=== PATIENT | male | born 1940 | race Caucasian/White ===

== ENCOUNTER → 2018-07-31 | Outpatient (CLI) | payer MEDICARE ==
[2018-07-31 15:15] LABS: INR 0.9 (<1.2); Prothrombin Time 10.2 sec (9.0-12.0)
== END | disposition home or self-care (01) ==
LOC: LABPAT 14:29
PROVIDERS: ATTEND Orthopaedic Surgery
DX: Z01.812 Encounter for preprocedural laboratory examination (principal); M16.12 Unilateral primary osteoarthritis, left hip; Z79.01 Long term (current) use of anticoagulants
CPT/HCPCS: 36415; 85610; 87070

== ENCOUNTER 2018-08-07 11:08 | Inpatient (IN) | payer MEDICARE ==
[2018-07-30 16:14] VITALS: BMI 25.8
--- NOTE | 2018-08-06 09:34 | HP ---
HISTORY AND PHYSICAL CHIEF COMPLAINT: Left hip pain. HISTORY OF PRESENT ILLNESS: The patient is a 78-year-old retired gentleman who presents with progressive left hip pain, worsening over the past couple years. He notes groin and thigh pain, worse with weightbearing activities. He notes this severely limits him. He has been limping. He has been taking anti-inflammatories with only partial temporary relief. PAST MEDICAL HISTORY: Significant for arthritis, heart disease, hypercholesterolemia, and hypertension. PAST SURGICAL HISTORY: Significant for cardiac catheterization. CURRENT MEDICATIONS: 1. Amlodipine. 2. Aspirin. 3. Atorvastatin. 4. Meloxicam. 5. Metoprolol. 6. Omeprazole. He has allergies to NAPROSYN. FAMILY HISTORY: Significant for diabetes, heart disease and cancer along with stroke. SOCIAL HISTORY: Significant for previous tobacco use and social alcohol use. REVIEW OF SYSTEMS: A 16-point review of systems otherwise reviewed and is noncontributory. PHYSICAL EXAMINATION: On examination, the patient is approximately 5 foot 8, 175 pounds of mesomorphic habitus. HEENT exam is nonfocal. Neck is supple. Passive motion left hip, flexion 85 degrees, external rotation with the hip flexed 55 degrees, internal rotation is 0 degrees with pain. Clinically, he has got 1 cm shortening left lower extremity compared to the right. His distal neurovascular appears intact otherwise in the left lower extremity. AP and lateral views of the left hip obtained in the office show severe osteoarthrosis with [id number] changes. IMPRESSION: 1. Left hip severe osteoarthrosis. 2. History of coronary artery disease, status post stenting. RECOMMENDATIONS: I talked to the patient and his at length regarding his condition and treatment options. At this point, he remains quite symptomatic despite conservative measures. After thorough discussion, he opts to proceed with surgery. We will plan to proceed with left total hip arthroplasty utilizing a direct anterior approach. We will likely institute DVT prophylaxis postoperatively. Patient underwent preoperative cardiac evaluation by Dr. Danielle Smyth. MMNEERUL / CARMENN: [id number] /
[~2018-08-07 11:08] MED LIST: ACETAMINOPHEN TAB 500 MG TAB PO ONE; DEXAMETHASONE SOD PHOSPHATE 10 MG/ML 1 ML VIAL IV ONE; HYDROmorphone 0.5 MG/0.5 ML SYRINGE IVP PRN; MELOXICAM 7.5 MG TAB PO ONE; MIDAZOLAM (PF) 2 MG/2 ML VIAL IV PRN; ONDANSETRON 4 MG/2 ML VIAL IVP ONE; TRANEXAMIC ACID 1,000 MG in SODIUM CHLORIDE 0.9% 100 ML IVPB ONE; ceFAZolin IN SWFI 2 GM/20 ML SYRINGE IVP ONE
[2018-08-07] MEDS: LACTATED RINGERS 1,000 ML IV SCH (11:59)
[2018-08-07] MEDS ORDERED: LIDOCAINE 1% 20 ML VIAL (10MG/ML) FOR IV START INTRADERMA ONE (12:00)
[2018-08-07] MEDS ORDERED: PROPOFOL 10 MG/ML 20 ML VIAL IV ONE (13:28)
[2018-08-07] MEDS ORDERED: SODIUM CHLORIDE 0.9% 100 ML BAG ONE (13:28)
[2018-08-07] MEDS ORDERED: fentaNYL (PF) 50 MCG/ML 2 ML AMP ONE (13:28)
[2018-08-07] MEDS ORDERED: TRANEXAMIC ACID 1,000 MG/10 ML VIAL ONE (13:28)
[2018-08-07] MEDS ORDERED: HEPARIN SODIUM,PORCINE 10,000 UNIT/ML 1 ML VIAL ONE (13:28)
[2018-08-07] MEDS ORDERED: SODIUM CHLORIDE 0.9% IRRIG 1,000 ML BTL IRRIGATION ONE (13:28)
[2018-08-07] MEDS ORDERED: MIDAZOLAM 2 MG/2 ML VIAL ONE (13:28)
[2018-08-07] MEDS ORDERED: LACTATED RINGERS 1,000 ML IV ONE ×2 (14:23→16:39)
[2018-08-07] MEDS ORDERED: HYDROcodone/APAP 5-325MG 1 EACH TAB PO PRN (15:59)
[2018-08-07] MEDS ORDERED: ACETAMINOPHEN TAB 325 MG TAB PO PRN (15:59)
[2018-08-07] MEDS ORDERED: ONDANSETRON 4 MG/2 ML VIAL IVP PRN (15:59)
[2018-08-07] MEDS ORDERED: HYDROcodone/APAP 7.5-325MG 1 EACH TAB PO PRN (15:59)
[2018-08-07] MEDS ORDERED: HYDROmorphone 0.5 MG/0.5 ML SYRINGE IVP PRN ×2 (15:59)
[2018-08-07] MEDS ORDERED: NALOXONE 0.4 MG/ML 1 ML VIAL IV PRN (15:59)
[2018-08-07] MEDS ORDERED: MAGNESIUM HYDROXIDE 2,400 MG/10 ML CUP PO PRN (15:59)
--- NOTE | 2018-08-07 16:17 | XR ---
Limited left hip HISTORY: Anterior hip replacement 4 intraoperative C-arm images document the procedure.
--- NOTE | 2018-08-07 16:17 | FL ---
Fluoroscopy HISTORY: Anterior hip replacement 56 seconds fluoroscopy time supplied to the referring clinician. 4 intraoperative C-arm images docum ent the procedure. See dictated report from orthopedic surgery.
--- NOTE | 2018-08-07 16:24 | P.OP ---
Date of Procedure: 08/07/18 Preoperative Diagnosis: Left hip severe osteoarthrosis Postoperative Diagnosis: Same Procedure(s) Performed: Left total hip arthroplastyanterior approach Implants: Depuy Corail size 12 standard press-fit collared femoral stem, 36 mm +1 cobalt chrome femoral head, 54 mm Tarzana acetabular shell with neutral polyethylene liner. Anesthesia: spinal Surgeon: Wayne Peguero Consumer Analyst #1: Teddy Penn Estimated Blood Loss (ml): 250 Pathology: other (Femoral head) Condition: stable Disposition: PACU Indications for Procedure: The patient is a 78-year-old male who presents with progressive left hip pain secondary to osteoarthrosis despite conservative measures. A discussion of the risks and benefits of operative intervention versus continued conservative measures was made with patient. He opted proceed with surgery. Operative risks to include infection, neurovascular injury, development of blood clots, possible fracture, possible leg length discrepancy, possible instability, and possible need for subsequent procedures was discussed. Informed consent was obtained. Operative Findings: As below Description of Procedure: The patient was brought to the operating room, and after induction of spinal anesthesia was placed supine on the Maria Elena table. Positioning was checked with fluoroscopy. The left hip was then prepped and draped in a normal fashion. A 12 cm incision was then made starting 2 fingerbreadths distal and 3 finger breaths posterior to the ASIS in line with the proximal femur. The skin was incised sharply. Subcutaneous tissues were divided sharply. Electrocautery was used for hemostasis. The fascia was split in line with skin incision. The interval between the sartorius and tensor fascia libra was then bluntly developed. The posterior fascia was opened with electrocautery. The lateral circumflex vessels were identified and cauterized prior to sectioning. A retractor was placed along the superior femoral neck as well as the anterior acetabular rim. A wide capsulotomy was performed. The neck cut was then made at a 45 angle to the shaft approximately 1 1/2 cm above the level of the lesser trochanter. The head was extracted. Attention was then paid towards preparing the acetabular. Anterior and posterior retractors were placed. The remaining capsular labral tissue sharply debrided clearly defining the acetabular margins. I began reaming with a 47 mm reamer taking care to initially medialize then reaming at 45 of abduction and 20 of anteversion. Sequential reaming is performed up to 53 mm. A trial for mm acetabular shell was inserted in the same orientation and was fully seated. There was good rim fit and stability. Positioning was checked with fluoroscopy. The final a 4 mm acetabular shell was inserted again at 45 of abduction and 20 of anteversion. This was fully seated. There was good rim fit and stability. I did place a 6.5 mm x 25 mm cancellus screw with good purchase. Again fluoroscopy was used to check the adequacy of placement. A neutral polyethylene liner was gently impacted. Care was taken to avoid any soft tissue interposition. Pulsatile lavage was utilized. Attention was then paid towards preparing the proximal femur. The saddle region was cleared of soft tissue. A canal finder was used to find the femoral canal. Sequential broaching was performed up to size 12 taking care to lateralize proximally. A calcar mill was used to fashion the medial calcar. There was good rotational stability. A standard neck along with a 36 mm +1 femoral head was placed. The hip was gently reduced. Fluoroscopy was used to check the adequacy of positioning along with leg lengths. I felt both were good. The hip was gently dislocated. The trial components were removed. The final size 12 collared standard press-fit femoral stem was inserted parallel to the posterior cortex. This was fully seated and there was good rotational stability. A 36 mm 1 cobalt chrome femoral head was placed. This was gently impacted. The hip was then gently reduced. Final fluoroscopic view showed adequate placement implant along with islam of leg length. Stability was checked with 80 of external rotation and 60 of extension of the left hip. The wound was irrigated with sterile lavage. The fascia was closed with running 0 Vicryl suture. There was minimal drainage therefore a deep drain was not placed. The second dose of IV TXA was given. The subcutaneous tissues were reapproximated interrupted 2-0 Vicryl sutures. The skin was reapproximated with 3-0 subcuticular strata fix suture. Skin tape and adhesive was applied. A sterile dressing was applied. The patient was then awoken from sedation and transferred to recovery room in good condition. Blood loss was estimated at 250 mL. No complications were incurred. Sponge and needle counts were correct at the end of the case. Dao AG assisted during the major components is case to include exposure, bone resection, implantation, and closure.
--- NOTE | 2018-08-07 16:46 | XR ---
Left hip single view. History postop. Comparison none. FINDINGS: There is a left hip prosthesis. Components appear in anatomic position. IMPRESSION: Left hip prosthesis. No complicating process seen.
[2018-08-07] MEDS: traMADol 50 MG TAB PO SCH ×2 (17:26→20:45)
[2018-08-07] MEDS: ceFAZolin IN SWFI 2 GM/20 ML SYRINGE IVP SCH ×2 (17:38→23:43)
[2018-08-07] MEDS: FAMOTIDINE 20 MG TAB PO SCH (20:45)
[2018-08-07] MEDS: METOPROLOL TARTRATE 25 MG TAB PO SCH (20:46)
[2018-08-07] MEDS ORDERED: ATORVASTATIN 40 MG TAB PO SCH (21:00)
[2018-08-07] MEDS ORDERED: SENNOSIDES-DOCUSATE SODIUM 1 EACH TAB PO SCH (21:00)
[2018-08-08] MEDS: LACTATED RINGERS 1,000 ML IV SCH (05:29)
[2018-08-08 08:05] VITALS: BP 127/75; PULSE 74; RESP 16; TEMP 98.9
[2018-08-08 08:59] LABS: Basophils % (A) 0 %; Eosinophils # (A) 0.1 k/uL (0-0.7); Eosinophils % (A) 1 %; HCT 31.5 % (39.0-53.0); HGB 10.3 gm/dL (13.0-17.5); Lymphocytes # (A) 1.4 k/uL (1.0-4.8); Lymphocytes % (A) 19 %; MCH 30.5 pg (25.0-35.0); MCHC 32.8 g/dL (31.0-37.0); MCV 93.2 fL (80.0-100.0); Mean Platelet Volume 8.2; Monocytes # (A) 0.7 k/uL (0-1.0); Monocytes % (A) 9 %; Neutrophils # (A) 5.3 k/uL (1.3-7.7); Neutrophils % (A) 70 %; Platelet Count 199 k/uL (150-450); RBC 3.38 m/uL (4.30-5.90); RDW 13.7 % (11.5-15.5); WBC 7.6 k/uL (3.8-10.6)
[2018-08-08] MEDS ORDERED: RIVAROXABAN 10 MG TAB PO SCH (09:00)
[2018-08-08] MEDS: METOPROLOL TARTRATE 25 MG TAB PO SCH (09:46)
[2018-08-08] MEDS: traMADol 50 MG TAB PO SCH ×2 (09:46→14:00)
[2018-08-08] MEDS: FAMOTIDINE 20 MG TAB PO SCH (09:46)
--- NOTE | 2018-08-08 12:17 | P.PN ---
Subjective Progress Note Date: 08/08/18 Principal diagnosis: Status post direct anterior left total hip arthroplasty Patient evaluated at bedside, he is resting comfortably. Patient has worked with physical therapy. His pain is well-controlled. Denies any chest pain or shortness of breath. Objective - Vital Signs Vital signs: Vital Signs Temp 98.9 F 08/08/18 07:38 Pulse 74 08/08/18 07:38 Resp 16 08/08/18 07:38 BP 127/75 08/08/18 07:38 Pulse Ox 92 L 08/08/18 07:38 Intake & Output 08/07/18 08/08/18 08/08/18 18:59 06:59 18:59 Intake Total 1800 420 Output Total 250 600 Balance 1550 -180 Intake: IV 1800 Intake, IV Titration 420 Amount Lactated Ringers 1,000 ml 420 @ 40 mls/hr IV .Q24H [facility] Rx#:[id number] Output: Urine 600 Estimated Blood Loss 250 Other: Voiding Method Toilet Toilet # Voids 1 - Exam Left lower extremity: Incision is clean, dry, and intact. The exofin fusion tape is in good condition. There is minimal soft tissue swelling and ecchymosis surrounding the medial and lateral aspects of the incision. Calf is soft, no tenderness with palpation. Plantar flexion, dorsiflexion, EHL, FHL are intact. Sensory exam to light touch throughout the extremity is intact, dorsal pedis pulses 2+. - Labs CBC & Chem 7: 08/08/18 08:22 Labs: Abnormal Lab Results - Last 24 Hours (Table) 08/08/18 Range/Units 08:22 RBC 3.38 L (4.30-5.90) m/uL Hgb 10.3 L (13.0-17.5) gm/dL Hct 31.5 L (39.0-53.0) % Assessment and Plan Plan: Assessment: Postop day 1 status post direct anterior left total hip arthroplasty Plan: Pain control, we'll discharge home on oral medication GI and DVT prophylaxis, plan for discharge on Eliquis 2.5mg bid Wound care instructions discussed Medical recommendations Therapy and nursing after discharge at home Plan for discharge to home today Time with Patient: Less than 30
--- NOTE | 2018-08-08 12:20 | P.DS ---
Providers Date of admission: 08/07/18 11:08 Expected date of discharge: 08/08/18 Attending physician: Wayne Peguero Primary care physician: Burak Raman MD Hospital Course: Date of admission: 08/07/2018 Date of discharge: 08/08/2018 Admission diagnosis: Status post direct anterior left total hip arthroplasty Discharge diagnosis: Same Attending physician: Dr. Peguero Surgical procedures: Direct anterior left total hip arthroplasty Brief history: Patient is a 78-year-old male with a history of progressive primary left hip osteoarthritis. At this point patient has failed conservative treatment measures and has opted to proceed with a elective direct anterior left total hip arthroplasty. Hospital course: Details of patient's surgery can be found in operative report. Patient tolerated the procedure well and was subsequently transported to orthopedic floor. Patient's orthopeidc and medical care was provided daily. Patient had daily laboratory tests performed for evaluation of overall blood counts. Patient had daily physical therapy to include strengthening range of motion as well as education with walker ambulation. Patient was treated with Xarelto for their postoperative DVT prophylaxis during their inpatient stay. Patient was noted to have a relatively uneventful postoperative course. Patient reported satisfactory pain control with oral pain medications by postoperative day 0. Patient showed satisfactory progress with physical therapy. Patient moved steadily through the program and had no difficulty meeting the goals by postoperative day 1. Given patient's otherwise satisfactory course and having met physical therapy goals, plan is to discharge patient home on postoperative day 1. Discharge condition/disposition: Patient will be discharged home in stable condition. Discharge medications: Instructions are given on resumption of patient's normal daily medications per primary care recommendation, in addition patient will be prescribed tramadol 50 mg, Colace 100 mg, Eliquis 2.5mg. Discharge instructions: 1. Wound care and infection precautions, keep incision dry and covered while showering, no lotions, creams, moisturizers. No soaking, tubs, pools, hottubs. Do not scrub over the incision. 2. Weight-bear as tolerated with walker / cane until follow-up. 3. Ice and elevate when necessary. Do not exceed 20 minutes per hour with ice pack. 4. Utilize compression sleeve until seen at first follow up appointment. 5. Visiting nursing care. 6. Home physical therapy. 7. Pain meds and anticoagulants per prescription. 8. Pain medication has potential to cause constipation. Increase oral fluid and fiber intake. Contact primary care provider if you have not had a bowel movement within 48 hours after discharge 9. No anti-inflammatory medication until discussed at first post operative visit, this including Motrin, Aleve, Mobic, Diclofenac. 10. Follow up in office at 2 weeks postop with Dao Penn PA-C 11. Follow up with your primary care doctor 7-10 days after discharge. 12. Contact [facility] with any questions, . Procedures: Direct anterior left total hip arthroplasty Patient Condition at Discharge: Good Plan - Discharge Summary Discharge Rx Participant: Yes New Discharge Prescriptions: New Apixaban [Eliquis] 2.5 mg PO BID #60 tab Docusate [Colace] 100 mg PO DAILY #30 capsule traMADol HCl [Ultram] 50 mg PO Q6H PRN #28 tab PRN Reason: Pain No Action Multivitamin [Men's Multi-Vitamin] 1 tab PO DAILY Aspirin 81 mg PO DAILY Metoprolol Tartrate [Lopressor] 25 mg PO BID #60 tab Ranitidine HCl [Zantac] 150 mg PO BID Fexofenadine HCl [Brittany Allergy] 180 mg PO DAILY Atorvastatin [Lipitor] 40 mg PO HS amLODIPine BESYLATE [Norvasc] 2.5 mg PO HS Meloxicam [Mobic] 15 mg PO DAILY Muse-3 Fatty Acids/Fish Oil [Fish Oil 1,000 mg Softgel] 1 cap PO DAILY Acetaminophen [Tylenol Extra Strength] 1,000 mg PO TID PRN PRN Reason: Pain Discharge Medication List Aspirin 81 mg PO DAILY 05/12/15 [History] Multivitamin [Men's Multi-Vitamin] 1 tab PO DAILY 05/12/15 [History] Metoprolol Tartrate [Lopressor] 25 mg PO BID #60 tab 05/13/15 [Rx] Acetaminophen [Tylenol Extra Strength] 1,000 mg PO TID PRN 07/30/18 [History] Atorvastatin [Lipitor] 40 mg PO HS 07/30/18 [History] Fexofenadine HCl [Brittany Allergy] 180 mg PO DAILY 07/30/18 [History] Meloxicam [Mobic] 15 mg PO DAILY 07/30/18 [History] Muse-3 Fatty Acids/Fish Oil [Fish Oil 1,000 mg Softgel] 1 cap PO DAILY [History] Ranitidine HCl [Zantac] 150 mg PO BID 07/30/18 [History] amLODIPine BESYLATE [Norvasc] 2.5 mg PO HS 07/30/18 [History] Apixaban [Eliquis] 2.5 mg PO BID #60 tab 08/08/18 [Rx] Docusate [Colace] 100 mg PO DAILY #30 capsule 08/08/18 [Rx] traMADol HCl [Ultram] 50 mg PO Q6H PRN #28 tab 08/08/18 [Rx] Follow up [facility]ointment(s[facility] - Teddy Penn PAC [PHYSICIAN RESERVATION SALES AGENT] - 2 Weeks Activity/Diet/Wound Care/Special Instructions: Orthopedic Discharge Instructions: 1. Wound care and infection precautions, keep incision dry and covered while showering, no lotions, creams, moisturizers. No soaking, pools, hot tubs. Do not scrub over incision. 2. Weight-bear as tolerated with walker / cane until follow-up. 3. Ice and elevate when necessary. Do not exceed 20 minutes per hour with ice pack. 4. Utilize compression sleeve until seen at first follow up appointment. 5. Pain meds and anticoagulants per prescription. 6. Pain medication has potential to cause constipation. Increase oral fluid and fiber intake. Contact primary care provider if you have not had a bowel movement within 48 hours after discharge. 7. No anti-inflammatory medication until discussed at first post operative visit, this including Motrin, Aleve, Mobic, Diclofenac. 8. Follow up in office at 2 weeks postop with Dao Penn PA-C 9. Follow up with your primary care doctor 7-10 days after discharge. 10. Contact [facility] with any questions, . Discharge Disposition: HOME WITH HOME HEALTH SERVICES
--- NOTE | 2018-08-08 15:27 | P.CONS ---
History of Present Illness - Reason for Consult Recommendations regarding antihypertensive medications - History of Present Illness 78-year-old pleasant gentleman was admitted for the left total hip arthroplasty and the pros patient did pass Denied any fever chills nausea vomiting abdominal pain. Patient is on very low-dose of amlodipine patient was not given this medication today in spite of which his blood pressure remains stable. Because of which I asked him to hold this medication check his visit pressure twice a day and take it to PCP who can make dictation regarding whether he needs this medication. Educated the patient regarding appropriate way of checking blood pressure. Patient pain is well controlled at this timeor symptoms of infection at this time. Review of Systems REVIEW OF SYSTEMS: CONSTITUTIONAL: No fever, no malaise, no fatigue. HEENT: No recent visual problems or hearing problems. Denied any sore throat. CARDIOVASCULAR: No chest pain, orthopnea, PND, no palpitations, no syncope. PULMONARY: No shortness of breath, no cough, no hemoptysis. GASTROINTESTINAL: No diarrhea, no nausea, no vomiting, no abdominal pain. NEUROLOGICAL: No headaches, no weakness, no numbness. HEMATOLOGICAL: Denies any bleeding or petechiae. GENITOURINARY: Denies any burning micturition, frequency, or urgency. MUSCULOSKELETAL/RHEUMATOLOGICAL: Denies any joint pain, swelling, or any muscle pain. ENDOCRINE: Denies any polyuria or polydipsia. The rest of the 14-point review of systems is negative. Past Medical History Past Medical History: Cancer, GERD/Reflux, Hyperlipidemia, Hypertension, Osteoarthritis (OA), Pneumonia, Sleep Apnea/CPAP/BIPAP Additional Past Medical History / Comment(s): ALLERGIC RHINITIS, SCIATICA, SHINGLES 2004(BACK OF HEAD), BASAL CELL SKIN CANCER, VERTIGO EPISODE X1., USES C -PAP MACHINE. History of Any Multi-Drug Resistant Organisms: None Reported Past Surgical History: Heart Catheterization With Stent Additional Past Surgical History / Comment(s): 05-12-15 HEART CATH WITH STENT TO LAD , BRENDA CATARACTS., SKIN CANCER REMOVAL. Past Anesthesia/Blood Transfusion Reactions: No Reported Reaction Date of Last Stent Placement:: 05/12/2015 Past Psychological History: No Psychological Hx Reported Smoking Status: Former smoker Past Alcohol Use History: Occasional Additional Past Alcohol Use History / Comment(s): QUIT SMOKING OVER 45 YEARS AGO , SMOKED FOR 8 YEARS -1 PACK WOULD LAST 1 WEEK. Past Drug Use History: None Reported - Past Family History Brother(s) Family Medical History: Cancer, Diabetes Mellitus, Myocardial Infarction ([place]), Renal Disease Additional Family Medical History / Comment(s): LEUKEMIA, PROSTATE CANCER, DIALYSIS Sister(s) Family Medical History: Cancer Additional Family Medical History / Comment(s): LEUKEMIA Mother Family Medical History: Congestive Heart Failure (CHF), Myocardial Infarction ( [place]) Additional Family Medical History / Comment(s): AT AGE 92 OF CHF Father Family Medical History: CVA/TIA Additional Family Medical History / Comment(s): FROM COMPLICATIONS FROM A STROKE AT AGE 58 Medications and Allergies Home Medications Medication Instructions Recorded Confirmed Type Aspirin 81 mg PO DAILY 05/12/15 08/07/18 History Multivitamin [Men's Multi-Vitamin] 1 tab PO DAILY 05/12/15 08/07/18 History Metoprolol Tartrate [Lopressor] 25 mg PO BID #60 tab 05/13/15 08/07/18 Rx Acetaminophen [Tylenol Extra 1,000 mg PO TID PRN 07/30/18 08/07/18 History Strength] Atorvastatin [Lipitor] 40 mg PO HS 07/30/18 08/07/18 History Fexofenadine HCl [Brittany Allergy] 180 mg PO DAILY 07/30/18 08/07/18 History Meloxicam [Mobic] 15 mg PO DAILY 07/30/18 08/07/18 History [place]-3 Fatty Acids/Fish Oil [Fish 1 cap PO DAILY 07/30/18 08/07/18 History Oil 1,000 mg Softgel] Ranitidine HCl [Zantac] 150 mg PO BID 07/30/18 08/07/18 History amLODIPine BESYLATE [Norvasc] 2.5 mg PO HS 07/30/18 08/07/18 History Apixaban [Eliquis] 2.5 mg PO BID #60 tab 08/08/18 Rx Docusate [Colace] 100 mg PO DAILY #30 capsule 08/08/18 Rx traMADol HCl [Ultram] 50 mg PO Q6H PRN #28 tab 08/08/18 Rx Allergies Allergy/AdvReac Type Severity Reaction Status Date / Time naproxen [From Naprosyn] Allergy Rash/Hives Verified 08/07/18 17:18 Physical Exam Vitals: Vital Signs Temp Pulse Pulse Resp BP Pulse Ox 08/08/18 07:38 98.9 F 74 16 127/75 92 L 08/08/18 00:00 98.1 F 68 18 108/53 95 08/07/18 19:00 62 96/62 08/07/18 18:45 66 101/63 08/07/18 18:30 70 105/69 08/07/18 18:15 66 117/72 08/07/18 18:00 65 109/68 08/07/18 17:45 65 108/66 08/07/18 17:30 65 99/70 08/07/18 17:15 64 155/90 08/07/18 16:57 98.4 F 64 15 168/86 93 L 08/07/18 16:45 61 16 155/82 95 08/07/18 16:30 56 L 14 154/77 94 L 08/07/18 16:17 98.6 F 59 L 12 141/74 94 L Intake and Output 08/08/18 08/08/18 08/08/18 06:59 14:59 22:59 Intake Total 280 Balance 280 Intake: Intake, IV Titration 280 Amount Lactated Ringers 1,000 ml 280 @ 40 mls/hr IV .Q24H [facility] Rx#:[id number] Other: Voiding Method Toilet # Voids 1 PHYSICAL EXAMINATION: GENERAL: The patient is alert and oriented x3, not in any acute distress. Well developed, well nourished. HEENT: Pupils are round and equally reacting to light. EOMI. No scleral icterus. No conjunctival pallor. Normocephalic, atraumatic. No pharyngeal erythema. No thyromegaly. CARDIOVASCULAR: S1 and S2 present. No murmurs, rubs, or gallops. PULMONARY: Chest is clear to auscultation, no wheezing or crackles. ABDOMEN: Soft, nontender, nondistended, normoactive bowel sounds. No palpable organomegaly. MUSCULOSKELETAL: Deferred to orthopedic surgery EXTREMITIES: No cyanosis, clubbing, or pedal edema. NEUROLOGICAL: Gross neurological examination did not reveal any focal deficits. SKIN: No rashes. Results CBC & Chem 7: 08/08/18 08:22 Labs: Abnormal Lab Results - Last 24 Hours (Table) 08/08/18 Range/Units 08:22 RBC 3.38 L (4.30-5.90) m/uL Hgb 10.3 L (13.0-17.5) gm/dL Hct 31.5 L (39.0-53.0) % Assessment and Plan Plan: -Left hip arthroplasty postoperative day one, patient is clinically doing well pain management due to prophylaxis as per primary service patient appears to be on Eliquis for her DVT prophylaxis. Patient is medically stable to be discharged. -Hypertension: Management as mentioned in the interval history discharge medication reconciliation was reviewed and corrected as needed. -Hyperlipidemia -Gastroesophageal reflux disease -Sleep apnea uses CPAP machine at home.
== END 2018-08-08 14:57 | disposition home health service (06) | DRG 470 ==
LOC: 2ORMAIN 11:08 → 4SSUR 16:15
PROVIDERS: ADMIT Orthopaedic Surgery; ATTEND Orthopaedic Surgery
PROC: 0SRB02A Replacement of Left Hip Joint with Metal on Polyethylene Synthetic Substitute, Uncemented, Open Approach (ICD-10-PCS; principal; 2018-08-07 13:10)
DX: M16.12 Unilateral primary osteoarthritis, left hip (principal); I34.0 Nonrheumatic mitral (valve) insufficiency; E78.00 Pure hypercholesterolemia, unspecified; I10 Essential (primary) hypertension; E78.5 Hyperlipidemia, unspecified; G47.33 Obstructive sleep apnea (adult) (pediatric); K21.9 Gastro-esophageal reflux disease without esophagitis; I25.10 Atherosclerotic heart disease of native coronary artery without angina pectoris; J30.9 Allergic rhinitis, unspecified; M54.30 Sciatica, unspecified side; Z79.82 Long term (current) use of aspirin; Z79.1 Long term (current) use of non-steroidal anti-inflammatories (NSAID); Z79.899 Other long term (current) drug therapy; Z99.89 Dependence on other enabling machines and devices; Z95.5 Presence of coronary angioplasty implant and graft; Z85.828 Personal history of other malignant neoplasm of skin; Z87.891 Personal history of nicotine dependence; Z86.19 Personal history of other infectious and parasitic diseases; Z98.42 Cataract extraction status, left eye; Z98.41 Cataract extraction status, right eye; Z87.01 Personal history of pneumonia (recurrent); Z88.8 Allergy status to other drugs, medicaments and biological substances; Z83.3 Family history of diabetes mellitus; Z82.49 Family history of ischemic heart disease and other diseases of the circulatory system; Z82.3 Family history of stroke; Z80.42 Family history of malignant neoplasm of prostate; Z80.6 Family history of leukemia; Z84.1 Family history of disorders of kidney and ureter
CPT/HCPCS: 73501; 85025; 86850; 86891; 86900; 86901

== ENCOUNTER → 2019-11-21 | Outpatient (CLI) | payer MEDICARE ==
--- NOTE | 2019-11-21 18:41 | CONS ---
CONSULTATION DATE OF SERVICE: 11/21/2019 This patient is a 79-year-old gentleman who has been evaluated in [facility] Center for obstructive sleep apnea-hypopnea syndrome. HISTORY OF PRESENT ILLNESS/SLEEP-WAKE EVALUATION: Patient has had obstructive sleep apnea-hypopnea syndrome since about 2007. He has been using the same CPAP equipment since that time. He is using CPAP equipment every night for the whole night and, according to the patient's , he sleeps well with the machine, does not snore, wakes up once with nocturia. His usual sleep schedule is from 10:30 p.m. to 6 or 7 a.m. No history of hypnagogic hallucinations, sleep paralysis or cataplexy. [place] Sleepiness Scale is 10, which is borderline. PAST MEDICAL HISTORY: Positive for hypertension, hyperlipidemia, arthritis, acid reflux. PAST SURGICAL HISTORY: Hip replacement in July of 2018. SOCIAL HISTORY: Quit smoking about 50 years ago. Alcohol consumption occasional. FAMILY HISTORY: Heart problems, stroke, diabetes. REVIEW OF SYSTEMS: Very rare snoring; otherwise negative. PHYSICAL EXAMINATION: GENERAL: A pleasant gentleman without distress. VITAL SIGNS: BP 178/75, HR 54, RR 16, height 5 feet 7-1/2 inches, weight 189, body mass index 29.1, temperature 98.0, oxygen saturation at room air 96%. HEENT: PERRLA, EOMI. Evaluation of oropharynx showed tongue protrudes midline. Low position of soft palate. NECK: Supple. No JVD. Thyroid is not palpable. LUNGS: Clear to percussion and to auscultation. Good air exchange. No wheezing or rhonchi. HEART: S1, S2 regular. No murmurs, gallops or rubs. ABDOMEN: Soft and nontender. Bowel sounds are present. No organomegaly. EXTREMITIES: No clubbing or cyanosis. VIDEO PRODUCTION ASSISTANT: Awake, alert, and oriented X3. Cranial nerves 2 to 7 intact. There is no fasciculation or atrophy. noted. No focal deficits observed. IMPRESSION: 1. Obstructive sleep apnea-hypopnea syndrome since 2007. The patient continues to use CPAP equipment every night for the whole night. I checked his CPAP unit. Usage is 29/30 nights for more than 7 hours. Pressure is 12 cm of water. 2. Mildly overweight. Body mass index 29.1. 3. Hypertension. 4. Hyperlipidemia. 5. History of arthritis. 6. Acid reflux. 7. Status post hip replacement. PLAN: 1. Prescription to replace CPAP unit. The patient will get a new machine. 2. The patient will continue to use CPAP equipment every night for the whole night. 3. Watching weight. 4. Sleep hygiene with regular time in bed for at least 7-1/2 to 8 hours. 5. Follow-up visit after 30 days of using the new machine to check apnea-hypopnea index and compliance. Thank you very much for allowing me to participate in the management of your patient. Sincerely, Marquis Ruth MD, PhD, FAASM Diplomat of [employer] [employer] [employer] Manager Of [facility] [place] MMODL / IJN: [id number] /
== END | disposition home or self-care (01) ==
LOC: SLEEP 15:09
PROVIDERS: ATTEND Internal Medicine
DX: G47.33 Obstructive sleep apnea (adult) (pediatric) (principal); E66.3 Overweight; Z68.29 Body mass index [BMI] 29.0-29.9, adult; I10 Essential (primary) hypertension; E78.5 Hyperlipidemia, unspecified; K21.9 Gastro-esophageal reflux disease without esophagitis; Z87.39 Personal history of other diseases of the musculoskeletal system and connective tissue; Z96.649 Presence of unspecified artificial hip joint; Z99.89 Dependence on other enabling machines and devices; Z87.891 Personal history of nicotine dependence
CPT/HCPCS: 99211

== ENCOUNTER → 2020-05-15 | Outpatient (CLI) | payer OTHER ==
--- NOTE | 2020-05-17 22:29 | CT ---
EXAMINATION TYPE: CT CervThorLumbar spine wo con DATE OF EXAM: 05/15/2020 COMPARISON: 05/04/2020 thoracic spine x-ray HISTORY: Mid back pain with history of cancer CT DLP: 978.6 mGycm Automated exposure control for dose reduction was used. FINDINGS: There is straightening of the cervical spine in sagittal plane. Some kyphosis centered at the C5-6 le lee ann may be present. There is a severe compression deformity of T7. There is some straightening to the lower thoracic spin e at the thoracolumbar junction and There is a grade 1 spondylolisthesis of L4 anterior to L5. Schmorl's node is present at L1. Cervical spine: Facet hypertrophy and uncovertebral joint hypertrophy at C3-4 level has mild foramina l narrowing. Moderate to severe left foraminal narrowing is present C4-5 due to uncovertebral joint h ypertrophy and some facet hypertrophy. Thoracic spine: There is a lytic lesion within the T7 vertebral body. A burst fracture is present. Posterior wall dis placement is present. On soft tissue windows no definite AP spinal canal stenosis is present. Sagitta l plane however does suggest proximal 0.3 cm mid posterior wall displacement. Some anterior wall disp lacement is also noted. Lumbar spine: Broad-based disc bulging is noted at L2-L3 with mild anterior thecal sac flattening, moderate at L3-4 along with facet hypertrophy and ligamentum flavum laxity contributing to some spinal canal stenosis at the L3-4 level. Broad-based disc bulge is present L4-5 with a minimal grade 1 spondylolisthesis. Disc uncovering is present. Facet hypertrophy and ligamentum flavum laxity is present causing severe foraminal stenosis. IMPRESSION: SUSPICIOUS LYTIC LESION WITHIN THE BURST FRACTURE AT THE T7 LEVEL. THERE IS APPROXIMATELY 0.3 CM POST ERIOR WALL DISPLACEMENT WITHOUT STENOSIS. 2. DEGENERATIVE DISC CHANGES C5-6 AND C6-7. 3. SEVERE SPINAL CANAL STENOSIS DUE TO DISC BULGING, DISC UNCOVERING FROM A GRADE 1 SPONDYLOLISTHESIS OF L4-5 WELL FACET HYPERTROPHY AND LIGAMENTUM FLAVUM LAXITY. 4 MILDER SPINAL CANAL STENOSIS MA Y BE PRESENT AT L3-4 DUE TO FACET HYPERTROPHY AND LIGAMENTUM FLAVUM LAXITY AND DISC BULGING. 5. SEVERE FORAMINAL STENOSIS WITHIN THE UPPER CERVICAL SPINE DUE TO FACET HYPERTROPHY AND UNCOVERTEBR AL JOINT HYPERTROPHY APPEARS GREATEST AT C4-C5
== END | disposition home or self-care (01) ==
LOC: RADCTMAIN 10:47
PROVIDERS: ATTEND Orthopaedic Surgery
DX: M48.02 Spinal stenosis, cervical region (principal); M47.812 Spondylosis without myelopathy or radiculopathy, cervical region; M48.061 Spinal stenosis, lumbar region without neurogenic claudication; M51.26 Other intervertebral disc displacement, lumbar region; M43.16 Spondylolisthesis, lumbar region; M47.816 Spondylosis without myelopathy or radiculopathy, lumbar region; Z88.6 Allergy status to analgesic agent
CPT/HCPCS: 72125; 72128; 72131

== ENCOUNTER → 2020-05-22 | Outpatient (CLI) | payer OTHER ==
--- NOTE | 2020-05-22 13:22 | US ---
EXAMINATION TYPE: US venous doppler duplex LE BI DATE OF EXAM: 05/22/2020 1:09 PM COMPARISON: NONE CLINICAL HISTORY: M79.662 pain in limb, M79.661 pain in limb. SIDE PERFORMED: Bilateral TECHNIQUE: The lower extremity deep venous system is examined utilizing real time linear array sonog leonora with graded compression, doppler sonography and color-flow sonography. VESSELS IMAGED: Common Femoral Vein Deep Femoral Vein Greater Saphenous Vein * Femoral Vein Popliteal Vein Small Saphenous Vein * Proximal Calf Veins (* superficial vessels) Right Leg: Negative for DVT Left Leg: Negative for DVT Preliminary results phoned to Dana at Dr. Bush's office. IMPRESSION: 1. Bilateral lower extremity ultrasound negative for deep venous thrombosis.
== END | disposition home or self-care (01) ==
LOC: RADUSWWP 12:42
PROVIDERS: ATTEND Internal Medicine Hematology & Oncology
DX: M79.662 Pain in left lower leg (principal); M79.661 Pain in right lower leg
CPT/HCPCS: 93970

== ENCOUNTER → 2020-05-27 | Outpatient (CLI) | payer OTHER ==
--- NOTE | 2020-05-27 13:55 | MR ---
EXAMINATION TYPE: MR cieraine/krystina wo/w con DATE OF EXAM: 05/27/2020 11:20 AM COMPARISON: NONE HISTORY: Cervicalgia, low back pain CONTRAST: The patient was injected with 7.5 mL intravenous Gadavist gadolinium contrast. Multiplanar MultiSpin echo imaging of the cervical spine was performed. C2-C3: No evidence for degenerative disc disease. No disc bulge/herniation or protrusion. No Canal stenosis. Foramina are patent bilaterally. C3-C4: There is moderate decreased signal ossified compatible degenerative disc disease. Posterior di sc bulging with effacement of the ventral thecal sac and borderline to mild central stenosis noted. L eft greater than right foraminal encroachment identified. C4-C5: Moderate disc desiccation with mild posterior disc bulge. Mild effacement of the ventral theca l sac without evidence for herniation protrusion or central stenosis. Left greater than right foramin al encroachment. C5-C6: Severe disc desiccation with grade 1 anterolisthesis of C5 on C6 of 3 mm. This appears chronic in nature and is related to degenerative change of the cervical apophyseal joints. Mild bilateral fo raminal encroachment. Distortion of the thecal sac without evidence for central stenosis or herniatio n. C6-C7:Moderate disc desiccation with mild posterior disc bulge. Mild effacement of the ventral thecal sac without evidence for herniation protrusion or central stenosis. Left greater than right foramina l encroachment. C7-T1: No evidence for degenerative disc disease. No disc bulge/herniation or protrusion. No Canal stenosis. Foramina are patent bilaterally. No cervical spine fracture. There is normal alignment. Cervical spinal cord is of normal signal. C raniovertebral junction relationships are within normal limits. No pathologic enhancement. IMPRESSION: 1. Multilevel degenerative disc disease as discussed. 2. Borderline to mild central stenosis at C3-4. 3. Grade 1 anterolisthesis of C5 on C6. EXAMINATION TYPE: MR duane/krystina wo/w con DATE OF EXAM: 05/27/2020 11:20 AM COMPARISON: NONE HISTORY: Cervicalgia, low back pain CONTRAST: The patient was injected with 7.5 mL intravenous Gadavist gadolinium contrast. Multiplanar, MultiSpin echo imaging of the lumbar spine was performed. L1-L2: There is mild decreased signal ossified compatible degenerative disc disease. Mild posterior d isc bulge noted. No evidence for disc herniation or protrusion. No evidence for central stenosis . Fo ramina are patent bilaterally. L2-L3: There is mild decreased signal ossified compatible degenerative disc disease. Mild posterior d isc bulge noted. No evidence for disc herniation or protrusion. No evidence for central stenosis . Fo ramina are patent bilaterally. L3-L4: There is mild decreased signal ossified compatible degenerative disc disease. Mild posterior d isc bulge noted. No evidence for disc herniation or protrusion. No evidence for central stenosis . Fo ramina are patent bilaterally. L4-L5: There is grade 1 anterolisthesis of L4 and L5 measuring approximately 5.3 mm. Posterior disc b ulge noted with effacement of the ventral thecal sac. Severe central stenosis identified. Bilateral f oraminal encroachment. No evidence for spondylolysis. L5-S1: Normal disc appearance without desiccation. No herniation, protrusion or disc bulging. No ca nal stenosis is present. Foramina are patent bilaterally. Lumbar segments are intact. No paraspinal masses are identified. Conus medullaris has a normal appe arance. IMPRESSION: 1. Multilevel degenerative disc disease. 2. Severe central stenosis at L4-5 as noted above.
== END | disposition home or self-care (01) ==
LOC: RADMRIMAIN 08:49
PROVIDERS: ATTEND Orthopaedic Surgery
DX: M48.02 Spinal stenosis, cervical region (principal); M48.061 Spinal stenosis, lumbar region without neurogenic claudication; M50.30 Other cervical disc degeneration, unspecified cervical region; M51.36 Other intervertebral disc degeneration, lumbar region; M43.12 Spondylolisthesis, cervical region
CPT/HCPCS: 72156; 72158; A9585

== ENCOUNTER → 2020-05-28 | Outpatient (CLI) | payer OTHER ==
--- NOTE | 2020-05-29 03:04 | MR ---
EXAMINATION TYPE: MR thoracic spine wo/w con DATE OF EXAM: 05/28/2020 COMPARISON: CT scan 05/15/2020 HISTORY: Rib pain x 6 months CONTRAST: Standard multiplanar, multisequence MRI departmental protocol utilizing 7.5 mL intravenous Gadavist g adolinium contrast. Thoracic vertebra have fairly normal alignment. There is 50% compression deformity of T7 vertebral bravo dy with decreased signal T1 images. There is mild enhancement of the compressed vertebral body extend ing into the pedicles bilaterally. There is posterior fragment extension into the spinal canal with s light narrowing of the spinal canal. There is no evidence of cord edema. There is degenerative disc space narrowing at C5-6 and C6-7 with spurring of the endplates. There is slight cervical kyphotic deformity at C5-6. Cervical spinal cord shows no edema. There is a mild rela tive spinal stenosis at C3-4 that measures 6.5 mm. IMPRESSION: Pathologic compression fracture of T7 vertebral body with enhancement pattern extending into the pedi cles. This is consistent with metastatic disease. Spondylotic changes in the cervical spine as above. Compression fracture not significantly different than recent CT scan of 05/15/2020.
== END | disposition home or self-care (01) ==
LOC: RADMRIMAIN 13:37
PROVIDERS: ATTEND Orthopaedic Surgery
DX: M48.54XA Collapsed vertebra, not elsewhere classified, thoracic region, initial encounter for fracture (principal)
CPT/HCPCS: 72157; A9585

== ENCOUNTER → 2020-09-08 | Outpatient (CLI) | payer OTHER | LOC: CPPFTMAIN 11:45 | PROVIDERS: ATTEND Internal Medicine Hematology & Oncology | DX: Z01.818 Encounter for other preprocedural examination (principal) | CPT/HCPCS: 94060; 94726; 94729 ==

== ENCOUNTER → 2021-02-10 | Outpatient (CLI) | payer OTHER ==
--- NOTE | 2021-02-11 09:44 | SFUN ---
SLEEP CENTER FOLLOW UP NOTE DATE OF SERVICE: 02/10/2021 80-year-old gentleman has been followed in Sleep Center for treatment of obstructive sleep apnea-hypopnea syndrome. Last time I saw patient in November of last year. The patient continues to use his CPAP equipment, but the machine is very old and it is difficult to start the machine. [place] Sleepiness Scale today is 5. I tried to check CPAP unit, but I was not able to start it. CURRENT MEDICATIONS: Fexofenadine 180 mg once a day, atorvastatin 40 mg once a day, famotidine 20 mg twice a day, gabapentin 300 mg 3 or 4 times a day, metoprolol 25 mg twice a day, mometasone 50 mcg 2 sprays twice a day, montelukast once a day, Revlimid 10 mg once a day, 800 mg twice a day, multivitamins, vitamin D supplements. PHYSICAL EXAMINATION: GENERAL: Patient in no distress. BP 148/83, HR 71, RR 15, height 5 feet 7 inches, weight 160.8, body mass index 25.0, temperature 97.3, oxygen saturation at room air 98%. Oropharynx low position of soft palate. NECK: Supple, no JVD. Thyroid is not palpable. LUNGS: Clear to percussion and to auscultation. Good air exchange. No wheezing or rhonchi. HEART: S1, S2 regular. No murmurs, gallops, or rubs. ABDOMEN: Soft and nontender. Bowel sounds are present. No organomegaly appreciated. EXTREMITIES: No clubbing or cyanosis. YOUTH COORDINATOR: Awake, alert, and oriented X3. Cranial nerves 2 to 7 intact. There is no fasciculation or atrophy. noted. No focal deficits observed. IMPRESSION: 1. Obstructive sleep apnea-hypopnea syndrome since 2007. The patient continues to use CPAP equipment every night, but his machine is very old and not always working. 2. History of multiple myeloma. 3. Hypertension. 4. Hyperlipidemia. 5. History of arthritis. 6. Acid reflux. 7. Status post left hip replacement. PLAN: 1. Prescription to replace CPAP unit to automatic unit. I put the pressure 5-15 cm of water with all necessary CPAP supplies including heated tube and nasal mask. 2. Patient should use equipment every night for the whole night. 3. I will see patient for follow-up visit in the 30-90 days after he will get new machine to evaluate clinical response on treatment, compliance with treatment and make any necessary adjustments related to mask fitting pressure and humidification. Thank you very much for allowing me to participate in management of your patient. Sincerely, Marquis Ruth MD, PhD, FAASM Diplomat of [place] [employer] Sleep Medicine Board of [place] [employer] Product Marketing Analyst of [facility] [place] MMODL / CARMENN: [id number] /
== END | disposition home or self-care (01) ==
LOC: SLEEP 13:49
PROVIDERS: ATTEND Internal Medicine
DX: G47.33 Obstructive sleep apnea (adult) (pediatric) (principal); I10 Essential (primary) hypertension; E78.5 Hyperlipidemia, unspecified; M19.90 Unspecified osteoarthritis, unspecified site; K21.9 Gastro-esophageal reflux disease without esophagitis; Z85.79 Personal history of other malignant neoplasms of lymphoid, hematopoietic and related tissues; Z96.642 Presence of left artificial hip joint

== ENCOUNTER 2021-09-08 09:37 | Day surgery (SDC) | payer MEDICARE, OTHER ==
[~2021-09-08 09:37] MED LIST changes: -ACETAMINOPHEN TAB 500 MG TAB PO ONE; +ALPRAZolam 0.25 MG TAB PO PRN; +ALPRAZolam 0.5 MG TAB PO PRN; +ASPIRIN 325 MG TAB PO STA; -DEXAMETHASONE SOD PHOSPHATE 10 MG/ML 1 ML VIAL IV ONE; +HEPARIN SODIUM,PORCINE 10,000 UNIT in SODIUM CHLORIDE 0.9% 1,000 ML IRRIGATION PRN; +HEPARIN SODIUM,PORCINE 2,500 UNIT in SODIUM CHLORIDE 0.9% 250 ML IRRIGATION PRN; -HYDROmorphone 0.5 MG/0.5 ML SYRINGE IVP PRN; -MELOXICAM 7.5 MG TAB PO ONE; -MIDAZOLAM (PF) 2 MG/2 ML VIAL IV PRN; +NITROGLYCERIN SL TABS 0.4 MG TAB SUBLINGUAL PRN; -ONDANSETRON 4 MG/2 ML VIAL IVP ONE; -TRANEXAMIC ACID 1,000 MG in SODIUM CHLORIDE 0.9% 100 ML IVPB ONE; -ceFAZolin IN SWFI 2 GM/20 ML SYRINGE IVP ONE
[2021-09-08] MEDS: SODIUM CHLORIDE 0.9% 1,000 ML in EMPTY BAG 1 BAG IV SCH ×2 (10:13→21:05)
[2021-09-08] MEDS ORDERED: LIDOCAINE 1% INJ 10MG/ML (20 ML MDV) ONE (11:41)
[2021-09-08] MEDS ORDERED: VERAPAMIL 2.5 MG/ML 2 ML AMP ONE (11:42)
[2021-09-08] MEDS ORDERED: HEPARIN SODIUM 1,000 UN/ML (10ML VL) ONE (11:58)
[2021-09-08] MEDS: MIDAZOLAM 2 MG/2 ML VIAL IV ONE ×2 (12:07→12:14)
[2021-09-08] MEDS ORDERED: LIDOCAINE 1% INJ 10MG/ML (20 ML MDV) SQ ONE ×2 (12:08→12:09)
[2021-09-08] MEDS: VERAPAMIL SYRINGE (5 MG/10 ML) INTRAARTER ONE ×2 (12:10→13:42)
[2021-09-08] MEDS: HEPARIN SODIUM 1,000 UN/ML (10ML VL) IV ONE ×4 (12:14→13:46)
[2021-09-08] MEDS ORDERED: IOPAMIDOL-370 100ML BTL INJ ONE ×3 (12:54→13:44)
[2021-09-08] MEDS ORDERED: NITROGLYCERIN 1000MCG/10ML SYRINGE INTRACORON ONE (13:38)
[2021-09-08] MEDS ORDERED: TICAGRELOR 90 MG TAB ONE (13:45)
[2021-09-08] MEDS ORDERED: TICAGRELOR 90 MG TAB PO ONE (13:46)
[2021-09-08] MEDS ORDERED: ACETAMINOPHEN TAB 500 MG TAB PO PRN (13:50)
[2021-09-08] MEDS ORDERED: ZOLPIDEM 5 MG TAB PO PRN (13:53)
[2021-09-08] MEDS ORDERED: RX INFO: IV CONTRAST WAS GIVEN 1 EACH MISC MISCELLANE PRN (13:53)
[2021-09-08] MEDS ORDERED: ATROPINE SULFATE 0.1 MG/ML 10ML SYRINGE IV PRN (13:53)
[2021-09-08] MEDS ORDERED: MAG HYDROX/AL HYDROX/SIMETH 30 ML CUP PO PRN (13:53)
[2021-09-08] MEDS ORDERED: FLUTICASONE 50MCG/SPRAY NASAL 16GM EA NOSTRIL PRN (14:55)
--- NOTE | 2021-09-08 19:38 | CC ---
CARDIAC CATHETERIZATION REPORT CARDIAC CATHETERIZATION AND PERCUTANEOUS TRANSLUMINAL CORONARY ANGIOPLASTY REPORT: DATE OF SERVICE: 09/08/2021. PROCEDURES: 1. Left heart catheterization and coronary angiography. 2. Percutaneous transluminal coronary angioplasty and stenting with orbital atherectomy of proximal/ostial LAD and mid LAD. PERFORMED BY: Dr. Danielle Smyth. Moderate conscious sedation time was 99 minutes. CLINICAL INFORMATION: Mr. Huseyin Mullins is an 81-year-old gentleman with a history of hypertension, hyperlipidemia and CAD who underwent stenting of mid LAD performed by Dr. Sheila Smyth during May 2015. Because of symptoms of increasing shortness of breath I saw the patient and performed a stress test. He had transient ischemic dilatation and also an inferolateral reversible defect. He was therefore advised cardiac catheterization after due discussion regarding risks, benefits and options. PROCEDURE NOTE: Under local anesthesia and strict aseptic precautions, a 6-[place] introducer was placed in the right radial artery. I used a JL3.5 and JR4 catheters and performed coronary angiography and used the same right Fernando catheter to check LV pressures, but did not perform an LV-gram. I noted that he had an ostial LAD lesion, heavily calcified, and proceeded to perform intervention in the same setting. LAD in the mid portion that were stented was patent, but beyond the stented segment there was an area of about 60% narrowing noted as well. The circumflex was nondominant, moderately calcified, disease- free. RCA was heavily calcified, especially in the proximal/ostial region, but no significant disease; a dominant vessel. He was advised intervention that was performed in the same setting of proximal LAD along with orbital atherectomy. CARDIAC CATHETERIZATION FINDINGS: The left ventricular end-diastolic pressure was 8 mmHg without any gradient across the aortic valve. CORONARY ANGIOGRAPHY FINDINGS: LEFT MAIN CORONARY ARTERY: Short patent vessel, less than 10% narrowing; bifurcates into LAD and circumflex. LEFT ANTERIOR DESCENDING CORONARY ARTERY: Good-caliber vessel, has a 99% ostial lesion, probably a chronic [employer]EL[employer] that fills antegradely and slowly fills the entire LAD and its diagonal branch. Mid LAD has a 60% narrowing. Previously stented segment appears to be patent. Distal LAD has minor irregularities, gives off several septal branches. LEFT POSTERIOR CIRCUMFLEX CORONARY ARTERY: This is a nondominant vessel, moderately calcified, gives off two obtuse marginal branches; actually one obtuse marginal that divides into two and an AV groove branch. No significant disease. RIGHT CORONARY ARTERY: Dominant vessel, moderately calcified, mild 30% narrowing in the proximal portion. Distally it bifurcates into PDA and PLV. No significant disease. FINAL IMPRESSION: This patient has normal filling pressures. No gradient. A right-dominant system with calcified RCA and circumflex without significant disease. Ostial LAD has a probably chronic total occlusion with heavy calcification, but the rest of LAD seems to fill well. Mid LAD has 60%. RECOMMENDATIONS: I recommended PCI of LAD along with orbital atherectomy and performed this in the same setting. PCI PROCEDURE DETAILS: I used an XB LAD 3.5 guide catheter to cannulate the left coronary artery. Using a 45- degree Super Cross and a Whisper J wire, I crossed the total occlusion in the ostial LAD and advanced it all the way into the distal aspect. Using the same Super Cross catheter, I exchanged this wire to a nitinol orbital atherectomy wire. I then performed orbital atherectomy with about 5 passes. Three passes were at slow speed and two passes with a high-speed, and this improved the compliance of the lesion quite a bit. I then performed PTCA with a noncompliant balloon of 3.0 caliber 15 mm length in the proximal LAD with improvement in angiographic appearance and flow. I tried to advance the same balloon distally, but I could not. There was an angulation right after the previous stent. Using the same balloon, I dilated within the previous stent as well. I then tried to advance a 3.5 caliber stent into the mid LAD, but had considerable difficulty. I was doing all this intervention with a nitinol wire, and then I decided to use a run-through wire as a second wire. Then over the run-through wire I advanced a 3.5 caliber NC Trek balloon and dilated the mid LAD just after the previously placed stent. There was significant improvement in angiographic appearance. I then deployed a 4.0 caliber 15 mm long Xience stent at the ostium of the LAD and another 3.5 caliber 15 mm long stent in the mid LAD beyond the previous stent, and also the old stent was dilated with the same 3.5 balloon. Excellent angiographic result without complication was achieved. Patient's ACT was about 278. He received intravenous heparin and also received 180 mg of Brilinta. The sheath was taken out and TR band used to secure hemostasis and saturation in the fingers of the right hand was 95%. Excellent angiographic result was achieved. Details were discussed with the patient's and daughter. I expect that he will be discharged tomorrow if he remains stable. Excellent angiographic result without complication was achieved. EDDIE / BAYRON: [id number] /
[2021-09-08] MEDS ORDERED: LOSARTAN 50 MG TAB PO SCH (20:00)
[2021-09-08] MEDS ORDERED: ATORVASTATIN 80 MG TAB PO SCH (21:00)
[2021-09-08] MEDS ORDERED: GABAPENTIN 300 MG CAP PO SCH (21:00)
[2021-09-08] MEDS: ACYCLOVIR 800 MG TAB PO SCH (21:04)
[2021-09-08] MEDS: METOPROLOL TARTRATE 25 MG TAB PO SCH (21:04)
[2021-09-08] MEDS: TICAGRELOR 90 MG TAB PO SCH (21:04)
[2021-09-09 04:48] VITALS: TEMP 98
[2021-09-09] MEDS ORDERED: PANTOPRAZOLE 40 MG TABLET PO SCH (07:30)
[2021-09-09] MEDS ORDERED: LENALIDOMIDE 10 MG PO SCH (09:00)
[2021-09-09] MEDS ORDERED: CHOLECALCIFEROL 125 MCG (5000 IU) TABLET PO SCH (09:00)
[2021-09-09] MEDS ORDERED: MONTELUKAST 10 MG TAB PO SCH (09:00)
[2021-09-09] MEDS ORDERED: DOCUSATE 100 MG CAP PO SCH (09:00)
[2021-09-09] MEDS ORDERED: CALCIUM CARB-VIT D 500 MG-5 MCG TAB PO SCH (09:00)
[2021-09-09] MEDS ORDERED: LORATADINE 10 MG TAB PO SCH (09:00)
[2021-09-09] MEDS ORDERED: MULTIVITAMINS, THERA 1 EACH TAB PO SCH (09:00)
[2021-09-09] MEDS ORDERED: ASPIRIN 81 MG PO SCH (09:00)
[2021-09-09 09:12] LABS: Basophils % (A) 1 %; Eosinophils # (A) 0.2 k/uL (0-0.7); Eosinophils % (A) 6 %; HCT 40.1 % (39.0-53.0); HGB 13.3 gm/dL (13.0-17.5); Lymphocytes # (A) 0.9 k/uL (1.0-4.8); Lymphocytes % (A) 25 %; MCH 34.2 pg (25.0-35.0); MCHC 33.1 g/dL (31.0-37.0); MCV 103.2 fL (80.0-100.0); Macrocytosis Moderate; Mean Platelet Volume 8.8; Monocytes # (A) 0.2 k/uL (0-1.0); Monocytes % (A) 7 %; Neutrophils # (A) 2.1 k/uL (1.3-7.7); Neutrophils % (A) 59 %; Platelet Count 136 k/uL (150-450); RBC 3.88 m/uL (4.30-5.90); RDW 15.8 % (11.5-15.5); WBC 3.6 k/uL (3.8-10.6)
[2021-09-09] MEDS: TICAGRELOR 90 MG TAB PO SCH (09:13)
[2021-09-09] MEDS: ACYCLOVIR 800 MG TAB PO SCH (09:14)
[2021-09-09] MEDS: METOPROLOL TARTRATE 25 MG TAB PO SCH (09:14)
[2021-09-09 09:16] LABS: Calcium 8.5 mg/dL (8.4-10.2); Potassium 3.6 mmol/L (3.5-5.1)
[2021-09-09 09:40] VITALS: BP 125/65; PULSE 77; RESP 18
--- NOTE | 2021-09-09 10:19 | DS ---
DISCHARGE SUMMARY DATE OF ADMISSION: 09/08/2021 DATE OF DISCHARGE: 09/09/2021 DIAGNOSIS: 1. Unstable angina. 2. Hypertension. 3. Hyperlipidemia. PROCEDURES PERFORMED: 1. Cardiac catheterization. 2. PTCA and stenting with orbital atherectomy of ostial/proximal LAD of a heavily calcified lesion and mid LAD. This gentleman was brought in for elective cardiac cath because of an abnormal stress test. Cardiac cath revealed significant stenosis, probably chronic total occlusion of ostial LAD. No significant disease in other vessels, but heavy calcification. I perform orbital atherectomy and stenting of ostial LAD with excellent result. Post- procedure course was uneventful. This morning he is asymptomatic, resting comfortably. Vital signs are stable. Right radial site is clean and dry with a good pulse. His labs are pending. EKG is unremarkable. Physical exam revealed no JVD or carotid bruit. S1 and S2 were heard normally. There was no significant murmur. Lungs revealed bilateral decent air entry. Abdomen was soft, nontender. Lower extremities revealed normal pulses. No edema. Central nervous system was normal. IMPRESSION: 1. Status post percutaneous transluminal coronary angioplasty and stenting of a complex calcified ostial LAD lesion with good result. 2. Hypertension. 3. Hyperlipidemia. 4. Past history of tobacco abuse. RECOMMENDATIONS: Patient will be discharged today after labs are checked. Discharge instructions regarding activity, diet and medications were given and prescriptions for losartan 25 mg daily, Brilinta 90 mg b.i.d., aspirin 81 mg daily and sublingual nitroglycerin were provided. He will increase atorvastatin from 40 to 80 mg daily. I will see him in the office in the next 7 to 10 days. MMODL / IJN: [id number] /
[2021-09-09 10:35] VITALS: BMI 26.4
== END 2021-09-09 11:21 | disposition home health service (06) ==
LOC: CATHCVL 09:37 → 3SCARD 13:44 → CATHCVL 09-09 11:21
PROVIDERS: ATTEND Internal Medicine Interventional Cardiology
DX: I25.110 Atherosclerotic heart disease of native coronary artery with unstable angina pectoris (principal); I10 Essential (primary) hypertension; E78.5 Hyperlipidemia, unspecified; E78.00 Pure hypercholesterolemia, unspecified; Z20.822 Contact with and (suspected) exposure to COVID-19; Z87.891 Personal history of nicotine dependence; Z95.5 Presence of coronary angioplasty implant and graft; Z94.84 Stem cells transplant status; Z85.79 Personal history of other malignant neoplasms of lymphoid, hematopoietic and related tissues; Z79.899 Other long term (current) drug therapy; Z79.82 Long term (current) use of aspirin; Z88.8 Allergy status to other drugs, medicaments and biological substances
CPT/HCPCS: 93458; 80048; 85025; 87635; C9602; C1769 ×3; C1894; C1887 ×2; C1725 ×2; C1724; C1874 ×2; J2250; J2001; J1644; Q9967

== ENCOUNTER 2022-02-09 23:28 | Inpatient (IN) | payer MEDICARE, OTHER ==
--- NOTE | 2022-02-09 23:51 | ED ---
Recheck HPI - General Chief Complaint: Shortness of Breath Stated Complaint: SAHARA Time Seen by Provider: 02/09/22 23:49 Source: patient, RN notes reviewed, old records reviewed Mode of arrival: EMS Limitations: no limitations - History of Present Illness Initial Comments: This is an 81-year-old male DEL with new diagnosis of likely lung cancer, dizziness ataxia history of high blood pressure high cholesterol patient has no current symptoms no current complaints is accepted as a transfer from [facility] for evaluation by oncology MD Complaint: other (New diagnosis of lung cancer) -: unknown (Patient was transfer from [facility] today) Returns Today for: other (Oncology consult) Symptoms Since Prior Visit: no new symptoms Context: planned re-check Associated Symptoms: none Treatments Prior to Arrival: other (0) - Related Data Home Medications Medication Instructions Recorded Confirmed Aspirin 81 mg PO DAILY 05/12/15 09/08/21 Multivitamin [Men's Multi-Vitamin] 1 tab PO DAILY 05/12/15 09/08/21 Fexofenadine HCl [Brittany Allergy] 180 mg PO DAILY 07/30/18 09/08/21 Acyclovir [Zovirax] 800 mg PO BID 09/03/21 09/08/21 Calcium Carbonate/Vitamin D3 1 each PO DAILY 09/03/21 09/08/21 [Calcium 600 mg-D3 10 Mcg (400 Iu)] Cholecalciferol (Vitamin D3) 125 mcg PO DAILY 09/03/21 09/08/21 [Vitamin D3 (125 MCG = 5,000 IU)] Gabapentin [Neurontin] 600 mg PO HS 09/03/21 09/08/21 Lenalidomide [Revlimid] 10 mg PO DAILY 09/03/21 09/08/21 Mometasone Furoate [Nasonex 50 MCG] 1 spray NASAL DIRECTED PRN 09/03/21 09/08/21 Montelukast [Singulair] 10 mg PO DAILY 09/03/21 09/08/21 Omeprazole [PriLOSEC] 20 mg PO AC-BRKFST 09/03/21 09/08/21 Previous Rx's Medication Instructions Recorded Metoprolol Tartrate [Lopressor] 25 mg PO BID #60 tab 05/13/15 Docusate [Colace] 100 mg PO DAILY #30 capsule 08/08/18 Atorvastatin [Lipitor] 80 mg PO HS #0 09/09/21 Losartan [Cozaar] 25 mg PO Q24H #90 tab 09/09/21 Nitroglycerin Sl Tabs [Nitrostat] 0.4 mg SUBLINGUAL Q5M PRN #25 tab 09/09/21 Ticagrelor [Brilinta] 90 mg PO BID #180 tab 09/09/21 Allergies Allergy/AdvReac Type Severity Reaction Status Date / Time naproxen [From Naprosyn] Allergy Rash/Hives Verified 09/08/21 09:51 Review of Systems ROS Statement: Those systems with pertinent positive or pertinent negative responses have been documented in the HPI. ROS Other: All systems not noted in ROS Statement are negative. Past Medical History Past Medical History: Coronary Artery Disease (CAD), Cancer, GERD/Reflux, Hearing Disorder / Deafness, Hyperlipidemia, Hypertension, Osteoarthritis (OA), Pneumonia, Sleep Apnea/CPAP/BIPAP Additional Past Medical History / Comment(s): Allergies. Hearing aids. Shingles 2004. Basal cell skin cancer. 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 Vertigo X1, Uses C-PAP. Chest pressure, shortness of breath, abn stress test. History of Any Multi-Drug Resistant Organisms: None Reported Past Surgical History: Heart Catheterization With Stent, Joint Replacement, Orthopedic Surgery Additional Past Surgical History / Comment(s): 2014 HEART CATH WITH STENT TO LAD , BRENDA CATARACTS. CTR bilat, Rt CTR repeated. Total Lt hip 2018. SKIN CANCER REMOVAL. Stem cell transplant 10/2020. Past Anesthesia/Blood Transfusion Reactions: No Reported Reaction Date of Last Stent Placement:: 05/12/2015 Past Psychological History: No Psychological Hx Reported Smoking Status: Former smoker Past Alcohol Use History: Occasional Past Drug Use History: None Reported - Past Family History Brother(s) Family Medical History: Cancer, Diabetes Mellitus, Myocardial Infarction ([place]), Renal Disease Additional Family Medical History / Comment(s): LEUKEMIA, PROSTATE CANCER, DIALYSIS Sister(s) Family Medical History: Cancer Additional Family Medical History / Comment(s): LEUKEMIA Mother Family Medical History: Congestive Heart Failure (CHF), Myocardial Infarction ([place]) Additional Family Medical History / Comment(s): AT AGE 92 OF CHF Father Family Medical History: CVA/TIA Additional Family Medical History / Comment(s): FROM COMPLICATIONS FROM A STROKE AT AGE 58 General Exam Limitations: no limitations General appearance: alert, in no apparent distress Head exam: Present: atraumatic, normocephalic, normal inspection Eye exam: Present: normal appearance, PERRL, EOMI. Absent: scleral icterus, conjunctival injection, periorbital swelling ENT exam: Present: normal exam, mucous membranes moist Neck exam: Present: normal inspection. Absent: tenderness, meningismus, lymph adenopathy Respiratory exam: Present: normal lung sounds bilaterally. Absent: respiratory distress, wheezes, rales, rhonchi, stridor Cardiovascular Exam: Present: regular rate, normal rhythm, normal heart sounds. Absent: systolic murmur, diastolic murmur, rubs, gallop, clicks GI/Abdominal exam: Present: soft, normal bowel sounds. Absent: distended, tenderness, guarding, rebound, rigid Extremities exam: Present: normal inspection, full ROM, normal capillary refill. Absent: tenderness, pedal edema, joint swelling, calf tenderness Back exam: Present: normal inspection Neurological exam: Present: alert, oriented X3, CN II-XII intact Psychiatric exam: Present: normal affect, normal mood Skin exam: Present: warm, dry, intact, normal color. Absent: rash Course Vital Signs 02/09/22 23:37 Temperature 98.7 F Pulse Rate 70 Respiratory 16 Rate Blood Pressure 122/73 O2 Sat by Pulse 95 Oximetry - Reevaluation(s) Reevaluation #1: 02/10/22 00:29 Medical record is reviewed Reevaluation #2: 02/10/22 00:30 Patient's transfer paperwork is also been reviewed - Consultations Consultation #1: [facility] who agree to admit this patient Medical Decision Making - Medical Decision Making 81-year-old male who is accepted as a transfer patient patient is accepted as transfer for evaluation of new onset lung, cancer with dizziness lightheadedness weakness and multiple other complaints. Patient will be admitted for oncology evaluation Disposition Clinical Impression: Lung cancer, Dizziness, Ataxia, Weakness Disposition: ADMITTED IP TO THIS HOSP Condition: Fair Is patient prescribed a controlled substance at d/c from ED?: No Referrals: [facility] [Primary Care Provider] - 1-2 days Time of Disposition: 00:30
[2022-02-10] MEDS ORDERED: MORPHINE SULFATE 4 MG/ML SYRINGE IV PRN (00:26)
[2022-02-10] MEDS ORDERED: NALOXONE 0.4 MG/ML 1 ML VIAL IV PRN (00:26)
[2022-02-10] MEDS ORDERED: ONDANSETRON 4 MG/2 ML VIAL IVP PRN (00:26)
[2022-02-10] MEDS: SODIUM CHLORIDE 0.9% 1,000 ML IV SCH ×3 (01:12→21:49)
--- NOTE | 2022-02-10 03:59 | P.HPIM ---
History of Present Illness H&P Date: 02/10/22 The patient is an 81-year-old male with a PMH of multiple myeloma, coronary artery disease, hypertension, hyperlipidemia who had presented to [facility] on 02/09 with complaints of dizziness, fall, and shortness of breath. The patient reports that 3 days ago, he was petting his dog and as he stood up, he became lightheaded and fell backwards, hitting his upper back. He denied head trauma or loss of consciousness. Patient reports that since that episode, he has been experiencing persistent upper back pain as well as lightheadedness. Patient also reports that over the past several weeks, he has been experiencing mild shortness of breath. Denied experiencing chest di scomfort. Patient also reports a cough productive of varying colors of sputum over the past several weeks. Does report an unknown amount of weight loss over the past several months due to decreased appetite. Patient underwent an extensive evaluation in the emergency room at [facility] which was all reviewed. The patient was noted to be febrile and tachypneic with a CT chest angiogram showing no evidence of pulmonary was on although a masslike consolidation in the medial aspect of the right upper lobe extending to the pulmonary hilum suspicious for tumor with a wedge-shaped consolidation of the left lower lobe likely secondary to bronchopneumonia. There was also a few enlarged mediastinal and bronchial lymph nodes noted. CT head and cervical spine revealed no acute abnormalities. Laboratory evaluation revealed a WBC count of 5.8, hemoglobin 13.1, with BMP remarkable for creatinine 1.55, sodium 132, potassium 3.2, CO2 20, lactic acid 1.5, and COVID-19 negative. EKG revealed sinus rhythm at 99 bpm with LVH. Review of systems: Pertinent positives and negatives as discussed in HPI, a complete review of systems was performed and all other systems are negative. Physical examination: General: non toxic, no distress, appears at stated age, normal weight Derm: no unusual rashes/lesions, warm Head: atraumatic, normocephalic, symmetric Eyes: EOMI, no lid lag, anicteric sclera, pupils equal round reactive to light ENT: Nose and ears atraumatic Neck: No cervical lymphadenopathy, trachea midline, supple Mouth: no lip lesion, mucus membranes moist Cardiovascular: S1S2 reg, no murmur, positive dorsalis pedis pulse bilateral, no edema Lungs: CTA bilateral, no rhonchi, no rales, no accessory muscle use Abdominal: soft, nontender to palpation, no guarding Ext: muscle strength 5 out of 5 in all 4 extremities grossly, no gross muscle atrophy, no contractures, Neuro: CN II-XI grossly intact, no gross focal neuro deficits Psych: Alert, oriented, appropriate affect Assessment/plan Community acquired pneumonia -Continue with ceftriaxone and azithromycin -IV fluids Right-sided lung mass suspicious for malignancy -Oncology consulted for guidance regarding biopsy Kidney injury, acute versus chronic -IV fluids -Monitor for now Hypokalemia -Replace and monitor Chronic conditions: Multiple myeloma, CAD, hypertension, hyperlipidemia -Continue with home meds DVT prophylaxis -Heparin subq The patient is admitted with an anticipated greater than 2 midnight stay for evaluation of CAP CODE STATUS: Full Code Discussed with: Patient Anticipated discharge date: 2-[address]: Home Past Medical History Past Medical History: Coronary Artery Disease (CAD), Cancer, GERD/Reflux, Hearing Disorder / Deafness, Hyperlipidemia, Hypertension, Osteoarthritis (OA), Pneumonia, Sleep Apnea/CPAP/BIPAP Additional Past Medical History / Comment(s): Allergies. Hearing aids. Shingles 2004. Basal cell skin cancer. 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 Vertigo X1, Uses C-PAP. Chest pressure, shortness of breath, abn stress test. History of Any Multi-Drug Resistant Organisms: None Reported Past Surgical History: Heart Catheterization With Stent, Joint Replacement, Orthopedic Surgery Additional Past Surgical History / Comment(s): 2014 HEART CATH WITH STENT TO LAD , BRENDA CATARACTS. CTR bilat, Rt CTR repeated. Total Lt hip 2018. SKIN CANCER REMOVAL. Stem cell transplant 10/2020. Past Anesthesia/Blood Transfusion Reactions: No Reported Reaction Date of Last Stent Placement:: 05/12/2015 Past Psychological History: No Psychological Hx Reported Smoking Status: Former smoker Past Alcohol Use History: Occasional Additional Past Alcohol Use History / Comment(s): QUIT SMOKING OVER 47 YEARS AGO, SMOKED FOR 8 YEARS -1 PACK WOULD LAST 1 WEEK. Past Drug Use History: None Reported - Past Family History Brother(s) Family Medical History: Cancer, Diabetes Mellitus, Myocardial Infarction ([place]), Renal Disease Additional Family Medical History / Comment(s): LEUKEMIA, PROSTATE CANCER, DIALYSIS Sister(s) Family Medical History: Cancer Additional Family Medical History / Comment(s): LEUKEMIA Mother Family Medical History: Congestive Heart Failure (CHF), Myocardial Infarction ([place]) Additional Family Medical History / Comment(s): AT AGE 92 OF CHF Father Family Medical History: CVA/TIA Additional Family Medical History / Comment(s): FROM COMPLICATIONS FROM A STROKE AT AGE 58 Medications and Allergies Home Medications Medication Instructions Recorded Confirmed Type Aspirin 81 mg PO DAILY 05/12/15 09/08/21 History Multivitamin [Men's Multi-Vitamin] 1 tab PO DAILY 05/12/15 09/08/21 History Metoprolol Tartrate [Lopressor] 25 mg PO BID #60 tab 05/13/15 09/08/21 Rx Fexofenadine HCl [Brittany Allergy] 180 mg PO DAILY 07/30/18 09/08/21 History Docusate [Colace] 100 mg PO DAILY #30 capsule 08/08/18 09/08/21 Rx Acyclovir [Zovirax] 800 mg PO BID 09/03/21 09/08/21 History Calcium Carbonate/Vitamin D3 1 each PO DAILY 09/03/21 09/08/21 History [Calcium 600 mg-D3 10 Mcg (400 Iu)] Cholecalciferol (Vitamin D3) 125 mcg PO DAILY 09/03/21 09/08/21 History [Vitamin D3 (125 MCG = 5,000 IU)] Gabapentin [Neurontin] 600 mg PO HS 09/03/21 09/08/21 History Lenalidomide [Revlimid] 10 mg PO DAILY 09/03/21 09/08/21 History Mometasone Furoate [Nasonex 50 MCG] 1 spray NASAL DIRECTED PRN 09/03/21 09/08/21 History Montelukast [Singulair] 10 mg PO DAILY 09/03/21 09/08/21 History Omeprazole [PriLOSEC] 20 mg PO AC-BRKFST 09/03/21 09/08/21 History Atorvastatin [Lipitor] 80 mg PO HS #0 09/09/21 09/08/21 Rx Losartan [Cozaar] 25 mg PO Q24H #90 tab 09/09/21 Rx Nitroglycerin Sl Tabs [Nitrostat] 0.4 mg SUBLINGUAL Q5M PRN #25 tab 09/09/21 Rx Ticagrelor [Brilinta] 90 mg PO BID #180 tab 09/09/21 Rx Allergies Allergy/AdvReac Type Severity Reaction Status Date / Time naproxen [From Naprosyn] Allergy Rash/Hives Verified 09/08/21 09:51 Physical Exam Vitals: Vital Signs Temp Pulse Pulse Resp BP BP Pulse Ox 02/10/22 02:47 98 18 02/10/22 02:08 98.4 F 98 18 136/75 94 L 02/10/22 01:12 98.7 F 16 131/71 93 L 02/09/22 23:37 98.7 F 70 16 122/73 95 Intake and Output 02/09/22 02/09/22 02/10/22 14:59 22:59 06:59 Other: Weight 76.204 kg Thrombosis Risk Factor Assmnt - Choose All That Apply Any of the Below Risk Factors Present?: Yes Each Factor Represents 1 point: Obesity (BMI >25) Other Risk Factors: Yes Each Risk Factor Represents 3 Points: Age 75 years or older Thrombosis Risk Factor Assessment Total Risk Factor Score: 4 Thrombosis Risk Factor Assessment Level: Moderate Risk
[2022-02-10] MEDS: HEPARIN SODIUM,PORCINE/PF 5,000 UNIT/0.5 ML SYRINGE SQ SCH ×3 (08:25→23:50)
[2022-02-10] MEDS: PANTOPRAZOLE 40 MG/10 ML VIAL IV SCH (08:26)
[2022-02-10] MEDS: AZITHROMYCIN 500 MG TAB PO SCH (08:26)
--- NOTE | 2022-02-10 09:05 | P.CONS ---
History of Present Illness - Reason for Consult Consult date: 02/10/22 Lung capacity, history of multiple myeloma - History of Present Illness The patient is an 81-year-old white male well known to myself. The patient was initially seen for a diagnosis of multiple myeloma, treated with successful combination induction regimen, followed by autologous stem cell transplant. Patient is currently on maintenance treatment with Revlimid daily, without evidence of relapse. The patient states that he was in his usual state of health until about 3-4 days ago. At that time while standing up after bending down. It is now, he experienced lightheadedness, fell and hit his head and upper back. He reported ongoing upper back and neck pain, as well as intermittent nausea. In addition he reported increasing shortness of breath progressively causing him to come to the ER at [facility]. He had a CT angiogram that showed consolidation in the right upper lobe with underlying mass not excluded as well as another consolidation in the left lower lobe. There was also concern for some enlarged mediastinal and hilar nodes. The patient was noted to be febrile, with increased respiratory rate. He was then transferred here for ongoing care. to my questioning, the patient denied any shortness of breath until about a few days ago. The H&P however notes that he has been having some shortness of breath ongoing for several weeks prior. When seen in the office 2 months ago he had denied any shortness of breath, fever or any other systemic symptoms. The patient is a nonsmoker. He denied any significant cough to me but H&P has noted some intermittent cough with sputum of different colors. Review of Systems Constitutional: Reports chronic pain, Reports fever, Reports weakness, Reports weight loss Eyes: denies blurred vision, denies pain Ears: bilateral: decreased hearing Ears, nose, mouth and throat: Denies headache, Denies sore throat Cardiovascular: Reports shortness of breath Respiratory: Reports cough with sputum, Reports dyspnea Gastrointestinal: Denies abdominal pain, Denies diarrhea, Denies nausea, Denies vomiting Genitourinary: Reports as per HPI Musculoskeletal: Reports as per HPI, Reports neck pain Integumentary: Denies pruritus, Denies rash Neurological: Denies numbness, Denies weakness Psychiatric: Denies anxiety, Denies depression Endocrine: Reports weight change, Denies fatigue Hematologic/Lymphatic: Reports as per HPI Past Medical History Past Medical History: Coronary Artery Disease (CAD), Cancer, GERD/Reflux, Hearing Disorder / Deafness, Hyperlipidemia, Hypertension, Osteoarthritis (OA), Pneumonia, Sleep Apnea/CPAP/BIPAP Additional Past Medical History / Comment(s): Allergies. Hearing aids. Shingles 2004. Basal cell skin cancer. 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 Vertigo X1, Uses C-PAP. Chest pressure, shortness of breath, abn stress test. History of Any Multi-Drug Resistant Organisms: None Reported Past Surgical History: Heart Catheterization With Stent, Joint Replacement, Orthopedic Surgery Additional Past Surgical History / Comment(s): 2014 HEART CATH WITH STENT TO LAD , BRENDA CATARACTS. CTR bilat, Rt CTR repeated. Total Lt hip 2018. SKIN CANCER REMOVAL. Stem cell transplant 10/2020. Past Anesthesia/Blood Transfusion Reactions: No Reported Reaction Date of Last Stent Placement:: 05/12/2015 Past Psychological History: No Psychological Hx Reported Smoking Status: Former smoker Past Alcohol Use History: Occasional Additional Past Alcohol Use History / Comment(s): QUIT SMOKING OVER 47 YEARS AGO, SMOKED FOR 8 YEARS -1 PACK WOULD LAST 1 WEEK. Past Drug Use History: None Reported - Past Family History Brother(s) Family Medical History: Cancer, Diabetes Mellitus, Myocardial Infarction ([place]), Renal Disease Additional Family Medical History / Comment(s): LEUKEMIA, PROSTATE CANCER, DIALYSIS Sister(s) Family Medical History: Cancer Additional Family Medical History / Comment(s): LEUKEMIA Mother Family Medical History: Congestive Heart Failure (CHF), Myocardial Infarction ([place]) Additional Family Medical History / Comment(s): AT AGE 92 OF CHF Father Family Medical History: CVA/TIA Additional Family Medical History / Comment(s): FROM COMPLICATIONS FROM A STROKE AT AGE 58 Medications and Allergies Home Medications Medication Instructions Recorded Confirmed Type Aspirin 81 mg PO DAILY 05/12/15 09/08/21 History Multivitamin [Men's Multi-Vitamin] 1 tab PO DAILY 05/12/15 09/08/21 History Metoprolol Tartrate [Lopressor] 25 mg PO BID #60 tab 05/13/15 09/08/21 Rx Fexofenadine HCl [Brittany Allergy] 180 mg PO DAILY 07/30/18 09/08/21 History Docusate [Colace] 100 mg PO DAILY #30 capsule 08/08/18 09/08/21 Rx Acyclovir [Zovirax] 800 mg PO BID 09/03/21 09/08/21 History Calcium Carbonate/Vitamin D3 1 each PO DAILY 09/03/21 09/08/21 History [Calcium 600 mg-D3 10 Mcg (400 Iu)] Cholecalciferol (Vitamin D3) 125 mcg PO DAILY 09/03/21 09/08/21 History [Vitamin D3 (125 MCG = 5,000 IU)] Gabapentin [Neurontin] 600 mg PO HS 09/03/21 09/08/21 History Lenalidomide [Revlimid] 10 mg PO DAILY 09/03/21 09/08/21 History Mometasone Furoate [Nasonex 50 MCG] 1 spray NASAL DIRECTED PRN 09/03/21 09/08/21 History Montelukast [Singulair] 10 mg PO DAILY 09/03/21 09/08/21 History Omeprazole [PriLOSEC] 20 mg PO AC-BRKFST 09/03/21 09/08/21 History Atorvastatin [Lipitor] 80 mg PO HS #0 09/09/21 09/08/21 Rx Losartan [Cozaar] 25 mg PO Q24H #90 tab 09/09/21 Rx Nitroglycerin Sl Tabs [Nitrostat] 0.4 mg SUBLINGUAL Q5M PRN #25 tab 09/09/21 Rx Ticagrelor [Brilinta] 90 mg PO BID #180 tab 09/09/21 Rx Allergies Allergy/AdvReac Type Severity Reaction Status Date / Time naproxen [From Naprosyn] Allergy Rash/Hives Verified 09/08/21 09:51 Physical Exam Vitals: Vital Signs Temp Pulse Pulse Resp BP BP Pulse Ox 02/10/22 05:22 98.5 F 104 H 20 148/79 94 L 02/10/22 02:47 98 18 02/10/22 02:08 98.4 F 98 18 136/75 94 L 02/10/22 01:12 98.7 F 16 131/71 93 L 02/09/22 23:37 98.7 F 70 16 122/73 95 Intake and Output 02/09/22 02/10/22 02/10/22 22:59 06:59 14:59 Other: # Voids 2 Weight 76.204 kg On oxygen, appears slightly short of breath even at rest - EENT Eyes: EOMI, PERRLA ENT: hearing grossly normal, normal oropharynx - Neck Neck: no lymphadenopathy Thyroid: bilateral: normal size - Respiratory Respiratory: right: diminished - Cardiovascular Rhythm: regular Heart sounds: normal: S1, S2 - Gastrointestinal General gastrointestinal: normal bowel sounds, soft - Integumentary Integumentary: normal - Neurologic Neurologic: CNII-XII intact Results CT scan - chest: report reviewed Assessment and Plan (1) Pneumonia Narrative/Plan: The patient's CT angiogram showed dense consolidation in the right upper lobe as well as some smaller consolidation in the left lower lobe. Underlying mass was not excluded. The patient's severe symptoms appear to be a fairly acute and recent onset. He recently notes some shortness of breath and weight loss even prior to the acute presentation. However he denied the same to me. - It was discussed with the patient that he most likely does have a pneumonia. Underlying mass causing obstructive pneumonia, versus pneumonia alone are both in the differential. - Continue treatment for pneumonia - Consult pulmonary medicine to evaluate patient specifically regarding need for bronchoscopy for further evaluation. Current Visit: Yes Status: Acute Code(s): J18.9 - PNEUMONIA, UNSPECIFIED ORGANISM SNOMED Code(s): 872335446 (2) Myeloma Narrative/Plan: In remission, currently on maintenance Revlimid. Hold Revlimid while inpatient because of pneumonia. Monitor counts Current Visit: Yes Status: Acute Code(s): C90.00 - MULTIPLE MYELOMA NOT HAVING ACHIEVED REMISSION SNOMED Code(s): 877570929
[2022-02-10 09:21] LABS: HCT 37.5 % (39.0-53.0); HGB 12.2 gm/dL (13.0-17.5); Hypochromasia Slight; MCH 32.4 pg (25.0-35.0); MCHC 32.4 g/dL (31.0-37.0); Macrocytosis Slight; Mean Platelet Volume 8.7; Platelet Count 140 k/uL (150-450); RBC 3.75 m/uL (4.30-5.90); RDW 15.8 % (11.5-15.5); WBC 2.3 k/uL (3.8-10.6)
[2022-02-10 09:29] LABS: INR 1.1 (<1.2); Prothrombin Time 11.8 sec (9.0-12.0)
[2022-02-10 09:32] LABS: African American GFR (CKD) 49 (>60 ml/min/1.73 sqM); Anion Gap 13 mmol/L; Blood Urea Nitrogen 16 mg/dL (9-20); Calcium 8.3 mg/dL (8.4-10.2); Carbon Dioxide 19 mmol/L (22-30); Chloride 106 mmol/L (98-107); Glucose 161 mg/dL (74-99); Magnesium 1.5 mg/dL (1.6-2.3); Non-African American GFR(CKD) 42 (>60 ml/min/1.73 sqM); Potassium 4.1 mmol/L (3.5-5.1); Sodium 138 mmol/L (137-145)
[2022-02-10] MEDS: METOPROLOL TARTRATE 25 MG TAB PO SCH ×2 (11:03→21:15)
[2022-02-10] MEDS: MAGNESIUM SULFATE-D5W PMX 1 GM in DEXTROSE/WATER 1 100ML.BAG IVPB SCH ×4 (11:03→16:10)
--- NOTE | 2022-02-10 12:10 | P.CNPUL ---
History of Present Illness Consult date: 02/10/22 Requesting physician: Willy Bush Reason for consult: dyspnea, abnormal CXR/CT Chief complaint: Denies weakness, shortness of breath History of present illness: This is a very pleasant 81-year-old male patient who has a history of coronary artery disease with previous stent placement to the LAD, former smoker, hearing disorder, hyperlipidemia, hypertension, osteoarthritis, obstructive sleep apnea utilizing CPAP. 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 He is maintained on Revlimid without evidence of relapse. He also Dr. Bush on a regular basis. He had presented to [facility] emergency room after sustaining a fall secondary to experiencing lightheadedness when standing up after bending down radiate had ongoing issues with shortness of breath and presented here for the same. Computed tomography scan revealed consolidation in the right upper lobe with an underlying mass not excluded as well as another consolidation of left lower lobe. There is also some concern regarding enlarged mediastinal and hilar lymph nodes. The patient was noted to be febrile. He was transferred here for further care. DT scan of the brain at her did not reveal any acute intracranial process. He is seen here today in consultation on the regular medical floor the patient is hard of hearing and somewhat of a poor historian. His is present and provides most of the information today. He is maintaining O2 saturations in the 90s on 2 L/m per nasal cannula. He's afebrile. Hemodynamically stable. He does have a loose nonproductive cough. No hemoptysis. White count 2.3. Hemoglobin 12.2. Platelet count 140,000. Sodium 138. Potassium 4.1. Bicarb 19. BUN 16. Creatinine 1.53. Magnesium 1.5. Currently being replaced. He's been initiated on ceftriaxone and azithromycin. Heparin for DVT prophylaxis. Normal saline at 75 ML's per hour. Review of Systems REVIEW OF SYSTEMS: CONSTITUTIONAL: Generalized weakness. Denies any recent significant weight loss or weight gain. EYES: Denies change in vision. EARS, NOSE, MOUTH, THROAT: Denies headaches, denies sore throat. CARDIOVASCULAR: Denies chest pain, palpitations or syncopal episodes. RESPIRATORY: Positive for shortness of breath, cough, congestion no hemoptysis. GASTROINTESTINAL: Denies change in appetite, denies abdominal pain GENITOURINARY: Denies hematuria, denies infections. MUSKULOSKELETAL: Denies pain, denies swelling. INTEGUMENTARY: Denies rash, denies eczema. NEUROLOGICAL: Denies recent memory loss, no recent seizure activity. PSYCHIATRIC: Denies anxiety, denies depression. HEMATOLOGIC/LYMPHATIC: Denies anemia, denies enlarged lymph nodes. Past Medical History Past Medical History: Coronary Artery Disease (CAD), Cancer, GERD/Reflux, Hearing Disorder / Deafness, Hyperlipidemia, Hypertension, Osteoarthritis (OA), Pneumonia, Sleep Apnea/CPAP/BIPAP Additional Past Medical History / Comment(s): Allergies. Hearing aids. Shingles 2004. Basal cell skin cancer. 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 Vertigo X1, Uses C-PAP. Chest pressure, shortness of breath, abn stress test. History of Any Multi-Drug Resistant Organisms: None Reported Past Surgical History: Heart Catheterization With Stent, Joint Replacement, Orthopedic Surgery Additional Past Surgical History / Comment(s): 2014 HEART CATH WITH STENT TO LAD , BRENDA CATARACTS. CTR bilat, Rt CTR repeated. Total Lt hip 2018. SKIN CANCER REMOVAL. Stem cell transplant 10/2020. Past Anesthesia/Blood Transfusion Reactions: No Reported Reaction Date of Last Stent Placement:: 05/12/2015 Past Psychological History: No Psychological Hx Reported Smoking Status: Former smoker Past Alcohol Use History: Occasional Additional Past Alcohol Use History / Comment(s): QUIT SMOKING OVER 47 YEARS AGO, SMOKED FOR 8 YEARS -1 PACK WOULD LAST 1 WEEK. Past Drug Use History: None Reported - Past Family History Brother(s) Family Medical History: Cancer, Diabetes Mellitus, Myocardial Infarction (NE), Renal Disease Additional Family Medical History / Comment(s): LEUKEMIA, PROSTATE CANCER, DIALYSIS Sister(s) Family Medical History: Cancer Additional Family Medical History / Comment(s): LEUKEMIA Mother Family Medical History: Congestive Heart Failure (CHF), Myocardial Infarction (NE) Additional Family Medical History / Comment(s): AT AGE 92 OF CHF Father Family Medical History: CVA/TIA Additional Family Medical History / Comment(s): FROM COMPLICATIONS FROM A STROKE AT AGE 58 Medications and Allergies Home Medications Medication Instructions Recorded Confirmed Type Aspirin 81 mg PO DAILY 05/12/15 02/10/22 History Multivitamin [Men's Multi-Vitamin] 1 tab PO DAILY 05/12/15 02/10/22 History Metoprolol Tartrate [Lopressor] 25 mg PO BID #60 tab 05/13/15 02/10/22 Rx Acyclovir [Zovirax] 800 mg PO BID 09/03/21 02/10/22 History Gabapentin [Neurontin] 600 mg PO HS 09/03/21 02/10/22 History Lenalidomide [Revlimid] 10 mg PO DAILY 09/03/21 02/10/22 History Montelukast [Singulair] 10 mg PO DAILY 09/03/21 02/10/22 History Omeprazole [PriLOSEC] 20 mg PO AC-BRKFST 09/03/21 02/10/22 History Atorvastatin [Lipitor] 80 mg PO HS #0 09/09/21 02/10/22 Rx Nitroglycerin Sl Tabs [Nitrostat] 0.4 mg SUBLINGUAL Q5M PRN #25 tab 09/09/21 02/10/22 Rx Ticagrelor [Brilinta] 90 mg PO BID #180 tab 09/09/21 02/10/22 Rx Famotidine [Pepcid] 20 mg PO BID 02/10/22 02/10/22 History Gabapentin 300 mg PO DAILY@1200 02/10/22 02/10/22 History Losartan [Cozaar] 25 mg PO DAILY 02/10/22 02/10/22 History Allergies Allergy/AdvReac Type Severity Reaction Status Date / Time naproxen [From Naprosyn] AdvReac swollen Verified 02/10/22 11:16 joints Physical Exam Vitals: Vital Signs Temp Pulse Pulse Resp BP BP Pulse Ox 02/10/22 05:22 98.5 F 104 H 20 148/79 94 L 02/10/22 02:47 98 18 02/10/22 02:08 98.4 F 98 18 136/75 94 L 02/10/22 01:12 98.7 F 16 131/71 93 L 02/09/22 23:37 98.7 F 70 16 122/73 95 Intake and Output 02/09/22 02/10/22 02/10/22 22:59 06:59 14:59 Other: Voiding Method Bedside Commode # Voids 2 Weight 76.204 kg GENERAL EXAM: Alert, pleasant 81-year-old gentleman, hard of hearing, on 2 L nasal cannula, comfortable in no apparent distress. HEAD: Normocephalic. EYES: Normal reaction of pupils, equal size. NOSE: Clear with pink turbinates. THROAT: No erythema or exudates. NECK: No masses, no JVD. CHEST: No chest wall deformity. LUNGS: Equal air entry with crackles in left lung base. Scattered rhonchi. CVS: S1 and S2 normal with no audible murmur, regular rhythm. ABDOMEN: No hepatosplenomegaly, normal bowel sounds, no guarding or rigidity. SPINE: No scoliosis or deformity SKIN: No rashes CENTRAL NERVOUS SYSTEM: No focal deficits, tone is normal in all 4 extremities. EXTREMITIES: There is no peripheral edema. No clubbing, no cyanosis. Peripheral pulses are intact. Results - Laboratory Findings CBC and BMP: 02/10/22 09:04 02/10/22 09:04 PT/INR, D-dimer PT 11.8 sec (9.0-12.0) 02/10/22 09:04 INR 1.1 (<1.2) 02/10/22 09:04 Abnormal lab findings: Abnormal Labs 02/10/22 02/10/22 09:04 09:04 WBC 2.3 L RBC 3.75 L Hgb 12.2 L Hct 37.5 L RDW 15.8 H Plt Count 140 L Carbon Dioxide 19 L Creatinine 1.53 H Glucose 161 H Calcium 8.3 L Magnesium 1.5 L - Diagnostic Findings CT scan - chest: image reviewed (Reviewed computed tomography scan from [facility]) Assessment and Plan Assessment: Generalized weakness and recent fall possibly secondary to pneumonia Acute hypoxic respiratory failure secondary to suspected underlying pneumonia of the left lower lobe including a mass of the right upper lobe Febrile illness secondary to above History of multiple myeloma, diagnosed in 2019, currently on Revlimid. Status post stem cell transplant at [facility] in October 2020 Possible opportunistic infection/lymphoma secondary to above Former remote smoker Coronary disease with previous stent placement to the LAD Hypertension Hyperlipidemia Obstructive sleep apnea, utilizing CPAP Hearing disorder Plan: The patient was seen and evaluated CAT scan of the chest and brain were reviewed from [facility] There is a right upper lobe mass/consolidation as well as a left lower lobe consolidation May require bronchoscopy with biopsies, to be discussed with oncology Continue antibiotics for now We will continue to follow and make further recommendations to send his clinical status I have personally seen and examined the patient, performed the documentation and the assessment and plan as written. Number of minutes spent on the visit: 20. I have personally seen and examined the patient and reviewed the documentation. I performed a joint evaluation with the nurse practitioner in this evaluation was done more than 30 minutes. I fully agree with the documentation above and the plan of care. I reviewed the CAT scan of the chest that was done at [facility]. The left lower lobe opacities most likely pneumonia. however, there is a right upper lobe opacity which is more dense than suspicious for a mass. Recommend continuing the antibiotic treatment for now. We'll discuss the possibility of biopsy either in our facility ordered, cancer Center as the depression diagnosis could be multiple in this patient was supposed transplantation for multiple myeloma. 4 chest infection need to be considered. Malignancies of the lungs need to be considered. Recurrent hematologic malignancy involving the lung also need to be considered.
[2022-02-10] MEDS: TICAGRELOR 90 MG TAB PO SCH ×2 (13:21→21:15)
--- NOTE | 2022-02-10 14:00 | P.PN ---
Subjective Progress Note Date: 02/10/22 The patient is an 81-year-old male with multiple myeloma, coronary artery disease, hypertension, and hyperlipidemia who initially presented to [facility] on 02/09 with complaints of dizziness, fall, and shortness of breath. He underwent an extensive evaluation in the emergency room at [facility]. He was noted to be febrile and tachypneic with a CT chest angiogram showing no evidence of pulmonary was on although a masslike consolidation in the medial aspect of the right upper lobe extending to the pulmonary hilum suspicious for tumor with a wedge-shaped consolidation of the left lower lobe likely secondary to bronchopneumonia. There was also a few enlarged mediastinal and bronchial lymph nodes noted. CT head and cervical spine revealed no acute abnormalities. Laboratory evaluation revealed a WBC count of 5.8, hemoglobin 13.1, with BMP remarkable for creatinine 1.55, sodium 132, potassium 3.2, CO2 20, lactic acid 1.5, and COVID-19 negative. EKG revealed sinus rhythm at 99 bpm with LVH. He was stated on IV fluids, rocephin and zithromax. Oncology was consulted and recommended pulmonary evaluation for need for bronchoscopy. Patient seen and examined at bedside. He complains of dizziness every time he stands or moves. He is most worried about that and it is why he sought care. He is having some pain in his ribs after his fall and cough. General: nontoxic, no distress, appears at stated age Derm: warm, dry Head: atraumatic, normocephalic, symmetric Eyes: EOMI, no lid lag, anicteric sclera Mouth: no lip lesion, mucus membranes moist Cardiovascular: S1S2 reg, no murmur, positive posterior tibial pulse bilateral, Lungs: Decreased bs bilateral, no rhonchi, no rales , no accessory muscle use Abdominal: soft, nontender to palpation, no guarding, no appreciable organomegaly Ext: no gross muscle atrophy, no edema, no contractures Neuro: CN II-XI grossly intact, no focal neuro deficits Psych: Alert, oriented, appropriate affect Assessment/plan: Community acquired pneumonia Right-sided lung mass suspicious for malignancy Acute hypoxic respiratory failure - [place] and zithromax D # 2 - consult pulmonary - IV fluids - oncology recs: treat PNA, consult pulm regarding possible biopsy - await pulm recs Dizziness - check Tele - check orthostatic vitals - echo Kidney injury, acute versus chronic - IV fluids - avoid nephrotoxic agents - follow Cr - hold cozaar Hypokalemia - Replaced - await recheck Multiple myeloma - oncology recs appreciated - hold revlimid. - hx of stem cell transplant Chronic: CAD, hypertension, hyperlipidemia -Continue with home meds DVT prophylaxis: heparin Discussed with: Patient Anticipated discharge date: 2-[address]: Home Objective - Vital Signs Vital signs: Vital Signs Temp 98.5 F 02/10/22 05:22 Pulse 104 H 02/10/22 05:22 Resp 20 02/10/22 05:22 BP 148/79 02/10/22 05:22 Pulse Ox 94 L 02/10/22 05:22 FiO2 Intake & Output 02/09/22 02/10/22 02/10/22 18:59 06:59 18:59 Weight 76.204 kg Other: # Voids 2 - Labs CBC & Chem 7: 02/10/22 09:04 02/10/22 09:04 Labs: Abnormal Lab Results - Last 24 Hours (Table) 02/10/22 02/10/22 Range/Units 09:04 09:04 WBC 2.3 L (3.8-10.6) k/uL RBC 3.75 L (4.30-5.90) m/uL Hgb 12.2 L (13.0-17.5) gm/dL Hct 37.5 L (39.0-53.0) % RDW 15.8 H (11.5-15.5) % Plt Count 140 L (150-450) k/uL Carbon Dioxide 19 L (22-30) mmol/L Creatinine 1.53 H (0.66-1.25) mg/dL Glucose 161 H (74-99) mg/dL Calcium 8.3 L (8.4-10.2) mg/dL Magnesium 1.5 L (1.6-2.3) mg/dL
[2022-02-10] MEDS: ACETAMINOPHEN TAB 325 MG TAB PO PRN ×2 (14:23→18:58)
[2022-02-10 16:19] LABS: Immunoglobulin M 27.6 mg/dL (40.0-280.0)
[2022-02-10] MEDS: ACYCLOVIR 800 MG TAB PO SCH (21:15)
[2022-02-10] MEDS: GABAPENTIN 300 MG CAP PO SCH (21:15)
[2022-02-10] MEDS: ATORVASTATIN 80 MG TAB PO SCH (21:15)
[2022-02-10] MEDS: FAMOTIDINE 20 MG TAB PO SCH (21:15)
[2022-02-11] MEDS: SODIUM CHLORIDE 0.9% 1,000 ML IV SCH ×2 (04:53→17:35)
--- NOTE | 2022-02-11 07:23 | CA ---
Transthoracic Echo Report Name: Huseyin Mullins Age: 81 Gender: M : 1940 Exam Date: 02/10/2022 14:26 Exam Location: [facility] Ht (in): 68 Wt (lb): 168 Ordering Physician: Marina Smiht DO Attending/Referring Phys: [employer] Alina Bahena RDCS Procedure CPT: Indications: presyncope Cardiac Hx: Technical Quality: Good Contrast 1: Total Dose (mL): Contrast 2: Total Dose (mL): MEASUREMENTS (Male / Female) Normal Values 2D ECHO LV Diastolic Diameter PLAX 2.5 cm 4.2 - 5.9 / 3.9 - 5.3 cm LV Systolic Diameter PLAX 1.3 cm IVS Diastolic Thickness 1.3 cm 0.6 - 1.0 / 0.6 - 0.9 cm LVPW Diastolic Thickness 1.0 cm 0.6 - 1.0 / 0.6 - 0.9 cm LV Relative Wall Thickness 0.9 RV Internal Dim ED PLAX 4.3 cm LVOT Diameter 1.4 cm LA Volume 77.9 cm??? 18 - 58 / 22 - 52 cm??? M-MODE Aortic Root Diameter MM 3.2 cm LA Systolic Diameter MM 3.6 cm LA Ao Ratio MM 1.1 MV E Point Septal Separation 2.5 cm AV Cusp Separation MM 0.9 cm DOPPLER AV Peak Velocity 188.8 cm/s AV Peak Gradient 14.3 mmHg AV Mean Velocity 152.8 cm/s AV Mean Gradient 10.3 mmHg AV Velocity Time Integral 31.0 cm LVOT Peak Velocity 108.9 cm/s LVOT Peak Gradient 4.7 mmHg AV Area Cont Eq pk 0.9 cm??? MV Peak Velocity 183.1 cm/s MV Peak Gradient 13.4 mmHg MV Mean Velocity 102.5 cm/s MV Mean Gradient 5.4 mmHg MV Velocity Time Integral 58.7 cm MV Area PHT 2.6 cm??? Mitral E Point Velocity 143.4 cm/s Mitral A Point Velocity 154.1 cm/s Mitral E to A Ratio 0.9 MV Deceleration Time 249.3 ms MV E' Velocity 7.5 cm/s Mitral E to MV E' Ratio 19.1 TR Peak Velocity 151.7 cm/s TR Peak Gradient 9.2 mmHg Right Ventricular Systolic Press 14.2 mmHg FINDINGS Left Ventricle Mildly increased septal wall thickness. Left ventricular ejection fraction is estimated at 55-60 %. Left ventricular cavity size normal. Grade 2 diastolic dysfunction. Right Ventricle Mild right ventricular dilatation. Right ventricular systolic pressure within normal limits. Right Atrium Normal right atrial size. Left Atrium Moderately increased left atrial volume. Mildly increased left atrial area. Mitral Valve Severe mitral annular calcification. Mild mitral stenosis. Peak gradient is 13 mmHg, and mean is 5 mmHg with a MVA of 2.2cm2. Mild mitral regurgitation. Aortic Valve No aortic regurgitation. Mild aortic stenosis with a peak gradient of 14 mmHg and a mean gradient of 10 mmHg. Diffuse thickening of the aortic valve cusps with reduced excursion. Tricuspid Valve Structurally normal tricuspid valve. Mild tricuspid regurgitation. Pulmonic Valve Pulmonic valve not well visualized. Pericardium No pericardial effusion. Aorta Normal size aortic root and proximal ascending aorta. CONCLUSIONS Left ventricular EF 55-60% Mildly dilated right ventricle Moderately dilated left atrium Mild aortic stenosis with a mean gradient of 10 mmHg Mild tricuspid regurgitation RVSP 14 Previewed by: Dr. Lucian Forbes DO (Electronically Signed) Final Date: 11 February 2022 07:23
[2022-02-11] MEDS ORDERED: NON FORMULARY DRUG (Omeprazole 20 MG Capsule.Dr) PO SCH (07:30)
[2022-02-11] MEDS: HEPARIN SODIUM,PORCINE/PF 5,000 UNIT/0.5 ML SYRINGE SQ SCH ×2 (08:17→17:35)
[2022-02-11] MEDS: ASPIRIN 81 MG PO SCH (08:17)
[2022-02-11] MEDS: AZITHROMYCIN 500 MG TAB PO SCH (08:17)
[2022-02-11] MEDS: PANTOPRAZOLE 40 MG/10 ML VIAL IV SCH (08:17)
[2022-02-11] MEDS: METOPROLOL TARTRATE 25 MG TAB PO SCH ×2 (08:18→21:37)
[2022-02-11] MEDS: MONTELUKAST 10 MG TAB PO SCH (08:18)
[2022-02-11] MEDS: FAMOTIDINE 20 MG TAB PO SCH (08:18)
[2022-02-11] MEDS: ACYCLOVIR 800 MG TAB PO SCH ×2 (08:18→21:37)
[2022-02-11] MEDS: TICAGRELOR 90 MG TAB PO SCH ×2 (08:18→21:37)
--- NOTE | 2022-02-11 09:37 | XR ---
EXAMINATION TYPE: XR chest 2V DATE OF EXAM: 02/11/2022 COMPARISON: NONE TECHNIQUE: PA and lateral views submitted. HISTORY: Cough FINDINGS: Large right upper lobe area of consolidation suspicious for mass. Pneumonia not excluded. There is al so left lower lobe infiltrate and reduced inspiration. Heart size is normal. No overt failure. No siz able pleural effusion or pneumothorax. Degenerative changes of the spine. Suspect at least one severe compression fracture midthoracic spine IMPRESSION: 1. Large area of mass or pneumonia right upper lobe. 2. Left perihilar and left lower lobe infiltrate. 3. Age indeterminate severe compression fracture midthoracic spine. Cannot exclude destructive proces s.
[2022-02-11] MEDS: GABAPENTIN 300 MG CAP PO SCH ×2 (11:14→21:37)
[2022-02-11 11:31] LABS: African American GFR (CKD) 46.5 (60.0-200.0); Albumin 3.1 g/dL (3.8-4.9); Albumin/Globulin Ratio 1.15 (1.60-3.17); Anion Gap 13.2 mmol/L (10.00-18.00); BUN/Creat Ratio 12.13 Ratio (12.00-20.00); Blood Urea Nitrogen 19.4 mg/dL (9.0-27.0); Calcium 8.1 mg/dL (8.7-10.3); Carbon Dioxide 19.8 mmol/L (20.0-27.5); Globulin 2.7 g/dL (1.6-3.3); Magnesium 2.3 mg/dL (1.5-2.4); Non-African American GFR(CKD) 40.1 (60.0-200.0); Phosphorus 2.7 mg/dL (2.4-5.1); Potassium 3.9 mmol/L (3.5-5.5); Total Bilirubin 0.7 mg/dL (0.30-1.20); Total Protein 5.8 g/dL (6.2-8.2)
[2022-02-11] MEDS ORDERED: SODIUM CHLORIDE 0.9% 1,000 ML IV ONE (12:03)
--- NOTE | 2022-02-11 12:36 | P.CNNES ---
History of Present Illness Consult date: 02/11/22 Requesting physician: Marina Smith Reason for Consult: dizziness, cardiac rule out History of Present Illness: This is an 81-year-old gentleman with history of multiple myeloma s/p stem cell transplant 1 year ago, hypertension, hyperlipidemia, hard of hearing and has hearing aid who initially presented to outside facility on 02/09 with a complaint of dizziness shortness of breath and a fall and was transferred for escalation of care. Neurology is consulted for dizziness. Patient is accompanied by his . It seems the patient He had a CT of the chest angio at outside hospital which is reported as masslike consultation in the medial aspect of the right upper lobe extending to the pulmonary hilum suspicious for tumor with a wedge shaped consolidation of the left lower lobe likely secondary due to bronchopneumonia. There is also few enlargement mediastinal on bronchial lymph node the noted. He needed oncology evaluation. It seems the patient has been having dizziness for a couple months and feels whenever he stand up and moves his head up. Denies ringing of the ears, ringing of the ears, focal weakness, dysphagia, difficulty getting his words out. Denies any fevers or head trauma prior to this. Regarding the fall it was due to him being dizzy. He was evaluated by his PCP as outpatient and has appointment coming up with [facility] and if not improvement will end up seeing an ENT. Some of the workup during this hospital visit consisted of: Initial white blood cells 2.3. Hemoglobin is 12.2, platelet is 140,000. Creatinine is 1.5 3 repeat is 1.6. Calcium is 8.3 repeat is 8.1, magnesium is 1. 5 repeat is 2.3. AST of 80 and that ALT of 44. Review of Systems Review of system: The 12 point system was reviewed and apparent positive and negative per HPI. Past Medical History Past Medical History: Coronary Artery Disease (CAD), Cancer, GERD/Reflux, Hearing Disorder / Deafness, Hyperlipidemia, Hypertension, Osteoarthritis (OA), Pneumonia, Sleep Apnea/CPAP/BIPAP Additional Past Medical History / Comment(s): Allergies. Hearing aids. Shingles 2004. Basal cell skin cancer. 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 Vertigo X1, Uses C-PAP. Chest pressure, shortness of breath, abn stress test. History of Any Multi-Drug Resistant Organisms: None Reported Past Surgical History: Heart Catheterization With Stent, Joint Replacement, Orthopedic Surgery Additional Past Surgical History / Comment(s): 2014 HEART CATH WITH STENT TO LAD , BRENDA CATARACTS. CTR bilat, Rt CTR repeated. Total Lt hip 2018. SKIN CANCER REMOVAL. Stem cell transplant 10/2020. Past Anesthesia/Blood Transfusion Reactions: No Reported Reaction Date of Last Stent Placement:: 05/12/2015 Past Psychological History: No Psychological Hx Reported Smoking Status: Former smoker Past Alcohol Use History: Occasional Additional Past Alcohol Use History / Comment(s): QUIT SMOKING OVER 47 YEARS AGO, SMOKED FOR 8 YEARS -1 PACK WOULD LAST 1 WEEK. Past Drug Use History: None Reported - Past Family History Brother(s) Family Medical History: Cancer, Diabetes Mellitus, Myocardial Infarction ([place]), Renal Disease Additional Family Medical History / Comment(s): LEUKEMIA, PROSTATE CANCER, DIALYSIS Sister(s) Family Medical History: Cancer Additional Family Medical History / Comment(s): LEUKEMIA Mother Family Medical History: Congestive Heart Failure (CHF), Myocardial Infarction ([place]) Additional Family Medical History / Comment(s): AT AGE 92 OF CHF Father Family Medical History: CVA/TIA Additional Family Medical History / Comment(s): FROM COMPLICATIONS FROM A STROKE AT AGE 58 Medications and Allergies Home Medications Medication Instructions Recorded Confirmed Type Aspirin 81 mg PO DAILY 05/12/15 02/10/22 History Multivitamin [Men's Multi-Vitamin] 1 tab PO DAILY 05/12/15 02/10/22 History Metoprolol Tartrate [Lopressor] 25 mg PO BID #60 tab 05/13/15 02/10/22 Rx Acyclovir [Zovirax] 800 mg PO BID 09/03/21 02/10/22 History Gabapentin [Neurontin] 600 mg PO HS 09/03/21 02/10/22 History Lenalidomide [Revlimid] 10 mg PO DAILY 09/03/21 02/10/22 History Montelukast [Singulair] 10 mg PO DAILY 09/03/21 02/10/22 History Omeprazole [PriLOSEC] 20 mg PO AC-BRKFST 09/03/21 02/10/22 History Atorvastatin [Lipitor] 80 mg PO HS #0 09/09/21 02/10/22 Rx Nitroglycerin Sl Tabs [Nitrostat] 0.4 mg SUBLINGUAL Q5M PRN #25 tab 09/09/21 02/10/22 Rx Ticagrelor [Brilinta] 90 mg PO BID #180 tab 09/09/21 02/10/22 Rx Famotidine [Pepcid] 20 mg PO BID 02/10/22 02/10/22 History Gabapentin 300 mg PO DAILY@1200 02/10/22 02/10/22 History Losartan [Cozaar] 25 mg PO DAILY 02/10/22 02/10/22 History Allergies Allergy/AdvReac Type Severity Reaction Status Date / Time naproxen [From Naprosyn] AdvReac swollen Verified 02/10/22 11:16 joints Physical Examination - Vital Signs Vital Signs: Vital Signs Temp Pulse Resp BP BP BP BP 02/11/22 11:20 98.2 F 84 18 109/66 107/53 106/67 02/11/22 11:07 98.2 F 82 16 106/67 02/11/22 04:30 99.7 F H 84 17 107/64 02/11/22 00:00 98.9 F 02/10/22 19:44 101.1 F H 89 20 100/69 02/10/22 19:30 20 02/10/22 18:52 92 138/54 02/10/22 18:50 87 128/69 02/10/22 18:47 84 114/74 02/10/22 18:41 98.6 F 02/10/22 15:34 98.2 F 02/10/22 15:07 102.2 F H 02/10/22 14:20 99.0 F 02/10/22 11:40 100.8 F H 68 18 129/69 Pulse Ox 02/11/22 11:20 86 L 02/11/22 11:07 91 L 02/11/22 04:30 92 L 02/11/22 00:00 02/10/22 19:44 92 L 02/10/22 19:30 02/10/22 18:52 02/10/22 18:50 02/10/22 18:47 02/10/22 18:41 02/10/22 15:34 02/10/22 15:07 02/10/22 14:20 02/10/22 11:40 91 L Intake and Output 02/10/22 02/11/22 02/11/22 22:59 06:59 14:59 Intake Total 400 1140 Output Total 200 Balance 200 1140 Intake: Intake, IV Titration 400 900 Amount Magnesium Sulfate-D5w Pmx 400 1 gm In Dextrose/Water 1 100ml.bag @ 100 mls/hr IVPB Q1H [facility] Rx#: [id number] Sodium Chloride 0.9% 1, 900 000 ml @ 130 mls/hr IV . Q7H42M [facility] Rx#:[id number] Oral 240 Output: Urine 200 Other: Voiding Method Bedside Commode Bedside Commode Urinal # Voids 1 GENERAL: The patient is lying in bed and is not in acute distress. CHEST: The heart rate is regular rate rhythm. No murmurs to auscultation. LUNG: Clear to auscultation bilaterally no wheezing noted throughout. Not labored breathing. ABDOMEN/GI: Bowel sounds present in all 4 quadrants. No tenderness to palpation throughout. NEUROLOGICAL: Higher mental function: The patient is awake, alert, oriented to self, place and time. Patient is following commands. No aphasia and no neglect. Cranial nerves: The pupils are round, equal and reactive to light and accommodation. Visual jara are full to confrontation throughout. Extraocular movement is intact no nystagmus is noted. Facial sensation is normal to touch throughout. The facial strength is normal throughout. Hearing is severely decreased bilaterally to hand rub (has hearing aids). Tongue is midline and moved [id number] without any difficulty. No dysarthria is noted. Shoulder shrug is normal bilaterally. Motor: Gait: Is walking with a walker and slow walking but not swaying towards one side or other. He denies any dizziness with ambulation. The strength is 5 over 5 throughout. Normal tone and bulk. Cerebellum: Normal finger to nose bilaterally. Sensation: Sensation is normal to touch throughout. Reflexes (right/left): 1+ throughout. Plantars are downgoing bilaterally. Results - Laboratory Findings CBC and BMP: 02/11/22 06:55 02/11/22 06:55 Abnormal Lab Findings: Abnormal Labs 02/10/22 02/10/22 02/10/22 09:04 09:04 09:04 WBC 2.3 L RBC 3.75 L Hgb 12.2 L Hct 37.5 L RDW 15.8 H Plt Count 140 L Carbon Dioxide 19 L Creatinine 1.53 H Glucose 161 H Calcium 8.3 L Magnesium 1.5 L IgM 27.6 L Assessment and Plan Assessment: Acute to subacute Vertigo (for past couple months). Unsure cause. Seems more positional. Rule out central (brain mets) especially with right sided lung mass suspicious for malignancy Right sided lung mass suspicious for malignancy Community acquired pneumonia Kidney insufficiency Multiple myeloma s/p stem cell transplant 1 year ago History of coronary artery disease History of hypertension History of hyperlipidemia Plan: I ordered MRI of the brain with and without to rule out central causes of dizziness (such as brain mets or even stroke). I consulted PT and OT Ordered orthostatic vitals. Q4 hour neuro checks. Oncology team is on board Pulmonary team is on board We'll defer the rest of the medical management to primary team The plan is discussed with the patient, his (who is at bedside) and primary team. Thank you for the consultation. Cirilo Henderson M.D. Neuro-Hospitalist Time with Patient: Greater than 30
--- NOTE | 2022-02-11 13:00 | P.PN ---
Subjective Progress Note Date: 02/11/22 This is a very pleasant 81-year-old male patient who has a history of coronary artery disease with previous stent placement to the LAD, former smoker, hearing disorder, hyperlipidemia, hypertension, osteoarthritis, obstructive sleep apnea utilizing CPAP. 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 He is maintained on Revlimid without evidence of relapse. He also Dr. Bush on a regular basis. He had presented to [facility] emergency room after sustaining a fall secondary to experiencing lightheadedness when standing up after bending down radiate had ongoing issues with shortness of breath and presented here for the same. Computed tomography scan revealed consolidation in the right upper lobe with an underlying mass not excluded as well as another consolidation of left lower lobe. There is also some concern regarding enlarged mediastinal and hilar lymph nodes. The patient was noted to be febrile. He was transferred here for further care. DT scan of the brain at her did not reveal any acute intracranial process. He is seen here today in consultation on the regular medical floor the patient is hard of hearing and somewhat of a poor historian. His is present and provides most of the information today. He is maintaining O2 saturations in the 90s on 2 L/m per nasal cannula. He's afebrile. Hemodynamically stable. He does have a loose nonproductive cough. No hemoptysis. White count 2.3. Hemoglobin 12.2. Platelet count 140,000. Sodium 138. Potassium 4.1. Bicarb 19. BUN 16. Creatinine 1.53. Magnesium 1.5. Currently being replaced. He's been initiated on ceftriaxone and azithromycin. Heparin for DVT prophylaxis. Normal saline at 75 ML's per hour. 02/11/2022, the patient is still having episodes of fever. Feels more energetic and active on today's evaluation is able to set up on a chair. He remains in a, his Rocephin and Zithromax. Hemodynamically stable. The labs from today shows a BUN of 19 with a creatinine of 1.6. Sodium levels at 137. The patient has a total IgG level of 1017. The serum bicarbonate of 19.8. Sodium levels of 137. LFTs are within normal limits. The sputum sample is still pending for now. The patient remains on oxygen at 2 L per minute nasal cannula with a pulse ox 93%. Objective - Vital Signs Vital signs: Vital Signs Temp 98.2 F 02/11/22 12:48 Pulse 93 02/11/22 12:48 Resp 18 02/11/22 12:48 BP 107/53 02/11/22 12:48 Pulse Ox 93 L 02/11/22 12:48 FiO2 Intake & Output 02/10/22 02/11/22 02/11/22 18:59 06:59 18:59 Intake Total 400 1140 Output Total 200 Balance 200 1140 Intake: Intake, IV Titration 400 900 Amount Magnesium Sulfate-D5w Pmx 400 1 gm In Dextrose/Water 1 100ml.bag @ 100 mls/hr IVPB Q1H [facility] Rx#: [id number] Sodium Chloride 0.9% 1, 900 000 ml @ 130 mls/hr IV . Q7H42M [facility] Rx#:[id number] Oral 240 Output: Urine 200 Other: Voiding Method Bedside Commode Bedside Commode Bedside Commode Urinal # Voids 1 - Exam GENERAL EXAM: Alert, pleasant 81-year-old gentleman, hard of hearing, on 2 L nasal cannula, comfortable in no apparent distress. HEAD: Normocephalic. EYES: Normal reaction of pupils, equal size. NOSE: Clear with pink turbinates. THROAT: No erythema or exudates. NECK: No masses, no JVD. CHEST: No chest wall deformity. LUNGS: Equal air entry with crackles in left lung base. Scattered rhonchi. CVS: S1 and S2 normal with no audible murmur, regular rhythm. ABDOMEN: No hepatosplenomegaly, normal bowel sounds, no guarding or rigidity. SPINE: No scoliosis or deformity SKIN: No rashes CENTRAL NERVOUS SYSTEM: No focal deficits, tone is normal in all 4 extremities. EXTREMITIES: There is no peripheral edema. No clubbing, no cyanosis. Peripheral pulses are intact. - Labs CBC & Chem 7: 02/10/22 09:04 02/11/22 06:55 Labs: Abnormal Lab Results - Last 24 Hours (Table) 02/10/22 02/11/22 Range/Units 09:04 06:55 Carbon Dioxide 19.8 L (20.0-27.5) mmol/L Creatinine 1.6 H (0.6-1.5) mg/dL Est GFR (CKD-EPI)AfAm 46.5 L (60.0-200.0) Est GFR (CKD-EPI)NonAf 40.1 L (60.0-200.0) Glucose 133 H (70-110) mg/dL Calcium 8.1 L (8.7-10.3) mg/dL AST 80 H (14-35) U/L Total Protein 5.8 L (6.2-8.2) g/dL Albumin 3.1 L (3.8-4.9) g/dL Albumin/Globulin Ratio 1.15 L (1.60-3.17) g/dL IgM 27.6 L (40.0-280.0) mg/dL Microbiology - Last 24 Hours (Table) 02/10/22 18:19 Sputum Culture - Preliminary Sputum Assessment and Plan Assessment: Generalized weakness and recent fall possibly secondary to pneumonia Acute hypoxic respiratory failure secondary to suspected underlying pneumonia of the left lower lobe including a mass of the right upper lobe, currently on 2 L oxygen nasal cannula Febrile illness secondary to above History of multiple myeloma, diagnosed in 2018, currently on Revlimid. Status post stem cell transplant at [facility] in October 2020 Possible opportunistic infection/lymphoma secondary to above Former remote smoker Coronary disease with previous stent placement to the LAD Hypertension Hyperlipidemia Obstructive sleep apnea, utilizing CPAP Hearing disorder Plan: There is an obvious concern for an atypical or opportunistic infection versus pulmonary malignancies The patient will be checked for Legionella urine antigen We'll check blood for fungal antibodies including Aspergillus and histoplasma We'll check urine cryptococcus antigen We'll check CMV in the blood, viral load. His CMV status is not known to us. Continue same antibiotic coverage Bronchoscopy no improvement obviously will need a bronchial lavage and biopsies. We'll discuss the case with oncology. We'll discuss the possibility of transferring this patient to [facility] as a differential diagnosis quite wide this patient special with his underlying transplant. He should be considered for opportunistic lung infection s. Malignancies of the lungs need to be considered. Recurrent hematologic malignancy involving the lung also need to be considered.
--- NOTE | 2022-02-11 13:17 | P.PN ---
Subjective Progress Note Date: 02/11/22 (delayed charting seen at 0915) The patient is an 81-year-old male with multiple myeloma, coronary artery disease, hypertension, and hyperlipidemia who initially presented to [facility] on 02/09 with complaints of dizziness, fall, and shortness of breath. He underwent an extensive evaluation in the emergency room at [facility]. He was noted to be febrile and tachypneic with a CT chest angiogram showing no evidence of pulmonary was on although a masslike consolidation in the medial aspect of the right upper lobe extending to the pulmonary hilum suspicious for tumor with a wedge-shaped consolidation of the left lower lobe likely secondary to bronchopneumonia. There was also a few enlarged mediastinal and bronchial lymph nodes noted. CT head and cervical spine revealed no acute abnormalities. Laboratory evaluation revealed a WBC count of 5.8, hemoglobin 13.1, with BMP remarkable for creatinine 1.55, sodium 132, potassium 3.2, CO2 20, lactic acid 1.5, and COVID-19 negative. EKG revealed sinus rhythm at 99 bpm with LVH. He was stated on IV fluids, rocephin and zithromax. Oncology was consulted and recommended pulmonary evaluation for need for bronchoscopy. Patient seen and examined at bedside. He complains of dizziness every time he stands or moves. He is most worried about that and it is why he sought care. He is having some pain in his ribs after his fall and cough. - present at bedside all questions answered. General: nontoxic, no distress, appears at stated age Derm: warm, dry Head: atraumatic, normocephalic, symmetric Eyes: EOMI, no lid lag, anicteric sclera Mouth: no lip lesion, mucus membranes moist Cardiovascular: S1S2 reg, no murmur, positive posterior tibial pulse bilateral, Lungs: Ronchi right Right side, no accessory muscle use Abdominal: soft, nontender to palpation, no guarding, no appreciable organomegaly Ext: no gross muscle atrophy, no edema, no contractures Neuro: CN II-XI grossly intact, no focal neuro deficits Psych: Alert, oriented, appropriate affect Assessment/plan: Community acquired pneumonia Right-sided lung mass suspicious for malignancy Acute hypoxic respiratory failure - Rocpehin and zithromax D # 3 - D/W Pulm start evlau for fungal and legionell, +/- bronch for sputum sample, no biopsy at this time - IV fluids - oncology recs: treat PNA - await CBC - resume Acyclovir Dizziness - Tele unremarkable - D/W neuro- orthostatic vitals mildly positive, continue with IVF and recheck, will proceed with MRI Brain given pts immunocompromised status - echo with preserved EF, Grade II diastolic dysfunction, no significnat valvular disease Kidney injury, acute versus chronic - IV fluids - avoid nephrotoxic agents - follow Cr - hold cozaar Hypokalemia, resolved Multiple myeloma - oncology recs appreciated - hold revlimid. - hx of stem cell transplant Chronic: CAD, hypertension, hyperlipidemia -Continue with home meds DVT prophylaxis: heparin Discussed with: Patient Anticipated discharge date: 2-[address]: Home Active Medications Generic Name Dose Route Start Last Admin Trade Name Freq PRN Reason Stop Dose Admin Acetaminophen 650 mg 02/10/22 13:44 02/10/22 18:58 Acetaminophen Tab 325 Mg Tab PO 650 mg Q6HR PRN Administration Fever and/ or Pain Acyclovir 800 mg 02/10/22 21:00 02/11/22 08:18 Acyclovir 800 Mg Tab PO 800 mg BID [facility] Administration Protocol Aspirin 81 mg 02/11/22 09:00 02/11/22 08:17 Aspirin 81 Mg PO 81 mg DAILY [facility] Administration Atorvastatin Calcium 80 mg 02/10/22 21:00 02/10/22 21:15 Atorvastatin 80 Mg Tab PO 80 mg HS [facility] Administration Azithromycin 500 mg 02/10/22 09:00 02/11/22 08:17 Azithromycin 500 Mg Tab PO 02/12/22 09:01 500 mg DAILY [facility] Administration Protocol Famotidine 20 mg 02/10/22 21:00 02/11/22 08:18 Famotidine 20 Mg Tab PO 20 mg BID [facility] Administration Gabapentin 300 mg 02/11/22 12:00 02/11/22 11:14 Gabapentin 300 Mg Cap PO 300 mg DAILY@1200 [facility] Administration Gabapentin 600 mg 02/10/22 21:00 02/10/22 21:15 Gabapentin 300 Mg Cap PO 600 mg HS [facility] Administration Heparin Sodium (Porcine) 5,000 unit 02/10/22 08:00 02/11/22 08:17 Heparin Sodium,Porcine/Pf 5,000 Unit/0.5 Ml Syringe SQ 5,000 unit Q8HR [facility] Administration Sodium Chloride 1,000 mls @ 130 mls/hr 02/10/22 00:30 02/11/22 04:53 Saline 0.9% IV 130 mls/hr .Q7H42M [facility] Administration Ceftriaxone Sodium 1 gm/ 50 mls @ 100 mls/hr 02/10/22 09:00 02/11/22 08:18 Sodium Chloride IVPB 100 mls/hr Q24HR [facility] Administration Protocol Metoprolol Tartrate 25 mg 02/10/22 11:00 02/11/22 08:18 Metoprolol Tartrate 25 Mg Tab PO 25 mg BID [facility] Administration Montelukast Sodium 10 mg 02/11/22 09:00 02/11/22 08:18 Montelukast 10 Mg Tab PO 10 mg DAILY [facility] Administration Morphine Sulfate 4 mg 02/10/22 00:26 Morphine Sulfate 4 Mg/Ml Syringe IV Q4HR PRN Severe Pain (Scale 7 to 10) Naloxone HCl 0.2 mg 02/10/22 00:26 Naloxone 0.4 Mg/Ml 1 Ml Vial IV Q2M PRN Opioid Reversal Ondansetron HCl 4 mg 02/10/22 00:26 Ondansetron 4 Mg/2 Ml Vial IVP Q8HR PRN Nausea And Vomiting Pantoprazole Sodium 40 mg 02/10/22 09:00 02/11/22 08:17 Pantoprazole 40 Mg/10 Ml Vial IV 40 mg DAILY [facility] Administration Ticagrelor 90 mg 02/10/22 11:00 02/11/22 08:18 Ticagrelor 90 Mg Tab PO 90 mg BID [facility] Administration Objective - Vital Signs Vital signs: Vital Signs Temp 98.2 F 02/11/22 12:48 Pulse 93 02/11/22 12:48 Resp 18 02/11/22 12:48 BP 107/53 02/11/22 12:48 Pulse Ox 93 L 02/11/22 12:48 FiO2 Intake & Output 02/10/22 02/11/22 02/11/22 18:59 06:59 18:59 Intake Total 400 1140 Output Total 200 Balance 200 1140 Intake: Intake, IV Titration 400 900 Amount Magnesium Sulfate-D5w Pmx 400 1 gm In Dextrose/Water 1 100ml.bag @ 100 mls/hr IVPB Q1H [facility] Rx#: [id number] Sodium Chloride 0.9% 1, 900 000 ml @ 130 mls/hr IV . Q7H42M [facility] Rx#:[id number] Oral 240 Output: Urine 200 Other: Voiding Method Bedside Commode Bedside Commode Bedside Commode Urinal # Voids 1 - Labs CBC & Chem 7: 02/10/22 09:04 02/11/22 06:55 Labs: Abnormal Lab Results - Last 24 Hours (Table) 02/10/22 02/11/22 Range/Units 09:04 06:55 Carbon Dioxide 19.8 L (20.0-27.5) mmol/L Creatinine 1.6 H (0.6-1.5) mg/dL Est GFR (CKD-EPI)AfAm 46.5 L (60.0-200.0) Est GFR (CKD-EPI)NonAf 40.1 L (60.0-200.0) Glucose 133 H (70-110) mg/dL Calcium 8.1 L (8.7-10.3) mg/dL AST 80 H (14-35) U/L Total Protein 5.8 L (6.2-8.2) g/dL Albumin 3.1 L (3.8-4.9) g/dL Albumin/Globulin Ratio 1.15 L (1.60-3.17) g/dL IgM 27.6 L (40.0-280.0) mg/dL Microbiology - Last 24 Hours (Table) 02/10/22 18:19 Sputum Culture - Preliminary Sputum
[2022-02-11 13:58] LABS: Basophils # (M) 0.08 X 10*3/uL (0.00-0.10); Eosinophils # (M) 0 X 10*3/uL (0.04-0.35); HCT 34.3 % (39.6-50.0); Lymphocytes # (M) 0.93 X 10*3/uL (0.90-5.00); MCH 30.7 pg (27.0-32.0); MCHC 32.1 g/dL (32.0-37.0); MCV 95.8 fL (80.0-97.0); Mean Platelet Volume 11.9 fL (9.5-12.2); Monocytes # (M) 0.24 X 10*3/uL (0.20-1.00); NRBC Per 100 WBC 0 /100 WBCS (0.0-0.0); Neutrophils % (M) 69 %; Platelet Count 149 X 10*3/uL (140-440); RBC 3.58 X 10*6/uL (4.40-5.60); RDW 16.8 % (11.5-14.5); WBC 4.06 X 10*3/uL (4.50-10.00)
[2022-02-11] MEDS: ACETAMINOPHEN TAB 325 MG TAB PO PRN (17:34)
[2022-02-11] MEDS ORDERED: IPRATROPIUM-ALBUTEROL 3 ML NEB INHALATION PRN (17:34)
--- NOTE | 2022-02-11 19:53 | P.PN ---
Subjective Progress Note Date: 02/11/22 Principal diagnosis: Acute on Chronic Respiratory Failure complicated with malignancy Review of Pulmonary notes plan for bronchial lavage and biopsies. Agree and await improvement Objective - Vital Signs Vital signs: Vital Signs Temp 98.2 F 02/11/22 12:48 Pulse 93 02/11/22 12:48 Resp 18 02/11/22 12:48 BP 107/53 02/11/22 12:48 Pulse Ox 93 L 02/11/22 12:48 FiO2 Intake & Output 02/10/22 02/11/22 02/11/22 18:59 06:59 18:59 Intake Total 400 1140 Output Total 200 Balance 200 1140 Intake: Intake, IV Titration 400 900 Amount Magnesium Sulfate-D5w Pmx 400 1 gm In Dextrose/Water 1 100ml.bag @ 100 mls/hr IVPB Q1H [facility] Rx#: [id number] Sodium Chloride 0.9% 1, 900 000 ml @ 130 mls/hr IV . [id number] [facility] Rx#:[id number] Oral 240 Output: Urine 200 Other: Voiding Method Bedside Commode Bedside Commode Bedside Commode Urinal # Voids 1 - Exam On oxygen, appears slightly short of breath even at rest - EENT Eyes: EOMI, PERRLA ENT: hearing grossly normal, normal oropharynx - Neck Neck: no lymphadenopathy Thyroid: bilateral: normal size - Respiratory Respiratory: right: diminished - Cardiovascular Rhythm: regular Heart sounds: normal: S1, S2 - Gastrointestinal General gastrointestinal: normal bowel sounds, soft - Integumentary Integumentary: normal - Neurologic - Labs CBC & Chem 7: 02/11/22 06:55 02/11/22 06:55 Labs: Abnormal Lab Results - Last 24 Hours (Table) 02/10/22 02/11/22 Range/Units 09:04 06:55 Carbon Dioxide 19.8 L (20.0-27.5) mmol/L Creatinine 1.6 H (0.6-1.5) mg/dL Est GFR (CKD-EPI)AfAm 46.5 L (60.0-200.0) Est GFR (CKD-EPI)NonAf 40.1 L (60.0-200.0) Glucose 133 H (70-110) mg/dL Calcium 8.1 L (8.7-10.3) mg/dL AST 80 H (14-35) U/L Total Protein 5.8 L (6.2-8.2) g/dL Albumin 3.1 L (3.8-4.9) g/dL Albumin/Globulin Ratio 1.15 L (1.60-3.17) g/dL IgM 27.6 L (40.0-280.0) mg/dL Microbiology - Last 24 Hours (Table) 02/10/22 18:19 Sputum Culture - Preliminary Sputum Assessment and Plan Plan: esults CT scan - chest: report reviewed Assessment and Plan (1) Pneumonia Narrative/Plan: The patient's CT angiogram showed dense consolidation in the right upper lobe as well as some smaller consolidation in the left lower lobe. Underlying mass was not excluded. The patient's severe symptoms appear to be a fairly acute and recent onset. He recently notes some shortness of breath and weight loss even prior to the acute presentation. However he denied the same to me. - It was discussed with the patient that he most likely does have a pneumonia. Underlying mass causing obstructive pneumonia, versus pneumonia alone are both in the differential. - Continue treatment for pneumonia per pulm - Defer Bronchoscopy to Pulmonary medicine Current Visit: Yes Status: Acute Code(s): J18.9 - PNEUMONIA, UNSPECIFIED ORGANISM SNOMED Code(s): 839586766 (2) Myeloma Narrative/Plan: In remission, currently on maintenance Revlimid. Hold Revlimid while inpatient because of pneumonia. Monitor counts Current Visit: Yes Status: Acute Code(s): C90.00 - MULTIPLE MYELOMA NOT HAVING ACHIEVED REMISSION SNOMED Code(s): 042352889 Dr. Katz: I have completed the full history and phyaical and developed the above impression and plan, agree with dictation, dictated as a scribe
[2022-02-11] MEDS: IPRATROPIUM-ALBUTEROL 3 ML NEB INHALATION SCH (20:35)
[2022-02-11] MEDS: ATORVASTATIN 80 MG TAB PO SCH (21:37)
[2022-02-12] MEDS: HEPARIN SODIUM,PORCINE/PF 5,000 UNIT/0.5 ML SYRINGE SQ SCH ×2 (00:01→07:59)
[2022-02-12] MEDS: SODIUM CHLORIDE 0.9% 1,000 ML IV SCH ×3 (01:58→16:41)
[2022-02-12] MEDS: ACETAMINOPHEN TAB 325 MG TAB PO PRN ×3 (05:03→15:46)
[2022-02-12 06:12] LABS: Glucose,Whole Blood 119 mg/dL (70-110)
--- NOTE | 2022-02-12 07:23 | XR ---
EXAMINATION TYPE: XR chest 1V portable DATE OF EXAM: 02/12/2022 7:15 AM COMPARISON: Chest radiographs from 02/11/2022 TECHNIQUE: XR chest 1V portable Frontal view of the chest. CLINICAL INDICATION:Male, 81 years old with history of pneumonia; FINDINGS: Lungs/Pleura: No pneumothorax. Small left pleural effusion. Redemonstration of large right upper lobe area of consolidation. Increased left perihilar/basilar consolidation. Pulmonary vascularity: Unremarkable. Heart/mediastinum: Cardiomediastinal silhouette is unremarkable. Atherosclerotic calcifications are seen in the aorta. Musculoskeletal: No acute osseous pathology. IMPRESSION: 1. Similar large area of consolidation within the right upper lobe which may represent a mass or pne umonia. Consider further evaluation with CT. 2. Increased left perihilar/basilar consolidation concerning for pneumonia and/or atelectasis.
[2022-02-12] MEDS: IPRATROPIUM-ALBUTEROL 3 ML NEB INHALATION SCH ×4 (07:48→19:52)
[2022-02-12 07:54] LABS: HCT 35.4 % (39.0-53.0); HGB 10.9 gm/dL (13.0-17.5); Hypochromasia Slight; MCH 30.5 pg (25.0-35.0); MCHC 30.9 g/dL (31.0-37.0); MCV 98.9 fL (80.0-100.0); Macrocytosis Slight; Mean Platelet Volume 8.8; Platelet Count 129 k/uL (150-450); RBC 3.58 m/uL (4.30-5.90); RDW 15.8 % (11.5-15.5); WBC 3.3 k/uL (3.8-10.6)
[2022-02-12] MEDS: ACYCLOVIR 800 MG TAB PO SCH ×2 (07:55→20:00)
[2022-02-12] MEDS: MONTELUKAST 10 MG TAB PO SCH (07:56)
[2022-02-12] MEDS: FAMOTIDINE 20 MG TAB PO SCH (07:56)
[2022-02-12] MEDS: METOPROLOL TARTRATE 25 MG TAB PO SCH ×2 (07:56→19:59)
[2022-02-12] MEDS: AZITHROMYCIN 500 MG TAB PO SCH (07:56)
[2022-02-12] MEDS: PANTOPRAZOLE 40 MG/10 ML VIAL IV SCH (07:56)
[2022-02-12] MEDS: ASPIRIN 81 MG PO SCH (08:04)
[2022-02-12] MEDS: TICAGRELOR 90 MG TAB PO SCH ×2 (08:04→20:00)
[2022-02-12] MEDS ORDERED: ALBUTEROL NEBULIZED 2.5 MG/3 ML INHALATION PRN (08:05)
[2022-02-12 08:51] LABS: African American GFR (CKD) 53 (>60 ml/min/1.73 sqM); Anion Gap 11 mmol/L; Blood Urea Nitrogen 20 mg/dL (9-20); Calcium 7.8 mg/dL (8.4-10.2); Carbon Dioxide 21 mmol/L (22-30); Chloride 108 mmol/L (98-107); Glucose 131 mg/dL (74-99); Non-African American GFR(CKD) 46 (>60 ml/min/1.73 sqM); Potassium 3.2 mmol/L (3.5-5.1); Sodium 140 mmol/L (137-145)
[2022-02-12] MEDS: guaiFENesin 600 MG TABLET.ER PO SCH ×2 (09:02→20:00)
[2022-02-12] MEDS ORDERED: POTASSIUM CHLORIDE ER 20 MEQ TAB.ER PO STA (11:18)
--- NOTE | 2022-02-12 11:32 | P.PN ---
Subjective Progress Note Date: 02/12/22 The patient is seen at bedside and feels he is doing better. Denies any further dizziness. Objective - Vital Signs Vital signs: Vital Signs Temp 99.8 F H 02/12/22 05:00 Pulse 76 02/12/22 11:19 Resp 30 H 02/12/22 07:48 BP 113/68 02/12/22 07:48 Pulse Ox 93 L 02/12/22 07:48 FiO2 32 02/11/22 20:35 Intake & Output 02/11/22 02/12/22 02/12/22 18:59 06:59 18:59 Output Total 400 Balance -400 Output: Urine 400 Other: Voiding Method Bedside Commode Bedside Commode Urinal Urinal Urinal # Voids 3 3 # Bowel Movements 1 - Exam GENERAL: The patient is sitting in a recliner chair and is not in acute distress. NEUROLOGICAL: Higher mental function: The patient is awake, alert, oriented to self, place and time. Patient is following commands. No aphasia and no neglect. Cranial nerves: The pupils are round, equal and reactive to light and accommodation. Visual jara are full to confrontation throughout. Extraocular movement is intact no nystagmus is noted. Facial sensation is normal to touch throughout. The facial strength is normal throughout. Hearing is severely decreased bilaterally to hand rub (has hearing aids). Tongue is midline and moved [id number] without any difficulty. No dysarthria is noted. Shoulder shrug is normal bilaterally. Motor: Gait is deferred The strength is 5 over 5 throughout. Normal tone and bulk. Cerebellum: Normal finger to nose bilaterally. Sensation: Sensation is normal to touch throughout. Reflexes (right/left): 1+ throughout. Plantars are downgoing bilaterally. - Labs CBC & Chem 7: 02/12/22 07:16 02/12/22 07:16 Labs: Abnormal Lab Results - Last 24 Hours (Table) 02/11/22 02/11/22 02/11/22 Range/Units 06:55 06:55 10:22 WBC 4.06 L (4.50-10.00) X 10*3/uL RBC 3.58 L (4.40-5.60) X 10*6/uL Hgb 11.0 L (13.0-17.0) g/dL Hct 34.3 L (39.6-50.0) % MCHC (31.0-37.0) g/dL RDW 16.8 H (11.5-14.5) % Plt Count (150-450) k/uL Plt Count Comment DECREASED A Eosinophils # (Manual) 0 L (0.04-0.35) X 10*3/uL Potassium (3.5-5.1) mmol/L Chloride (98-107) mmol/L Carbon Dioxide 19.8 L (20.0-27.5) mmol/L Creatinine 1.6 H (0.6-1.5) mg/dL Est GFR (CKD-EPI)AfAm 46.5 L (60.0-200.0) Est GFR (CKD-EPI)NonAf 40.1 L (60.0-200.0) Glucose 133 H (70-110) mg/dL POC Glucose (mg/dL) (70-110) mg/dL Calcium 8.1 L (8.7-10.3) mg/dL AST 80 H (14-35) U/L Total Protein 5.8 L (6.2-8.2) g/dL Albumin 3.1 L (3.8-4.9) g/dL Albumin/Globulin Ratio 1.15 L (1.60-3.17) g/dL Procalcitonin 3.01 H (0.02-0.09) ng/mL 02/12/22 02/12/22 02/12/22 Range/Units 06:11 07:16 07:16 WBC 3.3 L (4.50-10.00) X 10*3/uL RBC 3.58 L (4.40-5.60) X 10*6/uL Hgb 10.9 L (13.0-17.0) g/dL Hct 35.4 L (39.6-50.0) % MCHC 30.9 L (31.0-37.0) g/dL RDW 15.8 H (11.5-14.5) % Plt Count 129 L (150-450) k/uL Plt Count Comment Eosinophils # (Manual) (0.04-0.35) X 10*3/uL Potassium 3.2 L (3.5-5.1) mmol/L Chloride 108 H (98-107) mmol/L Carbon Dioxide 21 L (20.0-27.5) mmol/L Creatinine 1.43 H (0.6-1.5) mg/dL Est GFR (CKD-EPI)AfAm (60.0-200.0) Est GFR (CKD-EPI)NonAf (60.0-200.0) Glucose 131 H (70-110) mg/dL POC Glucose (mg/dL) 119 H (70-110) mg/dL Calcium 7.8 L (8.7-10.3) mg/dL AST (14-35) U/L Total Protein (6.2-8.2) g/dL Albumin (3.8-4.9) g/dL Albumin/Globulin Ratio (1.60-3.17) g/dL Procalcitonin (0.02-0.09) ng/mL Microbiology - Last 24 Hours (Table) 02/10/22 16:37 Blood Culture - Preliminary Blood No Growth after 24 hours Assessment and Plan Assessment: Acute to subacute Vertigo (for past couple months). Seems more positional. Rule out central (brain mets) especially with right sided lung mass suspicious for malignancy---patient feels dizziness is improving Right sided lung mass suspicious for malignancy Community acquired pneumonia Kidney insufficiency Multiple myeloma s/p stem cell transplant 1 year ago History of coronary artery disease History of hypertension History of hyperlipidemia Plan: I ordered MRI of the brain with and without to rule out central causes of dizzin ess (such as brain mets or even stroke). If MRI Brain is negative for stroke or mass and patient continues to have dizziness, then recommend evaluation by ENT as outpatient and consideration of following-up with ENT. PT and OT are consulted. Q4 hour neuro checks. Oncology team is on board Pulmonary team is on board We'll defer the rest of the medical management to primary team The plan is discussed with the patient and primary team. Cirilo Henderson M.D. Neuro-Hospitalist Time with Patient: Less than 30
[2022-02-12] MEDS: GABAPENTIN 300 MG CAP PO SCH (11:57)
--- NOTE | 2022-02-12 13:46 | P.PN ---
Subjective Progress Note Date: 02/12/22 (delayed charting seen at 0755) The patient is an 81-year-old male with multiple myeloma, coronary artery disease, hypertension, and hyperlipidemia who initially presented to [facility] on 02/09 with complaints of dizziness, fall, and shortness of breath. He underwent an extensive evaluation in the emergency room at [facility]. He was noted to be febrile and tachypneic with a CT chest angiogram showing no evidence of pulmonary was on although a masslike consolidation in the medial aspect of the right upper lobe extending to the pulmonary hilum suspicious for tumor with a wedge-shaped consolidation of the left lower lobe likely secondary to bronchopneumonia. There was also a few enlarged mediastinal and bronchial lymph nodes noted. CT head and cervical spine revealed no acute abnormalities. Laboratory evaluation revealed a WBC count of 5.8, hemoglobin 13.1, with BMP remarkable for creatinine 1.55, sodium 132, potassium 3.2, CO2 20, lactic acid 1.5, and COVID-19 negative. EKG revealed sinus rhythm at 99 bpm with LVH. He was stated on IV fluids, rocephin and zithromax. Oncology was consulted and recommended pulmonary evaluation for need for bronchoscopy. He was seen by pulmonology who felt there is no urgent indication for biopsy. They are considering possible bronchoscopy for sputum sample. On the morning of 02/12 patient developed worsening shortness of breath. He was given a DuoNeb and had some improvement. Chest x-ray on 02/12 demonstrates continued right upper lobe and worsening left lower lobe infiltrates Patient seen and examined at bedside. He is feeling much better after having his DuoNeb treatment and getting up to the chair. He states he believes his dizziness has resolved. He was able to get out of bed standing into the chair without any dizziness. Still is not eating much but feels as though he is drinking okay. General: Ill appearing, mild distress, appears at stated age Derm: warm, dry Head: atraumatic, normocephalic, symmetric Eyes: EOMI, no lid lag, anicteric sclera Mouth: no lip lesion, mucus membranes moist Cardiovascular: S1S2 reg, no murmur, positive posterior tibial pulse bilateral, Lungs: Ronchi right Right side, no accessory muscle use, 3 word conversational dyspnea Abdominal: soft, nontender to palpation, no guarding, no appreciable organomegaly Ext: no gross muscle atrophy, no edema, no contractures Neuro: CN II-XI grossly intact, no focal neuro deficits Psych: Alert, oriented, appropriate affect Assessment/plan: Community acquired pneumonia Right-sided lung consolidation suspicious for malignancy Acute hypoxic respiratory failure -Patient is at high risk of atypical/opportunistic infections secondary to his history of stem cell transplant and immunosuppressive therapy. - Rocpehin and zithromax D # 4 - Legionella urine antigen negative -Await histo, crypto, and Aspergillus testing -Await CMV testing - IV fluids completed - oncology recs: treat PNA -Acyclovir -Bronchodilators scheduled and when necessary - elevated procal- likely bacterial but could be related to malignancy Dizziness, resolved - Tele unremarkable - Neurology recommendations -Await MRI - echo with preserved EF, Grade II diastolic dysfunction, no significnat valvular disease CKD - avoid nephrotoxic agents - follow Cr - hold cozaar Hypokalemia - replace Multiple myeloma - oncology recs appreciated - hold revlimid. - hx of stem cell transplant Chronic: CAD, hypertension, hyperlipidemia -Continue with home meds DVT prophylaxis: heparin Discussed with: Patient Anticipated discharge date: 2-[address]: Home Active Medications Generic Name Dose Route Start Last Admin Trade Name Freq PRN Reason Stop Dose Admin Acetaminophen 650 mg 02/10/22 13:44 02/12/22 10:52 Acetaminophen Tab 325 Mg Tab PO 650 mg Q6HR PRN Administration Fever and/ or Pain Acyclovir 800 mg 02/10/22 21:00 02/12/22 07:55 Acyclovir 800 Mg Tab PO 800 mg BID [facility] Administration Protocol Albuterol Sulfate 2.5 mg 02/12/22 08:05 Albuterol Nebulized 2.5 Mg/3 Ml INHALATION RT-QID PRN Shortness Of Breath Or Wheezing Albuterol/Ipratropium 3 ml 02/12/22 12:00 02/12/22 11:06 Ipratropium-Albuterol 3 Ml Neb INHALATION 3 ml RT-Q4H [facility] Administration Aspirin 81 mg 02/11/22 09:00 02/12/22 08:04 Aspirin 81 Mg PO 81 mg DAILY [facility] Administration Atorvastatin Calcium 80 mg 02/10/22 21:00 02/11/22 21:37 Atorvastatin 80 Mg Tab PO 80 mg HS [facility] Administration Famotidine 20 mg 02/12/22 09:00 02/12/22 07:56 Famotidine 20 Mg Tab PO 20 mg DAILY [facility] Administration Gabapentin 300 mg 02/11/22 12:00 02/12/22 11:57 Gabapentin 300 Mg Cap PO 300 mg DAILY@1200 [facility]ON Administration Gabapentin 600 mg 02/10/22 21:00 02/11/22 21:37 Gabapentin 300 Mg Cap PO 600 mg HS [facility]ON Administration Guaifenesin 600 mg 02/12/22 09:00 02/12/22 09:02 Guaifenesin 600 Mg Tablet.Er PO 600 mg Q12HR [facility]ON Administration Ceftriaxone Sodium 2 gm/ 50 mls @ 100 mls/hr 02/11/22 21:00 02/11/22 21:58 Sodium Chloride IVPB 100 mls/hr Q24H [facility] Administration Protocol Metoprolol Tartrate 25 mg 02/10/22 11:00 02/12/22 07:56 Metoprolol Tartrate 25 Mg Tab PO 25 mg BID [facility]ON Administration Montelukast Sodium 10 mg 02/11/22 09:00 02/12/22 07:56 Montelukast 10 Mg Tab PO 10 mg DAILY [facility] Administration Morphine Sulfate 4 mg 02/10/22 00:26 Morphine Sulfate 4 Mg/Ml Syringe IV Q4HR PRN Severe Pain (Scale 7 to 10) Naloxone HCl 0.2 mg 02/10/22 00:26 Naloxone 0.4 Mg/Ml 1 Ml Vial IV Q2M PRN Opioid Reversal Ondansetron HCl 4 mg 02/10/22 00:26 Ondansetron 4 Mg/2 Ml Vial IVP Q8HR PRN Nausea And Vomiting Pantoprazole Sodium 40 mg 02/10/22 09:00 02/12/22 07:56 Pantoprazole 40 Mg/10 Ml Vial IV 40 mg DAILY [facility] Administration Ticagrelor 90 mg 02/10/22 11:00 02/12/22 08:04 Ticagrelor 90 Mg Tab PO 90 mg BID [facility] Administration Objective - Vital Signs Vital signs: Vital Signs Temp 97.3 F L 02/12/22 11:33 Pulse 77 02/12/22 11:33 Resp 18 02/12/22 11:33 BP 97/62 02/12/22 11:33 Pulse Ox 93 L 02/12/22 11:33 FiO2 32 02/11/22 20:35 Intake & Output 02/11/22 02/12/22 02/12/22 18:59 06:59 18:59 Output Total 400 Balance -400 Output: Urine 400 Other: Voiding Method Bedside Commode Bedside Commode Urinal Urinal Urinal # Voids 3 3 # Bowel Movements 1 1 - Labs CBC & Chem 7: 02/12/22 07:16 02/12/22 07:16 Labs: Abnormal Lab Results - Last 24 Hours (Table) 02/11/22 02/11/22 02/12/22 Range/Units 06:55 10:22 06:11 WBC 4.06 L (4.50-10.00) X 10*3/uL RBC 3.58 L (4.40-5.60) X 10*6/uL Hgb 11.0 L (13.0-17.0) g/dL Hct 34.3 L (39.6-50.0) % MCHC (31.0-37.0) g/dL RDW 16.8 H (11.5-14.5) % Plt Count (150-450) k/uL Plt Count Comment DECREASED A Eosinophils # (Manual) 0 L (0.04-0.35) X 10*3/uL Potassium (3.5-5.1) mmol/L Chloride (98-107) mmol/L Carbon Dioxide (22-30) mmol/L Creatinine (0.66-1.25) mg/dL Glucose (74-99) mg/dL POC Glucose (mg/dL) 119 H (70-110) mg/dL Calcium (8.4-10.2) mg/dL Procalcitonin 3.01 H (0.02-0.09) ng/mL 02/12/22 02/12/22 Range/Units 07:16 07:16 WBC 3.3 L (4.50-10.00) X 10*3/uL RBC 3.58 L (4.40-5.60) X 10*6/uL Hgb 10.9 L (13.0-17.0) g/dL Hct 35.4 L (39.6-50.0) % MCHC 30.9 L (31.0-37.0) g/dL RDW 15.8 H (11.5-14.5) % Plt Count 129 L (150-450) k/uL Plt Count Comment Eosinophils # (Manual) (0.04-0.35) X 10*3/uL Potassium 3.2 L (3.5-5.1) mmol/L Chloride 108 H (98-107) mmol/L Carbon Dioxide 21 L (22-30) mmol/L Creatinine 1.43 H (0.66-1.25) mg/dL Glucose 131 H (74-99) mg/dL POC Glucose (mg/dL) (70-110) mg/dL Calcium 7.8 L (8.4-10.2) mg/dL Procalcitonin (0.02-0.09) ng/mL Microbiology - Last 24 Hours (Table) 02/10/22 18:19 Gram Stain - Preliminary Sputum Sputum Culture - Preliminary Tami albicans 02/10/22 16:37 Blood Culture - Preliminary Blood No Growth after 24 hours
--- NOTE | 2022-02-12 14:27 | P.PN ---
Subjective Progress Note Date: 02/12/22 This is a very pleasant 81-year-old male patient who has a history of coronary artery disease with previous stent placement to the LAD, former smoker, hearing disorder, hyperlipidemia, hypertension, osteoarthritis, obstructive sleep apnea utilizing CPAP. 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 He is maintained on Revlimid without evidence of relapse. He also Dr. Bush on a regular basis. He had presented to [facility] emergency room after sustaining a fall secondary to experiencing lightheadedness when standing up after bending down radiate had ongoing issues with shortness of breath and presented here for the same. Computed tomography scan revealed consolidation in the right upper lobe with an underlying mass not excluded as well as another consolidation of left lower lobe. There is also some concern regarding enlarged mediastinal and hilar lymph nodes. The patient was noted to be febrile. He was transferred here for further care. DT scan of the brain at her did not reveal any acute intracranial process. He is seen here today in consultation on the regular medical floor the patient is hard of hearing and somewhat of a poor historian. His is present and provides most of the information today. He is maintaining O2 saturations in the 90s on 2 L/m per nasal cannula. He's afebrile. Hemodynamically stable. He does have a loose nonproductive cough. No hemoptysis. White count 2.3. Hemoglobin 12.2. Platelet count 140,000. Sodium 138. Potassium 4.1. Bicarb 19. BUN 16. Creatinine 1.53. Magnesium 1.5. Currently being replaced. He's been initiated on ceftriaxone and azithromycin. Heparin for DVT prophylaxis. Normal saline at 75 ML's per hour. 02/11/2022, the patient is still having episodes of fever. Feels more energetic and active on today's evaluation is able to set up on a chair. He remains in a, his Rocephin and Zithromax. Hemodynamically stable. The labs from today shows a BUN of 19 with a creatinine of 1.6. Sodium levels at 137. The patient has a total IgG level of 1017. The serum bicarbonate of 19.8. Sodium levels of 137. LFTs are within normal limits. The sputum sample is still pending for now. The patient remains on oxygen at 2 L per minute nasal cannula with a pulse ox 93%. 02/12/2022, the patient is feeling better clinically. His cough and congestion has subsided since yesterday. Nevertheless, the chest x-ray is quite abnormal in the patient's best consolidation of left lower lobe and the right upper lobe masslike opacity. He is currently covered with a combination of Rocephin and Zithromax day #4. Legionella urine antigen was negative. Awaiting fungal serology. MRI of the brain is also to be done today. No nausea. No vomiting. No diarrhea. No abdominal pain. No altered mentation. The white cell count is at 3.3 with a hemoglobin of 10.9 and a platelet count of 129. BUN is at 20 with a creatinine of 1.4 and sodium level is at 140. The pro-calcitonin LEVEL IS AT 3.01 SUGGESTIVE UNDERLYING BACTERIAL INFECTION. Objective - Vital Signs Vital signs: Vital Signs Temp 97.3 F L 02/12/22 11:33 Pulse 77 02/12/22 11:33 Resp 18 02/12/22 11:33 BP 97/62 02/12/22 11:33 Pulse Ox 93 L 02/12/22 11:33 FiO2 32 02/11/22 20:35 Intake & Output 02/11/22 02/12/22 02/12/22 18:59 06:59 18:59 Output Total 400 Balance -400 Output: Urine 400 Other: Voiding Method Bedside Commode Bedside Commode Urinal Urinal Urinal # Voids 3 3 # Bowel Movements 1 1 - Exam GENERAL EXAM: Alert, pleasant 81-year-old gentleman, hard of hearing, on 2 L nasal cannula, comfortable in no apparent distress. HEAD: Normocephalic. EYES: Normal reaction of pupils, equal size. NOSE: Clear with pink turbinates. THROAT: No erythema or exudates. NECK: No masses, no JVD. CHEST: No chest wall deformity. LUNGS: Equal air entry with crackles in left lung base. Scattered rhonchi. CVS: S1 and S2 normal with no audible murmur, regular rhythm. ABDOMEN: No hepatosplenomegaly, normal bowel sounds, no guarding or rigidity. SPINE: No scoliosis or deformity SKIN: No rashes CENTRAL NERVOUS SYSTEM: No focal deficits, tone is normal in all 4 extremities. EXTREMITIES: There is no peripheral edema. No clubbing, no cyanosis. Peripheral pulses are intact. - Labs CBC & Chem 7: 02/12/22 07:16 02/12/22 07:16 Labs: Abnormal Lab Results - Last 24 Hours (Table) 02/11/22 02/12/22 02/12/22 Range/Units 10:22 06:11 07:16 WBC 3.3 L (3.8-10.6) k/uL RBC 3.58 L (4.30-5.90) m/uL Hgb 10.9 L (13.0-17.5) gm/dL Hct 35.4 L (39.0-53.0) % MCHC 30.9 L (31.0-37.0) g/dL RDW 15.8 H (11.5-15.5) % Plt Count 129 L (150-450) k/uL Potassium (3.5-5.1) mmol/L Chloride (98-107) mmol/L Carbon Dioxide (22-30) mmol/L Creatinine (0.66-1.25) mg/dL Glucose (74-99) mg/dL POC Glucose (mg/dL) 119 H (70-110) mg/dL Calcium (8.4-10.2) mg/dL Procalcitonin 3.01 H (0.02-0.09) ng/mL 02/12/22 Range/Units 07:16 WBC (3.8-10.6) k/uL RBC (4.30-5.90) m/uL Hgb (13.0-17.5) gm/dL Hct (39.0-53.0) % MCHC (31.0-37.0) g/dL RDW (11.5-15.5) % Plt Count (150-450) k/uL Potassium 3.2 L (3.5-5.1) mmol/L Chloride 108 H (98-107) mmol/L Carbon Dioxide 21 L (22-30) mmol/L Creatinine 1.43 H (0.66-1.25) mg/dL Glucose 131 H (74-99) mg/dL POC Glucose (mg/dL) (70-110) mg/dL Calcium 7.8 L (8.4-10.2) mg/dL Procalcitonin (0.02-0.09) ng/mL Microbiology - Last 24 Hours (Table) 02/10/22 18:19 Gram Stain - Preliminary Sputum Sputum Culture - Preliminary Tami albicans 02/10/22 16:37 Blood Culture - Preliminary Blood No Growth after 24 hours Assessment and Plan Assessment: Generalized weakness and recent fall possibly secondary to pneumonia Acute hypoxic respiratory failure secondary to suspected underlying pneumonia of the left lower lobe including a mass of the right upper lobe, currently on 4 L oxygen nasal cannula. The pro-calcitonin LEVEL IS ELEVATED SUGGESTIVE UNDERLYING BACTERIAL INFECTION and the level came back at 3.01 currently on a combination of Rocephin and Zithromax. Legionella urine antigen is negative. Febrile illness secondary to above History of multiple myeloma, diagnosed in 2019, currently on Revlimid. Status post stem cell transplant at [facility] in October 2020 Possible opportunistic infection/lymphoma secondary to above Former remote smoker Coronary disease with previous stent placement to the LAD Hypertension Hyperlipidemia Obstructive sleep apnea, utilizing CPAP Hearing disorder Plan: Clinically improved Chest x-ray findings are obviously abnormal repeat chest x-ray obtained tomorrow Legionella urine antigen is negative Awaiting blood for fungal antibodies including Aspergillus and histoplasma Awaiting urine cryptococcus antigen Awaiting CMV in the blood, viral load. His CMV status is not known to us. Continue same antibiotic coverage Bronchoscopy no improvement obviously will need a bronchial lavage and biopsies. We'll discuss the case with oncology.
--- NOTE | 2022-02-12 14:43 | MR ---
EXAMINATION TYPE: MR brain wo/w con DATE OF EXAM: 02/12/2022 COMPARISON: PET CT 12/22/2019, MRI cervical spine HISTORY: dizziness. Lung mass. Rule out mets. TECHNIQUE: Multiplanar, multisequence images of the brain and brainstem is performed without and with IV contras t, utilizing 7.5 mL intravenous Gadavist . FINDINGS: Diffusion weighted images demonstrate no evidence of a recent infarct or other diffusion ab normality. There is no extra-axial fluid collection. Scattered periventricular and subcortical white matter densities bilaterally. These do not enhance. The ventricular system and cisternal spaces are normal in size and appearance. Cerebral volume loss. Midline structures demonstrate normal morphology. The craniocervical junction appears within normal limits. Post contrast images demonstrate no abnormal enhancement. The dural venous sinuses appear pa tent. Both ocular lens are surgically absent. Mild mucosal thickening of the left maxillary sinus and right sphenoid sinus. IMPRESSION: 1. No acute ischemia or abnormal contrast enhancement to suggest metastases. 2. Scattered periventricular and subcortical white matter densities likely related to chronic small vessel ischemic disease
[2022-02-12] MEDS: IBUPROFEN 400 MG TAB PO PRN (17:31)
[2022-02-12] MEDS: ATORVASTATIN 80 MG TAB PO SCH (20:00)
[2022-02-12] MEDS: GABAPENTIN 100 MG CAP PO SCH (20:00)
[2022-02-13] MEDS: IPRATROPIUM-ALBUTEROL 3 ML NEB INHALATION SCH ×7 (01:48→22:18)
[2022-02-13 06:00] LABS: HCT 34.7 % (39.0-53.0); HGB 10.8 gm/dL (13.0-17.5); Hypochromasia Slight; MCH 30.8 pg (25.0-35.0); MCHC 31.2 g/dL (31.0-37.0); MCV 98.8 fL (80.0-100.0); Macrocytosis Slight; Mean Platelet Volume 9.6; Platelet Count 128 k/uL (150-450); RBC 3.51 m/uL (4.30-5.90); WBC 3.5 k/uL (3.8-10.6)
[2022-02-13 06:26] LABS: African American GFR (CKD) 54 (>60 ml/min/1.73 sqM); Anion Gap 11 mmol/L; Blood Urea Nitrogen 24 mg/dL (9-20); Carbon Dioxide 21 mmol/L (22-30); Chloride 110 mmol/L (98-107); Glucose 131 mg/dL (74-99); Magnesium 2.1 mg/dL (1.6-2.3); Non-African American GFR(CKD) 47 (>60 ml/min/1.73 sqM); Potassium 3.3 mmol/L (3.5-5.1); Sodium 142 mmol/L (137-145)
[2022-02-13] MEDS ORDERED: POTASSIUM CHLORIDE ER 20 MEQ TAB.ER PO STA (08:24)
--- NOTE | 2022-02-13 08:53 | XR ---
EXAMINATION TYPE: XR chest 2V DATE OF EXAM: 02/13/2022 8:42 AM COMPARISON: Chest radiographs from 02/12/2022 TECHNIQUE: XR chest 2V Frontal and lateral views of the chest. CLINICAL INDICATION:Male, 81 years old with history of Pneumonia; FINDINGS: Lungs/Pleura: No pneumothorax. Small left pleural effusion. Redemonstration of large right upper lung area of consolidation/airspace disease. Similar lower lobe patchy airspace opacity/consolidation. Pulmonary vascularity: Unremarkable. Heart/mediastinum: Cardiomediastinal silhouette is prominent. Atherosclerotic calcifications are seen in the aorta. Musculoskeletal: Age-indeterminate severe compression fracture of the midthoracic spine. IMPRESSION: 1. Similar large area of consolidation/airspace disease within the right upper lung and within the le ft lower lobe. These findings are again suspicious for mass or pneumonia. Consider further evaluation with chest. 2. Redemonstration of age indeterminate compression fracture of the midthoracic spine. Cannot exclude destructive process.
[2022-02-13] MEDS: IBUPROFEN 400 MG TAB PO PRN ×2 (09:00→18:01)
[2022-02-13] MEDS: guaiFENesin 600 MG TABLET.ER PO SCH ×2 (09:00→20:01)
[2022-02-13] MEDS: METOPROLOL TARTRATE 25 MG TAB PO SCH ×2 (09:00→20:01)
[2022-02-13] MEDS: PANTOPRAZOLE 40 MG/10 ML VIAL IV SCH (09:01)
[2022-02-13] MEDS: TICAGRELOR 90 MG TAB PO SCH ×2 (09:01→20:01)
[2022-02-13] MEDS: MONTELUKAST 10 MG TAB PO SCH (09:01)
[2022-02-13] MEDS: ACYCLOVIR 800 MG TAB PO SCH ×2 (09:01→20:01)
[2022-02-13] MEDS: FAMOTIDINE 20 MG TAB PO SCH (09:01)
[2022-02-13] MEDS: ASPIRIN 81 MG PO SCH (09:01)
[2022-02-13] MEDS: SODIUM CHLORIDE 0.9% 1,000 ML IV SCH ×2 (09:02→19:58)
--- NOTE | 2022-02-13 10:01 | P.PN ---
Subjective Progress Note Date: 02/13/22 The patient is seen at bedside and feels doing better and no further dizziness. Objective - Vital Signs Vital signs: Vital Signs Temp 97.6 F 02/13/22 04:19 Pulse 88 02/13/22 07:34 Resp 20 02/13/22 04:19 BP 100/65 02/13/22 04:19 Pulse Ox 94 L 02/13/22 04:19 FiO2 32 02/11/22 20:35 Intake & Output 02/12/22 02/13/22 02/13/22 18:59 06:59 18:59 Intake Total 3030 Output Total 300 Balance 3030 -300 Intake: Intake, IV Titration 150 Amount Sodium Chloride 0.9% 1, 150 000 ml @ 75 mls/hr IV . [id number] [facility] Rx#:[id number] Oral 2880 Output: Urine 300 Other: Voiding Method Urinal # Voids 3 2 # Bowel Movements 1 1 - Exam GENERAL: The patient is sitting in a recliner chair having his breakfast and is not in acute distress. NEUROLOGICAL: Higher mental function: The patient is awake, alert, oriented to self, place and time. Patient is following commands. No aphasia and no neglect. Cranial nerves: The pupils are round, equal and reactive to light and accommodation. Visual jara are full to confrontation throughout. Extraocular movement is intact no nystagmus is noted. Facial sensation is normal to touch throughout. The facial strength is normal throughout. Hearing is severely decreased bilaterally to hand rub (has hearing aids). Tongue is midline and mo yamilka efha-vl-vyys without any difficulty. No dysarthria is noted. Shoulder shrug is normal bilaterally. Motor: Gait is deferred The strength is 5 over 5 throughout. Normal tone and bulk. Cerebellum: Normal finger to nose bilaterally. Sensation: Sensation is normal to touch throughout. Reflexes (right/left): 1+ throughout. Plantars are downgoing bilaterally. - Labs CBC & Chem 7: 02/13/22 05:30 02/13/22 05:29 Labs: Abnormal Lab Results - Last 24 Hours (Table) 02/13/22 02/13/22 Range/Units 05:29 05:30 WBC 3.5 L (3.8-10.6) k/uL RBC 3.51 L (4.30-5.90) m/uL Hgb 10.8 L (13.0-17.5) gm/dL Hct 34.7 L (39.0-53.0) % RDW 16.0 H (11.5-15.5) % Plt Count 128 L (150-450) k/uL Potassium 3.3 L (3.5-5.1) mmol/L Chloride 110 H (98-107) mmol/L Carbon Dioxide 21 L (22-30) mmol/L BUN 24 H (9-20) mg/dL Creatinine 1.41 H (0.66-1.25) mg/dL Glucose 131 H (74-99) mg/dL Calcium 8.0 L (8.4-10.2) mg/dL Microbiology - Last 24 Hours (Table) 02/10/22 16:37 Blood Culture - Preliminary Blood No Growth after 48 hours 02/10/22 18:19 Gram Stain - Preliminary Sputum Sputum Culture - Preliminary Tami albicans Assessment and Plan Assessment: Acute to subacute Vertigo (for past couple months). Seems more positional. Not mass or stroke on MRI Brain---patient feels dizziness is improving Right sided lung mass suspicious for malignancy Community acquired pneumonia Kidney insufficiency Multiple myeloma s/p stem cell transplant 1 year ago History of coronary artery disease History of hypertension History of hyperlipidemia Plan: MR the brain is reported as no acute ischemia or abnormal contrast enhancement to suggest metastases. Scattered periventricular and subcortical white matter densities likely related to chronic small vessel ischemic disease. I personally reviewed the MRI agree with the report. If patient continues to have dizziness, then recommend evaluation by ENT as outpatient and consideration following-up with ENT. PT and OT are consulted. Q4 hour neuro checks. Oncology team is on board Pulmonary team is on board We'll defer the rest of the medical management to primary team The plan is discussed with the patient and his nurse. There is no additional work-up from neurological perspective. Will sign off. Please reconsult if needed. Cirilo Henderson M.D. Neuro-Hospitalist Time with Patient: Less than 30
--- NOTE | 2022-02-13 10:36 | P.PN ---
Subjective Progress Note Date: 02/13/22 The patient is an 81-year-old male with multiple myeloma, coronary artery disease, hypertension, and hyperlipidemia who initially presented to [facility] on 02/09 with complaints of dizziness, fall, and shortness of breath. He underwent an extensive evaluation in the emergency room at [facility]. He was noted to be febrile and tachypneic with a CT chest angiogram showing no evidence of pulmonary was on although a masslike consolidation in the medial aspect of the right upper lobe extending to the pulmonary hilum suspicious for tumor with a wedge-shaped consolidation of the left lower lobe likely secondary to bronchopneumonia. There was also a few enlarged mediastinal and bronchial lymph nodes noted. CT head and cervical spine revealed no acute abnormalities. Laboratory evaluation revealed a WBC count of 5.8, hemoglobin 13.1, with BMP remarkable for creatinine 1.55, sodium 132, potassium 3.2, CO2 20, lactic acid 1.5, and COVID-19 negative. EKG revealed sinus rhythm at 99 bpm with LVH. He was stated on IV fluids, rocephin and zithromax. Oncology was consulted and recommended pulmonary evaluation for need for bronchoscopy. He was seen by pulmonology who felt there is no urgent indication for biopsy. They are considering possible bronchoscopy for sputum sample. MRI without mass/lesion/CVA. On the morning of 02/12 patient developed worsening shortness of breath. He was given a DuoNeb and had some improvement. Chest x-ray on 02/12 demonstrates co ntinued right upper lobe and worsening left lower lobe infiltrates. He developed rigors in the afternoon on 02/12 and blood cultures were obtained. Patient seen and examined at bedside. He is feeling okay today other than the rigors. Breathing is better. No nausea or vomiting. + BM yesterday. Still no appetite General:no toxic, no distress, appears at stated age Derm: warm, dry Head: atraumatic, normocephalic, symmetric Eyes: EOMI, no lid lag, anicteric sclera Mouth: no lip lesion, mucus membranes moist Cardiovascular: S1S2 reg, no murmur, positive posterior tibial pulse bilateral, Lungs: Ronchi right Right side, no accessory muscle use, +3 word conversational dyspnea Abdominal: soft, nontender to palpation, no guarding, no appreciable organomegaly Ext: no gross muscle atrophy, no edema, no contractures Neuro: CN II-XI grossly intact, no focal neuro deficits Psych: Alert, oriented, appropriate affect Assessment/plan: Community acquired pneumonia Right-sided lung consolidation suspicious for malignancy Acute hypoxic respiratory failure -Patient is at high risk of atypical/opportunistic infections secondary to his history of stem cell transplant and immunosuppressive therapy. - Rocpehin D # 5, still without significant clinical improvement, continue rocephin, zithromax completed - Legionella urine antigen negative - Await histo, crypto, and Aspergillus testing - Await CMV testing - IV fluids completed - oncology recs: treat PNA - Acyclovir - Bronchodilators scheduled and when necessary - Elevated procal- likely bacterial but could be related to malignancy Dizziness, resolved + orthrostatics - Tele unremarkable - Neurology signed off - echo with preserved EF, Grade II diastolic dysfunction, no significant valvular disease - IVF CKD - avoid nephrotoxic agents - follow Cr - hold cozaar Hypokalemia - replace - recheck in AM Multiple myeloma - oncology recs appreciated - hold revlimid. - hx of stem cell transplant Chronic: CAD, hypertension, hyperlipidemia -Continue with home meds DVT prophylaxis: heparin Discussed with: Patient Anticipated discharge date: 2-[address]: Home Active Medications Generic Name Dose Route Start Last Admin Trade Name Freq PRN Reason Stop Dose Admin Acetaminophen 650 mg 02/10/22 13:44 02/12/22 15:46 Acetaminophen Tab 325 Mg Tab PO 650 mg Q6HR PRN Administration Fever and/ or Pain Acyclovir 800 mg 02/10/22 21:00 02/13/22 09:01 Acyclovir 800 Mg Tab PO 800 mg BID [facility] Administration Protocol Albuterol Sulfate 2.5 mg 02/12/22 08:05 Albuterol Nebulized 2.5 Mg/3 Ml INHALATION RT-QID PRN Shortness Of Breath Or Wheezing Albuterol/Ipratropium 3 ml 02/12/22 12:00 02/13/22 07:12 Ipratropium-Albuterol 3 Ml Neb INHALATION 3 ml RT-Q4H [facility] Administration Aspirin 81 mg 02/11/22 09:00 02/13/22 09:01 Aspirin 81 Mg PO 81 mg DAILY [facility] Administration Atorvastatin Calcium 80 mg 02/10/22 21:00 02/12/22 20:00 Atorvastatin 80 Mg Tab PO 80 mg HS [facility] Administration Famotidine 20 mg 02/12/22 09:00 02/13/22 09:01 Famotidine 20 Mg Tab PO 20 mg DAILY [facility] Administration Gabapentin 100 mg 02/13/22 12:00 Gabapentin 100 Mg Cap PO DAILY@1200 [facility] Gabapentin 200 mg 02/12/22 21:00 02/12/22 20:00 Gabapentin 100 Mg Cap PO 200 mg HS [facility] Administration Guaifenesin 600 mg 02/12/22 09:00 02/13/22 09:00 Guaifenesin 600 Mg Tablet.Er PO 600 mg Q12HR [facility] Administration Ceftriaxone Sodium 2 gm/ 50 mls @ 100 mls/hr 02/11/22 21:00 02/12/22 20:00 Sodium Chloride IVPB 100 mls/hr Q24H [facility] Administration Protocol Sodium Chloride 1,000 mls @ 75 mls/hr 02/12/22 15:45 02/13/22 09:02 Saline 0.9% IV 75 mls/hr .[id number] [facility] Administration Ibuprofen 400 mg 02/12/22 16:59 02/13/22 09:00 Ibuprofen 400 Mg Tab PO 400 mg Q6HR PRN Administration Fever Metoprolol Tartrate 25 mg 02/10/22 11:00 02/13/22 09:00 Metoprolol Tartrate 25 Mg Tab PO 25 mg BID [facility] Administration Montelukast Sodium 10 mg 02/11/22 09:00 02/13/22 09:01 Montelukast 10 Mg Tab PO 10 mg DAILY [facility] Administration Morphine Sulfate 4 mg 02/10/22 00:26 Morphine Sulfate 4 Mg/Ml Syringe IV Q4HR PRN Severe Pain (Scale 7 to 10) Naloxone HCl 0.2 mg 02/10/22 00:26 Naloxone 0.4 Mg/Ml 1 Ml Vial IV Q2M PRN Opioid Reversal Ondansetron HCl 4 mg 02/10/22 00:26 Ondansetron 4 Mg/2 Ml Vial IVP Q8HR PRN Nausea And Vomiting Pantoprazole Sodium 40 mg 02/10/22 09:00 02/13/22 09:01 Pantoprazole 40 Mg/10 Ml Vial IV 40 mg DAILY [facility] Administration Ticagrelor 90 mg 02/10/22 11:00 02/13/22 09:01 Ticagrelor 90 Mg Tab PO 90 mg BID [facility] Administration Objective - Vital Signs Vital signs: Vital Signs Temp 97.6 F 02/13/22 04:19 Pulse 88 02/13/22 07:34 Resp 20 02/13/22 04:19 BP 100/65 02/13/22 04:19 Pulse Ox 94 L 02/13/22 04:19 FiO2 32 02/11/22 20:35 Intake & Output 02/12/22 02/13/22 02/13/22 18:59 06:59 18:59 Intake Total 3030 Output Total 300 Balance 3030 -300 Intake: Intake, IV Titration 150 Amount Sodium Chloride 0.9% 1, 150 000 ml @ 75 mls/hr IV . [id number] [facility] Rx#:[id number] Oral 2880 Output: Urine 300 Other: Voiding Method Urinal # Voids 3 2 # Bowel Movements 1 1 - Labs CBC & Chem 7: 02/13/22 05:30 02/13/22 05:29 Labs: Abnormal Lab Results - Last 24 Hours (Table) 02/13/22 02/13/22 Range/Units 05:29 05:30 WBC 3.5 L (3.8-10.6) k/uL RBC 3.51 L (4.30-5.90) m/uL Hgb 10.8 L (13.0-17.5) gm/dL Hct 34.7 L (39.0-53.0) % RDW 16.0 H (11.5-15.5) % Plt Count 128 L (150-450) k/uL Potassium 3.3 L (3.5-5.1) mmol/L Chloride 110 H (98-107) mmol/L Carbon Dioxide 21 L (22-30) mmol/L BUN 24 H (9-20) mg/dL Creatinine 1.41 H (0.66-1.25) mg/dL Glucose 131 H (74-99) mg/dL Calcium 8.0 L (8.4-10.2) mg/dL Microbiology - Last 24 Hours (Table) 02/10/22 16:37 Blood Culture - Preliminary Blood No Growth after 48 hours 02/10/22 18:19 Gram Stain - Preliminary Sputum Sputum Culture - Preliminary Tami albicans
[2022-02-13] MEDS: GABAPENTIN 100 MG CAP PO SCH ×2 (11:13→20:01)
--- NOTE | 2022-02-13 12:58 | CT ---
EXAMINATION TYPE: CT chest wo con CT DLP: 420 mGycm, Automated exposure control for dose reduction was used. DATE OF EXAM: 02/13/2022 12:41 PM COMPARISON: Chest radiograph 02/13/2022, 02/12/2022. CLINICAL INDICATION:Male, 81 years old with history of pna; PHH, New diagnosis of Lung CA TECHNIQUE: Multiple axial images were obtained through the chest without IV contrast. Lack of IV or o ral contrast limits evaluation of solid and hollow organ viscera. Coronal and sagittal reformats revi ewed FINDINGS: LUNGS/ PLEURA: No pneumothorax. Trace left pleural effusion. Masslike consolidation with air bronchog dk demonstrated within the posterior medial aspect of the right upper lobe. There is patchy groundg lass airspace opacities along the inferior aspect of this mass. Additional masslike consolidation dem onstrated within the posterior aspect of the left lower lobe with air bronchograms. There is patchy g roundglass airspace opacities along the inferior aspect of this mass. AIRWAY: Patent and unremarkable.. HEART: The heart is mildly increased in size.. Dense coronary arterial vascular calcifications. Aorti c valvular mitral annulus calcifications. No pericardial effusion. MEDIASTINUM: No pathologically enlarged mediastinal lymph nodes. VASCULATURE: No aortic aneurysm. Atherosclerotic calcification of the aorta and its branches. Tortuo sity of the descending thoracic aorta. MUSCULOSKELETAL: Near vertebral plana of the T7 vertebral body with approximately 4 mm of retropulsio n. This appears chronic in appearance with sclerosis and surrounding vacuum disc disease. The fractur e fragments extend anteriorly approximately 8 mm along the posterior aspect of the aorta. There is a fracture line with lytic appearance involving the right posterior elements. No other suspicious osseo us lesions. SOFT TISSUES/LYMPH NODES: Unremarkable. LOWER NECK: No significant findings. UPPER ABDOMEN: Small hiatal hernia. IMPRESSION: 1. Right upper lobe and left lower lobe masslike consolidation with air bronchograms and adjacent pat calvin groundglass opacities inferiorly. Findings likely relate to reported lung cancer with superimpose d infectious process not excluded. Continued attention is recommended. 2. Near vertebral plana and sclerotic appearance of the T7 vertebral body with 4 mm of retropulsion. There is lytic appearance with fracture line extending into the right posterior elements. Findings co ncerning for age indeterminate pathologic fracture. No other suspicious osseous lesions. 3. Trace left pleural effusion.
--- NOTE | 2022-02-13 13:39 | P.PN ---
Subjective Progress Note Date: 02/13/22 This is a very pleasant 81-year-old male patient who has a history of coronary artery disease with previous stent placement to the LAD, former smoker, hearing disorder, hyperlipidemia, hypertension, osteoarthritis, obstructive sleep apnea utilizing CPAP. 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 He is maintained on Revlimid without evidence of relapse. He also Dr. Bush on a regular basis. He had presented to [facility] emergency room after sustaining a fall secondary to experiencing lightheadedness when standing up after bending down radiate had ongoing issues with shortness of breath and presented here for the same. Computed tomography scan revealed consolidation in the right upper lobe with an underlying mass not excluded as well as another consolidation of left lower lobe. There is also some concern regarding enlarged mediastinal and hilar lymph nodes. The patient was noted to be febrile. He was transferred here for further care. DT scan of the brain at her did not reveal any acute intracranial process. He is seen here today in consultation on the regular medical floor the patient is hard of hearing and somewhat of a poor historian. His is present and provides most of the information today. He is maintaining O2 saturations in the 90s on 2 L/m per nasal cannula. He's afebrile. Hemodynamically stable. He does have a loose nonproductive cough. No hemoptysis. White count 2.3. Hemoglobin 12.2. Platelet count 140,000. Sodium 138. Potassium 4.1. Bicarb 19. BUN 16. Creatinine 1.53. Magnesium 1.5. Currently being replaced. He's been initiated on ceftriaxone and azithromycin. Heparin for DVT prophylaxis. Normal saline at 75 ML's per hour. 02/11/2022, the patient is still having episodes of fever. Feels more energetic and active on today's evaluation is able to set up on a chair. He remains in a, his Rocephin and Zithromax. Hemodynamically stable. The labs from today shows a BUN of 19 with a creatinine of 1.6. Sodium levels at 137. The patient has a total IgG level of 1017. The serum bicarbonate of 19.8. Sodium levels of 137. LFTs are within normal limits. The sputum sample is still pending for now. The patient remains on oxygen at 2 L per minute nasal cannula with a pulse ox 93%. 02/12/2022, the patient is feeling better clinically. His cough and congestion has subsided since yesterday. Nevertheless, the chest x-ray is quite abnormal in the patient's best consolidation of left lower lobe and the right upper lobe masslike opacity. He is currently covered with a combination of Rocephin and Zithromax day #4. Legionella urine antigen was negative. Awaiting fungal serology. MRI of the brain is also to be done today. No nausea. No vomiting. No diarrhea. No abdominal pain. No altered mentation. The white cell count is at 3.3 with a hemoglobin of 10.9 and a platelet count of 129. BUN is at 20 with a creatinine of 1.4 and sodium level is at 140. The pro-calcitonin LEVEL IS AT 3.01 SUGGESTIVE UNDERLYING BACTERIAL INFECTION. 02/13/2022, the patient clinically is feeling well and has no specific complaints. Nevertheless he remains on 3 L about 2 by nasal cannula and the patient is not showing any significant improvement in his chest x-ray findings. The patient remains on IV Rocephin. Note that the pro-calcitonin level was elevated suggestive an underlying bacterial infection. I recommended a repeat pro-calcitonin level. I also recommended a repeat CAT scan of the chest that was repeated and it showed a right upper lobe and left lower lobe masslike consolidation with air bronchograms adjacent patchy groundglass opacities. Near the vertebra, there was an appearance of a T7 vertebral body with 4 mm of retropulsion. There was a lytic appearance with fracture line extending into the right posterior element. Finding consistent with possible pathologic fracture. No suspicious other or feel lesions. There was also trace left-sided pleural effusion Objective - Vital Signs Vital signs: Vital Signs Temp 97.5 F L 02/13/22 11:52 Pulse 84 02/13/22 11:52 Resp 20 02/13/22 11:52 BP 106/67 02/13/22 11:52 Pulse Ox 92 L 02/13/22 11:52 FiO2 32 02/11/22 20:35 Intake & Output 02/12/22 02/13/22 02/13/22 18:59 06:59 18:59 Intake Total 3030 Output Total 300 Balance 3030 -300 Intake: Intake, IV Titration 150 Amount Sodium Chloride 0.9% 1, 150 000 ml @ 75 mls/hr IV . [id number] [facility] Rx#:[id number] Oral 2880 Output: Urine 300 Other: Voiding Method Urinal Urinal # Voids 3 2 # Bowel Movements 1 1 - Exam GENERAL EXAM: Alert, pleasant 81-year-old gentleman, hard of hearing, on 2 L nasal cannula, comfortable in no apparent distress. HEAD: Normocephalic. EYES: Normal reaction of pupils, equal size. NOSE: Clear with pink turbinates. THROAT: No erythema or exudates. NECK: No masses, no JVD. CHEST: No chest wall deformity. LUNGS: Equal air entry with crackles in left lung base. Scattered rhonchi. CVS: S1 and S2 normal with no audible murmur, regular rhythm. ABDOMEN: No hepatosplenomegaly, normal bowel sounds, no guarding or rigidity. SPINE: No scoliosis or deformity SKIN: No rashes CENTRAL NERVOUS SYSTEM: No focal deficits, tone is normal in all 4 extremities. EXTREMITIES: There is no peripheral edema. No clubbing, no cyanosis. Peripheral pulses are intact. - Labs CBC & Chem 7: 02/13/22 05:30 02/13/22 05:29 Labs: Abnormal Lab Results - Last 24 Hours (Table) 02/13/22 02/13/22 Range/Units 05:29 05:30 WBC 3.5 L (3.8-10.6) k/uL RBC 3.51 L (4.30-5.90) m/uL Hgb 10.8 L (13.0-17.5) gm/dL Hct 34.7 L (39.0-53.0) % RDW 16.0 H (11.5-15.5) % Plt Count 128 L (150-450) k/uL Potassium 3.3 L (3.5-5.1) mmol/L Chloride 110 H (98-107) mmol/L Carbon Dioxide 21 L (22-30) mmol/L BUN 24 H (9-20) mg/dL Creatinine 1.41 H (0.66-1.25) mg/dL Glucose 131 H (74-99) mg/dL Calcium 8.0 L (8.4-10.2) mg/dL Microbiology - Last 24 Hours (Table) 02/10/22 18:19 Gram Stain - Final Sputum Sputum Culture - Final Tami albicans 02/10/22 16:37 Blood Culture - Preliminary Blood No Growth after 48 hours Assessment and Plan Assessment: Generalized weakness and recent fall possibly secondary to pneumonia Acute hypoxic respiratory failure secondary to suspected underlying pneumonia of the left lower lobe including a mass of the right upper lobe, currently on 4 L oxygen nasal cannula. The pro-calcitonin LEVEL IS ELEVATED SUGGESTIVE UNDERLYING BACTERIAL INFECTION and the level came back at 3.01 currently on a combination of Rocephin and Zithromax. Legionella urine antigen is negative. Febrile illness secondary to above History of multiple myeloma, diagnosed in 2018, currently on Revlimid. Status post stem cell transplant at [facility] in October 2020 Possible opportunistic infection/lymphoma secondary to above Former remote smoker Coronary disease with previous stent placement to the LAD Hypertension Hyperlipidemia Obstructive sleep apnea, utilizing CPAP Hearing disorder Plan: Clinically improved CAT scan findings showing consolidative masslike lesion in the right upper lobe and left lower lobe We will repeat a pro-calcitonin level continue IV Rocephin Continue same antibiotic coverage Possible bronchoscopy by Monday We'll discuss the case with oncology.
[2022-02-13] MEDS: ATORVASTATIN 80 MG TAB PO SCH (20:01)
[2022-02-14] MEDS: IPRATROPIUM-ALBUTEROL 3 ML NEB INHALATION SCH ×5 (04:17→19:11)
[2022-02-14 06:28] LABS: Anisocytosis Slight; HCT 32.9 % (39.0-53.0); HGB 10.5 gm/dL (13.0-17.5); Hypochromasia Slight; MCH 31.8 pg (25.0-35.0); MCHC 31.9 g/dL (31.0-37.0); MCV 99.7 fL (80.0-100.0); Macrocytosis Slight; Mean Platelet Volume 9.7; RDW 16.6 % (11.5-15.5); WBC 3.7 k/uL (3.8-10.6)
[2022-02-14 06:50] LABS: Anisocytosis (M) Present; Ovalocytes Present; Poikilocytosis (M) Present; RBC Fragments Present; Tear Drop Cells Present
[2022-02-14 06:51] LABS: African American GFR (CKD) 68 (>60 ml/min/1.73 sqM); Anion Gap 11 mmol/L; Blood Urea Nitrogen 23 mg/dL (9-20); Carbon Dioxide 20 mmol/L (22-30); Chloride 111 mmol/L (98-107); Glucose 123 mg/dL (74-99); Non-African American GFR(CKD) 59 (>60 ml/min/1.73 sqM); Platelet Count 96 k/uL (150-450); Potassium 3.6 mmol/L (3.5-5.1); Sodium 142 mmol/L (137-145)
[2022-02-14] MEDS: FAMOTIDINE 20 MG TAB PO SCH (08:03)
[2022-02-14] MEDS: PANTOPRAZOLE 40 MG/10 ML VIAL IV SCH (08:03)
[2022-02-14] MEDS: ASPIRIN 81 MG PO SCH (08:03)
[2022-02-14] MEDS: METOPROLOL TARTRATE 25 MG TAB PO SCH ×2 (08:03→20:36)
[2022-02-14] MEDS: MONTELUKAST 10 MG TAB PO SCH (08:03)
[2022-02-14] MEDS: IBUPROFEN 400 MG TAB PO PRN (08:03)
[2022-02-14] MEDS: guaiFENesin 600 MG TABLET.ER PO SCH ×2 (08:03→20:36)
[2022-02-14] MEDS: TICAGRELOR 90 MG TAB PO SCH ×2 (08:04→20:36)
[2022-02-14] MEDS: ACYCLOVIR 800 MG TAB PO SCH ×2 (08:04→20:36)
--- NOTE | 2022-02-14 09:36 | P.PN ---
Subjective Progress Note Date: 02/14/22 The patient is an 81-year-old male with multiple myeloma, coronary artery disease, hypertension, and hyperlipidemia who initially presented to [facility] on 02/09 with complaints of dizziness, fall, and shortness of breath. He underwent an extensive evaluation in the emergency room at [facility]. He was noted to be febrile and tachypneic with a CT chest angiogram showing no evidence of pulmonary was on although a masslike consolidation in the medial aspect of the right upper lobe extending to the pulmonary hilum suspicious for tumor with a wedge-shaped consolidation of the left lower lobe likely secondary to bronchopneumonia. There was also a few enlarged mediastinal and bronchial lymph nodes noted. CT head and cervical spine revealed no acute abnormalities. Laboratory evaluation revealed a WBC count of 5.8, hemoglobin 13.1, with BMP remarkable for creatinine 1.55, sodium 132, potassium 3.2, CO2 20, lactic acid 1.5, and COVID-19 negative. EKG revealed sinus rhythm at 99 bpm with LVH. He was stated on IV fluids, rocephin and zithromax. Oncology was consulted and recommended pulmonary evaluation for need for bronchoscopy. He was seen by pulmonology who felt there is no urgent indication for biopsy. They are considering possible bronchoscopy for sputum sample. MRI without mass/lesion/CVA. CT chest without contrast again demonstrated mass like consolidation in the RIght upper lobe and left lower lobe, with known T7 vertebral fracture. On the morning of 02/12 patient developed worsening shortness of breath. He was given a DuoNeb and had some improvement. Chest x-ray on 02/12 demonstrates continued right upper lobe and worsening left lower lobe infiltrates. He developed rigors in the afternoon on 02/12 and blood cultures were obtained. Patient seen and examined at bedside. His breathing is doing some what better, much improved from admission. His appetite is coming back slowly, normal bowel movements. General:no toxic, no distress, appears at stated age Derm: warm, dry Head: atraumatic, normocephalic, symmetric Eyes: EOMI, no lid lag, anicteric sclera Mouth: no lip lesion, mucus membranes moist Cardiovascular: S1S2 reg, no murmur, positive posterior tibial pulse bilateral, Lungs: Decreased bs b/l, no accessory muscle use, No conversational dyspnea Abdominal: soft, nontender to palpation, no guarding, no appreciable organomeg deonte Ext: no gross muscle atrophy, 1+ edema, no contractures Neuro: CN II-XI grossly intact, no focal neuro deficits Psych: Alert, oriented, appropriate affect Assessment/plan: Community acquired pneumonia Right-sided lung consolidation suspicious for malignancy Acute hypoxic respiratory failure -Patient is at high risk of atypical/opportunistic infections secondary to his history of stem cell transplant and immunosuppressive therapy. - Rocpehin D # 6, zithromax completed. Will d/w pulm as procal is still elevating... may need to consider broadening to cefepime/zosyn - Legionella urine antigen negative - Await histo, crypto, and Aspergillus testing - Await CMV testing - IV fluids completed - oncology recs: treat PNA - Acyclovir - Bronchodilators scheduled and when necessary - Elevated procal- likely bacterial but could be related to malignancy Dizziness, resolved + orthrostatics, resolved - Tele unremarkable - Neurology signed off - echo with preserved EF, Grade II diastolic dysfunction, no significant valvular disease - IVF off CKD - avoid nephrotoxic agents - follow Cr - hold cozaar Multiple myeloma T7 pathologic fracture- old and present in 2019 - oncology recs appreciated - hold revlimid. - hx of stem cell transplant Chronic: CAD, hypertension, hyperlipidemia -Continue with home meds Hypokalemia, resolved DVT prophylaxis: heparin Discussed with: Patient Anticipated discharge date: 2-[address]: Home Active Medications Generic Name Dose Route Start Last Admin Trade Name Freq PRN Reason Stop Dose Admin Acetaminophen 650 mg 02/10/22 13:44 02/12/22 15:46 Acetaminophen Tab 325 Mg Tab PO 650 mg Q6HR PRN Administration Fever and/ or Pain Acyclovir 800 mg 02/10/22 21:00 02/14/22 08:04 Acyclovir 800 Mg Tab PO 800 mg BID CAMERON Administration Protocol Albuterol Sulfate 2.5 mg 02/12/22 08:05 Albuterol Nebulized 2.5 Mg/3 Ml INHALATION RT-QID PRN Shortness Of Breath Or Wheezing Albuterol/Ipratropium 3 ml 02/12/22 12:00 02/14/22 07:33 Ipratropium-Albuterol 3 Ml Neb INHALATION 3 ml RT-Q4H CAMERON Administration Aspirin 81 mg 02/11/22 09:00 02/14/22 08:03 Aspirin 81 Mg PO 81 mg DAILY CAMERON Administration Atorvastatin Calcium 80 mg 02/10/22 21:00 02/13/22 20:01 Atorvastatin 80 Mg Tab PO 80 mg HS CAMERON Administration Famotidine 20 mg 02/12/22 09:00 02/14/22 08:03 Famotidine 20 Mg Tab PO 20 mg DAILY CAMERON Administration Gabapentin 100 mg 02/13/22 12:00 02/13/22 11:13 Gabapentin 100 Mg Cap PO 100 mg DAILY@1200 CAMERON Administration Gabapentin 200 mg 02/12/22 21:00 02/13/22 20:01 Gabapentin 100 Mg Cap PO 200 mg HS CAMERON Administration Guaifenesin 600 mg 02/12/22 09:00 02/14/22 08:03 Guaifenesin 600 Mg Tablet.Er PO 600 mg Q12HR CAMERON Administration Ceftriaxone Sodium 2 gm/ 50 mls @ 100 mls/hr 02/11/22 21:00 02/13/22 20:01 Sodium Chloride IVPB 100 mls/hr Q24H CAMERON Administration Protocol Ibuprofen 400 mg 02/12/22 16:59 02/14/22 08:03 Ibuprofen 400 Mg Tab PO 400 mg Q6HR PRN Administration Fever Metoprolol Tartrate 25 mg 02/10/22 11:00 02/14/22 08:03 Metoprolol Tartrate 25 Mg Tab PO 25 mg BID CAMERON Administration Montelukast Sodium 10 mg 02/11/22 09:00 02/14/22 08:03 Montelukast 10 Mg Tab PO 10 mg DAILY CAMERON Administration Morphine Sulfate 4 mg 02/10/22 00:26 Morphine Sulfate 4 Mg/Ml Syringe IV Q4HR PRN Severe Pain (Scale 7 to 10) Naloxone HCl 0.2 mg 02/10/22 00:26 Naloxone 0.4 Mg/Ml 1 Ml Vial IV Q2M PRN Opioid Reversal Ondansetron HCl 4 mg 02/10/22 00:26 Ondansetron 4 Mg/2 Ml Vial IVP Q8HR PRN Nausea And Vomiting Pantoprazole Sodium 40 mg 02/10/22 09:00 02/14/22 08:03 Pantoprazole 40 Mg/10 Ml Vial IV 40 mg DAILY CAMREON Administration Ticagrelor 90 mg 02/10/22 11:00 02/14/22 08:04 Ticagrelor 90 Mg Tab PO 90 mg BID CAMERON Administration Objective - Vital Signs Vital signs: Vital Signs Temp 97.5 F L 02/14/22 04:28 Pulse 77 02/14/22 07:46 Resp 20 02/14/22 04:28 BP 111/70 02/14/22 04:28 Pulse Ox 95 02/14/22 04:28 FiO2 32 02/11/22 20:35 Intake & Output 02/13/22 02/14/22 02/14/22 18:59 06:59 18:59 Intake Total 290 Output Total 300 425 Balance -300 -425 290 Intake: Intake, IV Titration 50 Amount cefTRIAXone 2 gm In 50 Sodium Chloride 0.9% 50 ml @ 100 mls/hr IVPB Q24H [facility] Rx#:[id number] Oral 240 Output: Urine 300 425 Other: Voiding Method Urinal Urinal # Voids 2 # Bowel Movements 1 - Labs CBC & Chem 7: 02/14/22 05:29 02/14/22 05:29 Labs: Abnormal Lab Results - Last 24 Hours (Table) 02/13/22 02/14/22 02/14/22 Range/Units 05:29 05:29 05:29 WBC 3.7 L (3.8-10.6) k/uL RBC 3.30 L (4.30-5.90) m/uL Hgb 10.5 L (13.0-17.5) gm/dL Hct 32.9 L (39.0-53.0) % RDW 16.6 H (11.5-15.5) % Plt Count 96 L (150-450) k/uL Chloride 111 H (98-107) mmol/L Carbon Dioxide 20 L (22-30) mmol/L BUN 23 H (9-20) mg/dL Glucose 123 H (74-99) mg/dL Calcium 8.0 L (8.4-10.2) mg/dL Procalcitonin 3.34 H (0.02-0.09) ng/mL Microbiology - Last 24 Hours (Table) 02/12/22 17:33 Blood Culture - Preliminary Blood No Growth after 24 hours 02/10/22 16:37 Blood Culture - Preliminary Blood No Growth after 72 hours 02/10/22 18:19 Gram Stain - Final Sputum Sputum Culture - Final Tami albicans
[2022-02-14] MEDS: GABAPENTIN 100 MG CAP PO SCH ×2 (11:54→20:35)
--- NOTE | 2022-02-14 13:52 | P.PN ---
Subjective Progress Note Date: 02/14/22 This is a very pleasant 81-year-old male patient who has a history of coronary artery disease with previous stent placement to the LAD, former smoker, hearing disorder, hyperlipidemia, hypertension, osteoarthritis, obstructive sleep apnea utilizing CPAP. 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 He is maintained on Revlimid without evidence of relapse. He also Dr. Bush on a regular basis. He had presented to [facility] emergency room after sustaining a fall secondary to experiencing lightheadedness when standing up after bending down radiate had ongoing issues with shortness of breath and presented here for the same. Computed tomography scan revealed consolidation in the right upper lobe with an underlying mass not excluded as well as another consolidation of left lower lobe. There is also some concern regarding enlarged mediastinal and hilar lymph nodes. The patient was noted to be febrile. He was transferred here for further care. DT scan of the brain at her did not reveal any acute intracranial process. He is seen here today in consultation on the regular medical floor the patient is hard of hearing and somewhat of a poor historian. His is present and provides most of the information today. He is maintaining O2 saturations in the 90s on 2 L/m per nasal cannula. He's afebrile. Hemodynamically stable. He does have a loose nonproductive cough. No hemoptysis. White count 2.3. Hemoglobin 12.2. Platelet count 140,000. Sodium 138. Potassium 4.1. Bicarb 19. BUN 16. Creatinine 1.53. Magnesium 1.5. Currently being replaced. He's been initiated on ceftriaxone and azithromycin. Heparin for DVT prophylaxis. Normal saline at 75 ML's per hour. 02/11/2022, the patient is still having episodes of fever. Feels more energetic and active on today's evaluation is able to set up on a chair. He remains in a, his Rocephin and Zithromax. Hemodynamically stable. The labs from today shows a BUN of 19 with a creatinine of 1.6. Sodium levels at 137. The patient has a total IgG level of 1017. The serum bicarbonate of 19.8. Sodium levels of 137. LFTs are within normal limits. The sputum sample is still pending for now. The patient remains on oxygen at 2 L per minute nasal cannula with a pulse ox 93%. 02/12/2022, the patient is feeling better clinically. His cough and congestion has subsided since yesterday. Nevertheless, the chest x-ray is quite abnormal in the patient's best consolidation of left lower lobe and the right upper lobe masslike opacity. He is currently covered with a combination of Rocephin and Zithromax day #4. Legionella urine antigen was negative. Awaiting fungal serology. MRI of the brain is also to be done today. No nausea. No vomiting. No diarrhea. No abdominal pain. No altered mentation. The white cell count is at 3.3 with a hemoglobin of 10.9 and a platelet count of 129. BUN is at 20 with a creatinine of 1.4 and sodium level is at 140. The pro-calcitonin LEVEL IS AT 3.01 SUGGESTIVE UNDERLYING BACTERIAL INFECTION. 02/13/2022, the patient clinically is feeling well and has no specific complaints. Nevertheless he remains on 3 L about 2 by nasal cannula and the patient is not showing any significant improvement in his chest x-ray findings. The patient remains on IV Rocephin. Note that the pro-calcitonin level was elevated suggestive an underlying bacterial infection. I recommended a repeat pro-calcitonin level. I also recommended a repeat CAT scan of the chest that was repeated and it showed a right upper lobe and left lower lobe masslike consolidation with air bronchograms adjacent patchy groundglass opacities. Near the vertebra, there was an appearance of a T7 vertebral body with 4 mm of retropulsion. There was a lytic appearance with fracture line extending into the right posterior element. Finding consistent with possible pathologic fracture. No suspicious other or feel lesions. There was also trace left-sided pleural effusion 02/14/2022, clinically stable and the patient is still having excessive bilateral masslike Pulmicort consolidation. White cell count is not elevated. He is on antibiotics and we'll broaden antibiotic to cefepime. No fever or chills. Sitting up on a chair. Pro-calcitonin level is unchanged and will repeated tomorrow. No nausea or vomiting. Family is at the bedside. Objective - Vital Signs Vital signs: Vital Signs Temp 97.8 F 02/14/22 11:15 Pulse 80 02/14/22 11:33 Resp 18 02/14/22 11:15 BP 130/74 02/14/22 11:15 Pulse Ox 93 L 09/05/22 11:15 FiO2 32 02/11/22 20:35 Intake & Output 02/13/22 02/14/22 02/14/22 18:59 06:59 18:59 Intake Total 290 Output Total 300 425 Balance -300 -425 290 Intake: Intake, IV Titration 50 Amount cefTRIAXone 2 gm In 50 Sodium Chloride 0.9% 50 ml @ 100 mls/hr IVPB Q24H [facility] Rx#:[id number] Oral 240 Output: Urine 300 425 Other: Voiding Method Urinal Urinal Urinal # Voids 2 # Bowel Movements 1 - Exam GENERAL EXAM: Alert, pleasant 81-year-old gentleman, hard of hearing, on 2 L nasal cannula, comfortable in no apparent distress. HEAD: Normocephalic. EYES: Normal reaction of pupils, equal size. NOSE: Clear with pink turbinates. THROAT: No erythema or exudates. NECK: No masses, no JVD. CHEST: No chest wall deformity. LUNGS: Equal air entry with crackles in left lung base. Scattered rhonchi. CVS: S1 and S2 normal with no audible murmur, regular rhythm. ABDOMEN: No hepatosplenomegaly, normal bowel sounds, no guarding or rigidity. SPINE: No scoliosis or deformity SKIN: No rashes CENTRAL NERVOUS SYSTEM: No focal deficits, tone is normal in all 4 extremities. EXTREMITIES: There is no peripheral edema. No clubbing, no cyanosis. Peripheral pulses are intact. - Labs CBC & Chem 7: 02/14/22 05:29 02/14/22 05:29 Labs: Abnormal Lab Results - Last 24 Hours (Table) 02/13/22 02/14/22 02/14/22 Range/Units 05:29 05:29 05:29 WBC 3.7 L (3.8-10.6) k/uL RBC 3.30 L (4.30-5.90) m/uL Hgb 10.5 L (13.0-17.5) gm/dL Hct 32.9 L (39.0-53.0) % RDW 16.6 H (11.5-15.5) % Plt Count 96 L (150-450) k/uL Chloride 111 H (98-107) mmol/L Carbon Dioxide 20 L (22-30) mmol/L BUN 23 H (9-20) mg/dL Glucose 123 H (74-99) mg/dL Calcium 8.0 L (8.4-10.2) mg/dL Procalcitonin 3.34 H (0.02-0.09) ng/mL Microbiology - Last 24 Hours (Table) 02/12/22 17:33 Blood Culture - Preliminary Blood No Growth after 24 hours 02/10/22 16:37 Blood Culture - Preliminary Blood No Growth after 72 hours 02/10/22 18:19 Gram Stain - Final Sputum Sputum Culture - Final Tami albicans Assessment and Plan Assessment: Generalized weakness and recent fall possibly secondary to pneumonia, clinically improving Acute hypoxic respiratory failure secondary to suspected underlying pneumonia of the left lower lobe including a mass of the right upper lobe, currently on 4 L o xygen nasal cannula. The pro-calcitonin LEVEL IS ELEVATED SUGGESTIVE UNDERLYING BACTERIAL INFECTION and the level came back at 3.01 currently on a combination of Rocephin and Zithromax. Legionella urine antigen is negative. The pro- calcitonin level remains elevated at 3.34. The patient was switched IV cefepime. Febrile illness secondary to above History of multiple myeloma, diagnosed in 2018, currently on Revlimid. Status post stem cell transplant at [facility] in October 2020 Possible opportunistic infection/lymphoma secondary to above Former remote smoker Coronary disease with previous stent placement to the LAD Hypertension Hyperlipidemia Obstructive sleep apnea, utilizing CPAP Hearing disorder Plan: Clinically stable Continue cefepime Repeat pro-calcitonin CAT scan of the chest was noted and the patient continues to have masslike consolidation in the right upper lobe and left lower lobe Is a pro-calcitonin remains elevated in the x-ray remains unchanged, with tent atively scheduling this patient for bronchoscopy either Monday or Monday. I'm going to pass this along to Dr. Farmer
[2022-02-14] MEDS: CEFEPIME 2 GM in SODIUM CHLORIDE 0.9% 100 ML IVPB SCH (20:35)
[2022-02-14] MEDS: ATORVASTATIN 80 MG TAB PO SCH (20:36)
[2022-02-15] MEDS: IPRATROPIUM-ALBUTEROL 3 ML NEB INHALATION SCH ×7 (00:52→23:19)
[2022-02-15] MEDS: ACYCLOVIR 800 MG TAB PO SCH ×2 (08:13→20:32)
[2022-02-15] MEDS: CEFEPIME 2 GM in SODIUM CHLORIDE 0.9% 100 ML IVPB SCH ×2 (08:13→20:32)
[2022-02-15] MEDS: PANTOPRAZOLE 40 MG/10 ML VIAL IV SCH (08:14)
[2022-02-15] MEDS: ASPIRIN 81 MG PO SCH (08:14)
[2022-02-15] MEDS: MONTELUKAST 10 MG TAB PO SCH (08:14)
[2022-02-15] MEDS: FAMOTIDINE 20 MG TAB PO SCH (08:14)
[2022-02-15] MEDS: TICAGRELOR 90 MG TAB PO SCH ×2 (08:14→20:32)
[2022-02-15] MEDS: guaiFENesin 600 MG TABLET.ER PO SCH ×2 (08:15→20:32)
[2022-02-15] MEDS: METOPROLOL TARTRATE 25 MG TAB PO SCH ×2 (08:15→20:32)
--- NOTE | 2022-02-15 08:26 | XR ---
EXAMINATION TYPE: XR chest 2V DATE OF EXAM: 02/15/2022 COMPARISON: Chest x-ray and CT 02/13/2022 HISTORY: Pneumonia, lung cancer TECHNIQUE: Frontal and lateral views of the chest are obtained. FINDINGS: Abnormal attenuation in the right upper lobe, left lower lobe shows a similar appearance. There is no evident pneumothorax or sizable effusion. Cardiac mediastinal silhouette is stable. There are dense coronary artery calcifications present. IMPRESSION: Correlate for pneumonia, underlying tumor not excluded
[2022-02-15 11:12] LABS: African American GFR (CKD) 72.3 (60.0-200.0); Anion Gap 12.2 mmol/L (10.00-18.00); BUN/Creat Ratio 19.55 Ratio (12.00-20.00); Blood Urea Nitrogen 21.7 mg/dL (9.0-27.0); Calcium 8.2 mg/dL (8.7-10.3); Carbon Dioxide 19.5 mmol/L (20.0-27.5); Non-African American GFR(CKD) 62.4 (60.0-200.0); Potassium 3.1 mmol/L (3.5-5.5)
--- NOTE | 2022-02-15 11:12 | P.PN ---
Subjective Progress Note Date: 02/15/22 No new complaints, patient is unstable oxygen requirement. Plan for bronchoscopy tomorrow. Gen: awake, alert HEENT: normocephalic, atraumatic, good hearing acuity, moist mucous membranes Resp: good air exchange, breathing comfortably with no accessory muscle use CVS: good distal perfusion x 4, GI: soft, NTTP, ND : no SPT, no CVAT, dinero catheter not present MSK: no pitting edema, no clubbing Neuro: non-focal, moving all extremities Psych: cooperative, euthymic mood Assessment/plan: Community acquired pneumonia Right-sided lung consolidation suspicious for malignancy Acute hypoxic respiratory failure -Patient is at high risk of atypical/opportunistic infections secondary to his history of stem cell transplant and immunosuppressive therapy. - Abx D # 7, zithromax completed, now on cefepime - Bronchoscopy scheduled 02/16 - MRSA nasal swab pending - Legionella urine antigen negative - Await histo, crypto, and Aspergillus testing - Await CMV testing - IV fluids completed - oncology recs: treat PNA - Acyclovir - Bronchodilators scheduled and when necessary - Elevated procal- likely bacterial but could be related to malignancy Dizziness, resolved + orthrostatics, resolved - Tele unremarkable - Neurology signed off - echo with preserved EF, Grade II diastolic dysfunction, no significant valvular disease - IVF off CKD - avoid nephrotoxic agents - follow Cr - hold cozaar Multiple myeloma T7 pathologic fracture- old and present in 2019 - oncology recs appreciated - hold revlimid. - hx of stem cell transplant CAD, hypertension, hyperlipidemia -Continue with home meds DVT prophylaxis: heparin Anticipated discharge date: 2-[address]: Home Objective - Vital Signs Vital signs: Vital Signs Temp 98.2 F 02/15/22 05:00 Pulse 75 02/15/22 08:32 Resp 20 02/15/22 08:00 BP 133/77 02/15/22 05:00 Pulse Ox 95 02/15/22 08:32 FiO2 32 02/11/22 20:35 Intake & Output 02/14/22 02/15/22 02/15/22 18:59 06:59 18:59 Intake Total 290 700 Output Total 5 Balance 285 700 Intake: Intake, IV Titration 50 100 Amount Cefepime 2 gm In Sodium 100 Chloride 0.9% 100 ml @ 25 mls/hr IVPB Q12HR [facility] Rx #:[id number] cefTRIAXone 2 gm In 50 Sodium Chloride 0.9% 50 ml @ 100 mls/hr IVPB Q24H [facility] Rx#:[id number] Oral 240 600 Output: Urine 5 Other: Voiding Method Urinal Urinal Urinal # Voids 2 3 # Bowel Movements 1 - Labs CBC & Chem 7: 02/14/22 05:29 02/14/22 05:29 Labs: Microbiology - Last 24 Hours (Table) 02/12/22 17:33 Blood Culture - Preliminary Blood No Growth after 48 hours 02/10/22 16:37 Blood Culture - Preliminary Blood No Growth after 96 hours
[2022-02-15 11:44] LABS: Acanthocytes 2+; Basophils # (M) 0.11 X 10*3/uL (0.00-0.10); Eosinophils # (M) 0.22 X 10*3/uL (0.04-0.35); HCT 30.4 % (39.6-50.0); HGB 9.8 g/dL (13.0-17.0); Lymphocytes # (M) 0.32 X 10*3/uL (0.90-5.00); MCH 29.8 pg (27.0-32.0); MCHC 32.2 g/dL (32.0-37.0); MCV 92.4 fL (80.0-97.0); Mean Platelet Volume 12.2 fL (9.5-12.2); Metamyelocytes % 1 % (0-0); Monocytes # (M) 0.14 X 10*3/uL (0.20-1.00); NRBC Per 100 WBC 0 /100 WBCS (0.0-0.0); Neutrophils # (M) 2.77 X 10*3/uL (2.00-8.90); Neutrophils % (M) 77 %; Platelet Count 86 X 10*3/uL (140-440); RBC 3.29 X 10*6/uL (4.40-5.60); RDW 17.3 % (11.5-14.5)
--- NOTE | 2022-02-15 11:49 | P.PN ---
Subjective Progress Note Date: 02/15/22 This is a very pleasant 81-year-old male patient who has a history of coronary artery disease with previous stent placement to the LAD, former smoker, hearing disorder, hyperlipidemia, hypertension, osteoarthritis, obstructive sleep apnea utilizing CPAP. 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 He is maintained on Revlimid without evidence of relapse. He also Dr. Bush on a regular basis. He had presented to [facility] emergency room after sustaining a fall secondary to experiencing lightheadedness when standing up after bending down radiate had ongoing issues with shortness of breath and presented here for the same. Computed tomography scan revealed consolidation in the right upper lobe with an underlying mass not excluded as well as another consolidation of left lower lobe. There is also some concern regarding enlarged mediastinal and hilar lymph nodes. The patient was noted to be febrile. He was transferred here for further care. DT scan of the brain at her did not reveal any acute intracranial process. He is seen here today in consultation on the regular medical floor the patient is hard of hearing and somewhat of a poor historian. His is present and provides most of the information today. He is maintaining O2 saturations in the 90s on 2 L/m per nasal cannula. He's afebrile. Hemodynamically stable. He does have a loose nonproductive cough. No hemoptysis. White count 2.3. Hemoglobin 12.2. Platelet count 140,000. Sodium 138. Potassium 4.1. Bicarb 19. BUN 16. Creatinine 1.53. Magnesium 1.5. Currently being replaced. He's been initiated on ceftriaxone and azithromycin. Heparin for DVT prophylaxis. Normal saline at 75 ML's per hour. 02/11/2022, the patient is still having episodes of fever. Feels more energetic and active on today's evaluation is able to set up on a chair. He remains in a, his Rocephin and Zithromax. Hemodynamically stable. The labs from today shows a BUN of 19 with a creatinine of 1.6. Sodium levels at 137. The patient has a total IgG level of 1017. The serum bicarbonate of 19.8. Sodium levels of 137. LFTs are within normal limits. The sputum sample is still pending for now. The patient remains on oxygen at 2 L per minute nasal cannula with a pulse ox 93%. 02/12/2022, the patient is feeling better clinically. His cough and congestion has subsided since yesterday. Nevertheless, the chest x-ray is quite abnormal in the patient's best consolidation of left lower lobe and the right upper lobe masslike opacity. He is currently covered with a combination of Rocephin and Zithromax day #4. Legionella urine antigen was negative. Awaiting fungal serology. MRI of the brain is also to be done today. No nausea. No vomiting. No diarrhea. No abdominal pain. No altered mentation. The white cell count is at 3.3 with a hemoglobin of 10.9 and a platelet count of 129. BUN is at 20 with a creatinine of 1.4 and sodium level is at 140. The pro-calcitonin LEVEL IS AT 3.01 SUGGESTIVE UNDERLYING BACTERIAL INFECTION. 02/13/2022, the patient clinically is feeling well and has no specific complaints. Nevertheless he remains on 3 L about 2 by nasal cannula and the patient is not showing any significant improvement in his chest x-ray findings. The patient remains on IV Rocephin. Note that the pro-calcitonin level was elevated suggestive an underlying bacterial infection. I recommended a repeat pro-calcitonin level. I also recommended a repeat CAT scan of the chest that was repeated and it showed a right upper lobe and left lower lobe masslike consolidation with air bronchograms adjacent patchy groundglass opacities. Near the vertebra, there was an appearance of a T7 vertebral body with 4 mm of retropulsion. There was a lytic appearance with fracture line extending into the right posterior element. Finding consistent with possible pathologic fracture. No suspicious other or feel lesions. There was also trace left-sided pleural effusion 02/14/2022, clinically stable and the patient is still having excessive bilateral masslike Pulmicort consolidation. White cell count is not elevated. He is on antibiotics and we'll broaden antibiotic to cefepime. No fever or chills. Sitting up on a chair. Pro-calcitonin level is unchanged and will repeated tomorrow. No nausea or vomiting. Family is at the bedside. The patient is seen today 02/15/2022 in follow-up on the regular medical floor. He is currently sitting up in a chair at the bedside. Awake and alert in no acute distress. Maintaining O2 saturations in the 90s on 3 L per nasal cannula. Chest x-ray continues to show abnormal attenuation in the right upper lobe, left lower lobe showed similar appearance. No evidence of pneumothorax or sizable effusion. Underlying tumor not excluded. Blood cultures reveal no growth. Sputum culture with Tami only. White count 3.6. Hemoglobin 9.8. Platelets 86,000. Sodium 140. Potassium 3.1. BUN 21. Creatinine 1.1. Because 142. Pro-calcitonin 1.17. He is continued on cefepime. Objective - Vital Signs Vital signs: Vital Signs Temp 97.8 F 02/15/22 10:35 Pulse 77 02/15/22 10:35 Resp 18 02/15/22 10:35 BP 151/88 02/15/22 10:35 Pulse Ox 95 02/15/22 10:35 FiO2 32 02/11/22 20:35 Intake & Output 02/14/22 02/15/22 02/15/22 18:59 06:59 18:59 Intake Total 290 700 Output Total 5 Balance 285 700 Intake: Intake, IV Titration 50 100 Amount Cefepime 2 gm In Sodium 100 Chloride 0.9% 100 ml @ 25 mls/hr IVPB Q12HR [facility] Rx #:[id number] cefTRIAXone 2 gm In 50 Sodium Chloride 0.9% 50 ml @ 100 mls/hr IVPB Q24H [facility] Rx#:[id number] Oral 240 600 Output: Urine 5 Other: Voiding Method Urinal Urinal Urinal # Voids 2 3 # Bowel Movements 1 - Exam GENERAL EXAM: Alert, pleasant 81-year-old male patient, in a chair at the bedside, hard of hearing, on 3 L nasal cannula, comfortable in no apparent distress. HEAD: Normocephalic. EYES: Normal reaction of pupils, equal size. NOSE: Clear with pink turbinates. THROAT: No erythema or exudates. NECK: No masses, no JVD. CHEST: No chest wall deformity. LUNGS: Equal air entry with crackles in left lung base. Scattered rhonchi. CVS: S1 and S2 normal with no audible murmur, regular rhythm. ABDOMEN: No hepatosplenomegaly, normal bowel sounds, no guarding or rigidity. SPINE: No scoliosis or deformity SKIN: No rashes CENTRAL NERVOUS SYSTEM: No focal deficits, tone is normal in all 4 extremities. EXTREMITIES: There is no peripheral edema. No clubbing, no cyanosis. Peripheral pulses are intact. - Labs CBC & Chem 7: 02/14/22 05:29 02/15/22 07:02 Labs: Abnormal Lab Results - Last 24 Hours (Table) 02/15/22 02/15/22 Range/Units 07:02 07:02 Potassium 3.1 L (3.5-5.5) mmol/L Carbon Dioxide 19.5 L (20.0-27.5) mmol/L Glucose 142 H (70-110) mg/dL Calcium 8.2 L (8.7-10.3) mg/dL Procalcitonin 1.17 H (0.02-0.09) ng/mL Microbiology - Last 24 Hours (Table) 02/12/22 17:33 Blood Culture - Preliminary Blood No Growth after 48 hours 02/10/22 16:37 Blood Culture - Preliminary Blood No Growth after 96 hours Assessment and Plan Assessment: Generalized weakness and recent fall possibly secondary to postobstructive pneumonia Acute hypoxic respiratory failure secondary to suspected underlying pneumonia of the left lower lobe including a mass of the right upper lobe, currently on 3 L nasal cannula. Pro-calcitonin is trending down. Remains on cefepime. Legionella urine antigen was negative. Febrile illness secondary to above History of multiple myeloma, diagnosed in 2018, currently on Revlimid. Status post stem cell transplant at [facility] in October 2020 Possible opportunistic infection/lymphoma secondary to above Former remote smoker Coronary disease with previous stent placement to the LAD Hypertension Hyperlipidemia Obstructive sleep apnea, utilizing CPAP Hearing disorder Plan: The patient was seen and evaluated Chest x-ray, labs and medications reviewed There is a right upper lobe mass/consolidation as well as a left lower lobe consolidation Currently on cefepime We'll plan for bronchoscopy with BAL and possible biopsy in the a.m. We will continue to follow I have personally seen and examined the patient, performed the documentation and the assessment and plan as written. Number of minutes spent on the visit: 10.
[2022-02-15] MEDS: GABAPENTIN 100 MG CAP PO SCH ×2 (12:23→20:32)
[2022-02-15] MEDS: IBUPROFEN 400 MG TAB PO PRN (12:26)
[2022-02-15 13:44] LABS: CMV DNA Qualitative Not detected (Not detected); CMV DNA, Quantitative <50 IU/mL (<50); LOG CMV Copies/mL <126 Copies/mL (<126); Log Cytomegalovirus <1.70 (<1.70)
[2022-02-15] MEDS: ATORVASTATIN 80 MG TAB PO SCH (20:32)
[2022-02-16] MEDS: IPRATROPIUM-ALBUTEROL 3 ML NEB INHALATION SCH ×4 (03:32→16:26)
[2022-02-16] MEDS ORDERED: AZITHROMYCIN 500 MG in SODIUM CHLORIDE 0.9% 250 ML IVPB SCH (09:00)
[2022-02-16] MEDS: ASPIRIN 81 MG PO SCH (10:07)
[2022-02-16] MEDS: METOPROLOL TARTRATE 25 MG TAB PO SCH (10:08)
[2022-02-16] MEDS: MONTELUKAST 10 MG TAB PO SCH (10:08)
[2022-02-16] MEDS: PANTOPRAZOLE 40 MG/10 ML VIAL IV SCH (10:08)
[2022-02-16] MEDS: FAMOTIDINE 20 MG TAB PO SCH (10:08)
[2022-02-16] MEDS: ACYCLOVIR 800 MG TAB PO SCH (10:08)
[2022-02-16] MEDS: guaiFENesin 600 MG TABLET.ER PO SCH (10:08)
[2022-02-16] MEDS: TICAGRELOR 90 MG TAB PO SCH (10:08)
[2022-02-16] MEDS: CEFEPIME 2 GM in SODIUM CHLORIDE 0.9% 100 ML IVPB SCH (10:10)
--- NOTE | 2022-02-16 10:54 | P.PN ---
Subjective Progress Note Date: 02/16/22 This is a very pleasant 81-year-old male patient who has a history of coronary artery disease with previous stent placement to the LAD, former smoker, hearing disorder, hyperlipidemia, hypertension, osteoarthritis, obstructive sleep apnea utilizing CPAP. 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 He is maintained on Revlimid without evidence of relapse. He also Dr. Bush on a regular basis. He had presented to [facility] emergency room after sustaining a fall secondary to experiencing lightheadedness when standing up after bending down radiate had ongoing issues with shortness of breath and presented here for the same. Computed tomography scan revealed consolidation in the right upper lobe with an underlying mass not excluded as well as another consolidation of left lower lobe. There is also some concern regarding enlarged mediastinal and hilar lymph nodes. The patient was noted to be febrile. He was transferred here for further care. DT scan of the brain at her did not reveal any acute intracranial process. He is seen here today in consultation on the regular medical floor the patient is hard of hearing and somewhat of a poor historian. His is present and provides most of the information today. He is maintaining O2 saturations in the 90s on 2 L/m per nasal cannula. He's afebrile. Hemodynamically stable. He does have a loose nonproductive cough. No hemoptysis. White count 2.3. Hemoglobin 12.2. Platelet count 140,000. Sodium 138. Potassium 4.1. Bicarb 19. BUN 16. Creatinine 1.53. Magnesium 1.5. Currently being replaced. He's been initiated on ceftriaxone and azithromycin. Heparin for DVT prophylaxis. Normal saline at 75 ML's per hour. 02/11/2022, the patient is still having episodes of fever. Feels more energetic and active on today's evaluation is able to set up on a chair. He remains in a, his Rocephin and Zithromax. Hemodynamically stable. The labs from today shows a BUN of 19 with a creatinine of 1.6. Sodium levels at 137. The patient has a total IgG level of 1017. The serum bicarbonate of 19.8. Sodium levels of 137. LFTs are within normal limits. The sputum sample is still pending for now. The patient remains on oxygen at 2 L per minute nasal cannula with a pulse ox 93%. 02/12/2022, the patient is feeling better clinically. His cough and congestion has subsided since yesterday. Nevertheless, the chest x-ray is quite abnormal in the patient's best consolidation of left lower lobe and the right upper lobe masslike opacity. He is currently covered with a combination of Rocephin and Zithromax day #4. Legionella urine antigen was negative. Awaiting fungal serology. MRI of the brain is also to be done today. No nausea. No vomiting. No diarrhea. No abdominal pain. No altered mentation. The white cell count is at 3.3 with a hemoglobin of 10.9 and a platelet count of 129. BUN is at 20 with a creatinine of 1.4 and sodium level is at 140. The pro-calcitonin LEVEL IS AT 3.01 SUGGESTIVE UNDERLYING BACTERIAL INFECTION. 02/13/2022, the patient clinically is feeling well and has no specific complaints. Nevertheless he remains on 3 L about 2 by nasal cannula and the patient is not showing any significant improvement in his chest x-ray findings. The patient remains on IV Rocephin. Note that the pro-calcitonin level was elevated suggestive an underlying bacterial infection. I recommended a repeat pro-calcitonin level. I also recommended a repeat CAT scan of the chest that was repeated and it showed a right upper lobe and left lower lobe masslike consolidation with air bronchograms adjacent patchy groundglass opacities. Near the vertebra, there was an appearance of a T7 vertebral body with 4 mm of retropulsion. There was a lytic appearance with fracture line extending into the right posterior element. Finding consistent with possible pathologic fracture. No suspicious other or feel lesions. There was also trace left-sided pleural effusion 02/14/2022, clinically stable and the patient is still having excessive bilateral masslike Pulmicort consolidation. White cell count is not elevated. He is on antibiotics and we'll broaden antibiotic to cefepime. No fever or chills. Sitting up on a chair. Pro-calcitonin level is unchanged and will repeated tomorrow. No nausea or vomiting. Family is at the bedside. The patient is seen today 02/15/2022 in follow-up on the regular medical floor. He is currently sitting up in a chair at the bedside. Awake and alert in no acute distress. Maintaining O2 saturations in the 90s on 3 L per nasal cannula. Chest x-ray continues to show abnormal attenuation in the right upper lobe, left lower lobe showed similar appearance. No evidence of pneumothorax or sizable effusion. Underlying tumor not excluded. Blood cultures reveal no growth. Sputum culture with Tami only. White count 3.6. Hemoglobin 9.8. Platelets 86,000. Sodium 140. Potassium 3.1. BUN 21. Creatinine 1.1. Because 142. Pro-calcitonin 1.17. He is continued on cefepime. The patient is a 02/17/2000 follow-up on the regular medical floor. He is up ambulating in his room. Awake and alert in no acute distress. Maintaining good O2 saturations in the 90s on 3 L/m per nasal cannula. The patient's Legionella testing did end up being positive. He was switched to Levaquin. Continued on cefepime. No need for bronchoscopy with BAL today. Objective - Vital Signs Vital signs: Vital Signs Temp 97.7 F 02/16/22 05:00 Pulse 78 02/16/22 09:43 Resp 16 02/16/22 05:00 BP 112/73 02/16/22 05:00 Pulse Ox 98 02/16/22 08:27 FiO2 32 02/11/22 20:35 Intake & Output 02/15/22 02/16/22 02/16/22 18:59 06:59 18:59 Intake Total 100 Balance 100 Intake: Intake, IV Titration 100 Amount Cefepime 2 gm In Sodium 100 Chloride 0.9% 100 ml @ 25 mls/hr IVPB Q12HR [facility] Rx #:[id number] Other: Voiding Method Urinal Toilet - Exam GENERAL EXAM: Alert, pleasant 81-year-old male patient, up walking with a walker, on 3 L nasal cannula, comfortable in no apparent distress. HEAD: Normocephalic. EYES: Normal reaction of pupils, equal size. NOSE: Clear with pink turbinates. THROAT: No erythema or exudates. NECK: No masses, no JVD. CHEST: No chest wall deformity. LUNGS: Equal air entry with crackles in left lung base. Scattered rhonchi. CVS: S1 and S2 normal with no audible murmur, regular rhythm. ABDOMEN: No hepatosplenomegaly, normal bowel sounds, no guarding or rigidity. SPINE: No scoliosis or deformity SKIN: No rashes CENTRAL NERVOUS SYSTEM: No focal deficits, tone is normal in all 4 extremities. EXTREMITIES: There is no peripheral edema. No clubbing, no cyanosis. Peripheral pulses are intact. - Labs CBC & Chem 7: 02/15/22 07:02 02/15/22 07:02 Labs: Abnormal Lab Results - Last 24 Hours (Table) 02/15/22 02/15/22 02/15/22 Range/Units 07:02 07:02 07:02 WBC 3.60 L (4.50-10.00) X 10*3/uL RBC 3.29 L (4.40-5.60) X 10*6/uL Hgb 9.8 L (13.0-17.0) g/dL Hct 30.4 L (39.6-50.0) % RDW 17.3 H (11.5-14.5) % Plt Count 86 L (140-440) X 10*3/uL Plt Count Comment DECREASED A Metamyelocytes % 1 H (0-0) % Lymphocytes # (Manual) 0.32 L (0.90-5.00) X 10*3/uL Monocytes # (Manual) 0.14 L (0.20-1.00) X 10*3/uL Basophils # (Manual) 0.11 H (0.00-0.10) X 10*3/uL Potassium 3.1 L (3.5-5.5) mmol/L Carbon Dioxide 19.5 L (20.0-27.5) mmol/L Glucose 142 H (70-110) mg/dL Calcium 8.2 L (8.7-10.3) mg/dL Procalcitonin 1.17 H (0.02-0.09) ng/mL Microbiology - Last 24 Hours (Table) 02/12/22 17:33 Blood Culture - Preliminary Blood No Growth after 72 hours 02/10/22 16:37 Blood Culture - Preliminary Blood No Growth after 120 hours 02/15/22 10:20 Nasal Screen MRSA/MSSA - Preliminary Nasal Swab Assessment and Plan Assessment: Acute hypoxic respiratory failure secondary to suspected underlying pneumonia of the left lower lobe including a mass of the right upper lobe, currently on 3 L nasal cannula. Pro-calcitonin is trending down. Remains on cefepime. Legionella urine antigen was initially reported negative now reported positive. Change to Levaquin. Generalized weakness and recent fall possibly secondary to postobstructive pneumonia Febrile illness secondary to above History of multiple myeloma, diagnosed in 2019, currently on Revlimid. Status post stem cell transplant at [facility] in October 2020 Possible opportunistic infection/lymphoma secondary to above Former remote smoker Coronary disease with previous stent placement to the LAD Hypertension Hyperlipidemia Obstructive sleep apnea, utilizing CPAP Hearing disorder Plan: The patient was seen and evaluated The patient's Legionella test was found to be positive Antibiotics changed to Levaquin No plans for bronchoscopy at this time Cleared for discharge from pulmonary standpoint Follow up in the office in 2-3 weeks, follow-up chest x-ray then I have personally seen and examined the patient, performed the documentation and the assessment and plan as written. Number of minutes spent on the visit: 10.
[2022-02-16 11:44] VITALS: BP 142/81; RESP 18; TEMP 97.6
[2022-02-16] MEDS ORDERED: LEVOFLOXACIN 750MG-D5W PMX 750 MG in DEXTROSE/WATER 1 150ML.BAG IVPB SCH (12:00)
[2022-02-16] MEDS: GABAPENTIN 100 MG CAP PO SCH (12:12)
--- NOTE | 2022-02-16 13:03 | P.DS ---
Providers Date of admission: 02/10/22 00:26 Expected date of discharge: 02/16/22 Attending physician: Abdirahman Knight MD Consults: 02/10/22 00:26 Consult Physician Routine Consulting Provider: Willy Bush Consult Reason/Comments: newCA Do you want consulting provider notified?: Yes 02/10/22 09:06 Consult Physician Routine Consulting Provider: Aide Bates Consult Reason/Comments: Pneumnia, poss underlying lung mass Do you want consulting provider notified?: Yes 02/11/22 09:25 Consult Physician Routine Consulting Provider: Cirilo Henderson Consult Reason/Comments: dizziness, cardaic ruled out Do you want consulting provider notified?: Yes Primary care physician: [facility] Course: Community acquired pneumonia secondary to Legionella Right-sided lung consolidation suspicious for malignancy Acute hypoxic respiratory failure Dizziness, resolved CKD Multiple myeloma T7 pathologic fracture- old and present in 2019 CAD, hypertension, hyperlipidemia The patient is an 81-year-old male with multiple myeloma, coronary artery disease, hypertension, and hyperlipidemia who initially presented to [facility] on 02/09 with complaints of dizziness, fall, and shortness of breath. He underwent an extensive evaluation in the emergency room at [facility]. He was noted to be febrile and tachypneic with a CT chest angiogram showing no evidence of pulmonary was on although a masslike consolidation in the medial aspect of the right upper lobe extending to the pulmonary hilum suspicious for tumor with a wedge-shaped consolidation of the left lower lobe likely secondary to bronchopneumonia. There was also a few enlarged mediastinal and bronchial lymph nodes noted. CT head and cervical spine revealed no acute abnormalities. Laboratory evaluation revealed a WBC count of 5.8, hemoglobin 13.1, with BMP remarkable for creatinine 1.55, sodium 132, potassium 3.2, CO2 20, lactic acid 1.5, and COVID-19 negative. EKG revealed sinus rhythm at 99 bpm with LVH. He was stated on IV fluids, rocephin and zithromax. Oncology was consulted and recommended pulmonary evaluation for need for bronchoscopy. He was seen by pulmonology who felt there is no urgent indication for biopsy. They are considering possible bronchoscopy for sputum sample. MRI without mass/lesion/CVA. CT chest without contrast again demonstrated mass like consolidation in the RIght upper lobe and left lower lobe, with known T7 vertebral fracture. On the morning of 02/12 patient developed worsening shortness of breath. He was given a DuoNeb and had some improvement. Chest x-ray on 02/12 demonstrates continued right upper lobe and worsening left lower lobe infiltrates. He developed rigors in the afternoon on 02/12 and blood cultures were obtained. Patients labs were noted to be erroneously negative for Legionella and on 02/15 it was reviewed and reported appropriately as positive. Originally pulmonology planned a bronchoscopy but this was cancelled upon finding out about the legionella. Patient improved quickly with re-addition of azithromycin, and felt well enough to go home. He was prescribed 2 weeks of levofloxacin 750mg and pulmonology, oncology f/u. I spent 40 minutes coordinating this discharge, discharge date 02/16. Gen: awake, alert HEENT: normocephalic, atraumatic, good hearing acuity, moist mucous membranes Resp: good air exchange, breathing comfortably with no accessory muscle use CVS: good distal perfusion x 4, GI: soft, NTTP, ND : no SPT, no CVAT, dinero catheter not present MSK: no pitting edema, no clubbing Neuro: non-focal, moving all extremities Psych: cooperative, euthymic mood Patient Condition at Discharge: Fair Plan - Discharge Summary New Discharge Prescriptions: New Acetaminophen Tab [Tylenol] 650 mg PO Q6HR PRN tab PRN Reason: Fever And/ Or Pain Albuterol Nebulized [Ventolin Nebulized] 2.5 mg INHALATION RT-QID PRN #1 each PRN Reason: Shortness Of Breath Or Wheezing Levofloxacin [Levaquin] 750 mg PO DAILY 1 Days #14 tab Continue Multivitamin [Men's Multi-Vitamin] 1 tab PO DAILY Aspirin 81 mg PO DAILY Metoprolol Tartrate [Lopressor] 25 mg PO BID #60 tab Gabapentin [Neurontin] 600 mg PO HS Omeprazole [PriLOSEC] 20 mg PO AC-BRKFST Ticagrelor [Brilinta] 90 mg PO BID #180 tab Atorvastatin [Lipitor] 80 mg PO HS #0 Famotidine [Pepcid] 20 mg PO BID Gabapentin 300 mg PO DAILY@1200 Acyclovir [Zovirax] 800 mg PO BID Montelukast [Singulair] 10 mg PO DAILY Discontinued Nitroglycerin Sl Tabs [Nitrostat] 0.4 mg SUBLINGUAL Q5M PRN #25 tab PRN Reason: Chest Pain Losartan [Cozaar] 25 mg PO DAILY Lenalidomide [Revlimid] 10 mg PO DAILY Discharge Medication List Aspirin 81 mg PO DAILY 05/12/15 [History] Multivitamin [Men's Multi-Vitamin] 1 tab PO DAILY 05/12/15 [History] Metoprolol Tartrate [Lopressor] 25 mg PO BID #60 tab 05/13/15 [Rx] Acyclovir [Zovirax] 800 mg PO BID 09/03/21 [History] Gabapentin [Neurontin] 600 mg PO HS 09/03/21 [History] Montelukast [Singulair] 10 mg PO DAILY 09/03/21 [History] Omeprazole [PriLOSEC] 20 mg PO AC-BRKFST 09/03/21 [History] Atorvastatin [Lipitor] 80 mg PO HS #0 09/09/21 [Rx] Ticagrelor [Brilinta] 90 mg PO BID #180 tab 09/09/21 [Rx] Famotidine [Pepcid] 20 mg PO BID 02/10/22 [History] Gabapentin 300 mg PO DAILY@1200 02/10/22 [History] Acetaminophen Tab [Tylenol] 650 mg PO Q6HR PRN tab 02/16/22 [Rx] Albuterol Nebulized [Ventolin Nebulized] 2.5 mg INHALATION RT-QID PRN #1 each 02/16/22 [Rx] Levofloxacin [Levaquin] 750 mg PO DAILY 1 Days #14 tab 02/16/22 [Rx] Follow up Appointment(s)/Referral(s): [facility],Clinic [Primary Care Provider] - 1-2 days Discharge Disposition: HOME WITH HOME HEALTH SERVICES
[2022-02-16] MEDS ORDERED: Potassium Replacement Protocol 1 EACH MISC MISCELLANE PRN ×2 (15:31→15:33)
[2022-02-16] MEDS ORDERED: POTASSIUM CHLORIDE ER 20 MEQ TAB.ER PO STA (15:38)
[2022-02-16] MEDS ORDERED: POTASSIUM CHLORIDE ER 20 MEQ TAB.ER PO SCH (16:00)
--- NOTE | 2022-02-16 16:35 | P.PN ---
Subjective Progress Note Date: 02/16/22 Planning on discharge today, seen with primary team Objective - Vital Signs Vital signs: Vital Signs Temp 97.6 F 02/16/22 10:55 Pulse 84 02/16/22 16:26 Resp 18 02/16/22 10:55 BP 142/81 02/16/22 10:55 Pulse Ox 98 02/16/22 12:38 FiO2 32 02/11/22 20:35 Intake & Output 02/15/22 02/16/22 02/16/22 18:59 06:59 18:59 Intake Total 100 Balance 100 Intake: Intake, IV Titration 100 Amount Cefepime 2 gm In Sodium 100 Chloride 0.9% 100 ml @ 25 mls/hr IVPB Q12HR [facility] Rx #:[id number] Other: Voiding Method Urinal Toilet - Exam On oxygen, appears slightly short of breath even at rest - EENT Eyes: EOMI, PERRLA ENT: hearing grossly normal, normal oropharynx - Neck Neck: no lymphadenopathy Thyroid: bilateral: normal size - Respiratory Respiratory: right: diminished - Cardiovascular Rhythm: regular Heart sounds: normal: S1, S2 - Gastrointestinal General gastrointestinal: normal bowel sounds, soft - Integumentary Integumentary: normal - Neurologic - Labs CBC & Chem 7: 02/15/22 07:02 02/15/22 07:02 Labs: Microbiology - Last 24 Hours (Table) 02/12/22 17:33 Blood Culture - Preliminary Blood No Growth after 72 hours 02/10/22 16:37 Blood Culture - Preliminary Blood No Growth after 120 hours 02/15/22 10:20 Nasal Screen MRSA/MSSA - Preliminary Nasal Swab Assessment and Plan Plan: esults CT scan - chest: report reviewed Assessment and Plan (1) Pneumonia Narrative/Plan: Improving but still requiring Oxygen Current Visit: Yes Status: Acute Code(s): J18.9 - PNEUMONIA, UNSPECIFIED ORGANISM SNOMED Code(s): 794536427 (2) Myeloma Narrative/Plan: In remission, currently on maintenance Revlimid. Hold Revlimid while inpatient because of pneumonia. Monitor counts Current Visit: Yes Status: Acute Code(s): C90.00 - MULTIPLE MYELOMA NOT HAVING ACHIEVED REMISSION SNOMED Code(s): 726395840
[2022-02-16 16:38] VITALS: PULSE 76
[2022-02-16 17:15] LABS: Histoplasma Abs by ID Not Detected (Not Detected); Histoplasma Abs by Mycelia, CF <1:8 (<1:8)
== END 2022-02-16 17:00 | disposition home health service (06) | DRG 177 ==
LOC: EC 23:28 → 5NMEDONC 02-10 00:26
PROVIDERS: ADMIT Internal Medicine; ATTEND Internal Medicine
DX: A48.1 Legionnaires' disease (principal); J96.21 Acute and chronic respiratory failure with hypoxia; C34.11 Malignant neoplasm of upper lobe, right bronchus or lung; Z94.84 Stem cells transplant status; C90.01 Multiple myeloma in remission; Z87.891 Personal history of nicotine dependence; E78.00 Pure hypercholesterolemia, unspecified; E87.6 Hypokalemia; G47.33 Obstructive sleep apnea (adult) (pediatric); H91.90 Unspecified hearing loss, unspecified ear; I12.9 Hypertensive chronic kidney disease with stage 1 through stage 4 chronic kidney disease, or unspecified chronic kidney disease; I25.10 Atherosclerotic heart disease of native coronary artery without angina pectoris; J16.8 Pneumonia due to other specified infectious organisms; M48.54XG Collapsed vertebra, not elsewhere classified, thoracic region, subsequent encounter for fracture with delayed healing; H81.10 Benign paroxysmal vertigo, unspecified ear; N18.9 Chronic kidney disease, unspecified; K21.9 Gastro-esophageal reflux disease without esophagitis; M19.90 Unspecified osteoarthritis, unspecified site; R59.0 Localized enlarged lymph nodes; Z91.81 History of falling; Z20.822 Contact with and (suspected) exposure to COVID-19; Z79.02 Long term (current) use of antithrombotics/antiplatelets; Z79.82 Long term (current) use of aspirin; Z79.899 Other long term (current) drug therapy; Z80.42 Family history of malignant neoplasm of prostate; Z80.6 Family history of leukemia; Z82.3 Family history of stroke; Z82.49 Family history of ischemic heart disease and other diseases of the circulatory system; Z83.3 Family history of diabetes mellitus; Z85.828 Personal history of other malignant neoplasm of skin; Z95.5 Presence of coronary angioplasty implant and graft; Z97.4 Presence of external hearing-aid; Z87.01 Personal history of pneumonia (recurrent)
CPT/HCPCS: 70553; 71045; 71046; 71250; 80048; 80053; 82784; 83735; 84100; 84145; 85025; 85027; 85610; 86606; 86698; 87040; 87070; 87205; 87327; 87449; 87497; 93306; 94640; 94760; 96361; 96365; 96375; 99285

== ENCOUNTER 2022-05-26 08:17 | Inpatient (IN) | payer MEDICARE, OTHER ==
[~2022-05-26 08:17] MED LIST changes: -ASPIRIN 325 MG TAB PO STA; -HEPARIN SODIUM,PORCINE 10,000 UNIT in SODIUM CHLORIDE 0.9% 1,000 ML IRRIGATION PRN; -HEPARIN SODIUM,PORCINE 2,500 UNIT in SODIUM CHLORIDE 0.9% 250 ML IRRIGATION PRN
[2022-05-26] MEDS: SODIUM CHLORIDE 0.9% 1,000 ML in EMPTY BAG 1 BAG IV SCH ×3 (08:45→20:49)
[2022-05-26] MEDS ORDERED: VERAPAMIL 2.5 MG/ML 2 ML AMP ONE (10:52)
[2022-05-26] MEDS ORDERED: HEPARIN SODIUM 1,000 UN/ML (10ML VL) ONE (11:05)
[2022-05-26] MEDS ORDERED: MIDAZOLAM 2 MG/2 ML VIAL IV ONE (11:10)
[2022-05-26] MEDS ORDERED: LIDOCAINE 1% INJ 10MG/ML (30 ML VIAL-PF) SQ ONE (11:11)
[2022-05-26] MEDS: VERAPAMIL SYRINGE (5 MG/10 ML) INTRAARTER ONE ×2 (11:15→11:28)
[2022-05-26] MEDS ORDERED: IOPAMIDOL-370 100ML BTL INJ ONE (11:28)
[2022-05-26] MEDS: HEPARIN SOD,PORK IN 0.45% NACL 25,000 UNIT in 0.45% NACL 1 250ML.BAG IV SCH (12:32)
[2022-05-26 12:53] LABS: Prothrombin Time 10.7 sec (9.0-12.0)
[2022-05-26 14:24] LABS: HCT 38.5 % (39.0-53.0); HGB 12.9 gm/dL (13.0-17.5); Hypochromasia Slight; MCH 34.5 pg (25.0-35.0); MCHC 33.5 g/dL (31.0-37.0); MCV 102.8 fL (80.0-100.0); Macrocytosis Slight; Mean Platelet Volume 10.3; Platelet Count 132 k/uL (150-450); RBC 3.75 m/uL (4.30-5.90); RDW 15.4 % (11.5-15.5); WBC 4.9 k/uL (3.8-10.6)
--- NOTE | 2022-05-26 14:25 | P.GSCN ---
History of Present Illness Consult date: 05/26/22 Reason for Consult: Multivessel coronary artery disease Requesting physician: Richardson Smyth History of present illness: This is an 82-year-old gentleman who follows on an outpatient basis for his primary care service with Dr. Burak Raman and he follows with his cardiology care with Dr. MARISOL Smyth. He also falls with Dr. Bates for his pulmonary care. 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 Recently, the patient reports he has been having episodes of chest pain with associated shortness of breath with activity. The patient denies any recent fever, chills, nausea, vomiting, constipation, diarrh ea, hemoptysis, hematemesis, palpitations, headache, presyncope or syncope. Subsequently on 05/17/2022 the patient underwent a dobutamine stress echocardiography which demonstrated ST segment depression and subjective symptoms of angina, and abnormal dobutamine stress echo was absence of increased contractility and wall motion and wall thickening with dobutamine administration suggestive of ischemia. In February 2022 the patient underwent a transthoracic 2-D echocardiogram which demonstrated a left ventricular ejection fraction of 55-60%, grade 2 diastolic dysfunction, severe mitral annular calcification, mild mitral valve stenosis with a peak gradient of 13 mmHg and a mean gradient of 5 mmHg, mild mitral valve regurgitation, mild aortic valve stenosis with a peak gradient of 14 mmHg and a mean gradient of 10 mmHg, mild tricuspid valve regurgitation, no pericardial effusion and a normal size aortic root and proximal ascending aorta. Due to the patient's symptoms, history of coronary artery disease and results of the stress test the patient was advised to undergo a cardiac catheterization which was completed today 05/26/[address] MARISOL Smyth. The cardiac catheterization results showed an 85% stenosis to his circumflex coronary artery, and a 99% stenosis to his proximal left anterior descending coronary artery with restenosis of his stent to his LAD. The findings of the cardiac catheterization were discussed with the patient and his family by Dr. MARISOL Smyth and a consult was placed to Dr. Conor Wells from cardiothoracic surgery for further evaluation and treatment recommendations including myocardial revascularization surgery. Review of Systems A 14 point review of systems was completed and was negative except as mentioned in HPI. Past Medical History Past Medical History: Coronary Artery Disease (CAD), Cancer, GERD/Reflux, Hearing Disorder / Deafness, Hyperlipidemia, Hypertension, Osteoarthritis (OA), Pneumonia, Sleep Apnea/CPAP/BIPAP Additional Past Medical History / Comment(s): Allergies. Hearing aids. Shingles 2004. Basal cell skin cancer. Multiple myeloma 2018, had stem cell transplant 10/2020, also status post radiation and chemotherapy treatments. Vertigo X1, Uses C-PAP for obstructive sleep apnea. Legionnaires pneumonia in 2021, Chest heaviness pain and shortness of breath, peripheral neuropathy History of Any Multi-Drug Resistant Organisms: None Reported Past Surgical History: Heart Catheterization With Stent, Joint Replacement, Orthopedic Surgery Additional Past Surgical History / Comment(s): 2014 HEART CATH WITH STENT TO LAD , BRENDA CATARACTS. CTR bilat, Rt CTR repeated. Total Lt hip 2018. SKIN CANCER REMOVAL. Stem cell transplant 10/2020. Past Anesthesia/Blood Transfusion Reactions: No Reported Reaction Date of Last Stent Placement:: 09-08-21 Past Psychological History: No Psychological Hx Reported Smoking Status: Former smoker (Quit smoking over 50 years ago) Past Alcohol Use History: Occasional (Reports he drinks about 2-3 drinks every weekend.) Past Drug Use History: None Reported - Past Family History Brother(s) Family Medical History: Cancer, Diabetes Mellitus, Myocardial Infarction ([place]), Renal Disease Additional Family Medical History / Comment(s): LEUKEMIA, PROSTATE CANCER, DIALYSIS brother at age 58 from a brain aneurysm Sister(s) Family Medical History: Cancer Additional Family Medical History / Comment(s): LEUKEMIA Mother Family Medical History: Congestive Heart Failure ([place]), Myocardial Infarction ([place]) Additional Family Medical History / Comment(s): AT AGE 92 OF CHF Father Family Medical History: CVA/TIA Additional Family Medical History / Comment(s): FROM COMPLICATIONS FROM A STROKE AT AGE 58 Medications and Allergies Home Medications Medication Instructions Recorded Confirmed Type Aspirin 81 mg PO DAILY 05/12/15 05/26/22 History Multivitamin [Men's Multi-Vitamin] 1 tab PO DAILY 05/12/15 05/26/22 History Acyclovir [Zovirax] 800 mg PO BID 09/03/21 05/26/22 History Montelukast [Singulair] 10 mg PO DAILY 09/03/21 05/26/22 History Omeprazole [PriLOSEC] 20 mg PO AC-BRKFST 09/03/21 05/26/22 History Atorvastatin [Lipitor] 80 mg PO HS #0 09/09/21 05/26/22 Rx Ticagrelor [Brilinta] 90 mg PO BID #180 tab 09/09/21 05/26/22 Rx Famotidine [Pepcid] 20 mg PO BID 02/10/22 05/26/22 History Gabapentin 300 mg PO 1700 02/10/22 05/26/22 History Calcium Carbonate/Vitamin D3 1 each PO DAILY 05/24/22 05/26/22 History [Calcium 600 mg-D3 10 Mcg (400 Iu)] Isosorbide Mononitrate [Isosorbide 15 mg PO 1200 05/24/22 05/26/22 History Mononitrate ER] Lenalidomide [Revlimid] 10 mg PO DAILY 05/24/22 05/26/22 History Metoprolol Succinate (ER) [Toprol 12.5 mg PO DAILY 05/24/22 05/26/22 History Xl] Allergies Allergy/AdvReac Type Severity Reaction Status Date / Time naproxen [From Naprosyn] AdvReac swollen Verified 05/24/22 15:10 joints Surgical - Exam Vital Signs Temp Pulse Resp BP Pulse Ox 98.4 F 57 L 18 143/75 98 05/26/22 08:54 05/26/22 08:54 05/26/22 08:54 05/26/22 08:54 05/26/22 08:54 - General well developed, well nourished, no distress, no pain - Eyes PERRL, normal ocular movement, no pale, no icteric - ENT normal pinna, normal nares, normal mucosa, decreased hearing (Hearing aids to bilateral ears) - Neck Neck is supple, no lymphadenopathy. no masses, no bruits, trachea midline, no venous distension - Respiratory Lungs sounds essentially clear throughout, respirations are symmetrical and nonlabored. No wheezes, rhonchi or crackles. - Cardiovascular Regular rhythm and rate. S1 and S2 present, negative for S3 or gallop. Soft systolic murmur heard best to his left sternal border. No edema present. Peripheral pulses palpable. - Abdomen Abdomen is soft, nontender and nondistended. Active bowel sounds present in all 4 quadrants. No guarding or rigidity. No organomegaly appreciated. - Genitourinary Deferred - Rectum Deferred - Integumentary Skin is warm and dry. No clubbing or cyanosis is present. no rash, no growths, no abnormal pigmentation - Neurologic No focal deficits appreciated. - Musculoskeletal Moves all 4 extremities with equal strength bilaterally. - Psychiatric oriented to time, oriented to person, oriented to place, speech is normal, memory intact Results - Labs Abnormal Lab Results - Last 24 Hours (Table) 05/26/22 Range/Units 12:15 APTT 56.0 H (22.0-30.0) sec - Imaging Additional studies: 2-D echocardiogram report from February 2022 reviewed by Ev Wells. Cardiac catheterization films reviewed by Dr. Wells. Assessment and Plan Assessment: 1. Multi vessel coronary artery disease, history of coronary artery disease with previous PCI most recently in August 2021 with restenosis of his stent to his LAD 2. History of angina associated with shortness of breath, abnormal stress test on 05/17/2022 3. History of hypertension 4. Hyperlipidemia 5. Multiple myeloma with history of stem cell transplant in October 2020 and he is status post chemotherapy and radiation treatments 6. Peripheral neuropathy 7. 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 Obstructive sleep apnea with home CPAP use 9. Remote history of nicotine dependence, quit smoking over 50 years ago 10. GERD 11. Osteoarthritis, history of left hip replacement 12. Recent history of basal cell skin cancer to his right shoulder which was removed 13. Hard of hearing Plan: The patient was seen and examined at his bedside in the extended stay unit. His chart and diagnostics reviewed. The patient was seen in conjunction with Dr. Conor Wells from cardiothoracic surgery. The patient's daughter and were present at his bedside as well. Preoperative teaching and preoperative testing has been initiated. Dr. Wells discussed with the patient and his family treatment options including myocardial revascularization surgery, risks and benefits of surgery were discussed. The usual course of myocardial revascularization surgery was discussed with the patient. Knowing and understanding these risks the patient wished to proceed with the surgical option. Once his preoperative testing has been completed an STS risk score will be calculated and discussed with the patient. Continue to hold his Brilinta and we will also hold his Revlimid. Dr. Bush from oncology agreed with holding the Revlimid. Once the patient is able to ambulate a 5 m walk test will be completed with the patient. We will obtain a repeat transthoracic 2-D echocardiogram. The patient will be tentatively scheduled for off-pump myocardial revascularization surgery with left internal mammary artery, endoscopic left radial artery harvest, possible endoscopic vein harvest, exclusion of left atrial appendage and intraoperative transesophageal echocardiogram on 05/30/2022 to be performed by Dr. Conor Wells. Continue to maximize medical therapy with aspirin, statin, Imdur and beta tone. Heparin drip management recommendations per Dr. Smyth. We will c onsult Dr. Bates for preoperative pulmonary evaluation. Medical management and other comorbidities per primary care service. Encourage use of his incentive spirometry 10 times every hour while awake. Thank you Dr. Smyth for this consult and we look forward to working with you in the care of this patient. I have personally seen and examined the patient, performed the documentation and the assessment and plan as written. 30 minutes spent on the visit . Fred HANDY
[2022-05-26 15:15] LABS: ALT 32 U/L (4-49); AST 37 U/L (17-59); African American GFR (CKD) 74 (>60 ml/min/1.73 sqM); Albumin 3.7 g/dL (3.5-5.0); Alkaline Phosphatase 80 U/L (38-126); Anion Gap 8 mmol/L; Blood Urea Nitrogen 18 mg/dL (9-20); Calcium 8.6 mg/dL (8.4-10.2); Carbon Dioxide 23 mmol/L (22-30); Chloride 109 mmol/L (98-107); Glucose 126 mg/dL (74-99); Magnesium 1.8 mg/dL (1.6-2.3); Non-African American GFR(CKD) 64 (>60 ml/min/1.73 sqM); Potassium 3.9 mmol/L (3.5-5.1); Sodium 140 mmol/L (137-145); Total Bilirubin 0.6 mg/dL (0.2-1.3); Total Protein 6.6 g/dL (6.3-8.2)
--- NOTE | 2022-05-26 15:30 | US ---
EXAMINATION TYPE: US carotid duplex BILAT DATE OF EXAM: 05/26/2022 COMPARISON: NONE CLINICAL HISTORY: preop cardiac surgery. pre open heart TECHNIQUE: Carotid duplex ultrasound examination. Indirect Doppler criteria was utilized. FINDINGS: EXAM MEASUREMENTS: RIGHT: Peak Systolic Velocity (PSV) cm/sec ----- Right CCA: 40.3 ----- Right ICA: 89.4 ----- Right ECA: 98.7 ICA/CCA ratio: 2.2 RIGHT: End Diastole cm/sec ----- Right CCA: 13.2 ----- Right ICA: 33.9 ----- Right ECA: 16.4 LEFT: Peak Systolic Velocity (PSV) cm/sec ----- Left CCA: 66.4 ----- Left ICA: 79.9 ----- Left ECA: 77.5 ICA/CCA ratio: 1.2 LEFT: End Diastole cm/sec ----- Left CCA: 15.6 ----- Left ICA: 21.7 ----- Left ECA: 13.8 VERTEBRALS (direction of flow): Right Vertebral: Antegrade Left Vertebral: Antegrade Rhythm: Normal KID CLUB ATTENDANT NOTES: Heterogeneous plaque at bilateral bulbs with no significant stenosis IMPRESSION: Heterogeneous plaque bilaterally with findings suggestive of a 50-69% stenosis of the right ICA. Luciano elate clinically.. Criteria for Assigning % of Stenosis / Diameter reduction (Estimation based on the indirect measurements of the internal carotid artery velocities (ICA PSV). 1. Normal (no stenosis)=ICA PSV < 125 cm/s: ratio < 2.0: ICA EDV<40 cm/s. 2. Less than 50% stenosis=ICA PSV < 125 cm/s: ratio < 2.0: ICA EDV<40 cm/s. 3. 50 to 69% stenosis=ICA PSV of 125 to 230 cm/s: ration 2.0 ? 4.0: ICA EDV 40-100 cm/s. 4. Greater than 70% stenosis to near occlusion= ICA PSV > 230 cm/s: ratio > 4.0: ICA EDV > 100 cm/s. 5. Near occlusion= ICA PSV velocities may be low or undetectable: variable ratio and ICA EDV. 6. Total occlusion=unable to detect flow.
--- NOTE | 2022-05-26 15:42 | XR ---
EXAMINATION TYPE: XR chest 2V DATE OF EXAM: 05/26/2022 COMPARISON: 02/15/2022 TECHNIQUE: PA and lateral views submitted. HISTORY: Preop CABG FINDINGS: Marked interval improvement in the right upper lobe area of consolidation. Hypertrophic change of the AC joint. Hyperinflation suggests COPD. There is increased density particularly along the posterior margin along the lateral view likely in the retrocardiac region. A vessel likely represents improveme nt of left perihilar infiltrate. IMPRESSION: 1. COPD 2. There is marked improvement in right upper lobe area of consolidation relative to the prior exam. 3. There is some residual density in the perihilar region on the left could represent resolving infil trate or atelectasis correlate clinically. 4. Retrocardiac density could represent superimposed ectasia of the aorta or possibly hiatal hernia c orrelate clinically.
[2022-05-26 16:43] LABS: Appearance,Urine Clear (Clear); Bilirubin,Urine Negative (Negative); Blood,Urine Negative (Negative); Color,Urine Light Yellow; Glucose,Urine (UA) Negative (Negative); Ketones,Urine Negative (Negative); Leukocyte Esterase,Urine Negative (Negative); Nitrite,Urine Negative (Negative); Protein,Urine Negative (Negative); Specific Gravity,Urine 1.025 (1.001-1.035); Urobilinogen,Urine <2.0 mg/dL (<2.0)
[2022-05-26] MEDS: GABAPENTIN 300 MG CAP PO SCH (17:00)
[2022-05-26] MEDS: ISOSORBIDE MONONITRATE ER 15 MG TAB PO SCH (17:00)
--- NOTE | 2022-05-26 17:47 | P.PN ---
Progress Note - Text Progress Note Date: 05/26/[address] Bush, Hx MM, autologous stem cell transplant 10/2020, Been on maintenance Revlimid. Case was discussed with primary oncologist. It is okay to hold maintenance Revlimid for cardiac procedures and until patient is completely healed from cardiac procedures. Verified Revlimid has been removed from the patient's medication list. Note placed in the discharge plan for patient to stay off of Revlimid until he is seen by Dr. Bush. Dr. Bush follow-up appointment in the chart as well. Formal consult will be dictated tomorrow.
[2022-05-26] MEDS: ATORVASTATIN 80 MG TAB PO SCH (20:39)
[2022-05-26] MEDS: FAMOTIDINE 20 MG TAB PO SCH (20:39)
[2022-05-26] MEDS: HEPARIN SODIUM 1,000 UN/ML (10ML VL) IV PRN (20:39)
--- NOTE | 2022-05-26 22:17 | CC ---
CARDIAC CATHETERIZATION REPORT PROCEDURES PERFORMED: Left heart catheterization, coronary angiography. PERFORMED BY: Dr. Danielle Smyth. Moderate conscious sedation time was 19 minutes. The patient was administered Versed. Oxygen saturation, hemodynamics, and EKG were monitored closely. CLINICAL INFORMATION: Mr. Huseyin Mullins is an 82-year-old gentleman with a history of CAD, previous LAD stenting in the midportion in 2015, and as recently as August of this year, I performed orbital atherectomy and stenting of ostial LAD. At that time, the circumflex and RCA were unremarkable for significant disease and he had a right-dominant system. This gentleman also has history of hypertension, hyperlipidemia and also over a year ago had multiple myeloma, for which he received stem cell transplant and this has been in remission and he is doing remarkably well. Because of symptoms of chest pain at rest and with mild activity, I recommended coronary angiography and brought him for the procedure electively after due discussion with the patient and . PROCEDURE NOTE: Under local anesthesia and strict aseptic precautions, a 6-Kazakh introducer was placed in the right radial artery. Using a JL3.5 and JR4 catheters, I performed coronary angiography, and the same right catheter was used to check LV pressure, but LV gram was not performed. The sheath was taken out and TR band applied as per protocol with saturation in the fingers of the right hand of about 95%. CARDIAC CATHETERIZATION FINDINGS: The left ventricular end-diastolic pressure was about 10 mmHg without any gradient across aortic valve. CORONARY ANGIOGRAPHY FINDINGS: RIGHT CORONARY ARTERY: Large dominant vessel has about a 50% lesion in the proximal portion in the MAURITANIAN view, but in the MORRIS view, the lesion looks no more than 40%. This is the dominant vessel distally bifurcates into PDA and PLV, both of which have minor irregularities. There is no other significant disease. There is a 40% to 50% lesion at the junction of the proximal and middle one third of RCA. LEFT MAIN CORONARY ARTERY: Short, patent vessel free of significant disease that bifurcates into LAD and circumflex. LEFT ANTERIOR DESCENDING CORONARY ARTERY: This vessel at the ostium has a 95% to 99% stenosis, which was the restenotic lesion. The patient had a stent in that area of a 4.0 caliber in August of this year. Mid LAD stent is patent. Flow is fairly decent in the rest of the LAD. There is a long stented segment in the LAD, but beyond the stented segment, the vessel caliber is good and it can take a bypass. LEFT POSTERIOR CIRCUMFLEX CORONARY ARTERY: Nondominant vessel. It gives off a good- sized obtuse marginal that gives 2 branches. The lower branch of the obtuse marginal has a 95% stenosis, appears to be quite tight and represents significant progression of disease compared to August of this year. The patient's circumflex marginal superior branch is free of significant disease and there is a small AV groove branch, which is free of significant disease. Left ventriculogram was not performed. FINAL IMPRESSION: This patient has a right-dominant system normal filling pressures, 45% proximal/mid RCA disease, which is a dominant vessel. There is a new disease in the circumflex marginal of about 85% to 90%. Ostial LAD has a restenotic lesion of about 95% to 99%. The flow in the LAD is brisk and LAD is a graftable vessel. RECOMMENDATIONS: I am recommending urgent aortocoronary bypass surgery with graft to the LAD and also circumflex marginal. The patient is on Brilinta. We can wait until Monday or Monday. I will place him on IV heparin. I will seek a consultation from Dr. Conor Wells to whom I have already spoken and he will see the patient today. I will also request Dr. Bush to see him from a multiple myeloma standpoint. IV heparin and he will be admitted to telemetry unit with urgent surgery. MMVALERIA / CARMENN: [id number] /
[2022-05-27] MEDS: SODIUM CHLORIDE 0.9% 1,000 ML in EMPTY BAG 1 BAG IV SCH ×4 (01:05→20:37)
[2022-05-27 01:48] LABS: Chol/HDL Ratio 2.24 Ratio; LDL Cholesterol,Calculated 45.2 mg/dL (0.0-131.0)
[2022-05-27] MEDS: HEPARIN SODIUM 1,000 UN/ML (10ML VL) IV PRN (04:09)
[2022-05-27] MEDS: PANTOPRAZOLE 40 MG TABLET PO SCH (06:28)
--- NOTE | 2022-05-27 08:00 | US ---
EXAMINATION TYPE: US vein mapping BILAT DATE OF EXAM: 05/26/2022 3:21 PM COMPARISON: NONE CLINICAL HISTORY: preop cardiac surgery. pre open heart SIDE PERFORMED: Bilateral TECHNIQUE: Lower extremity saphenous vein is examined and measured utilizing real time linear array sonography. DUPLEX FINDINGS: Greater Saphenous: Color flow seen Measurements in mm: Right Greater Saphenous: Groin: 5.4 x 5.3 mm High Thigh: 5.1 x 6.9 mm Mid Thigh: 4.6 x 6.6 mm Above Knee: 4.6 x 6.3 mm Knee: 4.2 x 4.9 mm Below Knee: 3.2 x 3.7 mm Mid Calf: 2.5 x 3.3 mm At Ankle: 3.4 x 4.4 mm Left Greater Saphenous: Groin: 6.8 x 6.7 mm High Thigh: 4.9 x 5.0 mm Mid Thigh: 4.6 x 5.2 mm Above Knee: 3.8 x 4.9 mm Knee: 3.8 x 4.8 mm Below Knee: 3.1 x 3.9 mm Mid Calf: 3.1 x 4.6 mm At Ankle: 3.3 x 3.9 mm IMPRESSION: 1. Bilateral GSV measurements listed above. 2. Performing surgeon to determine viability as conduit.
--- NOTE | 2022-05-27 08:01 | US ---
EXAMINATION TYPE: Pre-Operative Non-Invasive Evaluation of the hand for Potential Radial Artery Alexa sheffield, Measurements only DATE OF EXAM: 05/26/2022 3:20 PM CLINICAL HISTORY: measurements only. pre open heart SIDE PERFORMED: left TECHNIQUE: Radial artery is measured utilizing real time linear array sonography. Dominant hand: right Duplex Findings: Radial Artery: Color flow seen Measurements in mm, transverse view: Right Radial: Right radial heart cath Left Radial Proximal: 3.4 x 3.0 mm Mid: 2.2 x 2.9 mm Distal: 3.2 x 3.1 mm IMPRESSION: 1. Left radial artery measurements listed above. 2. Performing surgeon to determine viability as conduit.
[2022-05-27] MEDS: CALCIUM CARB-VIT D 500 MG-5 MCG TAB PO SCH (08:52)
[2022-05-27] MEDS: MONTELUKAST 10 MG TAB PO SCH (08:52)
[2022-05-27] MEDS: FAMOTIDINE 20 MG TAB PO SCH ×2 (08:52→20:37)
[2022-05-27] MEDS: ASPIRIN 81 MG PO SCH (08:53)
[2022-05-27] MEDS: MUPIROCIN 2% OINT 22 GM TUBE NASAL SCH ×2 (08:53→20:37)
[2022-05-27] MEDS ORDERED: METOPROLOL SUCCINATE (ER) 25 MG TAB.ER.24H PO SCH (09:00)
[2022-05-27] MEDS ORDERED: LENALIDOMIDE 10 MG PO SCH (09:00)
--- NOTE | 2022-05-27 10:44 | CA ---
Transthoracic Echo Report Name: Huseyin Mullins Age: 82 Gender: M : 1940 Exam Date: 05/27/2022 08:34 Exam Location: [facility] Ht (in): 68 Wt (lb): 177 Ordering Physician: Alina Newsome Attending/Referring Phys: [id number], [employer] Consultant Deepti Rothman RDCS Procedure CPT: Indications: preop cardiac surgery Cardiac Hx: Technical Quality: Fair Contrast 1: Total Dose (mL): Contrast 2: Total Dose (mL): MEASUREMENTS (Male / Female) Normal Values 2D ECHO LV Diastolic Diameter PLAX 4.7 cm 4.2 - 5.9 / 3.9 - 5.3 cm LV Systolic Diameter PLAX 2.7 cm IVS Diastolic Thickness 1.5 cm 0.6 - 1.0 / 0.6 - 0.9 cm LVPW Diastolic Thickness 1.5 cm 0.6 - 1.0 / 0.6 - 0.9 cm LV Relative Wall Thickness 0.6 RV Internal Dim ED PLAX 4.0 cm LVOT Diameter 1.9 cm LA Volume 78.6 cm??? 18 - 58 / 22 - 52 cm??? M-MODE Aortic Root Diameter MM 3.2 cm LA Systolic Diameter MM 4.3 cm LA Ao Ratio MM 1.3 AV Cusp Separation MM 1.4 cm DOPPLER AV Peak Velocity 218.3 cm/s AV Peak Gradient 19.1 mmHg AV Mean Velocity 156.1 cm/s AV Mean Gradient 10.5 mmHg AV Velocity Time Integral 43.3 cm AI Peak Velocity 418.9 cm/s AI Peak Gradient 70.2 mmHg AI Pressure Half Time 435.8 ms LVOT Peak Velocity 158.7 cm/s LVOT Peak Gradient 10.1 mmHg LVOT Velocity Time Integral 34.1 cm LVOT Stroke Volume 91.9 cm??? LVOT Stroke Volume Index 47.3 ml/m??? AV Area Cont Eq vti 2.1 cm??? AV Area Cont Eq pk 2.0 cm??? MV Area PHT 2.2 cm??? MR Peak Velocity 211.6 cm/s MR Peak Gradient 17.9 mmHg Mitral E Point Velocity 100.4 cm/s Mitral A Point Velocity 184.2 cm/s Mitral E to A Ratio 0.5 MV Deceleration Time 340.6 ms MV E' Velocity 3.1 cm/s Mitral E to MV E' Ratio 32.7 TR Peak Velocity 196.8 cm/s TR Peak Gradient 15.5 mmHg Right Ventricular Systolic Press 20.5 mmHg FINDINGS Left Ventricle Moderately increased septal wall thickness. Normal left ventricular systolic function with no obvious regional wall motion abnormalities. Left ventricular ejection fraction is estimated at 55 %. Abnormal left ventricular diastolic filling pattern. Right Ventricle Moderate right ventricular dilatation. Right ventricular systolic pressure within normal limits. Right Atrium Normal right atrial size. Left Atrium Moderately increased left atrial volume. Mitral Valve Moderate mitral annular calcification. Mild mitral regurgitation. Minimal mitral stenosis. Aortic Valve Mild aortic regurgitation. Mild aortic stenosis with a peak gradient of 19 mmHg and a mean gradient of 11 mmHg. moderatly calcified AV. Tricuspid Valve Mild tricuspid regurgitation. Pulmonic Valve Trace pulmonic regurgitation. Pericardium No pericardial effusion. Aorta Normal size aortic root and proximal ascending aorta. CONCLUSIONS Left ventricular systolic function is normal Left atrial enlargement Severe mitral annular are calcification with mild mitral regurgitation and mitral stenosis Mild aortic stenosis with moderately calcified aortic valve with restricted leaflet mobility Previewed by: Dr. Thiago Watson MD (Electronically Signed) Final Date: 27 May 2022 10:43
--- NOTE | 2022-05-27 11:53 | P.PN ---
Subjective Progress Note Date: 05/27/22 Principal diagnosis: Multi vessel coronary artery disease. 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 Denies any chest pain or shortness of breath at this time. Has been ambulatory without difficulty. IV heparin infusing. The patient was seen by Dr. Wells yesterday. We will plan for off-pump CABG on 05/30/2022, allowing for washout of Brilinta. Dr. Bush has been consulted regarding multiple myeloma management, Revlimid was stopped yesterday and patient will need to be off until completely healed. Objective - Vital Signs Vital signs: Vital Signs Temp 98.0 F 05/27/22 08:41 Pulse 70 05/27/22 08:41 Resp 18 05/27/22 08:41 BP 130/71 05/27/22 08:41 Pulse Ox 96 05/27/22 08:41 FiO2 Intake & Output 05/26/22 05/27/22 05/27/22 18:59 06:59 18:59 Intake Total 400 120.118 Balance 400 120.118 Weight 80.4 kg Intake: IV 400 Intake, IV Titration 120.118 Amount Heparin Sod,Pork in 0.45% 120.118 NaCl 25,000 unit In 0.45 % NaCl 1 250ml.bag @ 12 UNITS/KG/HR 9.648 mls/hr IV .Q24H [facility] Rx#: [id number] Other: Voiding Method Toilet Toilet # Voids 1 # Bowel Movements 1 - Exam CONSTITUTIONAL: Appears comfortable, cooperative, no acute distress RESPIRATORY: Lungs sounds clear bilaterally. Respirations even, nonlabored. Currently on room air with oxygen saturation 96%. Able to achieve 1750 mL on incentive spirometry. Strong cough. CARDIOVASCULAR: S1, S2 present. Regular rate and rhythm, sinus rhythm on telemetry. Palpable peripheral pulses bilaterally. No edema present. No calf pain or tenderness noted. GASTROINTESTINAL: Abdomen soft, nontender, nondistended. Active bowel sounds present 4 quadrants. Tolerating diet. GENITOURINARY: Voiding clear, yellow urine INTEGUMENTARY: Skin is warm and dry with evidence of good perfusion. NEUROLOGIC: Cranial nerves II through XII intact MUSKULOSKELETAL: Able to move all extremities, strength equal bilaterally, gait normal PSYCHIATRIC: Alert and oriented to person place and time, appropriate affect, intact judgment and insight - Labs CBC & Chem 7: 05/26/22 14:07 05/26/22 14:07 Labs: Abnormal Lab Results - Last 24 Hours (Table) 05/26/22 05/26/22 05/26/22 Range/Units 12: 14:07 14:07 RBC 3.75 L (4.30-5.90) m/uL Hgb 12.9 L (13.0-17.5) gm/dL Hct 38.5 L (39.0-53.0) % MCV 102.8 H (80.0-100.0) fL Plt Count 132 L (150-450) k/uL APTT 56.0 H (22.0-30.0) sec Chloride 109 H (98-107) mmol/L Glucose 126 H (74-99) mg/dL 05/26/22 05/26/22 05/27/22 Range/Units 14:12 18:56 10:05 RBC (4.30-5.90) m/uL Hgb (13.0-17.5) gm/dL Hct (39.0-53.0) % MCV (80.0-100.0) fL Plt Count (150-450) k/uL APTT 40.1 H 34.3 H 51.6 H (22.0-30.0) sec Chloride (98-107) mmol/L Glucose (74-99) mg/dL Microbiology - Last 24 Hours (Table) 05/26/22 15:20 Nasal Screen MRSA/MSSA - Preliminary Nasal Swab Assessment and Plan Assessment: 1. Multi vessel coronary artery disease 2. History of coronary artery disease with previous PCI in 05/2015 and 08/2021 with restenosis of stent to LAD 3. Hypertension 4. Hyperlipidemia, treated, cholesterol 119, LDL 45 5. Multiple myeloma with history of stem cell transplant in October 2020 status post chemotherapy and radiation treatments currently on Revlimid (stopped 05/26/22) 6. Peripheral neuropathy 7. 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 Obstructive sleep apnea with home CPAP use 9. Previous tobacco dependence 10. Mild lung disease, FEV1 69% of predicted 11. GERD 12. Osteoarthritis with history of left hip replacement 13. Recent basal cell skin cancer with removal 14. Hard of hearing 15. Vaccinated but not boosted against Covid 16. Right internal carotid artery stenosis 50-69% Plan: 1. Continue aspirin, statin, beta tone therapy. Heparin drip per cardiology, continue to hold Brilinta 2. Encourage incentive spirometry use 3. Increase activity, ambulate as tolerated 4. Appreciate oncology recommendations. Continue to hold Revlimid 5. Pulmonology consulted for preop clearance 6. STS risk score calculated, will discuss with the patient 7. Our plan is for off-pump coronary artery bypass grafting with left internal mammary artery, left radial artery, possible endoscopic vein harvest, left atrial appendage ligation with Dr. Wells on 05/30/2022 8. Continue preoperative teaching 9. Medical management of other comorbidities per internal medicine, cardiology, oncology 10. More recommendations to follow
[2022-05-27] MEDS: MULTIVITAMINS, THERA 1 EACH TAB PO SCH (12:18)
[2022-05-27] MEDS: ISOSORBIDE MONONITRATE ER 15 MG TAB PO SCH (12:18)
--- NOTE | 2022-05-27 12:44 | P.CONS ---
History of Present Illness - History of Present Illness Mister up leg or is a pleasant male patient of Dr. Bush seen in initial consult around November/2019. Patient presented to his PCP with complaints Of mid back pain, radiation of pain down into the buttock and the upper part of the leg, lower part of the ribs and anteriorly. Patient thought it was muscle strain after performing a lot of physical labor. MRI T-spine 12/10/19 showed grossly abnormal appearance of T7, expansion and posterior retropulsion causing thecal sac compression and spinal stenosis. Signal extending into the pedicle suggestive of a possible pathological fracture. Lab evaluation was normal including PSA. SPEP showed a restriction band but couldn't be quantified. 24 hour urine stated large amount of lambda monoclonal protein but did not give quantitation. PET scan 12/20/19 showed mild uptake at T7. Patient was referred to hematology at that time. [employer] was 3.98 mg/L, 540 mg/L in the urine. DEXA was normal. Bone marrow biopsy 02/05/20, 70-80% involvement with myeloma, 1Q deletion, aneuploidy. Patient was placed on RVD. Seen at [facility] in [place] with plans for auto BMT, Done 10/16/20. He did fantastic! Hospitalized 18 days, no complications or rehospitalizations. Started maintenance Revlimid 01/30. He has had some intermittent holds of the drug for acute illness, has tolerated very well. He continues on the same. Patient is current on his follow-ups, last seen in the office 05/02/22. Patient currently admitted with chest pain, cardiac catheterization performed, patient is slated for CABG. When seen today, he states he feels fine at rest, on any exertion he begins to have mid chest substernal discomfort, associated with shortness of breath, denies any current fevers, nausea or vomiting, acute changes in bowel or bladder habits. Review of Systems 10 point review of systems is negative except as stated in HPI Past Medical History Past Medical History: Coronary Artery Disease (CAD), Cancer, GERD/Reflux, Hearing Disorder / Deafness, Hyperlipidemia, Hypertension, Osteoarthritis (OA), Pneumonia, Sleep Apnea/CPAP/BIPAP Additional Past Medical History / Comment(s): Allergies. Hearing aids. Shingles 2004. Basal cell skin cancer. Multiple myeloma 2018, had stem cell transplant 10/2020, also status post radiation and chemotherapy treatments. Vertigo X1, Uses C-PAP for obstructive sleep apnea. Legionnaires pneumonia in 2021, Chest heaviness pain and shortness of breath, peripheral neuropathy History of Any Multi-Drug Resistant Organisms: None Reported Past Surgical History: Heart Catheterization With Stent, Joint Replacement, Orthopedic Surgery Additional Past Surgical History / Comment(s): 2014 HEART CATH WITH STENT TO LAD , BRENDA CATARACTS. CTR bilat, Rt CTR repeated. Total Lt hip 2018. SKIN CANCER REMOVAL. Stem cell transplant 10/2020. Past Anesthesia/Blood Transfusion Reactions: No Reported Reaction Date of Last Stent Placement:: 09-08-21 Past Psychological History: No Psychological Hx Reported Smoking Status: Former smoker Past Alcohol Use History: Occasional Additional Past Alcohol Use History / Comment(s): QUIT SMOKING OVER 47 YEARS AGO, SMOKED FOR 8 YEARS -1 PACK WOULD LAST 1 WEEK. Past Drug Use History: None Reported - Past Family History Brother(s) Family Medical History: Cancer, Diabetes Mellitus, Myocardial Infarction ([place]), Renal Disease Additional Family Medical History / Comment(s): LEUKEMIA, PROSTATE CANCER, DIALYSIS brother at age 58 from a brain aneurysm Sister(s) Family Medical History: Cancer Additional Family Medical History / Comment(s): LEUKEMIA Mother Family Medical History: Congestive Heart Failure (CHF), Myocardial Infarction (GA) Additional Family Medical History / Comment(s): AT AGE 92 OF CHF Father Family Medical History: CVA/TIA Additional Family Medical History / Comment(s): FROM COMPLICATIONS FROM A STROKE AT AGE 58 Medications and Allergies Home Medications Medication Instructions Recorded Confirmed Type Aspirin 81 mg PO DAILY 05/12/15 05/26/22 History Multivitamin [Men's Multi-Vitamin] 1 tab PO DAILY 05/12/15 05/26/22 History Acyclovir [Zovirax] 800 mg PO BID 09/03/21 05/26/22 History Montelukast [Singulair] 10 mg PO DAILY 09/03/21 05/26/22 History Omeprazole [PriLOSEC] 20 mg PO AC-BRKFST 09/03/21 05/26/22 History Atorvastatin [Lipitor] 80 mg PO HS #0 09/09/21 05/26/22 Rx Ticagrelor [Brilinta] 90 mg PO BID #180 tab 09/09/21 05/26/22 Rx Famotidine [Pepcid] 20 mg PO BID 02/10/22 05/26/22 History Gabapentin 300 mg PO 1700 02/10/22 05/26/22 History Calcium Carbonate/Vitamin D3 1 each PO DAILY 05/24/22 05/26/22 History [Calcium 600 mg-D3 10 Mcg (400 Iu)] Isosorbide Mononitrate [Isosorbide 15 mg PO 1200 05/24/22 05/26/22 History Mononitrate ER] Lenalidomide [Revlimid] 10 mg PO DAILY 05/24/22 05/26/22 History Metoprolol Succinate (ER) [Toprol 12.5 mg PO DAILY 05/24/22 05/26/22 History Xl] Allergies Allergy/AdvReac Type Severity Reaction Status Date / Time naproxen [From Naprosyn] AdvReac swollen Verified 05/24/22 15:10 joints Physical Exam Vitals: Vital Signs Temp Pulse Resp BP BP Pulse Ox 05/27/22 08:41 98.0 F 70 18 130/71 96 05/27/22 04:00 98.0 F 68 18 136/86 98 05/27/22 00:00 98.0 F 66 16 119/66 95 05/26/22 20:00 97.9 F 71 16 117/65 95 05/26/22 13:53 62 16 139/70 97 05/26/22 13:38 66 16 146/74 99 05/26/22 13:23 68 16 171/79 Intake and Output 05/26/22 05/27/22 05/27/22 22:59 06:59 14:59 Intake Total 78.31 41.808 240 Balance 78.31 41.808 240 Intake: Intake, IV Titration 78.31 41.808 Amount Heparin Sod,Pork in 0.45% 78.31 41.808 NaCl 25,000 unit In 0.45 % NaCl 1 250ml.bag @ 12 UNITS/KG/HR 9.648 mls/hr IV .Q24H [facility] Rx#: [id number] Oral 240 Other: Voiding Method Toilet Toilet Toilet # Voids 1 # Bowel Movements 1 Weight 80.4 kg - Constitutional General appearance: average body habitus, cooperative, no acute distress - EENT Eyes: anicteric sclerae, EOMI ENT: hearing grossly normal, normal oropharynx - Respiratory Respiratory: bilateral: CTA - Cardiovascular Rhythm: regular Heart sounds: normal: S1, S2 Abnormal Heart Sounds: no systolic murmur, no diastolic murmur, no rub, no S3 Gallop, no S4 Gallop, no click, no other leg Peripheral Edema: bilateral: None - Gastrointestinal General gastrointestinal: normal bowel sounds, soft - Integumentary Integumentary: normal - Neurologic Neurologic: CNII-XII intact - Musculoskeletal Musculoskeletal: strength equal bilaterally - Psychiatric Psychiatric: A&O x's 3, appropriate affect, intact judgment & insight Results CBC & Chem 7: 05/26/22 14:07 05/26/22 14:07 Labs: Abnormal Lab Results - Last 24 Hours (Table) 05/26/22 05/26/22 05/26/22 Range/Units 12:15 14:07 14:07 RBC 3.75 L (4.30-5.90) m/uL Hgb 12.9 L (13.0-17.5) gm/dL Hct 38.5 L (39.0-53.0) % MCV 102.8 H (80.0-100.0) fL Plt Count 132 L (150-450) k/uL APTT 56.0 H (22.0-30.0) sec Chloride 109 H (98-107) mmol/L Glucose 126 H (74-99) mg/dL 05/26/22 05/26/22 05/27/22 Range/Units 14:12 18:56 10:05 RBC (4.30-5.90) m/uL Hgb (13.0-17.5) gm/dL Hct (39.0-53.0) % MCV (80.0-100.0) fL Plt Count (150-450) k/uL APTT 40.1 H 34.3 H 51.6 H (22.0-30.0) sec Chloride (98-107) mmol/L Glucose (74-99) mg/dL Microbiology - Last 24 Hours (Table) 05/26/22 15:20 Nasal Screen MRSA/MSSA - Preliminary Nasal Swab Assessment and Plan (1) Myeloma Current Visit: No Status: Chronic Priority: Low Code(s): C90.00 - MULTIPLE MYELOMA NOT HAVING ACHIEVED REMISSION SNOMED Code(s): 849445976 Plan: Patient has been treated for multiple myeloma, status post autologous BMT, on maintenance Revlimid for over a year. Doing well on the same. For cardiac arterial bypass grafting recommendation is to hold Revlimid prior to procedure, which is been done. Patient is okay to resume Revlimid once incision is healed. He has a routine follow-up with Dr. Bush, appointment is in the chart. We are available if you have any questions or concerns. attests: I have seen and examined patient, performed H&P, developed impression and plan of care. Discussed with dictator. Agree with documentation, dictated as a scribe
[2022-05-27] MEDS: HEPARIN SOD,PORK IN 0.45% NACL 25,000 UNIT in 0.45% NACL 1 250ML.BAG IV SCH (14:53)
--- NOTE | 2022-05-27 16:06 | P.CNPUL ---
History of Present Illness Consult date: 05/27/22 Chief complaint: multivessel coronary artery disease, possible bypass surgery History of present illness: 82-year-old male patient, presenting with chest pain. Is known to have coronary artery disease and he has undergone previous PCI in 2015 and more recently in August 2021. 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 The patient also is known to have peripheral neuropathy due to previous chemotherapy treatment. More recently, in February 2022, he was diagnosed and treated successfully for legionnaires disease and he completed his treatment successfully. He is known to have obstructive sleep apnea maintained on CPAP therapy. He is an ex-smoker. He has osteoarthritis and acid reflux. During this current admission, the patient had some EKG changes. The stress test included a dobutamine stress echo that was abnormal and based on that the patient underwent a cardiac catheterization and he was found to have 85% stenosis of the circumflex, 99% stenosis of the proximal LAD with restenosis of the stent in his LAD. He is going to undergo a cardiac bypass surgery. The patient has a spirometry in his FEV1 is in order of 1.8 L which is 69% of predicted. He has good performance of functional status. E chocardiogram is been within normal limits and his chest x-ray shows complete resolution of the pain is described pneumonia.no emphysema. No history of asthma. No history of any use of maintenance respiratory medications. Review of Systems Constitutional: Denies chills, Denies fever Eyes: denies as per HPI, denies blurred vision, denies bulging eye, denies decreased vision, denies diplopia, denies discharge, denies dry eye, denies irritation, denies itching, denies pain, denies photophobia, denies loss of peripheral vision, denies loss of vision, denies tunnel vision/blind spots Ears: deny: decreased hearing, ear discharge, earache, tinnitus Ears, nose, mouth and throat: Reports as per HPI Breasts: absent: as per HPI, gynecomastia Cardiovascular: Reports chest pain, Reports decreased exercise tolerance Respiratory: Reports as per HPI, Reports sleep apnea Gastrointestinal: Reports as per HPI Genitourinary: Reports as per HPI Musculoskeletal: Reports as per HPI Musculoskeletal: absent: ankle pain, ankle stiffness, ankle swelling, as per HPI, elbow pain, elbow stiffness, elbow swelling, foot pain, foot stiffness, foot swelling, hand pain, hand stiffness, hand swelling, hip pain, hip stiffnes s, hip swelling, knee pain, knee stiffness, knee swelling, shoulder pain, shoulder stiffness, shoulder swelling, wrist pain, wrist stiffness, wrist swelling Integumentary: Reports as per HPI Neurological: Reports as per HPI Psychiatric: Reports as per HPI Endocrine: Reports as per HPI Hematologic/Lymphatic: Reports as per HPI Allergic/Immunologic: Reports as per HPI Past Medical History Past Medical History: Coronary Artery Disease (CAD), Cancer, GERD/Reflux, Hearing Disorder / Deafness, Hyperlipidemia, Hypertension, Osteoarthritis (OA), Pneumonia, Sleep Apnea/CPAP/BIPAP Additional Past Medical History / Comment(s): Allergies. Hearing aids. Shingles 2004. Basal cell skin cancer. Multiple myeloma 2018, had stem cell transplant 10/2020, also status post radiation and chemotherapy treatments. Vertigo X1, Uses C-PAP for obstructive sleep apnea. Legionnaires pneumonia in 2021, Chest heaviness pain and shortness of breath, peripheral neuropathy History of Any Multi-Drug Resistant Organisms: None Reported Past Surgical History: Heart Catheterization With Stent, Joint Replacement, Orthopedic Surgery Additional Past Surgical History / Comment(s): 2014 HEART CATH WITH STENT TO LAD , BRENDA CATARACTS. CTR bilat, Rt CTR repeated. Total Lt hip 2018. SKIN CANCER REMOVAL. Stem cell transplant 10/2020. Past Anesthesia/Blood Transfusion Reactions: No Reported Reaction Date of Last Stent Placement:: 09-08-21 Past Psychological History: No Psychological Hx Reported Smoking Status: Former smoker Past Alcohol Use History: Occasional Additional Past Alcohol Use History / Comment(s): QUIT SMOKING OVER 47 YEARS AGO, SMOKED FOR 8 YEARS -1 PACK WOULD LAST 1 WEEK. Past Drug Use History: None Reported - Past Family History Brother(s) Family Medical History: Cancer, Diabetes Mellitus, Myocardial Infarction ([place]), Renal Disease Additional Family Medical History / Comment(s): LEUKEMIA, PROSTATE CANCER, DIALYSIS brother at age 58 from a brain aneurysm Sister(s) Family Medical History: Cancer Additional Family Medical History / Comment(s): LEUKEMIA Mother Family Medical History: Congestive Heart Failure (CHF), Myocardial Infarction ([place]) Additional Family Medical History / Comment(s): AT AGE 92 OF CHF Father Family Medical History: CVA/TIA Additional Family Medical History / Comment(s): FROM COMPLICATIONS FROM A STROKE AT AGE 58 Medications and Allergies Home Medications Medication Instructions Recorded Confirmed Type Aspirin 81 mg PO DAILY 05/12/15 05/26/22 History Multivitamin [Men's Multi-Vitamin] 1 tab PO DAILY 05/12/15 05/26/22 History Acyclovir [Zovirax] 800 mg PO BID 09/03/21 05/26/22 History Montelukast [Singulair] 10 mg PO DAILY 09/03/21 05/26/22 History Omeprazole [PriLOSEC] 20 mg PO AC-BRKFST 09/03/21 05/26/22 History Atorvastatin [Lipitor] 80 mg PO HS #0 09/09/21 05/26/22 Rx Ticagrelor [Brilinta] 90 mg PO BID #180 tab 09/09/21 05/26/22 Rx Famotidine [Pepcid] 20 mg PO BID 02/10/22 05/26/22 History Gabapentin 300 mg PO 1700 02/10/22 05/26/22 History Calcium Carbonate/Vitamin D3 1 each PO DAILY 05/24/22 05/26/22 History [Calcium 600 mg-D3 10 Mcg (400 Iu)] Isosorbide Mononitrate [Isosorbide 15 mg PO 1200 05/24/22 05/26/22 History Mononitrate ER] Lenalidomide [Revlimid] 10 mg PO DAILY 05/24/22 05/26/22 History Metoprolol Succinate (ER) [Toprol 12.5 mg PO DAILY 05/24/22 05/26/22 History Xl] Allergies Allergy/AdvReac Type Severity Reaction Status Date / Time naproxen [From Naprosyn] AdvReac swollen Verified 05/24/22 15:10 joints Physical Exam Vitals: Vital Signs Temp Pulse Resp BP BP Pulse Ox 05/27/22 12:57 97 F L 74 16 117/64 97 05/27/22 08:41 98.0 F 70 18 130/71 96 05/27/22 04:00 98.0 F 68 18 136/86 98 05/27/22 00:00 98.0 F 66 16 119/66 95 05/26/22 20:00 97.9 F 71 16 117/65 95 Intake and Output 05/27/22 05/27/22 05/27/22 06:59 14:59 22:59 Intake Total 41.808 369.645 540 Balance 41.808 369.645 540 Intake: Intake, IV Titration 41.808 129.645 Amount Heparin Sod,Pork in 0.45% 41.808 129.645 NaCl 25,000 unit In 0.45 % NaCl 1 250ml.bag @ 12 UNITS/KG/HR 9.648 mls/hr IV .Q24H [facility] Rx#: [id number] Oral 240 540 Other: Voiding Method Toilet Toilet Toilet # Voids 1 2 # Bowel Movements 1 - General well developed, well nourished, no distress, no pain - Eyes PERRL, normal ocular movement, no pale, no icteric - ENT normal pinna, normal nares, normal mucosa, decreased hearing (Hearing aids to bilateral ears) - Neck Neck is supple, no lymphadenopathy. no masses, no bruits, trachea midline, no venous distension - Respiratory Lungs sounds essentially clear throughout, respirations are symmetrical and nonlabored. No wheezes, rhonchi or crackles. - Cardiovascular Regular rhythm and rate. S1 and S2 present, negative for S3 or gallop. Soft systolic murmur heard best to his left sternal border. No edema present. Pe ripheral pulses palpable. - Abdomen Abdomen is soft, nontender and nondistended. Active bowel sounds present in all 4 quadrants. No guarding or rigidity. No organomegaly appreciated. - Genitourinary Deferred - Rectum Deferred - Integumentary Skin is warm and dry. No clubbing or cyanosis is present. no rash, no growths, no abnormal pigmentation - Neurologic No focal deficits appreciated. - Musculoskeletal Moves all 4 extremities with equal strength bilaterally. - Psychiatric oriented to time, oriented to person, oriented to place, speech is normal, memory intact Results - Laboratory Findings CBC and BMP: 05/26/22 14:07 05/26/22 14:07 PT/INR, D-dimer PT 10.7 sec (9.0-12.0) 05/26/22 12:15 INR 1.0 (<1.2) 05/26/22 12:15 Abnormal lab findings: Abnormal Labs 05/26/22 05/26/22 05/26/22 12:15 14:07 14:07 RBC 3.75 L Hgb 12.9 L Hct 38.5 L MCV 102.8 H Plt Count 132 L APTT 56.0 H Chloride 109 H Glucose 126 H 05/26/22 05/26/22 05/27/22 14:12 18:56 10:05 RBC Hgb Hct MCV Plt Count APTT 40.1 H 34.3 H 51.6 H Chloride Glucose - Diagnostic Findings Chest x-ray: image reviewed Assessment and Plan Plan: symptomatic multivessel coronary artery disease. The patient has undergone a cardiac catheterization. Cath was reviewed and the patient is going to undergo coronary artery bypass surgery. He has undergone previous ACI in August 2021 and in 2015. He does have restenosis of the stent in his LAD. 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 Hearing Adequate performance of functional status Plan Clinically stable. Chest x-ray was reviewed. Spirometry was reviewed. Overall status is stable for now. No pulmonary contraindications for surgery. We'll provide the patient incentive spirometer. Obtain hematology consultation. This will be likely an off-pump bypass surgery involving FRASER to LAD. He participated in the postoperative care.The STS risk score will be titrated by the cardiothoracic team. No antiplatelet agents will be placed on hold. Revlimid replaced on hold.
[2022-05-27] MEDS: GABAPENTIN 300 MG CAP PO SCH (16:35)
--- NOTE | 2022-05-27 16:42 | P.CONS ---
History of Present Illness - Reason for Consult Consult date: 05/27/22 HTN Requesting physician: Richardson Smyth - History of Present Illness Patient is an 82-year-old male with history of coronary artery disease and prior PCI to the LAD, hypertension, dyslipidemia, multiple myeloma with previous radiation and chemotherapy status post cell transplant in October 2020, peripheral neuropathy, obstructive sleep apnea, GERD, arthritis, and difficulty hearing. He underwent an outpatient dobutamine stress echo on 05/17/[address] segment depression and subjective symptoms of angina. He presented to the hospital on 05/26/2022 for a cardiac catheterization which showed a right dominant system with 45% proximal and mid RCA disease, 85-90% disease in the left circumflex, and 95-99% stenosis in the ostial LAD. Cardiology felt patient would be best served by bypass. He was seen by cardiothoracic surgery and plan is for possible off pump bypass surgery on 05/30/22. Workup for cardiac bypass surgery is currently underway. Patient seen and examined at bedside. He is currently comfortable at rest. He does report that he had chest heaviness when up and ambulate in past, he denies any associated shortness breath, lightheadedness or diaphoresis. He denies any recent cough, cold, fever, flu. He denies any issues with kidney, liver, thyroid, diabetes in the past. present at bedside. All questions answered Pertinent positives and negatives as discussed in HPI, a complete review of systems was performed and all other systems are negative. Vital signs reviewed General: nontoxic, no distress, appears at stated age Derm: warm, dry Head: atraumatic, normocephalic, symmetric Eyes: EOMI, no lid lag, anicteric sclera, pupils equal round reactive to light ENT: Nose and ears atraumatic, no thrush, no pharyngeal erythema Neck: No thyromegaly, no cervical lymphadenopathy, trachea midline, supple Mouth: no lip lesion, mucus membranes moist Cardiovascular: S1S2 reg, no murmur, positive posterior tibial pulse bilateral, no edema, capillary refill less than 2 seconds Lungs: clear to auscultation bilateral, no rhonchi, no rales, no wheeze, no accessory muscle use Abdominal: soft, nontender to palpation, no guarding, no appreciable organomeg deonte, normal bowel sounds Ext: no gross muscle atrophy, muscle strength 4 out of 5 in all 4 extremities, no contractures Neuro: CN II-XII grossly intact, finger to nose within normal limits, Psych: Alert, oriented, appropriate affect Assessment/Plan: Symptomatic multivessel coronary artery disease Hypertension Dyslipidemia - plan is for CABG on 05/30/22 - ASA, statin, imdur, metoprolol Borderline anemia - given plan for OR will check iron studies - follow CBC Multiple myeloma -Status post STEM cell transplant. Has been on maintenance Revlimid. 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 Do not hesitate to contact us with questions. Someone can be reached from the [facility] hospitalist group all hours of the day at [phone] or via [email or web address]. Active Medications Generic Name Dose Route Start Last Admin Trade Name Freq PRN Reason Stop Dose Admin Alprazolam 0.25 mg 05/26/22 06:34 Alprazolam 0.25 Mg Tab PO 06/25/22 06:35 Q6HR PRN Mild Anxiety Alprazolam 0.5 mg 05/26/22 06:34 Alprazolam 0.5 Mg Tab PO 06/25/22 06:35 Q6HR PRN Moderate Anxiety Aspirin 81 mg 05/27/22 09:00 05/27/22 08:53 Aspirin 81 Mg PO 06/26/22 09:01 81 mg DAILY CAMERON Administration Atorvastatin Calcium 80 mg 05/26/22 21:00 05/26/22 20:39 Atorvastatin 80 Mg Tab PO 06/25/22 21:01 80 mg HS CAMERON Administration Calcium Carbonate 1 each 05/27/22 09:00 05/27/22 08:52 Calcium Carb-Vit D 500 Mg-5 Mcg Tab PO 06/26/22 09:01 1 each DAILY CAMERON Administration Famotidine 20 mg 05/26/22 21:00 05/27/22 08:52 Famotidine 20 Mg Tab PO 06/25/22 21:01 20 mg BID CAMERON Administration Gabapentin 300 mg 05/26/22 17:00 05/27/22 16:35 Gabapentin 300 Mg Cap PO 06/25/22 17:01 300 mg 1700 CAMERON Administration Heparin Sodium (Porcine) 0 unit 05/26/22 11:50 05/27/22 04:09 Heparin Sodium 1,000 Un/Ml (10ml Vl) IV 06/25/22 11:51 4,000 unit PER PROTOCOL PRN Administration Low PTT Protocol Sodium Chloride 1,000 ml/ IV 1,000 mls @ 238.137 mls/hr 05/26/22 06:34 05/27/22 05:44 Solution IV 06/25/22 06:35 Not Given .Q4H12M CAMERON 3 ML/KG/HR Heparin Sodium/Sodium Chloride 250 mls @ 9.648 mls/hr 05/26/22 12:00 05/27/22 14:53 25,000 unit/ Sodium Chloride IV 06/25/22 12:01 15 units/kg/hr .Q24H CAMERON 12.06 mls/hr Administration Protocol 12 UNITS/KG/HR Isosorbide Mononitrate 15 mg 05/26/22 12:00 05/27/22 12:18 Isosorbide Mononitrate Er 15 Mg Tab PO 06/25/22 12:01 15 mg 1200 CAMERON Administration Metoprolol Succinate 12.5 mg 05/27/22 09:00 05/27/22 08:53 Metoprolol Succinate (Er) 25 Mg Tab.Er.24h PO 06/26/22 09:01 12.5 mg DAILY CAMERON Administration Montelukast Sodium 10 mg 05/27/22 09:00 05/27/22 08:52 Montelukast 10 Mg Tab PO 06/26/22 09:01 10 mg DAILY CAMERON Administration Multivitamins 1 each 05/27/22 09:00 05/27/22 12:18 Multivitamins, Thera 1 Each Tab PO 06/26/22 09:01 1 each DAILY CAMERON Administration Mupirocin 1 applic 05/27/22 09:00 05/27/22 08:53 Mupirocin 2% Oint 22 Gm Tube NASAL 1 applic BID CAMERON Administration Protocol Nitroglycerin 0.4 mg 05/26/22 06:34 Nitroglycerin Sl Tabs 0.4 Mg Tab SUBLINGUAL 06/25/22 06:35 Q5M PRN Chest Pain Pantoprazole Sodium 40 mg 05/27/22 07:30 05/27/22 06:28 Pantoprazole 40 Mg Tablet PO 06/26/22 07:31 40 mg AC-BRKFST CAMERON Administration Past Medical History Past Medical History: Coronary Artery Disease (CAD), Cancer, GERD/Reflux, H earing Disorder / Deafness, Hyperlipidemia, Hypertension, Osteoarthritis (OA), Pneumonia, Sleep Apnea/CPAP/BIPAP Additional Past Medical History / Comment(s): Allergies. Hearing aids. Shingles 2004. Basal cell skin cancer. Multiple myeloma 2018, had stem cell transplant 10/2020, also status post radiation and chemotherapy treatments. Vertigo X1, Uses C-PAP for obstructive sleep apnea. Legionnaires pneumonia in 2021, Chest heaviness pain and shortness of breath, peripheral neuropathy History of Any Multi-Drug Resistant Organisms: None Reported Past Surgical History: Heart Catheterization With Stent, Joint Replacement, Orthopedic Surgery Additional Past Surgical History / Comment(s): 2014 HEART CATH WITH STENT TO LAD , BRENDA CATARACTS. CTR bilat, Rt CTR repeated. Total Lt hip 2018. SKIN CANCER REMOVAL. Stem cell transplant 10/2020. Past Anesthesia/Blood Transfusion Reactions: No Reported Reaction Date of Last Stent Placement:: 09-08-21 Past Psychological History: No Psychological Hx Reported Smoking Status: Former smoker Past Alcohol Use History: Occasional Additional Past Alcohol Use History / Comment(s): QUIT SMOKING OVER 47 YEARS AGO, SMOKED FOR 8 YEARS -1 PACK WOULD LAST 1 WEEK. Past Drug Use History: None Reported - Past Family History Brother(s) Family Medical History: Cancer, Diabetes Mellitus, Myocardial Infarction ([place]), Renal Disease Additional Family Medical History / Comment(s): LEUKEMIA, PROSTATE CANCER, DI ALYSIS brother at age 58 from a brain aneurysm Sister(s) Family Medical History: Cancer Additional Family Medical History / Comment(s): LEUKEMIA Mother Family Medical History: Congestive Heart Failure (CHF), Myocardial Infarction ([place]) Additional Family Medical History / Comment(s): AT AGE 92 OF CHF Father Family Medical History: CVA/TIA Additional Family Medical History / Comment(s): FROM COMPLICATIONS FROM A STROKE AT AGE 58 Medications and Allergies Home Medications Medication Instructions Recorded Confirmed Type Aspirin 81 mg PO DAILY 05/12/15 05/26/22 History Multivitamin [Men's Multi-Vitamin] 1 tab PO DAILY 05/12/15 05/26/22 History Acyclovir [Zovirax] 800 mg PO BID 09/03/21 05/26/22 History Montelukast [Singulair] 10 mg PO DAILY 09/03/21 05/26/22 History Omeprazole [PriLOSEC] 20 mg PO AC-BRKFST 09/03/21 05/26/22 History Atorvastatin [Lipitor] 80 mg PO HS #0 09/09/21 05/26/22 Rx Ticagrelor [Brilinta] 90 mg PO BID #180 tab 09/09/21 05/26/22 Rx Famotidine [Pepcid] 20 mg PO BID 02/10/22 05/26/22 History Gabapentin 300 mg PO 1700 02/10/22 05/26/22 History Calcium Carbonate/Vitamin D3 1 each PO DAILY 05/24/22 05/26/22 History [Calcium 600 mg-D3 10 Mcg (400 Iu)] Isosorbide Mononitrate [Isosorbide 15 mg PO 1200 05/24/22 05/26/22 History Mononitrate ER] Lenalidomide [Revlimid] 10 mg PO DAILY 05/24/22 05/26/22 History Metoprolol Succinate (ER) [Toprol 12.5 mg PO DAILY 05/24/22 05/26/22 History Xl] Allergies Allergy/AdvReac Type Severity Reaction Status Date / Time naproxen [From Naprosyn] AdvReac swollen Verified 05/24/22 15:10 joints Physical Exam Osteopathic Statement: *. No significant issues noted on an osteopathic structural exam other than those noted in the History and Physical/Consult. Vitals: Vital Signs Temp Pulse Resp BP BP Pulse Ox 05/27/22 08:41 98.0 F 70 18 130/71 96 05/27/22 04:00 98.0 F 68 18 136/86 98 05/27/22 00:00 98.0 F 66 16 119/66 95 05/26/22 20:00 97.9 F 71 16 117/65 95 05/26/22 13:53 62 16 139/70 97 05/26/22 13:38 66 16 146/74 99 05/26/22 13:23 68 16 171/79 05/26/22 12:10 54 L 16 138/81 97 05/26/22 11:55 54 L 16 123/62 96 05/26/22 11:42 61 16 150/70 96 Intake and Output 05/26/22 05/27/22 05/27/22 22:59 06:59 14:59 Intake Total 78.31 41.808 240 Balance 78.31 41.808 240 Intake: Intake, IV Titration 78.31 41.808 Amount Heparin Sod,Pork in 0.45% 78.31 41.808 NaCl 25,000 unit In 0.45 % NaCl 1 250ml.bag @ 12 UNITS/KG/HR 9.648 mls/hr IV .Q24H [facility] Rx#: [id number] Oral 240 Other: Voiding Method Toilet Toilet Toilet # Voids 1 # Bowel Movements 1 Weight 80.4 kg Results CBC & Chem 7: 05/26/22 14:07 05/26/22 14:07 Labs: Abnormal Lab Results - Last 24 Hours (Table) 05/26/22 05/26/22 05/26/22 Range/Units 12:15 14:07 14:07 RBC 3.75 L (4.30-5.90) m/uL Hgb 12.9 L (13.0-17.5) gm/dL Hct 38.5 L (39.0-53.0) % MCV 102.8 H (80.0-100.0) fL Plt Count 132 L (150-450) k/uL APTT 56.0 H (22.0-30.0) sec Chloride 109 H (98-107) mmol/L Glucose 126 H (74-99) mg/dL 05/26/22 05/26/22 05/27/22 Range/Units 14:12 18:56 10:05 RBC (4.30-5.90) m/uL Hgb (13.0-17.5) gm/dL Hct (39.0-53.0) % MCV (80.0-100.0) fL Plt Count (150-450) k/uL APTT 40.1 H 34.3 H 51.6 H (22.0-30.0) sec Chloride (98-107) mmol/L Glucose (74-99) mg/dL Microbiology - Last 24 Hours (Table) 05/26/22 15:20 Nasal Screen MRSA/MSSA - Preliminary Nasal Swab
--- NOTE | 2022-05-27 18:40 | P.PN ---
Subjective Progress Note Date: 05/27/22 PROGRESS NOTE The patient is an 82-year-old male with a history of CAD, hypertension who has been followed by Dr. Smyth and presented with symptoms of chest discomfort, underwent cardiac catheterization and was found to have severe in-stent restenosis at the ostium of the LAD. He is scheduled to undergo CABG on Monday. He had mild chest discomfort this morning but is feeling better now. He continues to be on IV heparin. Medications: IV heparin, aspirin, Lipitor 80 mg daily, isosorbide mononitrate 15 mg daily, Toprol XL 12-1/2 mg daily, PHYSICAL EXAMINATION: Blood pressure 140/70 heart rate 70 LUNGS: Clear to auscultation HEART: Regular rate and rhythm, S1, S2. No S3. systolic ejection murmur ABDOMEN: Soft, nontender, no organomegaly EXTREMETIES: No edema, right radial pulse intact IMPRESSION: 1. Unstable angina with severe in-stent restenosis of the ostium of the LAD 2. Hyperlipidemia 3. Prior history of smoking 4. History of multiple myeloma status post cell transplant PLAN: 1. Increase beta tone 2. Increased nitrate and changed to Nitropaste 3. Continue IV heparin 4. Proceed with surgery on Monday as scheduled Objective - Vital Signs Vital signs: Vital Signs Temp 97.8 F 05/27/22 16:00 Pulse 78 05/27/22 16:00 Resp 18 05/27/22 16:00 BP 140/78 05/27/22 16:00 Pulse Ox 97 05/27/22 16:00 FiO2 Intake & Output 05/26/22 05/27/22 05/27/22 18:59 06:59 18:59 Intake Total 400 052.916 5548.645 Balance 400 835.594 8712.645 Weight 80.4 kg Intake: IV 400 Intake, IV Titration 120.118 129.645 Amount Heparin Sod,Pork in 0.45% 120.118 129.645 NaCl 25,000 unit In 0.45 % NaCl 1 250ml.bag @ 12 UNITS/KG/HR 9.648 mls/hr IV .Q24H [facility] Rx#: [id number] Oral 898 Other: Voiding Method Toilet Toilet # Voids 1 2 # Bowel Movements 1 - Labs CBC & Chem 7: 05/26/22 14:07 05/26/22 14:07 Labs: Abnormal Lab Results - Last 24 Hours (Table) 05/26/22 05/27/22 Range/Units 18:56 10:05 APTT 34.3 H 51.6 H (22.0-30.0) sec Microbiology - Last 24 Hours (Table) 05/26/22 15:20 Nasal Screen MRSA/MSSA - Preliminary Nasal Swab
[2022-05-27] MEDS: ATORVASTATIN 80 MG TAB PO SCH (20:37)
[2022-05-27] MEDS: NITROGLYCERIN OINT 1 INCH/GM PACKET TOPICAL SCH ×2 (20:37→20:49)
[2022-05-28] MEDS: PANTOPRAZOLE 40 MG TABLET PO SCH (06:26)
[2022-05-28] MEDS: NITROGLYCERIN OINT 1 INCH/GM PACKET TOPICAL SCH ×3 (06:34→23:23)
[2022-05-28] MEDS: SODIUM CHLORIDE 0.9% 1,000 ML in EMPTY BAG 1 BAG IV SCH ×4 (06:50→23:27)
--- NOTE | 2022-05-28 07:27 | P.PN ---
Subjective Progress Note Date: 05/28/22 Principal diagnosis: Multi vessel coronary artery disease. 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 Right ICA stenosis 50-69% by doppler The patient was seen and examined this morning sitting up in a recliner eating breakfast in no acute distress on the cardiac stepdown unit. Did have an episode of chest pain this morning with ambulation to and from the bathroom which resolved once he sat back down in the recliner for a few minutes, patient did not inform his nurse. Denies any shortness of breath. Currently chest pain-free. IV heparin infusing, Nitropaste on patient. 5 m walk test was com pleted yesterday with patient reporting no chest pain, #1 5.89 seconds, #2 5.60 seconds, #3 5.02 seconds. STS risk score less than 2% for mortality, this was discussed with the patient. Pulmonology saw patient yesterday, no increased risk for surgery. Plan is still to proceed with surgery on Monday. No other new concerns. Objective - Vital Signs Vital signs: Vital Signs Temp 97.6 F 05/28/22 04:00 Pulse 60 05/28/22 04:00 Resp 18 05/28/22 04:00 BP 135/71 05/28/22 04:00 Pulse Ox 97 05/28/22 04:00 FiO2 Intake & Output 05/27/22 05/28/22 05/28/22 18:59 06:59 18:59 Intake Total 1027.645 Balance 1027.645 Intake: Intake, IV Titration 129.645 Amount Heparin Sod,Pork in 0.45% 129.645 NaCl 25,000 unit In 0.45 % NaCl 1 250ml.bag @ 12 UNITS/KG/HR 9.648 mls/hr IV .Q24H [facility] Rx#: [id number] Oral 898 Other: Voiding Method Toilet Toilet # Voids 2 1 # Bowel Movements 1 - Exam CONSTITUTIONAL: Appears comfortable, cooperative, no acute distress RESPIRATORY: Lungs sounds clear bilaterally. Respirations even, nonlabored. Currently on room air with oxygen saturation 96%. Able to achieve 1500 mL on incentive spirometry. Strong cough. CARDIOVASCULAR: S1, S2 present. Regular rate and rhythm, sinus rhythm on telemetry. Palpable peripheral pulses bilaterally. No edema present. No calf pain or tenderness noted. GASTROINTESTINAL: Abdomen soft, nontender, nondistended. Active bowel sounds present 4 quadrants. Tolerating diet. GENITOURINARY: Voiding clear, yellow urine INTEGUMENTARY: Skin is warm and dry with evidence of good perfusion. NEUROLOGIC: Cranial nerves II through XII intact MUSKULOSKELETAL: Able to move all extremities, strength equal bilaterally, gait normal PSYCHIATRIC: Alert and oriented to person place and time, appropriate affect, intact judgment and insight - Labs CBC & Chem 7: 05/26/22 14:07 05/26/22 14:07 Labs: Abnormal Lab Results - Last 24 Hours (Table) 05/27/22 Range/Units 10:05 APTT 51.6 H (22.0-30.0) sec Microbiology - Last 24 Hours (Table) 05/26/22 15:20 Nasal Screen MRSA/MSSA - Preliminary Nasal Swab Assessment and Plan Assessment: 1. Multi vessel coronary artery disease 2. History of coronary artery disease with previous PCI in 05/2015 and 08/2021 with restenosis of stent to LAD 3. Hypertension 4. Hyperlipidemia, treated, cholesterol 119, LDL 45 5. Multiple myeloma with history of stem cell transplant in October 2020 status post chemotherapy and radiation treatments currently on Revlimid (stopped 05/26/22) 6. Peripheral neuropathy 7. 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 Obstructive sleep apnea with home CPAP use 9. Previous tobacco dependence 10. Mild lung disease, FEV1 69% of predicted 11. GERD 12. Osteoarthritis with history of left hip replacement 13. Recent basal cell skin cancer with removal 14. Hard of hearing 15. Vaccinated but not boosted against Covid 16. Right internal carotid artery stenosis 50-69% Plan: 1. Continue aspirin, statin, beta tone therapy. Heparin drip, Nitropaste per cardiology, continue to hold Brilinta. Patient encouraged to let nursing know if he has chest pain again 2. Encourage incentive spirometry use 3. Increase activity, ambulate as tolerated 4. Continue to hold Revlimid 5. Our plan is for off-pump coronary artery bypass grafting with left internal mammary artery, left radial artery, possible endoscopic vein harvest, left atrial appendage ligation with Dr. Wells on 05/30/2022 6. Continue preoperative teaching 7. Medical management of other comorbidities per internal medicine, cardiology, oncology 8. More recommendations to follow
[2022-05-28] MEDS ORDERED: METOPROLOL SUCCINATE (ER) 25 MG TAB.ER.24H PO SCH (09:00)
[2022-05-28] MEDS: MULTIVITAMINS, THERA 1 EACH TAB PO SCH (09:03)
[2022-05-28] MEDS: CALCIUM CARB-VIT D 500 MG-5 MCG TAB PO SCH (09:03)
[2022-05-28] MEDS: ASPIRIN 81 MG PO SCH (09:03)
[2022-05-28] MEDS: FAMOTIDINE 20 MG TAB PO SCH ×2 (09:03→20:39)
[2022-05-28] MEDS: MONTELUKAST 10 MG TAB PO SCH (09:03)
[2022-05-28] MEDS: MUPIROCIN 2% OINT 22 GM TUBE NASAL SCH ×2 (09:04→20:47)
[2022-05-28 10:50] LABS: HCT 36.7 % (39.0-53.0); HGB 11.9 gm/dL (13.0-17.5); Hypochromasia Slight; MCH 33.4 pg (25.0-35.0); MCHC 32.3 g/dL (31.0-37.0); MCV 103.1 fL (80.0-100.0); Macrocytosis Slight; Mean Platelet Volume 9.2; Platelet Count 127 k/uL (150-450); RBC 3.56 m/uL (4.30-5.90); RDW 15.2 % (11.5-15.5); WBC 3.1 k/uL (3.8-10.6)
[2022-05-28 11:27] LABS: Calcium 8.3 mg/dL (8.4-10.2); Potassium 3.7 mmol/L (3.5-5.1)
--- NOTE | 2022-05-28 12:31 | P.PN ---
Subjective Progress Note Date: 05/28/22 PROGRESS NOTE The patient is an 82-year-old male with a history of CAD, hypertension who has been followed by Dr. Smyth and presented with symptoms of chest discomfort, underwent cardiac catheterization and was found to have severe in-stent restenosis at the ostium of the LAD. He is scheduled to undergo CABG on Monday. He had mild chest discomfort this morning but is feeling better now. He continues to be on IV heparin. May 28: The patient is doing well this morning, he had mild discomfort earlier but pain- free now. He continues to be on IV heparin. His scheduled to undergo surgery on Monday. He is ambulating in his room. He continues to be on IV heparin. His breathing is stable. He denies any nausea or vomiting. Medications: IV heparin, aspirin, Lipitor 80 mg daily, Nitropaste 1 inch every 8 hours, Toprol XL 25 mg mg daily, PHYSICAL EXAMINATION: Blood pressure 136/70 heart rate 78 LUNGS: Clear to auscultation HEART: Regular rate and rhythm, S1, S2. No S3. systolic ejection murmur ABDOMEN: Soft, nontender, no organomegaly EXTREMETIES: No edema, IMPRESSION: 1. Unstable angina with severe in-stent restenosis of the ostium of the LAD 2. Hyperlipidemia 3. Prior history of smoking 4. History of multiple myeloma status post cell transplant PLAN: 1. Increase beta tone 2. Continue IV heparin 3. Proceed with surgery as planned on Monday Objective - Vital Signs Vital signs: Vital Signs Temp 97.8 F 05/28/22 12:10 Pulse 78 05/28/22 12:10 Resp 18 05/28/22 12:10 BP 136/71 05/28/22 12:10 Pulse Ox 96 05/28/22 12:10 FiO2 Intake & Output 05/27/22 05/28/22 05/28/22 18:59 06:59 18:59 Intake Total 1027.645 118 Balance 1027.645 118 Intake: Intake, IV Titration 129.645 Amount Heparin Sod,Pork in 0.45% 129.645 NaCl 25,000 unit In 0.45 % NaCl 1 250ml.bag @ 12 UNITS/KG/HR 9.648 mls/hr IV .Q24H [facility] Rx#: [id number] Oral 898 118 Other: Voiding Method Toilet Toilet Toilet # Voids 2 1 # Bowel Movements 1 - Labs CBC & Chem 7: 05/28/22 10:37 05/28/22 10:37 Labs: Abnormal Lab Results - Last 24 Hours (Table) 05/28/22 05/28/22 05/28/22 Range/Units 10:37 10:37 10:37 WBC 3.1 L (3.8-10.6) k/uL RBC 3.56 L (4.30-5.90) m/uL Hgb 11.9 L (13.0-17.5) gm/dL Hct 36.7 L (39.0-53.0) % MCV 103.1 H (80.0-100.0) fL Plt Count 127 L (150-450) k/uL APTT 47.2 H (22.0-30.0) sec Chloride 111 H (98-107) mmol/L Carbon Dioxide 20 L (22-30) mmol/L Glucose 133 H (74-99) mg/dL Calcium 8.3 L (8.4-10.2) mg/dL
--- NOTE | 2022-05-28 13:03 | P.PN ---
Subjective Progress Note Date: 05/28/22 (delayed charting seen at 1030) Patient is an 82-year-old male with history of coronary artery disease and prior PCI to the LAD, hypertension, dyslipidemia, multiple myeloma with previous radiation and chemotherapy status post cell transplant in October 2020, peripheral neuropathy, obstructive sleep apnea, GERD, arthritis, and difficulty hearing. He underwent an outpatient dobutamine stress echo on 05/17/[address] segment depression and subjective symptoms of angina. He presented to the hospital on 05/26/2022 for a cardiac catheterization which showed a right dominant system with 45% proximal and mid RCA disease, 85-90% disease in the left circumflex, and 95-99% stenosis in the ostial LAD. Cardiology felt patient would be best served by bypass. He was seen by cardiothoracic surgery and plan is for possible off pump bypass surgery on 05/30/22. Patient seen and examined at bedside. He again had some chest pain when up and ambulating to the bathroom. He is currently chest pain-free without any shortness of breath sitting at bedside. General: nontoxic, no distress, appears at stated age Derm: warm, dry Head: atraumatic, normocephalic, symmetric Eyes: EOMI, no lid lag, anicteric sclera Mouth: no lip lesion, mucus membranes moist Cardiovascular: S1S2 reg, no murmur, positive posterior tibial pulse bilateral, Lungs: CTA bilateral, no rhonchi, no rales , no accessory muscle use Abdominal: soft, nontender to palpation, no guarding, no appreciable organomegaly Ext: no gross muscle atrophy, no edema, no contractures Neuro: CN II-XI grossly intact, no focal neuro deficits Psych: Alert, oriented, appropriate affect Assessment/Plan: Symptomatic multivessel coronary artery disease Hypertension Dyslipidemia - plan is for CABG on 05/30/22 - ASA, statin, imdur, metoprolol Borderline anemia - Await iron studies - follow CBC Multiple myeloma -Status post STEM cell transplant. Has been on maintenance Revlimid. 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 Do not hesitate to contact us with questions. Someone can be reached from the [facility] hospitalist group all hours of the day at [phone] or via perfect serve. Active Medications Generic Name Dose Route Start Last Admin Trade Name Freq PRN Reason Stop Dose Admin Alprazolam 0.25 mg 05/26/22 06:34 Alprazolam 0.25 Mg Tab PO 06/25/22 06:35 Q6HR PRN Mild Anxiety Alprazolam 0.5 mg 05/26/22 06:34 Alprazolam 0.5 Mg Tab PO 06/25/22 06:35 Q6HR PRN Moderate Anxiety Aspirin 81 mg 05/27/22 09:00 05/28/22 09:03 Aspirin 81 Mg PO 06/26/22 09:01 81 mg DAILY [facility] Administration Atorvastatin Calcium 80 mg 05/26/22 21:00 05/27/22 20:37 Atorvastatin 80 Mg Tab PO 06/25/22 21:01 80 mg HS [facility] Administration Calcium Carbonate 1 each 05/27/22 09:00 05/28/22 09:03 Calcium Carb-Vit D 500 Mg-5 Mcg Tab PO 06/26/22 09:01 1 each DAILY [facility] Administration Famotidine 20 mg 05/26/22 21:00 05/28/22 09:03 Famotidine 20 Mg Tab PO 06/25/22 21:01 20 mg BID [facility] Administration Gabapentin 300 mg 05/26/22 17:00 05/27/22 16:35 Gabapentin 300 Mg Cap PO 06/25/22 17:01 300 mg 1700 [facility] Administration Heparin Sodium (Porcine) 0 unit 05/26/22 11:50 05/27/22 04:09 Heparin Sodium 1,000 Un/Ml (10ml Vl) IV 06/25/22 11:51 4,000 unit PER PROTOCOL PRN Administration Low PTT Protocol Sodium Chloride 1,000 ml/ IV 1,000 mls @ 238.137 mls/hr 05/26/22 06:34 05/28/22 06:50 Solution IV 06/25/22 06:35 Not Given .Q4H12M [facility] 3 ML/KG/HR Heparin Sodium/Sodium Chloride 250 mls @ 9.648 mls/hr 05/26/22 12:00 05/27/22 14:53 25,000 unit/ Sodium Chloride IV 06/25/22 12:01 15 units/kg/hr .Q24H [facility] 12.06 mls/hr Administration Protocol 12 UNITS/KG/HR Metoprolol Succinate 25 mg 05/28/22 21:00 Metoprolol Succinate (Er) 25 Mg Tab.Er.24h PO 06/26/22 09:01 BID [facility] Montelukast Sodium 10 mg 05/27/22 09:00 05/28/22 09:03 Montelukast 10 Mg Tab PO 06/26/22 09:01 10 mg DAILY [facility] Administration Multivitamins 1 each 05/27/22 09:00 05/28/22 09:03 Multivitamins, Thera 1 Each Tab PO 06/26/22 09:01 1 each DAILY [facility] Administration Mupirocin 1 applic 05/27/22 09:00 05/28/22 09:04 Mupirocin 2% Oint 22 Gm Tube NASAL 1 applic BID [facility] Administration Protocol Nitroglycerin 0.4 mg 05/26/22 06:34 Nitroglycerin Sl Tabs 0.4 Mg Tab SUBLINGUAL 06/25/22 06:35 Q5M PRN Chest Pain Nitroglycerin 1 inch 05/27/22 18:45 05/28/22 06:34 Nitroglycerin Oint 1 Inch/Gm Packet TOPICAL 1 inch Q8HR [facility] Administration Pantoprazole Sodium 40 mg 05/27/22 07:30 05/28/22 06:26 Pantoprazole 40 Mg Tablet PO 06/26/22 07:31 40 mg AC-BRKFST [facility] Administration Objective - Vital Signs Vital signs: Vital Signs Temp 97.8 F 05/28/22 12:10 Pulse 78 05/28/22 12:10 Resp 18 05/28/22 12:10 BP 136/71 05/28/22 12:10 Pulse Ox 96 05/28/22 12:10 FiO2 Intake & Output 05/27/22 05/28/22 05/28/22 18:59 06:59 18:59 Intake Total 1027.645 358 Balance 1027.645 358 Intake: Intake, IV Titration 129.645 Amount Heparin Sod,Pork in 0.45% 129.645 NaCl 25,000 unit In 0.45 % NaCl 1 250ml.bag @ 12 UNITS/KG/HR 9.648 mls/hr IV .Q24H COUNT [facility] Rx#: [id number] Oral 898 358 Other: Voiding Method Toilet Toilet Toilet # Voids 2 1 1 # Bowel Movements 1 0 - Labs CBC & Chem 7: 05/28/22 10:37 05/28/22 10:37 Labs: Abnormal Lab Results - Last 24 Hours (Table) 05/28/22 05/28/22 05/28/22 Range/Units 10:37 10:37 10:37 WBC 3.1 L (3.8-10.6) k/uL RBC 3.56 L (4.30-5.90) m/uL Hgb 11.9 L (13.0-17.5) gm/dL Hct 36.7 L (39.0-53.0) % MCV 103.1 H (80.0-100.0) fL Plt Count 127 L (150-450) k/uL APTT 47.2 H (22.0-30.0) sec Chloride 111 H (98-107) mmol/L Carbon Dioxide 20 L (22-30) mmol/L Glucose 133 H (74-99) mg/dL Calcium 8.3 L (8.4-10.2) mg/dL
[2022-05-28] MEDS: HEPARIN SOD,PORK IN 0.45% NACL 25,000 UNIT in 0.45% NACL 1 250ML.BAG IV SCH (16:12)
[2022-05-28] MEDS: GABAPENTIN 300 MG CAP PO SCH (16:42)
--- NOTE | 2022-05-28 17:04 | P.PN ---
Subjective Progress Note Date: 05/28/22 on05/28/2022, the patient remains free of any chest pain. The patient remains on IV heparin. No specific complaints. IV heparin is also refusing. The patient has no active issues. His resting comfortably. Using incentive spirometer. No other significant events or cardiac arrhythmias for now. Objective - Vital Signs Vital signs: Vital Signs Temp 97.9 F 05/28/22 16:44 Pulse 77 05/28/22 16:44 Resp 18 05/28/22 16:44 BP 145/73 05/28/22 16:44 Pulse Ox 96 05/28/22 16:44 FiO2 Intake & Output 05/27/22 05/28/22 05/28/22 18:59 06:59 18:59 Intake Total 1027.645 538 Balance 1027.645 538 Intake: Intake, IV Titration 129.645 Amount Heparin Sod,Pork in 0.45% 129.645 NaCl 25,000 unit In 0.45 % NaCl 1 250ml.bag @ 12 UNITS/KG/HR 9.648 mls/hr IV .Q24H [facility] Rx#: [id number] Oral [id number] [id number] Other: Voiding Method Toilet Toilet Toilet # Voids 2 1 3 # Bowel Movements 1 0 - Exam CONSTITUTIONAL: Appears comfortable, cooperative, no acute distress RESPIRATORY: Lungs sounds clear bilaterally. Respirations even, nonlabored. Currently on room air with oxygen saturation 96%. Able to achieve 1500 mL on incentive spirometry. Strong cough. CARDIOVASCULAR: S1, S2 present. Regular rate and rhythm, sinus rhythm on telemetry. Palpable peripheral pulses bilaterally. No edema present. No calf pain or tenderness noted. GASTROINTESTINAL: Abdomen soft, nontender, nondistended. Active bowel sounds present 4 quadrants. Tolerating diet. GENITOURINARY: Voiding clear, yellow urine INTEGUMENTARY: Skin is warm and dry with evidence of good perfusion. NEUROLOGIC: Cranial nerves II through XII intact MUSKULOSKELETAL: Able to move all extremities, strength equal bilaterally, gait normal PSYCHIATRIC: Alert and oriented to person place and time, appropriate affect, intact judgment and insight - Labs CBC & Chem 7: 05/28/22 10:37 05/28/22 10:37 Labs: Abnormal Lab Results - Last 24 Hours (Table) 05/28/22 05/28/22 05/28/22 Range/Units 10:37 10:37 10:37 WBC 3.1 L (3.8-10.6) k/uL RBC 3.56 L (4.30-5.90) m/uL Hgb 11.9 L (13.0-17.5) gm/dL Hct 36.7 L (39.0-53.0) % MCV 103.1 H (80.0-100.0) fL Plt Count 127 L (150-450) k/uL APTT 47.2 H (22.0-30.0) sec Chloride 111 H (98-107) mmol/L Carbon Dioxide 20 L (22-30) mmol/L Glucose 133 H (74-99) mg/dL Calcium 8.3 L (8.4-10.2) mg/dL Assessment and Plan Plan: symptomatic multivessel coronary artery disease. The patient has undergone a cardiac catheterization. Cath was reviewed and the patient is going to undergo coronary artery bypass surgery. He has undergone previous ACI in August 2021 and in 2015. He does have restenosis of the stent in his LAD. 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 Hearing Adequate performance of functional status Plan continue IV heparin Clinically remains stable Clinically stable. Chest x-ray was reviewed. Spirometry was reviewed. Overall status is stable for now. No pulmonary contraindications for surgery. We'll provide the patient incentive spirometer. Obtain hematology consultation. This will be likely an off-pump bypass surgery involving FRASER to LAD. He participated in the postoperative care.The STS risk score calculated by the cardiothoracic team and this in the order of 2%. No antiplatelet agents will be placed on hold. Revlimid replaced on hold.
[2022-05-28] MEDS: ATORVASTATIN 80 MG TAB PO SCH (20:39)
[2022-05-28] MEDS: METOPROLOL SUCCINATE (ER) 25 MG TAB.ER.24H PO SCH (20:39)
[2022-05-28 23:42] LABS: Ferritin 70.1 ng/mL (22.0-322.0)
[2022-05-29] MEDS: SODIUM CHLORIDE 0.9% 1,000 ML in EMPTY BAG 1 BAG IV SCH ×4 (02:56→20:26)
[2022-05-29 05:44] LABS: Basophils # (A) 0.1 k/uL (0-0.2); Basophils % (A) 3 %; Eosinophils # (A) 0.2 k/uL (0-0.7); Eosinophils % (A) 5 %; HCT 34.4 % (39.0-53.0); HGB 11.8 gm/dL (13.0-17.5); Hypochromasia Slight; Lymphocytes # (A) 0.9 k/uL (1.0-4.8); Lymphocytes % (A) 28 %; MCH 35.2 pg (25.0-35.0); MCHC 34.4 g/dL (31.0-37.0); MCV 102.3 fL (80.0-100.0); Macrocytosis Slight; Mean Platelet Volume 9.1; Monocytes # (A) 0.4 k/uL (0-1.0); Monocytes % (A) 11 %; Neutrophils # (A) 1.7 k/uL (1.3-7.7); Neutrophils % (A) 50 %; Platelet Count 126 k/uL (150-450); RBC 3.36 m/uL (4.30-5.90); RDW 14.7 % (11.5-15.5); WBC 3.4 k/uL (3.8-10.6)
[2022-05-29 06:10] LABS: Albumin 3.3 g/dL (3.5-5.0); Calcium 8.3 mg/dL (8.4-10.2); Magnesium 1.5 mg/dL (1.6-2.3); Potassium 3.9 mmol/L (3.5-5.1); Total Bilirubin 0.5 mg/dL (0.2-1.3); Total Protein 6.2 g/dL (6.3-8.2)
[2022-05-29] MEDS: PANTOPRAZOLE 40 MG TABLET PO SCH (06:48)
--- NOTE | 2022-05-29 07:19 | P.PN ---
Subjective Progress Note Date: 05/29/22 Principal diagnosis: Multi vessel coronary artery disease. 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 Right ICA stenosis 50-69% by doppler The patient was seen and examined this morning sitting up in a recliner in no acute distress on the cardiac stepdown unit. Did have another episode of chest discomfort this morning with ambulation to and from the bathroom which again resolved once he sat back down in the recliner for a few minutes. Denies any shortness of breath. Currently chest pain-free. IV heparin infusing, Nitropaste on patient. Plan is still to proceed with surgery tomorrow. No oth er new concerns. Objective - Vital Signs Vital signs: Vital Signs Temp 98.1 F 05/29/22 04:00 Pulse 52 L 05/29/22 04:00 Resp 18 05/29/22 04:00 BP 125/70 05/29/22 04:00 Pulse Ox 95 05/29/22 04:00 FiO2 Intake & Output 05/28/22 05/29/22 05/29/22 18:59 06:59 18:59 Intake Total 718 Balance 718 Weight 80.2 kg Intake: Oral 718 Other: Voiding Method Toilet Toilet # Voids 3 1 # Bowel Movements 0 - Exam CONSTITUTIONAL: Appears comfortable, cooperative, no acute distress RESPIRATORY: Lungs sounds clear bilaterally. Respirations even, nonlabored. Currently on room air with oxygen saturation 95%. Able to achieve 1500 mL on incentive spirometry. Strong cough. CARDIOVASCULAR: S1, S2 present. Slow but regular rate and rhythm, sinus patti on telemetry. Palpable peripheral pulses bilaterally. No edema present. No calf pain or tenderness noted. GASTROINTESTINAL: Abdomen soft, nontender, nondistended. Active bowel sounds present 4 quadrants. Tolerating diet. GENITOURINARY: Voiding clear, yellow urine INTEGUMENTARY: Skin is warm and dry with evidence of good perfusion. NEUROLOGIC: Cranial nerves II through XII intact MUSKULOSKELETAL: Able to move all extremities, strength equal bilaterally, gait normal PSYCHIATRIC: Alert and oriented to person place and time, appropriate affect, intact judgment and insight - Allied health notes Allied health notes reviewed: nursing - Labs CBC & Chem 7: 05/29/22 05:25 05/29/22 05:25 Labs: Abnormal Lab Results - Last 24 Hours (Table) 05/28/22 05/28/22 05/28/22 Range/Units 10:37 10:37 10:37 WBC 3.1 L (3.8-10.6) k/uL RBC 3.56 L (4.30-5.90) m/uL Hgb 11.9 L (13.0-17.5) gm/dL Hct 36.7 L (39.0-53.0) % MCV 103.1 H (80.0-100.0) fL MCH (25.0-35.0) pg Plt Count 127 L (150-450) k/uL Lymphocytes # (1.0-4.8) k/uL APTT 47.2 H (22.0-30.0) sec Chloride 111 H (98-107) mmol/L Carbon Dioxide 20 L (22-30) mmol/L Glucose 133 H (74-99) mg/dL Calcium 8.3 L (8.4-10.2) mg/dL Magnesium (1.6-2.3) mg/dL Total Protein (6.3-8.2) g/dL Albumin (3.5-5.0) g/dL 05/29/22 05/29/22 05/29/22 Range/Units 05:25 05:25 05:25 WBC 3.4 L (3.8-10.6) k/uL RBC 3.36 L (4.30-5.90) m/uL Hgb 11.8 L (13.0-17.5) gm/dL Hct 34.4 L (39.0-53.0) % MCV 102.3 H (80.0-100.0) fL MCH 35.2 H (25.0-35.0) pg Plt Count 126 L (150-450) k/uL Lymphocytes # 0.9 L (1.0-4.8) k/uL APTT 48.9 H (22.0-30.0) sec Chloride 112 H (98-107) mmol/L Carbon Dioxide 21 L (22-30) mmol/L Glucose 101 H (74-99) mg/dL Calcium 8.3 L (8.4-10.2) mg/dL Magnesium 1.5 L (1.6-2.3) mg/dL Total Protein 6.2 L (6.3-8.2) g/dL Albumin 3.3 L (3.5-5.0) g/dL Microbiology - Last 24 Hours (Table) 05/26/22 15:20 Nasal Screen MRSA/MSSA - Final Nasal Swab Assessment and Plan Assessment: 1. Multi vessel coronary artery disease 2. History of coronary artery disease with previous PCI in 05/2015 and 08/2021 with restenosis of stent to LAD 3. Hypertension 4. Hyperlipidemia, treated, cholesterol 119, LDL 45 5. Multiple myeloma with history of stem cell transplant in October 2020 status pos t chemotherapy and radiation treatments currently on Revlimid (stopped 05/26/22) 6. Anemia, thrombocytopenia 7. Peripheral neuropathy 8. 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 Obstructive sleep apnea with home CPAP use 10. Previous tobacco dependence 11. 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 GERD 13. Osteoarthritis with history of left hip replacement 14. Recent basal cell skin cancer with removal 15. Hard of hearing 16. Vaccinated but not boosted against Covid 17. Right internal carotid artery stenosis 50-69% Plan: 1. Continue aspirin, statin, beta tone therapy. Heparin drip, Nitropaste per cardiology, continue to hold Brilinta 2. Encourage incentive spirometry use 3. Increase activity as tolerated 4. Continue to hold Revlimid 5. Our plan is for off-pump coronary artery bypass grafting with left internal mammary artery, left radial artery, possible endoscopic vein harvest, left atrial appendage ligation with Dr. Wells on 05/30/2022 6. Continue preoperative teaching 7. Medical management of other comorbidities per internal medicine, cardiology, oncology 8. More recommendations to follow
[2022-05-29] MEDS: MAGNESIUM SULFATE-D5W PMX 1 GM in DEXTROSE/WATER 1 100ML.BAG IVPB SCH ×2 (09:16→14:33)
[2022-05-29] MEDS: FAMOTIDINE 20 MG TAB PO SCH ×2 (09:16→20:32)
[2022-05-29] MEDS: MONTELUKAST 10 MG TAB PO SCH (09:16)
[2022-05-29] MEDS: MULTIVITAMINS, THERA 1 EACH TAB PO SCH (09:16)
[2022-05-29] MEDS: METOPROLOL SUCCINATE (ER) 25 MG TAB.ER.24H PO SCH ×2 (09:16→20:32)
[2022-05-29] MEDS: NITROGLYCERIN OINT 1 INCH/GM PACKET TOPICAL SCH ×2 (09:16→16:36)
[2022-05-29] MEDS: ASPIRIN 81 MG PO SCH (09:16)
[2022-05-29] MEDS: CALCIUM CARB-VIT D 500 MG-5 MCG TAB PO SCH (09:16)
--- NOTE | 2022-05-29 09:17 | P.PN ---
Subjective Progress Note Date: 05/29/22 Patient is an 82-year-old male with history of coronary artery disease and prior PCI to the LAD, hypertension, dyslipidemia, multiple myeloma with previous radiation and chemotherapy status post cell transplant in October 2020, peripheral neuropathy, obstructive sleep apnea, GERD, arthritis, and difficulty hearing. He underwent an outpatient dobutamine stress echo on 05/17/[address] segment depression and subjective symptoms of angina. He presented to the hospital on 05/26/2022 for a cardiac catheterization which showed a right dominant system with 45% proximal and mid RCA disease, 85-90% disease in the left circumflex, and 95-99% stenosis in the ostial LAD. Cardiology felt patient would be best served by bypass. He was seen by cardiothoracic surgery and plan is for possible off pump bypass surgery on 05/30/22. Patient seen and examined at bedside. feeling anxious and did not sleep overnight. Had some chest pain when ambulating to the bathroom early this AM. General: nontoxic, no distress, appears at stated age Derm: warm, dry Head: atraumatic, normocephalic, symmetric Eyes: EOMI, no lid lag, anicteric sclera Mouth: no lip lesion, mucus membranes moist Cardiovascular: S1S2 reg, no murmur, positive posterior tibial pulse bilateral, Lungs: CTA bilateral, no rhonchi, no rales , no accessory muscle use Abdominal: soft, nontender to palpation, no guarding, no appreciable organomegaly Ext: no gross muscle atrophy, no edema, no contractures Neuro: CN II-XI grossly intact, no focal neuro deficits Psych: Alert, oriented, appropriate affect Assessment/Plan: Symptomatic multivessel coronary artery disease Hypertension Dyslipidemia - plan is for CABG on 05/30/22 - ASA, statin, imdur, metoprolol Borderline anemia, iron deficiency - TIBC 481 and T sat 16% (had to call main lab for numbers, did not cross over into system) - IV iron X 1 - follow CBC Multiple myeloma -Status post STEM cell transplant. Has been on maintenance Revlimid. 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 Do not hesitate to contact us with questions. Someone can be reached from the [facility] hospitalist group all hours of the day at [phone] or via perfect serve. Active Medications Generic Name Dose Route Start Last Admin Trade Name Freq PRN Reason Stop Dose Admin Alprazolam 0.25 mg 05/26/22 06:34 Alprazolam 0.25 Mg Tab PO 06/25/22 06:35 Q6HR PRN Mild Anxiety Alprazolam 0.5 mg 05/26/22 06:34 Alprazolam 0.5 Mg Tab PO 06/25/22 06:35 Q6HR PRN Moderate Anxiety Aspirin 81 mg 05/27/22 09:00 05/28/22 09:03 Aspirin 81 Mg PO 06/26/22 09:01 81 mg DAILY CAMERON Administration Aspirin 325 mg 05/30/22 05:00 Aspirin 325 Mg Tab PO 05/30/22 05:01 ONCE ONE Atorvastatin Calcium 80 mg 05/26/22 21:00 05/28/22 20:39 Atorvastatin 80 Mg Tab PO 06/25/22 21:01 80 mg HS CAMERON Administration Atorvastatin Calcium 10 mg 05/30/22 05:00 Atorvastatin 10 Mg Tab PO 05/30/22 05:01 ONCE ONE Calcium Carbonate 1 each 05/27/22 09:00 05/28/22 09:03 Calcium Carb-Vit D 500 Mg-5 Mcg Tab PO 06/26/22 09:01 1 each DAILY CAMERON Administration Calcium Chloride 1,000 mg 05/30/22 05:00 Calcium Chloride 100 Mg/Ml 10 Ml Syringe IVP 05/30/22 05:01 ONCE ONE Chlorhexidine Gluconate 15 ml 05/30/22 05:00 Chlorhexidine Gluconate 15 Ml Cup MUCOUS MEM 05/30/22 05:01 ONCE ONE Famotidine 20 mg 05/26/22 21:00 05/28/22 20:39 Famotidine 20 Mg Tab PO 06/25/22 21:01 20 mg BID CAMERON Administration Gabapentin 300 mg 05/26/22 17:00 05/28/22 16:42 Gabapentin 300 Mg Cap PO 06/25/22 17:01 300 mg 1700 CAMERON Administration Heparin Sodium (Porcine) 0 unit 05/26/22 11:50 05/27/22 04:09 Heparin Sodium 1,000 Un/Ml (10ml Vl) IV 06/25/22 11:51 4,000 unit PER PROTOCOL PRN Administration Low PTT Protocol Heparin Sodium (Porcine) 10,000 unit 05/30/22 05:00 Heparin Sodium 1,000 Un/Ml (10ml Vl) IV 05/30/22 05:01 ONCE ONE Heparin Sodium (Porcine) 30,000 unit 05/30/22 05:00 Heparin Sodium,Porcine 30 Ml 1,000 Unit/Ml Vial IV 05/30/22 05:01 ONCE ONE Heparin Sodium (Porcine) 30,000 unit 05/30/22 05:00 Heparin Sodium,Porcine 30 Ml 1,000 Unit/Ml Vial IV 05/30/22 05:01 ONCE ONE Heparin Sodium (Porcine) 30,000 unit 05/30/22 05:00 Heparin Sodium,Porcine 30 Ml 1,000 Unit/Ml Vial IV 05/30/22 05:01 ONCE ONE Sodium Chloride 1,000 ml/ IV 1,000 mls @ 238.137 mls/hr 05/26/22 06:34 05/29/22 06:50 Solution IV 06/25/22 06:35 Not Given .Q4H12M CAMERON 3 ML/KG/HR Heparin Sodium/Sodium Chloride 250 mls @ 9.648 mls/hr 05/26/22 12:00 05/28/22 16:12 25,000 unit/ Sodium Chloride IV 06/25/22 12:01 Not Given .Q24H CAMERON Protocol 12 UNITS/KG/HR Heparin Sodium (Porcine) 5,000 501 mls @ 0 mls/hr 05/30/22 05:00 unit/ Sodium Chloride IV 05/30/22 05:01 ONCE ONE As Directed Protamine Sulfate 250 mg/ IV 25 mls @ 0 mls/hr 05/30/22 05:00 Solution IV 05/30/22 05:01 ONCE ONE As Directed Nitroglycerin/Dextrose 50 mg/ 250 mls @ 1.5 mls/hr 05/30/22 05:00 IV Solution IV .Q24H CAMERON Protocol 5 MCG/MIN Albumin Human 50 ml/ IV 50 mls @ 100 mls/hr 05/30/22 05:00 Solution IVPB 05/30/22 05:29 ONCE ONE Protocol Albumin Human 50 ml/ IV 50 mls @ 100 mls/hr 05/30/22 05:00 Solution IVPB 05/30/22 05:29 ONCE ONE Protocol Clevidipine 25 mg/ IV Solution 50 mls @ 2 mls/hr 05/30/22 05:00 IV .Q24H CAMERON Protocol 1 MG/HR Phenylephrine HCl 40 mg/ 254 mls @ 0 mls/hr 05/30/22 05:00 Sodium Chloride IV 05/30/22 05:01 .Q0M ONE Protocol Per Protocol Albumin Human 500 ml/ IV 500 mls @ 250 mls/hr 05/30/22 05:00 Solution IVPB 05/30/22 06:59 ONCE ONE Protocol Albumin Human 500 ml/ IV 500 mls @ 250 mls/hr 05/30/22 05:00 Solution IVPB 05/30/22 06:59 ONCE ONE Protocol Albumin Human 500 ml/ IV 500 mls @ 250 mls/hr 05/30/22 05:00 Solution IVPB 05/30/22 06:59 ONCE ONE Protocol Albumin Human 500 ml/ IV 500 mls @ 250 mls/hr 05/30/22 05:00 Solution IVPB 05/30/22 06:59 ONCE ONE Protocol Albumin Human 500 ml/ IV 500 mls @ 250 mls/hr 05/30/22 05:00 Solution IVPB 05/30/22 06:59 ONCE ONE Protocol Albumin Human 500 ml/ IV 500 mls @ 250 mls/hr 05/30/22 05:00 Solution IVPB 05/30/22 06:59 ONCE ONE Protocol Norepinephrine Bitartrate 4 mg 254 mls @ 0 mls/hr 05/30/22 05:00 / Sodium Chloride IV .Q0M CAMERON Titrate Propofol 1,000 mg/ IV Solution 100 mls @ 0 mls/hr 05/30/22 05:00 IV .Q0M PRN Per Protocol Protocol Titrate Magnesium Sulfate 16.24 meq/ 4.06 mls @ 0 mls/hr 05/30/22 05:00 IV Solution IV 05/30/22 05:01 ONCE ONE Per Protocol Lactated Ringer's 1,000 mls @ 10 mls/hr 05/30/22 05:00 Lactated Ringers IV .Q24H CAMERON Cefazolin Sodium 2 gm/ Sodium 50 mls @ 100 mls/hr 05/30/22 05:00 Chloride IVPB 05/30/22 05:29 ONCE ONE Protocol Cefazolin Sodium 1,000 mg/ 1,000 mls @ 999 mls/hr 05/30/22 05:00 Sodium Chloride IRRIGATION 05/30/22 06:00 ONCE ONE Protocol Cefazolin Sodium 2 gm/ Sodium 50 mls @ 100 mls/hr 05/30/22 05:00 Chloride IVPB 05/30/22 05:29 ONCE ONE Protocol Sodium Bicarbonate 20 ml/ 1,033.5 mls @ 0 mls/hr 05/30/22 05:00 Lidocaine HCl 270 mg/ Plegisol PERFUSION Cardioplegic Solution .Q0M NR Protocol Per Protocol Tranexamic Acid 2,000 mg/ 100 mls @ 0 mls/hr 05/30/22 05:00 Sodium Chloride IV 05/30/22 05:01 .Q0M ONE Protocol Per Protocol Diltiazem HCl 125 mg/ Sodium 125 mls @ 5 mls/hr 05/30/22 05:00 Chloride IV .Q24H CAMERON 5 MG/HR Papaverine HCl 360 mg/ Sodium 102 mls @ 0 mls/hr 05/30/22 05:00 Chloride IV 05/30/22 05:01 ONCE ONE As Directed Insulin Human Regular 100 unit 100 mls @ 0 mls/hr 05/30/22 05:00 / Sodium Chloride IV .Q0M CAMERON Protocol Titrate Magnesium Sulfate/Dextrose 1 100 mls @ 100 mls/hr 05/29/22 07:45 gm/ IV Solution IVPB 05/29/22 09:44 Q1H CAMERON Ferric Sodium Gluconate 125 mg 110 mls @ 100 mls/hr 05/29/22 10:00 / Sodium Chloride IVPB 05/29/22 11:05 ONCE ONE Mannitol 12.5 gm 05/30/22 05:00 Mannitol 25% 12.5 Gm/50 Ml Vial IV 05/30/22 05:01 ONCE ONE Mannitol 12.5 gm 05/30/22 05:00 Mannitol 25% 12.5 Gm/50 Ml Vial IV 05/30/22 05:01 ONCE ONE Melatonin 5 mg 05/29/22 21:00 Melatonin 5 Mg Tablet PO 05/30/22 21:01 [facility] Metoprolol Succinate 25 mg 05/28/22 21:00 05/28/22 20:39 Metoprolol Succinate (Er) 25 Mg Tab.Er.24h PO 06/26/22 09:01 25 mg BID CAMERON Administration Metoprolol Tartrate 12.5 mg 05/30/22 05:00 Metoprolol Tartrate 12.5 Mg Tab PO 05/30/22 05:01 ONCE ONE Miscellaneous Information 1 each 05/29/22 07:19 Communication To Pharmacy 1 Each Misc PO 05/29/22 07:20 ONCE ONE Montelukast Sodium 10 mg 05/27/22 09:00 05/28/22 09:03 Montelukast 10 Mg Tab PO 06/26/22 09:01 10 mg DAILY CAMERON Administration Multivitamins 1 each 05/27/22 09:00 05/28/22 09:03 Multivitamins, Thera 1 Each Tab PO 06/26/22 09:01 1 each DAILY CAMERON Administration Mupirocin 1 applic 05/27/22 09:00 05/28/22 20:47 Mupirocin 2% Oint 22 Gm Tube NASAL 1 applic BID CAMERON Administration Protocol Nitroglycerin 0.4 mg 05/26/22 06:34 Nitroglycerin Sl Tabs 0.4 Mg Tab SUBLINGUAL 06/25/22 06:35 Q5M PRN Chest Pain Nitroglycerin 1 inch 05/27/22 18:45 05/28/22 23:23 Nitroglycerin Oint 1 Inch/Gm Packet TOPICAL 1 inch Q8HR CAMERON Administration Nitroglycerin/Dextrose 1 mg 05/30/22 05:00 Nitroglycerin-D5w Pmx 25 Mg/250 Ml Btl IV 05/30/22 05:01 ONCE ONE Pantoprazole Sodium 40 mg 05/27/22 07:30 05/29/22 06:48 Pantoprazole 40 Mg Tablet PO 06/26/22 07:31 40 mg AC-BRKFST CAMERON Administration Phenylephrine HCl 0 mg 05/30/22 05:00 Phenylephrine 10 Mg/Ml Vial IV 05/30/22 05:01 ONCE ONE Protamine Sulfate 250 mg 05/30/22 05:00 Protamine Sulfate 10 Mg/Ml 25 Ml Vial IV 05/30/22 05:01 ONCE ONE Sodium Bicarbonate 50 ml 05/30/22 05:00 Sodium Bicarb 8.4% 50 Ml Syr (1 Meq/Ml) IV 05/30/22 05:01 ONCE ONE Objective - Vital Signs Vital signs: Vital Signs Temp 98.1 F 05/29/22 04:00 Pulse 52 L 05/29/22 04:00 Resp 18 05/29/22 04:00 BP 125/70 05/29/22 04:00 Pulse Ox 95 05/29/22 04:00 FiO2 Intake & Output 05/28/22 05/29/22 05/29/22 18:59 06:59 18:59 Intake Total 718 Balance 718 Weight 80.2 kg Intake: Oral 718 Other: Voiding Method Toilet Toilet # Voids 3 1 # Bowel Movements 0 - Labs CBC & Chem 7: 05/29/22 05:25 05/29/22 05:25 Labs: Abnormal Lab Results - Last 24 Hours (Table) 05/28/22 05/28/22 05/28/22 Range/Units 10:37 10:37 10:37 WBC 3.1 L (3.8-10.6) k/uL RBC 3.56 L (4.30-5.90) m/uL Hgb 11.9 L (13.0-17.5) gm/dL Hct 36.7 L (39.0-53.0) % MCV 103.1 H (80.0-100.0) fL MCH (25.0-35.0) pg Plt Count 127 L (150-450) k/uL Lymphocytes # (1.0-4.8) k/uL APTT 47.2 H (22.0-30.0) sec Chloride 111 H (98-107) mmol/L Carbon Dioxide 20 L (22-30) mmol/L Glucose 133 H (74-99) mg/dL Calcium 8.3 L (8.4-10.2) mg/dL Magnesium (1.6-2.3) mg/dL Total Protein (6.3-8.2) g/dL Albumin (3.5-5.0) g/dL Crossmatch 05/29/22 05/29/22 05/29/22 Range/Units 05:25 05:25 05:25 WBC 3.4 L (3.8-10.6) k/uL RBC 3.36 L (4.30-5.90) m/uL Hgb 11.8 L (13.0-17.5) gm/dL Hct 34.4 L (39.0-53.0) % MCV 102.3 H (80.0-100.0) fL MCH 35.2 H (25.0-35.0) pg Plt Count 126 L (150-450) k/uL Lymphocytes # 0.9 L (1.0-4.8) k/uL APTT (22.0-30.0) sec Chloride 112 H (98-107) mmol/L Carbon Dioxide 21 L (22-30) mmol/L Glucose 101 H (74-99) mg/dL Calcium 8.3 L (8.4-10.2) mg/dL Magnesium 1.5 L (1.6-2.3) mg/dL Total Protein 6.2 L (6.3-8.2) g/dL Albumin 3.3 L (3.5-5.0) g/dL Crossmatch See Detail 05/29/22 Range/Units 05:25 WBC (3.8-10.6) k/uL RBC (4.30-5.90) m/uL Hgb (13.0-17.5) gm/dL Hct (39.0-53.0) % MCV (80.0-100.0) fL MCH (25.0-35.0) pg Plt Count (150-450) k/uL Lymphocytes # (1.0-4.8) k/uL APTT 48.9 H (22.0-30.0) sec Chloride (98-107) mmol/L Carbon Dioxide (22-30) mmol/L Glucose (74-99) mg/dL Calcium (8.4-10.2) mg/dL Magnesium (1.6-2.3) mg/dL Total Protein (6.3-8.2) g/dL Albumin (3.5-5.0) g/dL Crossmatch Microbiology - Last 24 Hours (Table) 05/26/22 15:20 Nasal Screen MRSA/MSSA - Final Nasal Swab
[2022-05-29] MEDS ORDERED: SODIUM FERRIC GLUCONAT-SUCROSE 125 MG in SODIUM CHLORIDE 0.9% 100 ML IVPB ONE (10:00)
[2022-05-29] MEDS: HEPARIN SOD,PORK IN 0.45% NACL 25,000 UNIT in 0.45% NACL 1 250ML.BAG IV SCH (11:50)
[2022-05-29] MEDS: MUPIROCIN 2% OINT 22 GM TUBE NASAL SCH ×2 (12:55→20:32)
--- NOTE | 2022-05-29 13:42 | P.PN ---
Subjective Progress Note Date: 05/29/22 05/29/2022, no new issues and the patient is awaiting cardiac surgery. No shortness of breath. Remains on IV heparin. Blood work was noted. Hemoglobin is 11.8. The previous echoes at 3.4. Sodiums of 138. BUN 16 with a creatinine of 0.9. PTT therapeutic. Objective - Vital Signs Vital signs: Vital Signs Temp 98.0 F 05/29/22 12:36 Pulse 80 05/29/22 12:36 Resp 18 05/29/22 12:36 BP 150/90 05/29/22 12:36 Pulse Ox 96 05/29/22 12:36 FiO2 Intake & Output 05/28/22 05/29/22 05/29/22 18:59 06:59 18:59 Intake Total 968 120 Balance 968 120 Weight 80.2 kg Intake: Intake, IV Titration 250 Amount Heparin Sod,Pork in 0.45% 250 NaCl 25,000 unit In 0.45 % NaCl 1 250ml.bag @ 12 UNITS/KG/HR 9.648 mls/hr IV .Q24H [facility] Rx#: [id number] Oral 718 120 Other: Voiding Method Toilet Toilet Toilet # Voids 3 1 # Bowel Movements 0 - Exam CONSTITUTIONAL: Appears comfortable, cooperative, no acute distress RESPIRATORY: Lungs sounds clear bilaterally. Respirations even, nonlabored. Currently on room air with oxygen saturation 96%. Able to achieve 1500 mL on incentive spirometry. Strong cough. CARDIOVASCULAR: S1, S2 present. Regular rate and rhythm, sinus rhythm on te lemetry. Palpable peripheral pulses bilaterally. No edema present. No calf pain or tenderness noted. GASTROINTESTINAL: Abdomen soft, nontender, nondistended. Active bowel sounds present 4 quadrants. Tolerating diet. GENITOURINARY: Voiding clear, yellow urine INTEGUMENTARY: Skin is warm and dry with evidence of good perfusion. NEUROLOGIC: Cranial nerves II through XII intact MUSKULOSKELETAL: Able to move all extremities, strength equal bilaterally, gait normal PSYCHIATRIC: Alert and oriented to person place and time, appropriate affect, intact judgment and insight - Labs CBC & Chem 7: 05/29/22 05:25 05/29/22 05:25 Labs: Abnormal Lab Results - Last 24 Hours (Table) 05/29/22 05/29/22 05/29/22 Range/Units 05:25 05:25 05:25 WBC 3.4 L (3.8-10.6) k/uL RBC 3.36 L (4.30-5.90) m/uL Hgb 11.8 L (13.0-17.5) gm/dL Hct 34.4 L (39.0-53.0) % MCV 102.3 H (80.0-100.0) fL MCH 35.2 H (25.0-35.0) pg Plt Count 126 L (150-450) k/uL Lymphocytes # 0.9 L (1.0-4.8) k/uL APTT (22.0-30.0) sec Chloride 112 H (98-107) mmol/L Carbon Dioxide 21 L (22-30) mmol/L Glucose 101 H (74-99) mg/dL Calcium 8.3 L (8.4-10.2) mg/dL Magnesium 1.5 L (1.6-2.3) mg/dL Total Protein 6.2 L (6.3-8.2) g/dL Albumin 3.3 L (3.5-5.0) g/dL Crossmatch See Detail 05/29/22 Range/Units 05:25 WBC (3.8-10.6) k/uL RBC (4.30-5.90) m/uL Hgb (13.0-17.5) gm/dL Hct (39.0-53.0) % MCV (80.0-100.0) fL MCH (25.0-35.0) pg Plt Count (150-450) k/uL Lymphocytes # (1.0-4.8) k/uL APTT 48.9 H (22.0-30.0) sec Chloride (98-107) mmol/L Carbon Dioxide (22-30) mmol/L Glucose (74-99) mg/dL Calcium (8.4-10.2) mg/dL Magnesium (1.6-2.3) mg/dL Total Protein (6.3-8.2) g/dL Albumin (3.5-5.0) g/dL Crossmatch Microbiology - Last 24 Hours (Table) 05/26/22 15:20 Nasal Screen MRSA/MSSA - Final Nasal Swab Assessment and Plan Plan: symptomatic multivessel coronary artery disease. The patient has undergone a cardiac catheterization. Cath was reviewed and the patient is going to undergo coronary artery bypass surgery. He has undergone previous ACI in August 2021 and in 2015. 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 Hearing Adequate performance of functional status Plan continue IV heparin Clinically remains stable Labs are all stable Clinically stable. Chest x-ray was reviewed. Spirometry was reviewed. Overall status is stable for now. No pulmonary contraindications for surgery. We'll provide the patient incentive spirometer. Obtain hematology consultation. This will be likely an off-pump bypass surgery involving FRASER to LAD. He participated in the postoperative care.The STS risk score calculated by the cardiothoracic team and this in the order of 2%. No antiplatelet agents will be placed on hold. Revlimid replaced on hold.
--- NOTE | 2022-05-29 16:05 | P.PN ---
Subjective Progress Note Date: 05/29/22 PROGRESS NOTE The patient is an 82-year-old male with a history of CAD, hypertension who has been followed by Dr. Smyth and presented with symptoms of chest discomfort, underwent cardiac catheterization and was found to have severe in-stent restenosis at the ostium of the LAD. He is scheduled to undergo CABG on Monday. He had mild chest discomfort this morning but is feeling better now. He continues to be on IV heparin. May 28: The patient is doing well this morning, he had mild discomfort earlier but pain- free now. He continues to be on IV heparin. His scheduled to undergo surgery on Monday. He is ambulating in his room. He continues to be on IV heparin. His breathing is stable. He denies any nausea or vomiting. May 29: He had mild discomfort in the morning with minimal activity, he is pain-free at this time. He continues to be on IV heparin, nitrate and beta tone. His breathing is stable. He denies any dizziness or palpitations. No nausea. He is scheduled to undergo CABG tomorrow. Medications: IV heparin, aspirin, Lipitor 80 mg daily, Nitropaste 1 inch every 8 hours, Toprol XL 25 mg mg daily, PHYSICAL EXAMINATION: Blood pressure 150/90 heart rate 80 LUNGS: Clear to auscultation HEART: Regular rate and rhythm, S1, S2. No S3. systolic ejection murmur ABDOMEN: Soft, nontender, no organomegaly EXTREMETIES: No edema, Lab: Hemoglobin 11.8, BUN 15, creatinine 0.97 IMPRESSION: 1. Unstable angina with severe in-stent restenosis of the ostium of the LAD 2. Hyperlipidemia 3. Prior history of smoking 4. History of multiple myeloma status post cell transplant PLAN: 1. Continue present therapy 2. Proceed with CABG in the morning. Objective - Vital Signs Vital signs: Vital Signs Temp 98.0 F 05/29/22 12:36 Pulse 80 05/29/22 12:36 Resp 18 05/29/22 12:36 BP 150/90 05/29/22 12:36 Pulse Ox 96 05/29/22 12:36 FiO2 Intake & Output 05/28/22 05/29/22 05/29/22 18:59 06:59 18:59 Intake Total 968 120 Balance 968 120 Weight 80.2 kg Intake: Intake, IV Titration 250 Amount Heparin Sod,Pork in 0.45% 250 NaCl 25,000 unit In 0.45 % NaCl 1 250ml.bag @ 12 UNITS/KG/HR 9.648 mls/hr IV .Q24H [facility] Rx#: [id number] Oral 718 120 Other: Voiding Method Toilet Toilet Toilet # Voids 3 1 # Bowel Movements 0 - Labs CBC & Chem 7: 05/29/22 05:25 05/29/22 05:25 Labs: Abnormal Lab Results - Last 24 Hours (Table) 05/29/22 05/29/22 05/29/22 Range/Units 05:25 05:25 05:25 WBC 3.4 L (3.8-10.6) k/uL RBC 3.36 L (4.30-5.90) m/uL Hgb 11.8 L (13.0-17.5) gm/dL Hct 34.4 L (39.0-53.0) % MCV 102.3 H (80.0-100.0) fL MCH 35.2 H (25.0-35.0) pg Plt Count 126 L (150-450) k/uL Lymphocytes # 0.9 L (1.0-4.8) k/uL APTT (22.0-30.0) sec Chloride 112 H (98-107) mmol/L Carbon Dioxide 21 L (22-30) mmol/L Glucose 101 H (74-99) mg/dL Calcium 8.3 L (8.4-10.2) mg/dL Magnesium 1.5 L (1.6-2.3) mg/dL Total Protein 6.2 L (6.3-8.2) g/dL Albumin 3.3 L (3.5-5.0) g/dL Crossmatch See Detail 05/29/22 Range/Units 05:25 WBC (3.8-10.6) k/uL RBC (4.30-5.90) m/uL Hgb (13.0-17.5) gm/dL Hct (39.0-53.0) % MCV (80.0-100.0) fL MCH (25.0-35.0) pg Plt Count (150-450) k/uL Lymphocytes # (1.0-4.8) k/uL APTT 48.9 H (22.0-30.0) sec Chloride (98-107) mmol/L Carbon Dioxide (22-30) mmol/L Glucose (74-99) mg/dL Calcium (8.4-10.2) mg/dL Magnesium (1.6-2.3) mg/dL Total Protein (6.3-8.2) g/dL Albumin (3.5-5.0) g/dL Crossmatch Microbiology - Last 24 Hours (Table) 05/26/22 15:20 Nasal Screen MRSA/MSSA - Final Nasal Swab
[2022-05-29] MEDS: GABAPENTIN 300 MG CAP PO SCH (16:36)
[2022-05-29] MEDS ORDERED: MD COMMUNICATION TO PHARMACY 1 EACH MISC PO ONE (18:30)
[2022-05-29] MEDS: ATORVASTATIN 80 MG TAB PO SCH (20:32)
[2022-05-29] MEDS ORDERED: MELATONIN 5 MG TABLET PO SCH (21:00)
[2022-05-30] MEDS: NITROGLYCERIN OINT 1 INCH/GM PACKET TOPICAL SCH ×2 (02:22→08:21)
[2022-05-30] MEDS ORDERED: SODIUM BICARB 8.4% 50 ML SYR (1 MEQ/ML) IV ONE (05:00)
[2022-05-30] MEDS ORDERED: PROTAMINE SULFATE 10 MG/ML 25 ML VIAL IV ONE (05:00)
[2022-05-30] MEDS ORDERED: NOREPINEPHRINE 4 MG in SODIUM CHLORIDE 0.9% 250 ML IV SCH (05:00)
[2022-05-30] MEDS ORDERED: TRANEXAMIC ACID 2,000 MG in SODIUM CHLORIDE 0.9% 80 ML IV ONE (05:00)
[2022-05-30] MEDS ORDERED: ASPIRIN 325 MG TAB PO ONE (05:00)
[2022-05-30] MEDS ORDERED: ALBUMIN HUMAN 5% 500 ML in EMPTY BAG 1 BAG IVPB ONE ×6 (05:00)
[2022-05-30] MEDS ORDERED: MAGNESIUM SULFATE 16.24 MEQ in EMPTY SYRINGE 1 SYR IV ONE (05:00)
[2022-05-30] MEDS ORDERED: CLEVIDIPINE BUTYRATE 25 MG in EMPTY BAG 1 BAG IV SCH ×2 (05:00→12:16)
[2022-05-30] MEDS ORDERED: PHENYLEPHRINE 10 MG/ML VIAL IV ONE (05:00)
[2022-05-30] MEDS ORDERED: CARDIOPLEGIC SOLN (K+ 16 MEQ/L 1,000 ML with SOD BICARB SYR 8.4% (1 MEQ/ML) 20 ML, LIDO... PERFUSION NR ×3 (05:00)
[2022-05-30] MEDS ORDERED: MANNITOL 25% 12.5 GM/50 ML VIAL IV ONE ×2 (05:00)
[2022-05-30] MEDS ORDERED: NITROGLYCERIN-D5W PMX 50 MG in DEXTROSE/WATER 1 250ML.BAG IV SCH ×2 (05:00→12:16)
[2022-05-30] MEDS ORDERED: CALCIUM CHLORIDE 100 MG/ML 10 ML SYRINGE IVP ONE (05:00)
[2022-05-30] MEDS ORDERED: METOPROLOL TARTRATE 12.5 MG TAB PO ONE (05:00)
[2022-05-30] MEDS ORDERED: CHLORHEXIDINE GLUCONATE 15 ML CUP MUCOUS MEM ONE (05:00)
[2022-05-30] MEDS ORDERED: ceFAZolin 1,000 MG in SODIUM CHLORIDE 0.9% IRRIGATIO 1,000 ML IRRIGATION ONE (05:00)
[2022-05-30] MEDS ORDERED: PROTAMINE SULFATE 250 MG in EMPTY BAG 1 BAG IV ONE (05:00)
[2022-05-30] MEDS ORDERED: ATORVASTATIN 10 MG TAB PO ONE (05:00)
[2022-05-30] MEDS ORDERED: DILTIAZEM 125 MG in SODIUM CHLORIDE 0.9% 100 ML IV SCH (05:00)
[2022-05-30] MEDS ORDERED: HEPARIN SODIUM,PORCINE 5,000 UNIT in SODIUM CHLORIDE 0.9% 500 ML 500 ML IV ONE (05:00)
[2022-05-30] MEDS ORDERED: PAPAVERINE 360 MG in SODIUM CHLORIDE 0.9% 90 ML IV ONE (05:00)
[2022-05-30] MEDS ORDERED: INSULIN REGULAR 100 UNIT in SODIUM CHLORIDE 0.9% 100 ML IV SCH ×2 (05:00→12:16)
[2022-05-30] MEDS ORDERED: ALBUMIN HUMAN 25% 50 ML in EMPTY BAG 1 BAG IVPB ONE (05:00)
[2022-05-30] MEDS ORDERED: LACTATED RINGERS 1,000 ML IV SCH (05:00)
[2022-05-30] MEDS ORDERED: NITROGLYCERIN-D5W PMX 25 MG/250 ML BTL IV ONE (05:00)
[2022-05-30] MEDS ORDERED: HEPARIN SODIUM 1,000 UN/ML (10ML VL) IV ONE (05:00)
[2022-05-30] MEDS ORDERED: PHENYLEPHRINE 40 MG in SODIUM CHLORIDE 0.9% 250 ML IV ONE (05:00)
[2022-05-30] MEDS: SODIUM CHLORIDE 0.9% 1,000 ML in EMPTY BAG 1 BAG IV SCH ×3 (05:31→08:21)
[2022-05-30 06:15] LABS: Glucose,Whole Blood 90 mg/dL (70-110)
[2022-05-30] MEDS ORDERED: IV FLUID CONTINUATION 1,000 ML IV ONE (06:18)
[2022-05-30] MEDS ORDERED: PHENYLEPHRINE-0.9% NACL SYG 1,000 MCG/10 ML SYRINGE ONE (07:42)
[2022-05-30] MEDS ORDERED: VECURONIUM 10 MG VIAL IV ONE (07:42)
[2022-05-30] MEDS ORDERED: SODIUM CHLORIDE 0.9% IRRIG 1,000 ML BTL IRRIGATION ONE (07:42)
[2022-05-30] MEDS ORDERED: PROPOFOL 10 MG/ML 20 ML VIAL IV ONE (07:42)
[2022-05-30] MEDS ORDERED: HEPARIN SODIUM,PORCINE 10,000 UNIT/ML 1 ML VIAL ONE (07:42)
[2022-05-30] MEDS ORDERED: GLYCOPYRROLATE 0.2 MG/ML 2 ML VIAL ONE (07:42)
[2022-05-30] MEDS ORDERED: fentaNYL (PF) 50 MCG/ML 50 ML VIAL ONE (07:42)
[2022-05-30] MEDS ORDERED: MIDAZOLAM 2 MG/2 ML VIAL ONE (07:42)
[2022-05-30] MEDS ORDERED: ALBUMIN HUMAN 5% (25gm) 500 ML VIAL IVPB ONE (07:42)
[2022-05-30] MEDS ORDERED: ePHEDrine 50 MG/ML 1 ML VIAL ONE (07:42)
[2022-05-30] MEDS ORDERED: PROTAMINE SULFATE 10 MG/ML 5 ML VIAL IV ONE (07:42)
[2022-05-30] MEDS ORDERED: SODIUM BICARB 8.4% 50 ML SYR (1 MEQ/ML) ONE (07:42)
[2022-05-30] MEDS ORDERED: LIDOCAINE 2% INJ 20 MG/ML (2 ML VIAL) ONE (07:42)
--- NOTE | 2022-05-30 07:58 | P.ANPRN ---
Procedure Note - Anesthesia - Invasive Line Right Central Line Time Out Performed: Yes Date of Procedure: 05/30/22 Time of Procedure: 07:31 Location of Patient: PreOp Preparation: Sterile Prep, Sterile Dressing Central Line Location: Internal Jugular Ultrasound Used: Yes Purpose - Visualization and Identification of Vasculature: Yes Image Stored and Saved: Yes Narrative: Informed consent obtained. Central line placement per sterile protocol utilized. Right Internal jugular vein cannulated under aseptic precautions. 3cc 1% lidocaine infiltrated initially after cleaning with iodine based prep and draping. Ultrasound used to locate the vein and selginger technique used. 9Fr introduced sheath inserted and after the finding the needle with pilot boat captain needle/catheter. After the insertion of PA Catheter the line is dressed with biopatch and tegaderm. Patient tolerated the procedure well. Right Lilly Tete Time Out Performed: Yes Date of Procedure: 05/30/22 Location of Patient: PreOp Preparation: Sterile Prep, Sterile Dressing Lilly Tete Line Location: Internal Jugular Ultrasound Used: No Narrative: Central line placement per sterile protocol utilized. 8Ff PA catheter threaded through the Right IJ introducer sheath under asepsis with continuous waveform monitoring. Catheter at 50 cms emmy. - YOLANDA Intraop Pre Bypass YOLANDA Intraop - Anesthesia Indication: Coronary artery bypass graft off Pump Date of Procedure: 05/30/22 Pre-operative Diagnosis: Coronary artery disease Post-operative Diagnosis: Coronary artery disease status post CABG Surgeon: Conor Wells (\) Ejection Fraction: Normal Regional Wall Motion Abnormalities: None Left Ventricle Hypertrophy: No R. Ventricle Function: Normal Aortic Valve: Aortic valve trileaflet, trace to mild aortic regurgitation seen. Anatomy: Trileaflet Aortic Stenosis: Mild Aortic Regurgitation: Trace Mitral Valve: Mitral annular calcification present. Mild mitral stenosis seen. Mitral Stenosis: Mild (Peak gradient 6 mm of Hg and mean 2 mm of Hg) Tricuspid Stenosis: None Tricuspid Regurgitation: Trace Pulmonic Regurgitation: Trace R. Atrial Dilation: No R. Atrial PFO: No L. Atrial Dilation: No Aortic Dissection: No Aortic Calcification: None Plural Effusion: None - YOLANDA Intraop Post Bypass YOLANDA Intraop Post Bypass Procedure Performed: Coronary artery bypass graft Left Ventricle: Ejection fraction 55-60% Ejection Fraction: Normal Regional Wall Motion Abnormalities: None R. Ventricle Function: Normal Mitral Valve: Unchanged Tricuspid: Unchanged Pulmonic: Unchanged
[2022-05-30] MEDS: MONTELUKAST 10 MG TAB PO SCH (08:21)
[2022-05-30] MEDS: MUPIROCIN 2% OINT 22 GM TUBE NASAL SCH (08:21)
[2022-05-30] MEDS: PANTOPRAZOLE 40 MG TABLET PO SCH (08:21)
[2022-05-30] MEDS: MULTIVITAMINS, THERA 1 EACH TAB PO SCH (08:21)
[2022-05-30] MEDS: CALCIUM CARB-VIT D 500 MG-5 MCG TAB PO SCH (08:21)
[2022-05-30] MEDS: METOPROLOL SUCCINATE (ER) 25 MG TAB.ER.24H PO SCH (08:21)
[2022-05-30] MEDS: FAMOTIDINE 20 MG TAB PO SCH (08:21)
[2022-05-30] MEDS: HEPARIN SOD,PORK IN 0.45% NACL 25,000 UNIT in 0.45% NACL 1 250ML.BAG IV SCH (08:22)
[2022-05-30 09:03] LABS: % Iron Saturation 16.82 (15.00-50.00)
[2022-05-30] MEDS ORDERED: SODIUM CHLORIDE 0.9% 50 ML with ceFAZolin 2,000 MG IV ONE ×2 (09:41)
[2022-05-30] MEDS ORDERED: ceFAZolin 1,000 MG in SODIUM CHLORIDE 0.9% 1,000 ML IRRIGATION ONE (09:42)
[2022-05-30] MEDS ORDERED: SODIUM CHLORIDE 0.9% 500 ML 500 ML with HEPARIN SODIUM,PORCINE 5,000 UNIT IV ONE ×2 (09:42)
[2022-05-30] MEDS ORDERED: SODIUM CHLORIDE 0.9% IV ONE ×2 (09:43)
[2022-05-30] MEDS ORDERED: PAPAVERINE IV ONE ×2 (09:43)
[2022-05-30] MEDS ORDERED: ALBUMIN HUMAN 5% 250 ML IVPB ONE (12:10)
[2022-05-30] MEDS ORDERED: ONDANSETRON 4 MG/2 ML VIAL IVP PRN (12:16)
[2022-05-30] MEDS ORDERED: ALBUMIN HUMAN 5% 250 ML in EMPTY BAG 1 BAG IVPB PRN (12:16)
[2022-05-30] MEDS ORDERED: hydrALAZINE HCL 20 MG/ML 1 ML VIAL IVP PRN (12:16)
[2022-05-30] MEDS ORDERED: DEXMEDETOMIDINE/0.9% NACL(PMX) 400 MCG in EMPTY BAG 1 BAG IV SCH (12:16)
[2022-05-30] MEDS ORDERED: Magnesium Replacement Protocol 1 EACH MISC MISCELLANE PRN (12:16)
[2022-05-30] MEDS ORDERED: AMIODARONE 360 MG in DEXTROSE 5% IN WATER 200 ML IV PRN ×2 (12:16)
[2022-05-30] MEDS ORDERED: Potassium Replacement Protocol 1 EACH MISC MISCELLANE PRN (12:16)
[2022-05-30] MEDS ORDERED: DEXTROSE 50% SYRINGE 50 ML IVP PRN ×2 (12:16)
[2022-05-30] MEDS ORDERED: BENZOCAINE/MENTHOL LOZENG 1 EACH LOZENGE MUCOUS MEM PRN (12:16)
[2022-05-30] MEDS ORDERED: METOCLOPRAMIDE 5 MG/ML 2 ML VIAL IVP PRN (12:16)
[2022-05-30] MEDS ORDERED: DEXTROSE 5% IN WATER 100 ML with AMIODARONE 150 MG IV PRN (12:16)
[2022-05-30] MEDS ORDERED: IPRATROPIUM-ALBUTEROL 3 ML NEB INHALATION PRN (12:16)
--- NOTE | 2022-05-30 12:20 | P.OP ---
Date of Procedure: 05/30/22 Preoperative Diagnosis: Coronary artery disease, in-stent restenosis, accelerating angina. Postoperative Diagnosis: Same Procedure(s) Performed: Off-pump CABG 2 with FRASER to LAD and left radial artery graft to second obtuse marginal with endovascular radial artery harvest and ligation of the left atrial appendage with a 35 mm AtriCure clamp. Implants: 35mm AtriCure clamp Anesthesia: GETA Surgeon: Conor Wells Visual Merchandising Director #1: Ray Wu Visual Merchandising Director #2: Roque Bhandari Estimated Blood Loss (ml): 500 IV fluids (ml): 2,000 Urine output (ml): 500 Pathology: none sent Condition: stable Disposition: ICU Indications for Procedure: 82-year-old male in very good physical condition, very fit and active who presents with accelerating angina. He has distant history of stent to the mid LAD and or recent stenting of the proximal LAD. Cardiac catheterization demonstrated extremely tight ostial LAD stenosis and 95% stenosis of the second branch of a very large obtuse marginal. Surgical revascularization was requested by Dr. Smyth. This was discussed with the patient and informed consent was obtained. STS risk was around 1% and was discussed with the patient. Echocardiography demonstrated good ventricular function, severe mitral annular calcification with mild to moderate mitral stenosis and mild mitral regurgitation, mild aortic insufficiency. Operative Findings: YOLANDA demonstrated severe mitral annular calcified patient with only very mild mitral stenosis and regurgitation. Trace to mild aortic insufficiency was pre sent. Ventricular function was good. The left internal mammary artery was an excellent conduit as was the left radial artery. Left anterior descending wasn't excellent target. It was grafted between the proximal stents in the mid stent. Here the vessel was a 1.75 mm vessel of relatively normal quality. The second obtuse marginal branch was diseased vessel with a 1.5 mm lumen. Description of Procedure: The patient was brought to the operating room, placed supine on the operating table, anesthetized and intubated. Monitoring lines had been placed in the preop holding area. The anterior torso, lower extremities and left upper extremity were sterilely prepped and draped. The left radial artery was harvested endoscopically and was an excellent conduit. It was prepared on the back table. Simultaneous sternotomy was performed, the left hemisternum was retracted upwards and the left internal mammary artery harvested on a vascularized pedicle. It was left intact on its origin from the subclavian and divided distally. Left pleural space was drained with a 32-Syriac chest tube. Standard sternal retractor was placed. Pericardium was opened in the midline and the heart exposed with pericardial sutures. Patient was systemically heparinized and ACTs were maintained greater than 250 during grafting. We began by placing a 35 mm AtriCure clip on the base of the left atrial appendage. This proceeded uneventfully. Next we proceeded with the FRASER to the LAD. The FRASER was stabilized just after the takeoff of the first diagonal branch between the proximal and mid stent. Was opened here and blood flow control with a 1.5 mm flow through, was a 1.75 mm vessel of good quality. End-to-side anastomosis between the FRASER and the LAD was performed with running 8-0 Prolene suture. On completion anastomosis the flow through was removed effectively probing the proximal distal portion of the anastomosis. Suture was tied with good result and hemostasis and the inflow was open. The HALINA pedicle was tacked surrounding epicardium with 6-0 silk suture. Next the lateral wall of the heart was exposed. Second obtuse marginal branch was stabilized and opened prior to its bifurcation.. It had a 1.5 mm lumen. Blood flow was controlled with a 1.5 mm flow through. End to side anastomosis between the radial artery and the second obtuse marginal branch was performed with running 7-0 Prolene suture. On completion anastomosis the flow through was removed effectively probing the proximal distal portion anastomosis. Suture was tied with good result and hemostasis. Good backbleeding was noted into the radial artery. Heart was lowered into anatomic position. The radial artery was brought beneath the FRASER and was of more than adequate length to reach the ascending aorta. The heartstring device was deployed in the mid ascending aorta to the left of midline. Proximal anastomosis of the radial artery off the aorta was performed with running 5-0 Prolene suture. Completion anastomosis the heartstring device was removed and the suture was tied with good result and hemostasis. Inflow was open. Distal anastomosis was checked and was noted to be hemostatic. The graft lay well with more than adequate length. Heparin was reversed with protamine. Good hemostasis was obtained throughout and the chest was irrigated with antibiotic solution. Mediastinum was drained with 36-Syriac chest tube in the sternum closed with 8 sternal wires. Fascia was closed with 0 Ethibond subcutaneous and subcuticular layers were closed with layers of Vicryl suture. Skin glue and dry sterile dressings were applied and the patient was transferred to the ICU in stable condition.
[2022-05-30] MEDS: DILTIAZEM 125 MG in SODIUM CHLORIDE 0.9% 100 ML IV SCH (12:35)
[2022-05-30 12:41] LABS: Glucose,Whole Blood 101 mg/dL (70-110)
[2022-05-30] MEDS: LACTATED RINGERS 1,000 ML IV SCH (12:52)
[2022-05-30 13:07] LABS: ABG HCO3 24 mmol/L (21-25); ABG PCO2 43 mmHg (35-45); ABG PH 7.35 (7.35-7.45); ABG PO2 103 mmHg (83-108); ABG TCO2 25 mmol/L (19-24)
[2022-05-30 13:09] LABS: Allen Test Performed? no
[2022-05-30 13:16] LABS: Basophils % (A) 1 %; Eosinophils % (A) 1 %; HCT 31.9 % (39.0-53.0); HGB 10.6 gm/dL (13.0-17.5); Lymphocytes # (A) 0.7 k/uL (1.0-4.8); Lymphocytes % (A) 22 %; MCH 33.8 pg (25.0-35.0); MCHC 33.3 g/dL (31.0-37.0); MCV 101.7 fL (80.0-100.0); Macrocytosis Slight; Mean Platelet Volume 9.9; Monocytes # (A) 0.3 k/uL (0-1.0); Monocytes % (A) 8 %; Neutrophils # (A) 2.1 k/uL (1.3-7.7); Neutrophils % (A) 65 %; RBC 3.14 m/uL (4.30-5.90); RDW 14.8 % (11.5-15.5); WBC 3.3 k/uL (3.8-10.6)
--- NOTE | 2022-05-30 13:18 | XR ---
EXAMINATION TYPE: XR chest 1V portable DATE OF EXAM: 05/30/2022 COMPARISON: 05/26/2022 INDICATION: Postop cardiac surgery TECHNIQUE: Single frontal view of the chest is obtained. FINDINGS: The heart size is normal. The pulmonary vasculature is somewhat prominent. Mild diffuse increased lung markings are present bilaterally. Mediastinal tube is present. Left-sided chest tube is present. There is blunting the left costophreni c angle. Endotracheal tube tip is above the carlos. Nasogastric tube transverses the thorax. [place]-Alicia z catheter is present with the tip in the main pulmonary artery region. No pneumothorax is evident. S ome mild subcutaneous emphysema along the left chest and within the soft tissues on the right. IMPRESSION: 1. Mild diffuse increased lung markings. Correlate for pulmonary edema. 2. Small left pleural effusion at the left costophrenic angle is present. 3. Lines and catheters discussed above.
[2022-05-30 13:20] LABS: Platelet Count 95 k/uL (150-450)
[2022-05-30 13:28] LABS: INR 1.1 (<1.2); Partial Thromboplastin Time 26.3 sec (22.0-30.0); Prothrombin Time 11.4 sec (9.0-12.0)
[2022-05-30 13:30] LABS: ALT 25 U/L (4-49); AST 28 U/L (17-59); African American GFR (CKD) >90 (>60 ml/min/1.73 sqM); Alkaline Phosphatase 53 U/L (38-126); Anion Gap 3 mmol/L; Blood Urea Nitrogen 13 mg/dL (9-20); Calcium 7.6 mg/dL (8.4-10.2); Carbon Dioxide 22 mmol/L (22-30); Chloride 113 mmol/L (98-107); Glucose 103 mg/dL (74-99); Magnesium 1.5 mg/dL (1.6-2.3); Non-African American GFR(CKD) 83 (>60 ml/min/1.73 sqM); Potassium 3.6 mmol/L (3.5-5.1); Sodium 138 mmol/L (137-145); Total Bilirubin 0.5 mg/dL (0.2-1.3); Total Protein 5.3 g/dL (6.3-8.2)
[2022-05-30 13:50] LABS: Glucose,Whole Blood 106 mg/dL (70-110)
[2022-05-30] MEDS ORDERED: POTASSIUM BICARBONATE/CIT AC 20 MEQ TABLET.EFF NG-TUBE SCH (14:00)
[2022-05-30] MEDS: MAGNESIUM SULFATE-D5W PMX 1 GM in DEXTROSE/WATER 1 100ML.BAG IVPB SCH ×2 (14:05→15:07)
[2022-05-30 15:05] LABS: Glucose,Whole Blood 114 mg/dL (70-110)
--- NOTE | 2022-05-30 15:07 | P.PN ---
Subjective Progress Note Date: 05/30/22 Patient is an 82-year-old male with history of coronary artery disease and prior PCI to the LAD, hypertension, dyslipidemia, multiple myeloma with previous radiation and chemotherapy status post cell transplant in October 2020, peripheral neuropathy, obstructive sleep apnea, GERD, arthritis, and difficulty hearing. He underwent an outpatient dobutamine stress echo on 05/17/[address] segment depression and subjective symptoms of angina. He presented to the hospital on 05/26/2022 for a cardiac catheterization which showed a right dominant system with 45% proximal and mid RCA disease, 85-90% disease in the left circumflex, and 95-99% stenosis in the ostial LAD. Cardiology felt patient would be best served by bypass. He was seen by cardiothoracic surgery he undewent off pump double bypass surgery on 05/30/22. Patient seen and examined at bedside. He is sedated. Currently on nitro, prop, and cardizem. General: ill appearing, no distress, appears at stated age Derm: warm, dry Head: atraumatic, normocephalic, symmetric Eyes: EOMI, no lid lag, anicteric sclera Mouth: no lip lesion, mucus membranes moist Cardiovascular: S1S2 reg, no murmur, positive posterior tibial pulse bilateral, CT and medistinal tube in place. Lungs: CTA bilateral, no rhonchi, no rales , no accessory muscle use, on vent, [place] in place right neck Abdominal: soft, nontender to palpation, no guarding, no appreciable organomegaly Ext: no gross muscle atrophy, no edema, no contractures, ACEI b/l LE Neuro: sedated on vent Psych: sedated on vent : dinero with clear urine Assessment/Plan: Symptomatic multivessel coronary artery disease s/p CABG X 2 FRASER to LAD and left radiail to obtuse marginal 05/30/22 Hypertension Dyslipidemia - on cardizem for radial arter spasm - working on weaning from vent - on nitro and propofol - management per cardiothorasic surgery. Borderline anemia, iron deficiency - TIBC 481 and T sat 16% (had to call main lab for numbers, did not cross over into system) - IV iron X 1 given on 05/29/22 - follow CBC Multiple myeloma -Status post STEM cell transplant. Has been on maintenance Revlimid. 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 Do not hesitate to contact us with questions. Someone can be reached from the [facility] hospitalist group all hours of the day at [phone] or via perfect serve. Active Medications Generic Name Dose Route Start Last Admin Trade Name Freq PRN Reason Stop Dose Admin Hydrocodone Bitart/Acetaminophen 2 each 05/31/22 00:04 Hydrocodone/Apap 5-325mg 1 Each Tab PO Q4HR PRN Severe Pain (Scale 7 to 10) Hydrocodone Bitart/Acetaminophen 1 each 05/31/22 00:04 Hydrocodone/Apap 5-325mg 1 Each Tab PO Q4HR PRN Moderate Pain (Scale 4 to 6) Albuterol/Ipratropium 3 ml 05/30/22 12:16 Ipratropium-Albuterol 3 Ml Neb INHALATION RT-Q2H PRN Shortness Of Breath Or Wheezing Albuterol/Ipratropium 3 ml 05/30/22 16:00 Ipratropium-Albuterol 3 Ml Neb INHALATION 05/30/22 18:10 RT-Q4H CAMERON Albuterol/Ipratropium 3 ml 05/30/22 20:00 Ipratropium-Albuterol 3 Ml Neb INHALATION RT-QID CAM[facility]ON Aspirin 325 mg 05/31/22 09:00 Aspirin 325 Mg Tab PO DAILY CAMERON Atorvastatin Calcium 40 mg 05/31/22 09:00 Atorvastatin 40 Mg Tab PO DAILY CAMERON Benzocaine/Menthol 1 each 05/30/22 12:16 Benzocaine/Menthol Lozeng 1 Each Lozenge MUCOUS MEM Q2H PRN Sore Throat Bisacodyl 10 mg 05/31/22 09:00 Bisacodyl 10 Mg Supp RECTAL DAILY PRN Constipation Clopidogrel Bisulfate 75 mg 05/31/22 09:00 Clopidogrel 75 Mg Tab PO DAILY CAMERON Dextrose/Water 25 ml 05/30/22 12:16 Dextrose 50% Syringe 50 Ml IVP PER PROTOCOL PRN Hypoglycemia Protocol Dextrose/Water 50 ml 05/30/22 12:16 Dextrose 50% Syringe 50 Ml IVP PER PROTOCOL PRN Hypoglycemia Protocol Gabapentin 300 mg 05/26/22 17:00 05/29/22 16:36 Gabapentin 300 Mg Cap PO 06/25/22 17:01 300 mg 1700 CAMERON Administration Heparin Sodium (Porcine) 5,000 unit 05/30/22 16:00 Heparin Sodium,Porcine/Pf 5,000 Unit/0.5 Ml Syringe SQ Q8HR CAMERON Hydralazine HCl 10 mg 05/30/22 12:16 Hydralazine Hcl 20 Mg/Ml 1 Ml Vial IVP Q1H PRN Blood Pressure - High Clevidipine 25 mg/ IV Solution 50 mls @ 2 mls/hr 05/30/22 12:16 05/30/22 14:01 IV Not Given .Q24H CAMERON Protocol 1 MG/HR Diltiazem HCl 125 mg/ Sodium 125 mls @ 5 mls/hr 05/30/22 12:16 05/30/22 12:35 Chloride IV 5 mg/hr .Q24H CAMERON 5 mls/hr Administration 5 MG/HR Amiodarone HCl 150 mg/ 103 mls @ 618 mls/hr 05/30/22 12:16 Dextrose/Water IV .Q10M PRN A.FIB/FLUTTER Protocol Amiodarone HCl 360 mg/ 207.2 mls @ 34.533 mls/hr 05/30/22 12:16 Dextrose/Water IV .Q6H PRN A.FIB/FLUTTER Protocol 1 MG/MIN Amiodarone HCl 450 mg/ 250 mls @ 16.667 mls/hr 05/30/22 12:16 Dextrose/Water IV .Q15H PRN A.FIB/FLUTTER Protocol 0.5 MG/MIN Albumin Human 250 ml/ IV 250 mls @ 250 mls/hr 05/30/22 12:16 Solution IVPB 06/01/22 12:17 Q1HR PRN For Volume Protocol Dexmedetomidine HCl 400 mcg/ 100 mls @ 0 mls/hr 05/30/22 12:16 IV Solution IV 05/31/22 12:17 .Q0M CAMERON Protocol Titrate Acetaminophen 1,000 mg/ IV 100 mls @ 400 mls/hr 05/30/22 18:00 Solution IVPB 05/31/22 00:14 Q6HR CAMERON Cefazolin Sodium 2 gm/ Sodium 50 mls @ 100 mls/hr 05/30/22 16:00 Chloride IVPB 05/31/22 08:29 Q8HR CAMERON Protocol Nitroglycerin/Dextrose 50 mg/ 250 mls @ 1.5 mls/hr 05/30/22 12:16 05/30/22 12:49 IV Solution IV 5 mcg/min .Q24H CAMERON 1.5 mls/hr Administration 5 MCG/MIN Lactated Ringer's 1,000 mls @ 50 mls/hr 05/30/22 12:16 05/30/22 12:52 Lactated Ringers IV 50 mls/hr .Q20H CAMERON Administration Propofol 1,000 mg/ IV Solution 100 mls @ 0 mls/hr 05/30/22 12:16 05/30/22 12:53 IV 40 mcg/kg/min .Q0M CAMERON 19.2 mls/hr Administration Protocol Titrate Insulin Human Regular 100 unit 101 mls @ 0 mls/hr 05/30/22 12:16 / Sodium Chloride IV .Q0M CAMERON Protocol Per Protocol Magnesium Sulfate/Dextrose 1 100 mls @ 100 mls/hr 05/30/22 13:45 05/30/22 14:05 gm/ IV Solution IVPB 05/30/22 15:44 100 mls/hr Q1H CAMERON Administration Magnesium Hydroxide 2,400 mg 05/31/22 09:00 Magnesium Hydroxide 2,400 Mg/10 Ml Cup PO BID PRN Constipation Metoclopramide HCl 10 mg 05/30/22 12:16 Metoclopramide 5 Mg/Ml 2 Ml Vial IVP Q4H PRN Nausea And Vomiting Metoprolol Tartrate 12.5 mg 05/31/22 09:00 Metoprolol Tartrate 12.5 Mg Tab PO BID [facility] Miscellaneous Information 1 each 05/30/22 12:16 Potassium Replacement Protocol 1 Each Misc MISCELLANE DAILY PRN Per Protocol Protocol Miscellaneous Information 1 each 05/30/22 12:16 Magnesium Replacement Protocol 1 Each Misc MISCELLANE DAILY PRN Per Protocol Protocol Montelukast Sodium 10 mg 05/27/22 09:00 05/30/22 08:21 Montelukast 10 Mg Tab PO 06/26/22 09:01 Not Given DAILY [facility] Multivitamins 1 each 05/27/22 09:00 05/30/22 08:21 Multivitamins, Thera 1 Each Tab PO 06/26/22 09:01 Not Given DAILY [facility] Ondansetron HCl 4 mg 05/30/22 12:16 Ondansetron 4 Mg/2 Ml Vial IVP Q6HR PRN Nausea And Vomiting Oxycodone HCl 10 mg 05/30/22 12:16 Oxycodone Hcl 5 Mg Tab PO 05/31/22 00:17 Q4H PRN Severe Pain (Scale 7 to 10) Oxycodone HCl 5 mg 05/30/22 12:16 Oxycodone Hcl 5 Mg Tab PO 05/31/22 00:17 Q4H PRN Moderate Pain (Scale 4 to 6) Pantoprazole Sodium 40 mg 05/31/22 09:00 Pantoprazole 40 Mg/10 Ml Vial IVP DAILY [facility] Senna/Docusate Sodium 2 each 05/31/22 21:00 Sennosides-Docusate Sodium 1 Each Tab PO HS [facility] Sodium Chloride 10 ml 05/30/22 21:00 Sodium Chloride 0.9% Flush 10 Ml Syringe IV BID [facility] Objective - Vital Signs Vital signs: Vital Signs Temp 97.2 F L 05/30/22 14:00 Pulse 58 L 05/30/22 14:15 Resp 15 05/30/22 14:15 BP 156/76 05/30/22 06:15 Pulse Ox 97 05/30/22 14:15 FiO2 60 05/30/22 14:49 Intake & Output 05/29/22 05/30/22 05/30/22 18:59 06:59 18:59 Intake Total 120 592.4 Output Total 1470 Balance 120 -877.6 Weight 80 kg Intake: IV 91 CO/CI 20 ns pressure bags 18 Intake, IV Titration 501.4 Amount Albumin Human 5% 250 ml 250 In Empty Bag 1 bag @ 250 mls/hr IVPB Q1HR PRN Rx#: [id number] Diltiazem 125 mg In 10 Sodium Chloride 0.9% 100 ml @ 5 MG/HR 5 mls/hr IV .Q24H [facility]ERON Rx#:[id number] Lactated Ringers 1,000 ml 100 @ 50 mls/hr IV .Q20H [facility] Rx#:[id number] Magnesium Sulfate-D5w Pmx 100 1 gm In Dextrose/Water 1 100ml.bag @ 100 mls/hr IVPB Q1H [facility] Rx#: [id number] Nitroglycerin-D5w Pmx 50 3.0 mg In Dextrose/Water 1 250ml.bag @ 5 MCG/MIN 1.5 mls/hr IV .Q24H [facility] Rx#: [id number] propofoL 1,000 mg In 38.4 Empty Bag 1 bag @ Titrate IV .Q0M CAMERON Rx#: [id number] Oral 120 Output: Chest Tube Drainage 130 Left Pleural 50 Mediastinal 80 Urine 740 Estimated Blood Loss 600 Other: Voiding Method Toilet Toilet Indwelling Catheter # Voids 2 1 ABP, PAP, CO, CI - Last Documented Arterial Blood Pressure 117/50 Pulmonary Artery Pressure 34/21 Cardiac Output 5.3 Cardiac Index 2.7 - Labs CBC & Chem 7: 05/30/22 12:40 05/30/22 12:40 Labs: Abnormal Lab Results - Last 24 Hours (Table) 05/29/22 05/30/22 05/30/22 Range/Units 05:25 12:40 12:40 WBC 3.3 L (3.8-10.6) k/uL RBC 3.14 L (4.30-5.90) m/uL Hgb 10.6 L (13.0-17.5) gm/dL Hct 31.9 L (39.0-53.0) % MCV 101.7 H (80.0-100.0) fL Plt Count 95 L (150-450) k/uL Lymphocytes # 0.7 L (1.0-4.8) k/uL ABG Total CO2 (19-24) mmol/L ABG O2 Saturation (94-97) % Chloride 113 H (98-107) mmol/L Glucose 103 H (74-99) mg/dL Calcium 7.6 L (8.4-10.2) mg/dL Magnesium 1.5 L (1.6-2.3) mg/dL Total Protein 5.3 L (6.3-8.2) g/dL Albumin 3.0 L (3.5-5.0) g/dL Crossmatch See Detail 05/30/22 Range/Units 13:05 WBC (3.8-10.6) k/uL RBC (4.30-5.90) m/uL Hgb (13.0-17.5) gm/dL Hct (39.0-53.0) % MCV (80.0-100.0) fL Plt Count (150-450) k/uL Lymphocytes # (1.0-4.8) k/uL ABG Total CO2 25 H (19-24) mmol/L ABG O2 Saturation 98.0 H (94-97) % Chloride (98-107) mmol/L Glucose (74-99) mg/dL Calcium (8.4-10.2) mg/dL Magnesium (1.6-2.3) mg/dL Total Protein (6.3-8.2) g/dL Albumin (3.5-5.0) g/dL Crossmatch
--- NOTE | 2022-05-30 15:57 | P.PN ---
Subjective Progress Note Date: 05/30/22 The patient is seen today 05/30/2022 in follow-up in the intensive care unit. He is status post coronary artery bypass grafting utilizing a FRASER to the LAD, left radial artery to the second obtuse marginal artery, left atrial appendage clipping. Postoperative day #0. He is seen currently intubated and on mechanical ventilator with settings of assist control mode with a rate of 14, tidal volume 550, FiO2 45% and a PEEP of 8. Most recent arterial blood gases revealed a PaO2 of 103, pCO2 43, pH 7.3 500% FiO2. White count 2.3. Hemoglobin 10.6. Platelets 95,000. Sodium 138. Potassium 3.6. BUN 13. Creatinine 0.81. Glucose 103. AST 28. ALT 25. Albumin 3.0. Magnesium 1.5. Currently being replaced. He has a right IJ Edison-Tete catheter in place. Currently sedated on propofol at 40 mcg/kg/m. On nitroglycerin drip at 5 mcg/m. Cardizem drip at 5 mg per hour. PA pressures 34/24. Cardiac output 6.1. Cardiac index 3.2. Left and mediastinal chest tubes are in place. Chest x-ray reveals mild increased lung markings. Small left pleural effusion. Nasogastric and endotracheal tube secured in place. He is initiated on DuoNeb inhalations every 4 hours. Heparin for DVT prophylaxis. Objective - Vital Signs Vital signs: Vital Signs Temp 97.7 F 05/30/22 15:00 Pulse 75 05/30/22 15:26 Resp 14 05/30/22 15:00 BP 156/76 05/30/22 06:15 Pulse Ox 94 L 05/30/22 15:00 FiO2 45 05/30/22 15:13 Intake & Output 05/29/22 05/30/22 05/30/22 18:59 06:59 18:59 Intake Total 120 871.487 Output Total 1650 Balance 120 -778.513 Weight 80 kg Intake: IV 120 CO/CI 40 ns pressure bags 27 Intake, IV Titration 711.487 Amount Albumin Human 5% 250 ml 250 In Empty Bag 1 bag @ 250 mls/hr IVPB Q1HR PRN Rx#: [id number] Dexmedetomidine/0.9% NaCl 0.467 (Pmx) 400 mcg In Empty Bag 1 bag @ Titrate IV . Q0M [facility] Rx#:[id number] Diltiazem 125 mg In 15 Sodium Chloride 0.9% 100 ml @ 5 MG/HR 5 mls/hr IV .Q24H [facility]ON Rx#:[id number] Lactated Ringers 1,000 ml 150 @ 50 mls/hr IV .Q20H [facility] Rx#:[id number] Magnesium Sulfate-D5w Pmx 200 1 gm In Dextrose/Water 1 100ml.bag @ 100 mls/hr IVPB Q1H [facility] Rx#: [id number] Nitroglycerin-D5w Pmx 50 4.5 mg In Dextrose/Water 1 250ml.bag @ 5 MCG/MIN 1.5 mls/hr IV .Q24H [facility]ON Rx#: [id number] propofoL 1,000 mg In 91.52 Empty Bag 1 bag @ Titrate IV .Q0M CAMERON Rx#: [id number] Oral 120 Other 40 Output: Chest Tube Drainage 190 Left Pleural 70 Mediastinal 120 Urine 860 Estimated Blood Loss 600 Other: Voiding Method Toilet Toilet Indwelling Catheter # Voids 2 1 ABP, PAP, CO, CI - Last Documented Arterial Blood Pressure 117/48 Pulmonary Artery Pressure 39/22 Cardiac Output 6.1 Cardiac Index 3.2 - Exam GENERAL EXAM: Intubated, sedated 82-year-old male patient, comfortable in no apparent distress. HEAD: Normocephalic. EYES: Sluggish reaction of pupils, equal size. NOSE: Clear with pink turbinates. THROAT: Oral endotracheal and gastric tube secured in place. No erythema or exudates. NECK: Right IJ Edison-Tete catheter in place. No masses, no JVD. CHEST: Sternal dressing dry and intact. Heart Hugger in place. Mediastinal and left pleural chest tubes and placed to Pleur-evac. LUNGS: Equal air entry with crackles in the left lung base. CVS: S1 and S2 normal with no audible murmur, regular rhythm. ABDOMEN: No hepatosplenomegaly, no guarding or rigidity. SPINE: No scoliosis or deformity SKIN: No rashes CENTRAL NERVOUS SYSTEM: Sedated. Tone is normal in all 4 extremities. EXTREMITIES: Radial arterial line place. There is no peripheral edema. No clubbing, no cyanosis. Peripheral pulses are intact. - Labs CBC & Chem 7: 05/30/22 12:40 05/30/22 12:40 Labs: Abnormal Lab Results - Last 24 Hours (Table) 05/29/22 05/30/22 05/30/22 Range/Units 05:25 12:40 12:40 WBC 3.3 L (3.8-10.6) k/uL RBC 3.14 L (4.30-5.90) m/uL Hgb 10.6 L (13.0-17.5) gm/dL Hct 31.9 L (39.0-53.0) % MCV 101.7 H (80.0-100.0) fL Plt Count 95 L (150-450) k/uL Lymphocytes # 0.7 L (1.0-4.8) k/uL ABG Total CO2 (19-24) mmol/L ABG O2 Saturation (94-97) % Chloride 113 H (98-107) mmol/L Glucose 103 H (74-99) mg/dL POC Glucose (mg/dL) (70-110) mg/dL Calcium 7.6 L (8.4-10.2) mg/dL Magnesium 1.5 L (1.6-2.3) mg/dL Total Protein 5.3 L (6.3-8.2) g/dL Albumin 3.0 L (3.5-5.0) g/dL Crossmatch See Detail 05/30/22 05/30/22 Range/Units 13:05 15:03 WBC (3.8-10.6) k/uL RBC (4.30-5.90) m/uL Hgb (13.0-17.5) gm/dL Hct (39.0-53.0) % MCV (80.0-100.0) fL Plt Count (150-450) k/uL Lymphocytes # (1.0-4.8) k/uL ABG Total CO2 25 H (19-24) mmol/L ABG O2 Saturation 98.0 H (94-97) % Chloride (98-107) mmol/L Glucose (74-99) mg/dL POC Glucose (mg/dL) 114 H (70-110) mg/dL Calcium (8.4-10.2) mg/dL Magnesium (1.6-2.3) mg/dL Total Protein (6.3-8.2) g/dL Albumin (3.5-5.0) g/dL Crossmatch Assessment and Plan Assessment: Ssymptomatic multivessel coronary artery disease. The patient has undergone a cardiac catheterization. Cath was reviewed and the patient is going to undergo coronary artery bypass surgery. He has undergone previous ACI in August 2021 and in 2015. He does have restenosis of the stent in his LAD. Status post coronary artery bypass grafting utilizing a FRASER to the LAD, left radial artery to the second obtuse marginal branch. Clipping of the left atrial appendage. Postoperative day #0. 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 Hearing Adequate performance of functional status Plan: The patient was seen and evaluated Chest x-ray, ABGs, labs and medications reviewed Titrate down the FiO2 to 45% Plan for early extubation protocol as tolerated Continue bronchodilators We will continue to follow and make further recommendations based on his clinical status I have personally seen and examined the patient, performed the documentation and the assessment and plan as written. Number of minutes spent on the visit: 15.
[2022-05-30] MEDS ORDERED: IPRATROPIUM-ALBUTEROL 3 ML NEB INHALATION SCH (16:00)
[2022-05-30 16:02] LABS: Glucose,Whole Blood 144 mg/dL (70-110)
[2022-05-30 16:10] LABS: Basophils % (A) 0 %; Eosinophils % (A) 1 %; HCT 31.5 % (39.0-53.0); HGB 10.3 gm/dL (13.0-17.5); Lymphocytes # (A) 0.6 k/uL (1.0-4.8); Lymphocytes % (A) 21 %; MCH 33.1 pg (25.0-35.0); MCHC 32.8 g/dL (31.0-37.0); MCV 101.1 fL (80.0-100.0); Macrocytosis Slight; Monocytes # (A) 0.2 k/uL (0-1.0); Monocytes % (A) 9 %; Neutrophils # (A) 1.8 k/uL (1.3-7.7); Neutrophils % (A) 67 %; Platelet Count 106 k/uL (150-450); RBC 3.12 m/uL (4.30-5.90); WBC 2.6 k/uL (3.8-10.6)
[2022-05-30] MEDS: GABAPENTIN 300 MG CAP PO SCH (16:19)
[2022-05-30] MEDS: HEPARIN SODIUM,PORCINE/PF 5,000 UNIT/0.5 ML SYRINGE SQ SCH (16:19)
[2022-05-30] MEDS: ACETAMINOPHEN IV (For NPO) 1,000 MG in EMPTY BAG 1 BAG IVPB SCH (17:06)
[2022-05-30 17:09] LABS: Glucose,Whole Blood 127 mg/dL (70-110)
[2022-05-30 17:44] LABS: ABG Base Excess -2.2 mmol/L; ABG HCO3 23 mmol/L (21-25); ABG PCO2 38 mmHg (35-45); ABG PH 7.38 (7.35-7.45); ABG PO2 98 mmHg (83-108); ABG TCO2 24 mmol/L (19-24)
[2022-05-30 17:45] LABS: Allen Test Performed? no
[2022-05-30 18:02] LABS: Glucose,Whole Blood 121 mg/dL (70-110)
[2022-05-30 18:08] LABS: Basophils % (A) 0 %; Eosinophils % (A) 0 %; HCT 32.1 % (39.0-53.0); HGB 11.2 gm/dL (13.0-17.5); Lymphocytes # (A) 0.4 k/uL (1.0-4.8); Lymphocytes % (A) 11 %; MCH 35.2 pg (25.0-35.0); MCV 100.5 fL (80.0-100.0); Mean Platelet Volume 10.2; Monocytes # (A) 0.4 k/uL (0-1.0); Monocytes % (A) 12 %; Neutrophils # (A) 2.4 k/uL (1.3-7.7); Neutrophils % (A) 74 %; Platelet Count 105 k/uL (150-450); RBC 3.19 m/uL (4.30-5.90); RDW 14.6 % (11.5-15.5); WBC 3.2 k/uL (3.8-10.6)
[2022-05-30 19:00] LABS: Glucose,Whole Blood 115 mg/dL (70-110)
[2022-05-30] MEDS: IPRATROPIUM-ALBUTEROL 3 ML NEB INHALATION SCH (19:54)
[2022-05-30 19:59] LABS: Glucose,Whole Blood 114 mg/dL (70-110)
[2022-05-30] MEDS ORDERED: hydrALAZINE HCL 20 MG/ML 1 ML VIAL IVP STA (20:43)
[2022-05-30 20:56] LABS: Glucose,Whole Blood 128 mg/dL (70-110)
[2022-05-30 21:59] LABS: Glucose,Whole Blood 120 mg/dL (70-110)
[2022-05-30 23:00] LABS: Glucose,Whole Blood 131 mg/dL (70-110)
[2022-05-31] LABS: Glucose,Whole Blood 128 mg/dL (70-110)
[2022-05-31] MEDS ORDERED: HYDROcodone/APAP 5-325MG 1 EACH TAB PO PRN (00:04)
[2022-05-31] MEDS: ACETAMINOPHEN IV (For NPO) 1,000 MG in EMPTY BAG 1 BAG IVPB SCH (00:09)
[2022-05-31] MEDS: HEPARIN SODIUM,PORCINE/PF 5,000 UNIT/0.5 ML SYRINGE SQ SCH ×4 (00:10→23:51)
[2022-05-31 01:05] LABS: Glucose,Whole Blood 139 mg/dL (70-110)
[2022-05-31 02:07] LABS: Glucose,Whole Blood 126 mg/dL (70-110)
[2022-05-31 02:58] LABS: Glucose,Whole Blood 124 mg/dL (70-110)
[2022-05-31 04:04] LABS: Glucose,Whole Blood 133 mg/dL (70-110)
[2022-05-31] MEDS: HYDROcodone/APAP 5-325MG 1 EACH TAB PO PRN ×2 (04:56→20:23)
[2022-05-31 05:06] LABS: Glucose,Whole Blood 132 mg/dL (70-110)
[2022-05-31 05:27] LABS: Ionized Calcium 4.9 mg/dL (4.5-5.3)
[2022-05-31 05:36] LABS: Basophils % (A) 1 %; Eosinophils % (A) 0 %; HCT 32.4 % (39.0-53.0); HGB 11.1 gm/dL (13.0-17.5); Lymphocytes # (A) 0.6 k/uL (1.0-4.8); Lymphocytes % (A) 16 %; MCH 34.6 pg (25.0-35.0); MCHC 34.3 g/dL (31.0-37.0); MCV 100.8 fL (80.0-100.0); Macrocytosis Slight; Mean Platelet Volume 9.6; Monocytes # (A) 0.4 k/uL (0-1.0); Monocytes % (A) 9 %; Neutrophils # (A) 2.9 k/uL (1.3-7.7); Neutrophils % (A) 71 %; Platelet Count 104 k/uL (150-450); RBC 3.21 m/uL (4.30-5.90); RDW 14.7 % (11.5-15.5); WBC 4.1 k/uL (3.8-10.6)
[2022-05-31 06:05] LABS: ALT 21 U/L (4-49); AST 33 U/L (17-59); African American GFR (CKD) >90 (>60 ml/min/1.73 sqM); Albumin 3.1 g/dL (3.5-5.0); Alkaline Phosphatase 46 U/L (38-126); Anion Gap 5 mmol/L; Blood Urea Nitrogen 13 mg/dL (9-20); Calcium 7.9 mg/dL (8.4-10.2); Carbon Dioxide 22 mmol/L (22-30); Chloride 109 mmol/L (98-107); Glucose 130 mg/dL (74-99); Magnesium 1.8 mg/dL (1.6-2.3); Non-African American GFR(CKD) 82 (>60 ml/min/1.73 sqM); Potassium 4.1 mmol/L (3.5-5.1); Sodium 136 mmol/L (137-145); Total Bilirubin 0.7 mg/dL (0.2-1.3); Total Protein 5.3 g/dL (6.3-8.2)
[2022-05-31 06:19] LABS: Glucose,Whole Blood 138 mg/dL (70-110)
[2022-05-31] MEDS: MAGNESIUM SULFATE-D5W PMX 1 GM in DEXTROSE/WATER 1 100ML.BAG IVPB SCH ×2 (06:58→08:10)
[2022-05-31 07:09] LABS: Glucose,Whole Blood 143 mg/dL (70-110)
[2022-05-31] MEDS: KETOROLAC 15 MG/ML 1 ML VIAL IVP SCH ×4 (07:11→23:51)
--- NOTE | 2022-05-31 07:35 | P.PN ---
Subjective Progress Note Date: 05/31/22 Principal diagnosis: Multi vessel coronary artery disease with in-stent restenosis, accelerating unstable angina. 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 Right ICA stenosis 50-69% by doppler POD #1 off-pump coronary artery bypass graft 2 with left internal mammary artery to the left anterior descending artery and left radial artery graft to the second obtuse marginal, endovascular radial artery harvest, ligation of left atrial appendage with a 35 mm AtriCure clip Postoperative acute blood loss anemia and thrombocytopenia, expected given hemodilution and preoperative anemia and thrombocytopenia The patient was seen and examined this morning sitting up in a recliner in the intensive care unit in no acute distress. Does state pain is mostly controlled with current medication regimen, does complain of some left lateral pain from chest tube. Denies shortness of breath. States he feels pretty good. Remains in sinus rhythm, hemodynamically stable on no inotropes or pressors. Currently on IV nitro and Cardizem for vessel spasm prophylaxis. Currently on 5 L nasal cannula with oxygen saturation in the low 90s. Right internal jugular [place]/Cordis, right radial arterial line, mediastinal/left pleural chest tubes all remain. Chest x-ray and labs reviewed. No other new concerns. Objective - Vital Signs Vital signs: Vital Signs Temp 99.5 F 05/31/22 04:00 Pulse 80 05/31/22 07:00 Resp 24 05/31/22 07:00 BP 156/76 05/30/22 06:15 Pulse Ox 92 L 05/31/22 07:00 FiO2 45 05/30/22 17:19 Intake & Output 05/30/22 05/31/22 05/31/22 18:59 06:59 18:59 Intake Total 6889.585 3126.035 60.557 Output Total 2205 1090 60 Balance -888.541 148.035 0.557 Weight 79.8 kg Intake: IV 187 1178 59 ACETAMINOPHEN IV (For NPO 100 ) 1,000 mg In Empty Bag 1 bag @ 400 mls/hr IVPB Q6HR [facility] Rx#:[id number] Albumin Human 5% 250 ml 250 In Empty Bag 1 bag @ 250 mls/hr IVPB Q1HR PRN Rx#: [id number] CO/CI 80 120 Lactated Ringers 1,000 ml 550 50 @ 20 mls/hr IV .Q24H [facility] Rx#:[id number] ceFAZolin 2 gm In Sodium 50 Chloride 0.9% 50 ml @ 100 mls/hr IVPB Q8HR [facility] Rx# :[id number] ns pressure bags 54 108 9 Intake, IV Titration 1069.459 60.035 1.557 Amount ACETAMINOPHEN IV (For NPO 100 ) 1,000 mg In Empty Bag 1 bag @ 400 mls/hr IVPB Q6HR [facility] Rx#:[id number] Albumin Human 5% 250 ml 250 In Empty Bag 1 bag @ 250 mls/hr IVPB Q1HR PRN Rx#: [id number] Dexmedetomidine/0.9% NaCl 26.667 (Pmx) 400 mcg In Empty Bag 1 bag @ Titrate IV . Q0M [facility] Rx#:[id number] Diltiazem 125 mg In 30 5 Sodium Chloride 0.9% 100 ml @ 5 MG/HR 5 mls/hr IV .Q24H [facility] Rx#:[id number] Insulin Regular 100 unit 2.112 3.535 1.557 In Sodium Chloride 0.9% 100 ml @ Per Protocol IV .Q0M [facility] Rx#:[id number] Lactated Ringers 1,000 ml 300 50 @ 20 mls/hr IV .Q24H [facility] Rx#:[id number] Magnesium Sulfate-D5w Pmx 200 1 gm In Dextrose/Water 1 100ml.bag @ 100 mls/hr IVPB Q1H [facility] Rx#: [id number] Nitroglycerin-D5w Pmx 50 9.0 1.5 mg In Dextrose/Water 1 250ml.bag @ 5 MCG/MIN 1.5 mls/hr IV .Q24H [facility] Rx#: [id number] ceFAZolin 2 gm In Sodium 50 Chloride 0.9% 50 ml @ 100 mls/hr IVPB Q8HR [facility] Rx# :[id number] propofoL 1,000 mg In 101.68 Empty Bag 1 bag @ Titrate IV .Q0M [facility] Rx#: [id number] Lipid 20 CO/CI 20 Other 40 Output: Chest Tube Drainage 350 400 20 Left Pleural 110 230 10 Mediastinal 240 170 10 Drainage 20 Left Arm 20 Urine 1255 670 40 Estimated Blood Loss 600 Other: Voiding Method Indwelling Catheter Indwelling Catheter ABP, PAP, CO, CI - Last Documented Arterial Blood Pressure 124/57 Pulmonary Artery Pressure 42/16 Cardiac Output 5.6 Cardiac Index 2.9 - Exam CONSTITUTIONAL: Appears comfortable, cooperative, no acute distress RESPIRATORY: Lungs sounds diminished bilaterally. Respirations even, nonlabored. Currently on 5 L nasal cannula with oxygen saturation 92%. Able to achieve 1000 mL on incentive spirometry. Strong nonproductive cough. CARDIOVASCULAR: S1, S2 present. Regular rate and rhythm, sinus rhythm on telemetry. Sternum stable. Palpable peripheral pulses bilaterally. No edema present. No calf pain or tenderness noted. Heart hugger in place with patient demonstrating appropriate use. Antiembolism stockings, SCDs present. GASTROINTESTINAL: Abdomen soft, nontender, nondistended. Hypoactive bowel vahe nds present 4 quadrants. Tolerating clear liquid diet. Positive belching, negative flatus GENITOURINARY: Soriano present draining clear, yellow urine. Output overnight 40-50 mL per hour INTEGUMENTARY: Skin is warm and dry with evidence of good perfusion. Anterior chest incision well approximated and covered with dry intact dressing. Left radial artery harvest site with CELE drain present, minimal drainage NEUROLOGIC: Cranial nerves II through XII intact MUSKULOSKELETAL: Able to move all extremities, strength equal bilaterally, gait normal PSYCHIATRIC: Alert and oriented to person place and time, appropriate affect, intact judgment and insight INVASIVE LINES AND TUBES: Mediastinal/left pleural chest tubes present and connected to wall suction, no air leak present in the pleural chest tube, very minimal intermittent leak present in the mediastinal chest tube. Mediastinal tube with 100 mL serosanguineous drainage overnight, 400 mL since surgery. Left pleural chest tube with 130 mL serosanguineous drainage overnight, 350 mL since surgery. Right internal jugular [place]/Cordis, right radial arterial line present. Last CO/CI 5.6/2.9, PA 37/17, CVP 8. - Allied health notes Allied health notes reviewed: nursing - Labs CBC & Chem 7: 05/31/22 05:00 05/31/22 05:00 Labs: Abnormal Lab Results - Last 24 Hours (Table) 05/29/22 05/30/22 05/30/22 Range/Units 05:25 12:40 12:40 WBC 3.3 L (3.8-10.6) k/uL RBC 3.14 L (4.30-5.90) m/uL Hgb 10.6 L (13.0-17.5) gm/dL Hct 31.9 L (39.0-53.0) % MCV 101.7 H (80.0-100.0) fL MCH (25.0-35.0) pg Plt Count 95 L (150-450) k/uL Lymphocytes # 0.7 L (1.0-4.8) k/uL ABG Total CO2 (19-24) mmol/L ABG O2 Saturation (94-97) % Sodium (137-145) mmol/L Chloride 113 H (98-107) mmol/L Glucose 103 H (74-99) mg/dL POC Glucose (mg/dL) (70-110) mg/dL Calcium 7.6 L (8.4-10.2) mg/dL Magnesium 1.5 L (1.6-2.3) mg/dL Total Protein 5.3 L (6.3-8.2) g/dL Albumin 3.0 L (3.5-5.0) g/dL Crossmatch See Detail 05/30/22 05/30/22 05/30/22 Range/Units 13:05 15:03 15:05 WBC 2.6 L (3.8-10.6) k/uL RBC 3.12 L (4.30-5.90) m/uL Hgb 10.3 L (13.0-17.5) gm/dL Hct 31.5 L (39.0-53.0) % MCV 101.1 H (80.0-100.0) fL MCH (25.0-35.0) pg Plt Count 106 L (150-450) k/uL Lymphocytes # 0.6 L (1.0-4.8) k/uL ABG Total CO2 25 H (19-24) mmol/L ABG O2 Saturation 98.0 H (94-97) % Sodium (137-145) mmol/L Chloride (98-107) mmol/L Glucose (74-99) mg/dL POC Glucose (mg/dL) 114 H (70-110) mg/dL Calcium (8.4-10.2) mg/dL Magnesium (1.6-2.3) mg/dL Total Protein (6.3-8.2) g/dL Albumin (3.5-5.0) g/dL Crossmatch 05/30/22 05/30/22 05/30/22 Range/Units 16:00 17:01 18:00 WBC (3.8-10.6) k/uL RBC (4.30-5.90) m/uL Hgb (13.0-17.5) gm/dL Hct (39.0-53.0) % MCV (80.0-100.0) fL MCH (25.0-35.0) pg Plt Count (150-450) k/uL Lymphocytes # (1.0-4.8) k/uL ABG Total CO2 (19-24) mmol/L ABG O2 Saturation (94-97) % Sodium (137-145) mmol/L Chloride (98-107) mmol/L Glucose (74-99) mg/dL POC Glucose (mg/dL) 144 H 127 H 121 H (70-110) mg/dL Calcium (8.4-10.2) mg/dL Magnesium (1.6-2.3) mg/dL Total Protein (6.3-8.2) g/dL Albumin (3.5-5.0) g/dL Crossmatch 05/30/22 05/30/22 05/30/22 Range/Units 18:00 18:58 19:58 WBC 3.2 L (3.8-10.6) k/uL RBC 3.19 L (4.30-5.90) m/uL Hgb 11.2 L (13.0-17.5) gm/dL Hct 32.1 L (39.0-53.0) % MCV 100.5 H (80.0-100.0) fL MCH 35.2 H (25.0-35.0) pg Plt Count 105 L (150-450) k/uL Lymphocytes # 0.4 L (1.0-4.8) k/uL ABG Total CO2 (19-24) mmol/L ABG O2 Saturation (94-97) % Sodium (137-145) mmol/L Chloride (98-107) mmol/L Glucose (74-99) mg/dL POC Glucose (mg/dL) 115 H 114 H (70-110) mg/dL Calcium (8.4-10.2) mg/dL Magnesium (1.6-2.3) mg/dL Total Protein (6.3-8.2) g/dL Albumin (3.5-5.0) g/dL Crossmatch 05/30/22 05/30/22 05/30/22 Range/Units 20:55 21:58 22:58 WBC (3.8-10.6) k/uL RBC (4.30-5.90) m/uL Hgb (13.0-17.5) gm/dL Hct (39.0-53.0) % MCV (80.0-100.0) fL MCH (25.0-35.0) pg Plt Count (150-450) k/uL Lymphocytes # (1.0-4.8) k/uL ABG Total CO2 (19-24) mmol/L ABG O2 Saturation (94-97) % Sodium (137-145) mmol/L Chloride (98-107) mmol/L Glucose (74-99) mg/dL POC Glucose (mg/dL) 128 H 120 H 131 H (70-110) mg/dL Calcium (8.4-10.2) mg/dL Magnesium (1.6-2.3) mg/dL Total Protein (6.3-8.2) g/dL Albumin (3.5-5.0) g/dL Crossmatch 05/30/22 05/31/22 05/31/22 Range/Units 23:58 01:03 02:06 WBC (3.8-10.6) k/uL RBC (4.30-5.90) m/uL Hgb (13.0-17.5) gm/dL Hct (39.0-53.0) % MCV (80.0-100.0) fL MCH (25.0-35.0) pg Plt Count (150-450) k/uL Lymphocytes # (1.0-4.8) k/uL ABG Total CO2 (19-24) mmol/L ABG O2 Saturation (94-97) % Sodium (137-145) mmol/L Chloride (98-107) mmol/L Glucose (74-99) mg/dL POC Glucose (mg/dL) 128 H 139 H 126 H (70-110) mg/dL Calcium (8.4-10.2) mg/dL Magnesium (1.6-2.3) mg/dL Total Protein (6.3-8.2) g/dL Albumin (3.5-5.0) g/dL Crossmatch 05/31/22 05/31/22 05/31/22 Range/Units 02:56 04:02 05:00 WBC (3.8-10.6) k/uL RBC 3.21 L (4.30-5.90) m/uL Hgb 11.1 L (13.0-17.5) gm/dL Hct 32.4 L (39.0-53.0) % MCV 100.8 H (80.0-100.0) fL MCH (25.0-35.0) pg Plt Count 104 L (150-450) k/uL Lymphocytes # 0.6 L (1.0-4.8) k/uL ABG Total CO2 (19-24) mmol/L ABG O2 Saturation (94-97) % Sodium (137-145) mmol/L Chloride (98-107) mmol/L Glucose (74-99) mg/dL POC Glucose (mg/dL) 124 H 133 H (70-110) mg/dL Calcium (8.4-10.2) mg/dL Magnesium (1.6-2.3) mg/dL Total Protein (6.3-8.2) g/dL Albumin (3.5-5.0) g/dL Crossmatch 05/31/22 05/31/22 05/31/22 Range/Units 05:00 05:03 06:17 WBC (3.8-10.6) k/uL RBC (4.30-5.90) m/uL Hgb (13.0-17.5) gm/dL Hct (39.0-53.0) % MCV (80.0-100.0) fL MCH (25.0-35.0) pg Plt Count (150-450) k/uL Lymphocytes # (1.0-4.8) k/uL ABG Total CO2 (19-24) mmol/L ABG O2 Saturation (94-97) % Sodium 136 L (137-145) mmol/L Chloride 109 H (98-107) mmol/L Glucose 130 H (74-99) mg/dL POC Glucose (mg/dL) 132 H 138 H (70-110) mg/dL Calcium 7.9 L (8.4-10.2) mg/dL Magnesium (1.6-2.3) mg/dL Total Protein 5.3 L (6.3-8.2) g/dL Albumin 3.1 L (3.5-5.0) g/dL Crossmatch 05/31/22 Range/Units 07:08 WBC (3.8-10.6) k/uL RBC (4.30-5.90) m/uL Hgb (13.0-17.5) gm/dL Hct (39.0-53.0) % MCV (80.0-100.0) fL MCH (25.0-35.0) pg Plt Count (150-450) k/uL Lymphocytes # (1.0-4.8) k/uL ABG Total CO2 (19-24) mmol/L ABG O2 Saturation (94-97) % Sodium (137-145) mmol/L Chloride (98-107) mmol/L Glucose (74-99) mg/dL POC Glucose (mg/dL) 143 H (70-110) mg/dL Calcium (8.4-10.2) mg/dL Magnesium (1.6-2.3) mg/dL Total Protein (6.3-8.2) g/dL Albumin (3.5-5.0) g/dL Crossmatch - Imaging and Cardiology Chest x-ray: image reviewed Assessment and Plan Assessment: 1. Multi vessel coronary artery disease with in-stent restenosis, accelerating unstable angina, status post two-vessel off-pump CABG 2. History of coronary artery disease with previous PCI in 05/2015 and 08/2021 with restenosis of stent to LAD 3. Hypertension 4. Hyperlipidemia, treated, cholesterol 119, LDL 45 5. Multiple myeloma with history of stem cell transplant in October 2020 status post chemotherapy and radiation treatments currently on Revlimid (stopped 05/26/22) 6. Anemia, thrombocytopenia 7. Peripheral neuropathy 8. 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 Obstructive sleep apnea with home CPAP use 10. Previous tobacco dependence 11. 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 GERD 13. Osteoarthritis with history of left hip replacement 14. Recent basal cell skin cancer with removal 15. Hard of hearing 16. Vaccinated but not boosted against Covid 17. Right internal carotid artery stenosis 50-69% Plan: 1. Continue aspirin, statin, Plavix beta tone therapy. Will increase beta tone therapy as tolerated. Discontinue IV nitro 2. Continue calcium channel tone for radial artery spasm prophylaxis. Will transition to oral 3. Wean O2 as tolerated. Encourage incentive spirometry use 10 times every hour while awake. Bronchodilators per pulmonology 4. Increase activity, ambulate as tolerated. PT/OT/cardiac rehab consulted 5. Will monitor daily labs and x-rays. Electrolyte replacement per protocol 6. Insulin management per internal medicine. Patient is not diabetic, preoperative hemoglobin A1c 5.7%. Patient does need tight blood sugar control to promote healing and prevent infection 7. Pain control per current medication regimen. Will add Toradol 8. Continue to hold Revlimid 9. Discontinue [place]. Connect Cordis to continuous CVP monitoring 10. Continue mediastinal/left pleural chest tubes for another 24 hours 11. Continue Soriano catheter for another 24 hours for strict accurate intake and output. Daily weights 12. Will discontinue CELE drain 13. More recommendations to follow
[2022-05-31] MEDS: IPRATROPIUM-ALBUTEROL 3 ML NEB INHALATION SCH ×4 (07:54→21:05)
[2022-05-31] MEDS: MULTIVITAMINS, THERA 1 EACH TAB PO SCH (08:09)
[2022-05-31] MEDS: CLOPIDOGREL 75 MG TAB PO SCH (08:09)
[2022-05-31] MEDS: ATORVASTATIN 40 MG TAB PO SCH (08:09)
[2022-05-31] MEDS: MONTELUKAST 10 MG TAB PO SCH (08:09)
[2022-05-31] MEDS: METOPROLOL TARTRATE 12.5 MG TAB PO SCH ×2 (08:09→20:22)
--- NOTE | 2022-05-31 08:33 | XR ---
EXAMINATION TYPE: XR chest 1V portable DATE OF EXAM: 05/31/2022 HISTORY: Post Op CABG COMPARISON: 05/30/2022 TECHNIQUE: Single view of the chest is submitted. FINDINGS: SG catheter, mediastinal drains and chest tubes are appropriately placed. Left atrial clip is in plac e. Sternotomy wires are noted. Post operative changes of CABG. No sizeable pneumothorax. Scattered Pleural-parenchymal opacities may reflect atelectasis. The heart is not enlarged. IMPRESSION: 1. Post operative changes of CABG.
[2022-05-31] MEDS ORDERED: MAGNESIUM HYDROXIDE 2,400 MG/10 ML CUP PO PRN (09:00)
[2022-05-31] MEDS ORDERED: ASPIRIN 81 MG PO SCH (09:00)
[2022-05-31] MEDS ORDERED: bisacodyL 10 MG SUPP RECTAL PRN (09:00)
[2022-05-31] MEDS ORDERED: PANTOPRAZOLE 40 MG/10 ML VIAL IVP SCH (09:00)
[2022-05-31] MEDS ORDERED: ASPIRIN 325 MG TAB PO SCH (09:00)
--- NOTE | 2022-05-31 09:09 | P.PN ---
Subjective PROGRESS NOTE The patient is an 82-year-old male with a history of CAD, hypertension who has been followed by Dr. Smyth and presented with symptoms of chest discomfort, underwent cardiac catheterization and was found to have severe in-stent resteno sis at the ostium of the LAD. He is scheduled to undergo CABG on Monday. He had mild chest discomfort this morning but is feeling better now. He continues to be on IV heparin. May 28: The patient is doing well this morning, he had mild discomfort earlier but pain- free now. He continues to be on IV heparin. His scheduled to undergo surgery on Monday. He is ambulating in his room. He continues to be on IV heparin. His breathing is stable. He denies any nausea or vomiting. May 29: He had mild discomfort in the morning with minimal activity, he is pain-free at this time. He continues to be on IV heparin, nitrate and beta tone. His breathing is stable. He denies any dizziness or palpitations. No nausea. He is scheduled to undergo CABG tomorrow. 05/31 Patient underwent off pump CABG with FRASER to LAD and left radial to OM 2 with ligation of the left atrial appendage 05/30. He has been doing well. He denies any chest pain or pressure. His [place] catheter was pulled this morning. Blood pressures somewhat borderline 90s over 50s however off of any pressors. He remains on Cardizem drip at 5. PHYSICAL EXAMINATION: Vitals reviewed LUNGS: Clear to auscultation HEART: Regular rate and rhythm, S1, S2. No S3. systolic ejection murmur ABDOMEN: Soft, nontender, no organomegaly EXTREMETIES: No edema, IMPRESSION: 1. Unstable angina with severe in-stent restenosis of the ostium of the LAD, s/p CABG FRASER to LAD and left radial to OM2 05/30 2. Hyperlipidemia 3. Prior history of smoking 4. History of multiple myeloma status post cell transplant PLAN: Patient appears to be progressing well after CABG. Denies any further angina- type symptoms. Continue with current supportive care. Continue aspirin and Plavix. Objective - Vital Signs Vital signs: Vital Signs Temp 99.5 F 05/31/22 04:00 Pulse 80 05/31/22 08:07 Resp 24 05/31/22 07:00 BP 156/76 05/30/22 06:15 Pulse Ox 92 L 05/31/22 07:00 FiO2 45 05/30/22 17:19 Intake & Output 05/30/22 05/31/22 05/31/22 18:59 06:59 18:59 Intake Total 0122.702 5745.035 60.557 Output Total 2205 1090 60 Balance -888.541 148.035 0.557 Weight 79.8 kg Intake: IV 187 1178 59 ACETAMINOPHEN IV (For NPO 100 ) 1,000 mg In Empty Bag 1 bag @ 400 mls/hr IVPB Q6HR [facility] Rx#:[id number] Albumin Human 5% 250 ml 250 In Empty Bag 1 bag @ 250 mls/hr IVPB Q1HR PRN Rx#: [id number] CO/CI 80 120 Lactated Ringers 1,000 ml 550 50 @ 20 mls/hr IV .Q24H [facility] Rx#:[id number] ceFAZolin 2 gm In Sodium 50 Chloride 0.9% 50 ml @ 100 mls/hr IVPB Q8HR [facility] Rx# :[id number] ns pressure bags 54 108 9 Intake, IV Titration 1069.459 60.035 1.557 Amount ACETAMINOPHEN IV (For NPO 100 ) 1,000 mg In Empty Bag 1 bag @ 400 mls/hr IVPB Q6HR [facility] Rx#:[id number] Albumin Human 5% 250 ml 250 In Empty Bag 1 bag @ 250 mls/hr IVPB Q1HR PRN Rx#: [id number] Dexmedetomidine/0.9% NaCl 26.667 (Pmx) 400 mcg In Empty Bag 1 bag @ Titrate IV . Q0M [facility] Rx#:[id number] Diltiazem 125 mg In 30 5 Sodium Chloride 0.9% 100 ml @ 5 MG/HR 5 mls/hr IV .Q24H [facility] Rx#:[id number] Insulin Regular 100 unit 2.112 3.535 1.557 In Sodium Chloride 0.9% 100 ml @ Per Protocol IV .Q0M [facility] Rx#:[id number] Lactated Ringers 1,000 ml 300 50 @ 20 mls/hr IV .Q24H [facility] Rx#:[id number] Magnesium Sulfate-D5w Pmx 200 1 gm In Dextrose/Water 1 100ml.bag @ 100 mls/hr IVPB Q1H [facility] Rx#: [id number] Nitroglycerin-D5w Pmx 50 9.0 1.5 mg In Dextrose/Water 1 250ml.bag @ 5 MCG/MIN 1.5 mls/hr IV .Q24H [facility] Rx#: [id number] ceFAZolin 2 gm In Sodium 50 Chloride 0.9% 50 ml @ 100 mls/hr IVPB Q8HR [facility] Rx# :[id number] propofoL 1,000 mg In 101.68 Empty Bag 1 bag @ Titrate IV .Q0M [facility] Rx#: [id number] Lipid 20 CO/CI 20 Other 40 Output: Chest Tube Drainage 350 400 20 Left Pleural 110 230 10 Mediastinal 240 170 10 Drainage 20 Left Arm 20 Urine 1255 670 40 Estimated Blood Loss 600 Other: Voiding Method Indwelling Catheter Indwelling Catheter ABP, PAP, CO, CI - Last Documented Arterial Blood Pressure 124/57 Pulmonary Artery Pressure 42/16 Cardiac Output 5.6 Cardiac Index 2.9 - Labs CBC & Chem 7: 05/31/22 05:00 05/31/22 05:00 Labs: Abnormal Lab Results - Last 24 Hours (Table) 05/29/22 05/30/22 05/30/22 Range/Units 05:25 12:40 12:40 WBC 3.3 L (3.8-10.6) k/uL RBC 3.14 L (4.30-5.90) m/uL Hgb 10.6 L (13.0-17.5) gm/dL Hct 31.9 L (39.0-53.0) % MCV 101.7 H (80.0-100.0) fL MCH (25.0-35.0) pg Plt Count 95 L (150-450) k/uL Lymphocytes # 0.7 L (1.0-4.8) k/uL ABG Total CO2 (19-24) mmol/L ABG O2 Saturation (94-97) % Sodium (137-145) mmol/L Chloride 113 H (98-107) mmol/L Glucose 103 H (74-99) mg/dL POC Glucose (mg/dL) (70-110) mg/dL Calcium 7.6 L (8.4-10.2) mg/dL Magnesium 1.5 L (1.6-2.3) mg/dL Total Protein 5.3 L (6.3-8.2) g/dL Albumin 3.0 L (3.5-5.0) g/dL Crossmatch See Detail 05/30/22 05/30/22 05/30/22 Range/Units 13:05 15:03 15:05 WBC 2.6 L (3.8-10.6) k/uL RBC 3.12 L (4.30-5.90) m/uL Hgb 10.3 L (13.0-17.5) gm/dL Hct 31.5 L (39.0-53.0) % MCV 101.1 H (80.0-100.0) fL MCH (25.0-35.0) pg Plt Count 106 L (150-450) k/uL Lymphocytes # 0.6 L (1.0-4.8) k/uL ABG Total CO2 25 H (19-24) mmol/L ABG O2 Saturation 98.0 H (94-97) % Sodium (137-145) mmol/L Chloride (98-107) mmol/L Glucose (74-99) mg/dL POC Glucose (mg/dL) 114 H (70-110) mg/dL Calcium (8.4-10.2) mg/dL Magnesium (1.6-2.3) mg/dL Total Protein (6.3-8.2) g/dL Albumin (3.5-5.0) g/dL Crossmatch 05/30/22 05/30/22 05/30/22 Range/Units 16:00 17:01 18:00 WBC (3.8-10.6) k/uL RBC (4.30-5.90) m/uL Hgb (13.0-17.5) gm/dL Hct (39.0-53.0) % MCV (80.0-100.0) fL MCH (25.0-35.0) pg Plt Count (150-450) k/uL Lymphocytes # (1.0-4.8) k/uL ABG Total CO2 (19-24) mmol/L ABG O2 Saturation (94-97) % Sodium (137-145) mmol/L Chloride (98-107) mmol/L Glucose (74-99) mg/dL POC Glucose (mg/dL) 144 H 127 H 121 H (70-110) mg/dL Calcium (8.4-10.2) mg/dL Magnesium (1.6-2.3) mg/dL Total Protein (6.3-8.2) g/dL Albumin (3.5-5.0) g/dL Crossmatch 05/30/22 05/30/22 05/30/22 Range/Units 18:00 18:58 19:58 WBC 3.2 L (3.8-10.6) k/uL RBC 3.19 L (4.30-5.90) m/uL Hgb 11.2 L (13.0-17.5) gm/dL Hct 32.1 L (39.0-53.0) % MCV 100.5 H (80.0-100.0) fL MCH 35.2 H (25.0-35.0) pg Plt Count 105 L (150-450) k/uL Lymphocytes # 0.4 L (1.0-4.8) k/uL ABG Total CO2 (19-24) mmol/L ABG O2 Saturation (94-97) % Sodium (137-145) mmol/L Chloride (98-107) mmol/L Glucose (74-99) mg/dL POC Glucose (mg/dL) 115 H 114 H (70-110) mg/dL Calcium (8.4-10.2) mg/dL Magnesium (1.6-2.3) mg/dL Total Protein (6.3-8.2) g/dL Albumin (3.5-5.0) g/dL Crossmatch 05/30/22 05/30/22 05/30/22 Range/Units 20:55 21:58 22:58 WBC (3.8-10.6) k/uL RBC (4.30-5.90) m/uL Hgb (13.0-17.5) gm/dL Hct (39.0-53.0) % MCV (80.0-100.0) fL MCH (25.0-35.0) pg Plt Count (150-450) k/uL Lymphocytes # (1.0-4.8) k/uL ABG Total CO2 (19-24) mmol/L ABG O2 Saturation (94-97) % Sodium (137-145) mmol/L Chloride (98-107) mmol/L Glucose (74-99) mg/dL POC Glucose (mg/dL) 128 H 120 H 131 H (70-110) mg/dL Calcium (8.4-10.2) mg/dL Magnesium (1.6-2.3) mg/dL Total Protein (6.3-8.2) g/dL Albumin (3.5-5.0) g/dL Crossmatch 05/30/22 05/31/22 05/31/22 Range/Units 23:58 01:03 02:06 WBC (3.8-10.6) k/uL RBC (4.30-5.90) m/uL Hgb (13.0-17.5) gm/dL Hct (39.0-53.0) % MCV (80.0-100.0) fL MCH (25.0-35.0) pg Plt Count (150-450) k/uL Lymphocytes # (1.0-4.8) k/uL ABG Total CO2 (19-24) mmol/L ABG O2 Saturation (94-97) % Sodium (137-145) mmol/L Chloride (98-107) mmol/L Glucose (74-99) mg/dL POC Glucose (mg/dL) 128 H 139 H 126 H (70-110) mg/dL Calcium (8.4-10.2) mg/dL Magnesium (1.6-2.3) mg/dL Total Protein (6.3-8.2) g/dL Albumin (3.5-5.0) g/dL Crossmatch 05/31/22 05/31/22 05/31/22 Range/Units 02:56 04:02 05:00 WBC (3.8-10.6) k/uL RBC 3.21 L (4.30-5.90) m/uL Hgb 11.1 L (13.0-17.5) gm/dL Hct 32.4 L (39.0-53.0) % MCV 100.8 H (80.0-100.0) fL MCH (25.0-35.0) pg Plt Count 104 L (150-450) k/uL Lymphocytes # 0.6 L (1.0-4.8) k/uL ABG Total CO2 (19-24) mmol/L ABG O2 Saturation (94-97) % Sodium (137-145) mmol/L Chloride (98-107) mmol/L Glucose (74-99) mg/dL POC Glucose (mg/dL) 124 H 133 H (70-110) mg/dL Calcium (8.4-10.2) mg/dL Magnesium (1.6-2.3) mg/dL Total Protein (6.3-8.2) g/dL Albumin (3.5-5.0) g/dL Crossmatch 05/31/22 05/31/22 05/31/22 Range/Units 05:00 05:03 06:17 WBC (3.8-10.6) k/uL RBC (4.30-5.90) m/uL Hgb (13.0-17.5) gm/dL Hct (39.0-53.0) % MCV (80.0-100.0) fL MCH (25.0-35.0) pg Plt Count (150-450) k/uL Lymphocytes # (1.0-4.8) k/uL ABG Total CO2 (19-24) mmol/L ABG O2 Saturation (94-97) % Sodium 136 L (137-145) mmol/L Chloride 109 H (98-107) mmol/L Glucose 130 H (74-99) mg/dL POC Glucose (mg/dL) 132 H 138 H (70-110) mg/dL Calcium 7.9 L (8.4-10.2) mg/dL Magnesium (1.6-2.3) mg/dL Total Protein 5.3 L (6.3-8.2) g/dL Albumin 3.1 L (3.5-5.0) g/dL Crossmatch 05/31/22 Range/Units 07:08 WBC (3.8-10.6) k/uL RBC (4.30-5.90) m/uL Hgb (13.0-17.5) gm/dL Hct (39.0-53.0) % MCV (80.0-100.0) fL MCH (25.0-35.0) pg Plt Count (150-450) k/uL Lymphocytes # (1.0-4.8) k/uL ABG Total CO2 (19-24) mmol/L ABG O2 Saturation (94-97) % Sodium (137-145) mmol/L Chloride (98-107) mmol/L Glucose (74-99) mg/dL POC Glucose (mg/dL) 143 H (70-110) mg/dL Calcium (8.4-10.2) mg/dL Magnesium (1.6-2.3) mg/dL Total Protein (6.3-8.2) g/dL Albumin (3.5-5.0) g/dL Crossmatch
[2022-05-31] MEDS ORDERED: ALBUMIN HUMAN 5% 500 ML in EMPTY BAG 1 BAG IVPB ONE (09:53)
--- NOTE | 2022-05-31 10:27 | P.PN ---
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 He underwent an outpatient dobutamine stress echo on 05/17/[address] segment depression and subjective symptoms of angina. He presented to the hospital on 05/26/2022 for a cardiac catheterization which showed a right dominant system with 45% proximal and mid RCA disease, 85-90% disease in the left circumflex, and 95-99% stenosis in the ostial LAD. Cardiology felt patient would be best served by bypass. He was seen by cardiothoracic surgery he undewent off pump double bypass surgery on 05/30/22. He was extubated same day. Patient seen and examined at bedside. He is sitting up in the chair. He is having some chest pain. No shortness of breath. General: ill appearing, no distress, appears at stated age Derm: warm, dry Head: atraumatic, normocephalic, symmetric Eyes: EOMI, no lid lag, anicteric sclera Mouth: no lip lesion, mucus membranes moist Cardiovascular: S1S2 reg, no murmur, positive posterior tibial pulse bilateral, CT and medistinal tube in place. Lungs: CTA bilateral, no rhonchi, no rales , no accessory muscle use, [place] in place right neck Abdominal: soft, nontender to palpation, no guarding, no appreciable organomegaly Ext: no gross muscle atrophy, no edema, no contractures Neuro: CN II-XII grossly intact, no focal neuro deficits Psych: Awake, alert, appropriate affect : dinero with clear urine Assessment/Plan: Symptomatic multivessel coronary artery disease s/p CABG X 2 FRASER to LAD and left radial to obtuse marginal 05/30/22 Hypertension Dyslipidemia - management per cardiothorasic surgery. - ASA, Statin, Plavix, metoprolol Borderline anemia, iron deficiency, stable at 11.1 - TIBC 481 and T sat 16% (had to call main lab for numbers, did not cross over into system) - IV iron X 1 given on 05/29/22 - follow CBC Multiple myeloma -Status post STEM cell transplant. Has been on maintenance Revlimid. Oncology has commented that this may be held until patient is healed from cardiac procedures Peripheral neuropathy - gabapentin COPD, mild FEV1 69% - pulmonary recs - Montelukast Obstructive sleep apnea with CPAP use GERD - PPI Osteoarthritis Heart of hearing Thank you for allowing us to participate in the care of this pleasant patient. Do not hesitate to contact us with questions. Someone can be reached from the [facility] hospitalist group all hours of the day at [phone] or via perfect serve. Active Medications Generic Name Dose Route Start Last Admin Trade Name Freq PRN Reason Stop Dose Admin Acetaminophen 650 mg 05/31/22 06:40 Acetaminophen Tab 325 Mg Tab PO Q4HR PRN Fever and/ or Pain Hydrocodone Bitart/Acetaminophen 2 each 05/31/22 00:04 Hydrocodone/Apap 5-325mg 1 Each Tab PO Q4HR PRN Severe Pain (Scale 7 to 10) Hydrocodone Bitart/Acetaminophen 1 each 05/31/22 00:04 05/31/22 04:56 Hydrocodone/Apap 5-325mg 1 Each Tab PO 1 each Q4HR PRN Administration Moderate Pain (Scale 4 to 6) Albuterol/Ipratropium 3 ml 05/30/22 12:16 Ipratropium-Albuterol 3 Ml Neb INHALATION RT-Q2H PRN Shortness Of Breath Or Wheezing Albuterol/Ipratropium 3 ml 05/30/22 20:00 05/31/22 07:54 Ipratropium-Albuterol 3 Ml Neb INHALATION 3 ml RT-QID [facility] Administration Amlodipine Besylate 5 mg 05/31/22 12:00 Amlodipine 5 Mg Tab PO DAILY@1200 [facility] Aspirin 325 mg 05/31/22 09:00 05/31/22 08:09 Aspirin 325 Mg Tab PO 325 mg DAILY [facility] Administration Atorvastatin Calcium 40 mg 05/31/22 09:00 05/31/22 08:09 Atorvastatin 40 Mg Tab PO 40 mg DAILY [facility] Administration Benzocaine/Menthol 1 each 05/30/22 12:16 Benzocaine/Menthol Lozeng 1 Each Lozenge MUCOUS MEM Q2H PRN Sore Throat Bisacodyl 10 mg 05/31/22 09:00 Bisacodyl 10 Mg Supp RECTAL DAILY PRN Constipation Clopidogrel Bisulfate 75 mg 05/31/22 09:00 05/31/22 08:09 Clopidogrel 75 Mg Tab PO 75 mg DAILY [facility] Administration Dextrose/Water 25 ml 05/30/22 12:16 Dextrose 50% Syringe 50 Ml IVP PER PROTOCOL PRN Hypoglycemia Protocol Dextrose/Water 50 ml 05/30/22 12:16 Dextrose 50% Syringe 50 Ml IVP PER PROTOCOL PRN Hypoglycemia Protocol Gabapentin 300 mg 05/26/22 17:00 05/30/22 16:19 Gabapentin 300 Mg Cap PO 06/25/22 17:01 300 mg 1700 [facility] Administration Heparin Sodium (Porcine) 5,000 unit 05/30/22 16:00 05/31/22 08:09 Heparin Sodium,Porcine/Pf 5,000 Unit/0.5 Ml Syringe SQ 5,000 unit Q8HR [facility] Administration Diltiazem HCl 125 mg/ Sodium 125 mls @ 5 mls/hr 05/30/22 12:16 05/30/22 12:35 Chloride IV 05/31/22 12:30 5 mg/hr .Q24H [facility] 5 mls/hr Administration 5 MG/HR Amiodarone HCl 150 mg/ 103 mls @ 618 mls/hr 05/30/22 12:16 Dextrose/Water IV .Q10M PRN A.FIB/FLUTTER Protocol Amiodarone HCl 360 mg/ 207.2 mls @ 34.533 mls/hr 05/30/22 12:16 Dextrose/Water IV .Q6H PRN A.FIB/FLUTTER Protocol 1 MG/MIN Amiodarone HCl 450 mg/ 250 mls @ 16.667 mls/hr 05/30/22 12:16 Dextrose/Water IV .Q15H PRN A.FIB/FLUTTER Protocol 0.5 MG/MIN Albumin Human 250 ml/ IV 250 mls @ 250 mls/hr 05/30/22 12:16 05/31/22 01:18 Solution IVPB 06/01/22 12:17 250 mls/hr Q1HR PRN Administration For Volume Protocol Lactated Ringer's 1,000 mls @ 20 mls/hr 05/30/22 12:16 05/30/22 12:52 Lactated Ringers IV 50 mls/hr .Q24H CAM[facility] Administration Insulin Human Regular 100 unit 101 mls @ 0 mls/hr 05/30/22 12:16 05/31/22 07:09 / Sodium Chloride IV 1 unit/hr .Q0M CAMERON 1.01 mls/hr Titration Protocol Per Protocol Albumin Human 500 ml/ IV 500 mls @ 250 mls/hr 05/31/22 09:53 05/31/22 10:09 Solution IVPB 05/31/22 10:52 250 mls/hr ONCE ONE Administration Protocol Ketorolac Tromethamine 15 mg 05/31/22 07:00 05/31/22 07:11 Ketorolac 15 Mg/Ml 1 Ml Vial IVP 06/03/22 06:58 15 mg Q6HR CAM[facility] Administration Magnesium Hydroxide 2,400 mg 05/31/22 09:00 Magnesium Hydroxide 2,400 Mg/10 Ml Cup PO BID PRN Constipation Metoclopramide HCl 10 mg 05/30/22 12:16 05/31/22 06:58 Metoclopramide 5 Mg/Ml 2 Ml Vial IVP 10 mg Q4H PRN Administration Nausea And Vomiting Metoprolol Tartrate 12.5 mg 05/31/22 09:00 05/31/22 08:09 Metoprolol Tartrate 12.5 Mg Tab PO 12.5 mg BID CAM[facility]ON Administration Miscellaneous Information 1 each 05/30/22 12:16 Potassium Replacement Protocol 1 Each Misc MISCELLANE DAILY PRN Per Protocol Protocol Miscellaneous Information 1 each 05/30/22 12:16 Magnesium Replacement Protocol 1 Each Misc MISCELLANE DAILY PRN Per Protocol Protocol Montelukast Sodium 10 mg 05/27/22 09:00 05/31/22 08:09 Montelukast 10 Mg Tab PO 06/26/22 09:01 10 mg DAILY [facility] Administration Multivitamins 1 each 05/27/22 09:00 05/31/22 08:09 Multivitamins, Thera 1 Each Tab PO 06/26/22 09:01 1 each DAILY [facility] Administration Ondansetron HCl 4 mg 05/30/22 12:16 Ondansetron 4 Mg/2 Ml Vial IVP Q6HR PRN Nausea And Vomiting Pantoprazole Sodium 40 mg 06/01/22 07:30 Pantoprazole 40 Mg Tablet PO AC-BRKFST CAMER[facility] Senna/Docusate Sodium 2 each 05/31/22 21:00 Sennosides-Docusate Sodium 1 Each Tab PO HS CAM[facility]ON Sodium Chloride 10 ml 05/30/22 21:00 05/31/22 08:10 Sodium Chloride 0.9% Flush 10 Ml Syringe IV 10 ml BID CAM[facility] Administration Objective - Vital Signs Vital signs: Vital Signs Temp 99.1 F 05/31/22 08:00 Pulse 80 05/31/22 09:00 Resp 15 05/31/22 09:00 BP 156/76 05/30/22 06:15 Pulse Ox 92 L 05/31/22 09:00 FiO2 45 05/30/22 17:19 Intake & Output 05/30/22 05/31/22 05/31/22 18:59 06:59 18:59 Intake Total 9793.879 3196.035 274.557 Output Total 2205 1090 135 Balance -888.541 148.035 139.557 Weight 79.8 kg Intake: IV 187 1178 168 ACETAMINOPHEN IV (For NPO 100 ) 1,000 mg In Empty Bag 1 bag @ 400 mls/hr IVPB Q6HR [facility] Rx#:[id number] Albumin Human 5% 250 ml 250 In Empty Bag 1 bag @ 250 mls/hr IVPB Q1HR PRN Rx#: [id number] CO/CI 80 120 Lactated Ringers 1,000 ml 550 100 @ 20 mls/hr IV .Q24H [facility] Rx#:[id number] ceFAZolin 2 gm In Sodium 50 50 Chloride 0.9% 50 ml @ 100 mls/hr IVPB Q8HR [facility] Rx# :[id number] ns pressure bags 54 108 18 Intake, IV Titration 1069.459 60.035 106.557 Amount ACETAMINOPHEN IV (For NPO 100 ) 1,000 mg In Empty Bag 1 bag @ 400 mls/hr IVPB Q6HR [facility] Rx#:[id number] Albumin Human 5% 250 ml 250 In Empty Bag 1 bag @ 250 mls/hr IVPB Q1HR PRN Rx#: [id number] Dexmedetomidine/0.9% NaCl 26.667 (Pmx) 400 mcg In Empty Bag 1 bag @ Titrate IV . Q0M [facility] Rx#:[id number] Diltiazem 125 mg In 30 5 5 Sodium Chloride 0.9% 100 ml @ 5 MG/HR 5 mls/hr IV .Q24H CAM[facility] Rx#:[id number] Insulin Regular 100 unit 2.112 3.535 1.557 In Sodium Chloride 0.9% 100 ml @ Per Protocol IV .Q0M [facility] Rx#:[id number] Lactated Ringers 1,000 ml 300 50 @ 20 mls/hr IV .Q24H [facility] Rx#:[id number] Magnesium Sulfate-D5w Pmx 200 1 gm In Dextrose/Water 1 100ml.bag @ 100 mls/hr IVPB Q1H [facility] Rx#: [id number] Magnesium Sulfate-D5w Pmx 100 1 gm In Dextrose/Water 1 100ml.bag @ 100 mls/hr IVPB Q1H [facility] Rx#: [id number] Nitroglycerin-D5w Pmx 50 9.0 1.5 mg In Dextrose/Water 1 250ml.bag @ 5 MCG/MIN 1.5 mls/hr IV .Q24H [facility] Rx#: [id number] ceFAZolin 2 gm In Sodium 50 Chloride 0.9% 50 ml @ 100 mls/hr IVPB Q8HR [facility] Rx# :[id number] propofoL 1,000 mg In 101.68 Empty Bag 1 bag @ Titrate IV .Q0M [facility] Rx#: [id number] Lipid 20 CO/CI 20 Other 40 Output: Chest Tube Drainage 350 400 60 Left Pleural 110 230 30 Mediastinal 240 170 30 Drainage 20 Left Arm 20 Urine 1255 670 75 Estimated Blood Loss 600 Other: Voiding Method Indwelling Catheter Indwelling Catheter Indwelling Catheter ABP, PAP, CO, CI - Last Documented Arterial Blood Pressure 102/50 Pulmonary Artery Pressure 32/14 Cardiac Output 5.6 Cardiac Index 2.9 - Labs CBC & Chem 7: 05/31/22 05:00 05/31/22 05:00 Labs: Abnormal Lab Results - Last 24 Hours (Table) 05/29/22 05/30/22 05/30/22 Range/Units 05:25 12:40 12:40 WBC 3.3 L (3.8-10.6) k/uL RBC 3.14 L (4.30-5.90) m/uL Hgb 10.6 L (13.0-17.5) gm/dL Hct 31.9 L (39.0-53.0) % MCV 101.7 H (80.0-100.0) fL MCH (25.0-35.0) pg Plt Count 95 L (150-450) k/uL Lymphocytes # 0.7 L (1.0-4.8) k/uL ABG Total CO2 (19-24) mmol/L ABG O2 Saturation (94-97) % Sodium (137-145) mmol/L Chloride 113 H (98-107) mmol/L Glucose 103 H (74-99) mg/dL POC Glucose (mg/dL) (70-110) mg/dL Calcium 7.6 L (8.4-10.2) mg/dL Magnesium 1.5 L (1.6-2.3) mg/dL Total Protein 5.3 L (6.3-8.2) g/dL Albumin 3.0 L (3.5-5.0) g/dL Crossmatch See Detail 05/30/22 05/30/22 05/30/22 Range/Units 13:05 15:03 15:05 WBC 2.6 L (3.8-10.6) k/uL RBC 3.12 L (4.30-5.90) m/uL Hgb 10.3 L (13.0-17.5) gm/dL Hct 31.5 L (39.0-53.0) % MCV 101.1 H (80.0-100.0) fL MCH (25.0-35.0) pg Plt Count 106 L (150-450) k/uL Lymphocytes # 0.6 L (1.0-4.8) k/uL ABG Total CO2 25 H (19-24) mmol/L ABG O2 Saturation 98.0 H (94-97) % Sodium (137-145) mmol/L Chloride (98-107) mmol/L Glucose (74-99) mg/dL POC Glucose (mg/dL) 114 H (70-110) mg/dL Calcium (8.4-10.2) mg/dL Magnesium (1.6-2.3) mg/dL Total Protein (6.3-8.2) g/dL Albumin (3.5-5.0) g/dL Crossmatch 05/30/22 05/30/22 05/30/22 Range/Units 16:00 17:01 18:00 WBC (3.8-10.6) k/uL RBC (4.30-5.90) m/uL Hgb (13.0-17.5) gm/dL Hct (39.0-53.0) % MCV (80.0-100.0) fL MCH (25.0-35.0) pg Plt Count (150-450) k/uL Lymphocytes # (1.0-4.8) k/uL ABG Total CO2 (19-24) mmol/L ABG O2 Saturation (94-97) % Sodium (137-145) mmol/L Chloride (98-107) mmol/L Glucose (74-99) mg/dL POC Glucose (mg/dL) 144 H 127 H 121 H (70-110) mg/dL Calcium (8.4-10.2) mg/dL Magnesium (1.6-2.3) mg/dL Total Protein (6.3-8.2) g/dL Albumin (3.5-5.0) g/dL Crossmatch 05/30/22 05/30/22 05/30/22 Range/Units 18:00 18:58 19:58 WBC 3.2 L (3.8-10.6) k/uL RBC 3.19 L (4.30-5.90) m/uL Hgb 11.2 L (13.0-17.5) gm/dL Hct 32.1 L (39.0-53.0) % MCV 100.5 H (80.0-100.0) fL MCH 35.2 H (25.0-35.0) pg Plt Count 105 L (150-450) k/uL Lymphocytes # 0.4 L (1.0-4.8) k/uL ABG Total CO2 (19-24) mmol/L ABG O2 Saturation (94-97) % Sodium (137-145) mmol/L Chloride (98-107) mmol/L Glucose (74-99) mg/dL POC Glucose (mg/dL) 115 H 114 H (70-110) mg/dL Calcium (8.4-10.2) mg/dL Magnesium (1.6-2.3) mg/dL Total Protein (6.3-8.2) g/dL Albumin (3.5-5.0) g/dL Crossmatch 05/30/22 05/30/22 05/30/22 Range/Units 20:55 21:58 22:58 WBC (3.8-10.6) k/uL RBC (4.30-5.90) m/uL Hgb (13.0-17.5) gm/dL Hct (39.0-53.0) % MCV (80.0-100.0) fL MCH (25.0-35.0) pg Plt Count (150-450) k/uL Lymphocytes # (1.0-4.8) k/uL ABG Total CO2 (19-24) mmol/L ABG O2 Saturation (94-97) % Sodium (137-145) mmol/L Chloride (98-107) mmol/L Glucose (74-99) mg/dL POC Glucose (mg/dL) 128 H 120 H 131 H (70-110) mg/dL Calcium (8.4-10.2) mg/dL Magnesium (1.6-2.3) mg/dL Total Protein (6.3-8.2) g/dL Albumin (3.5-5.0) g/dL Crossmatch 05/30/22 05/31/22 05/31/22 Range/Units 23:58 01:03 02:06 WBC (3.8-10.6) k/uL RBC (4.30-5.90) m/uL Hgb (13.0-17.5) gm/dL Hct (39.0-53.0) % MCV (80.0-100.0) fL MCH (25.0-35.0) pg Plt Count (150-450) k/uL Lymphocytes # (1.0-4.8) k/uL ABG Total CO2 (19-24) mmol/L ABG O2 Saturation (94-97) % Sodium (137-145) mmol/L Chloride (98-107) mmol/L Glucose (74-99) mg/dL POC Glucose (mg/dL) 128 H 139 H 126 H (70-110) mg/dL Calcium (8.4-10.2) mg/dL Magnesium (1.6-2.3) mg/dL Total Protein (6.3-8.2) g/dL Albumin (3.5-5.0) g/dL Crossmatch 05/31/22 05/31/22 05/31/22 Range/Units 02:56 04:02 05:00 WBC (3.8-10.6) k/uL RBC 3.21 L (4.30-5.90) m/uL Hgb 11.1 L (13.0-17.5) gm/dL Hct 32.4 L (39.0-53.0) % MCV 100.8 H (80.0-100.0) fL MCH (25.0-35.0) pg Plt Count 104 L (150-450) k/uL Lymphocytes # 0.6 L (1.0-4.8) k/uL ABG Total CO2 (19-24) mmol/L ABG O2 Saturation (94-97) % Sodium (137-145) mmol/L Chloride (98-107) mmol/L Glucose (74-99) mg/dL POC Glucose (mg/dL) 124 H 133 H (70-110) mg/dL Calcium (8.4-10.2) mg/dL Magnesium (1.6-2.3) mg/dL Total Protein (6.3-8.2) g/dL Albumin (3.5-5.0) g/dL Crossmatch 05/31/22 05/31/22 05/31/22 Range/Units 05:00 05:03 06:17 WBC (3.8-10.6) k/uL RBC (4.30-5.90) m/uL Hgb (13.0-17.5) gm/dL Hct (39.0-53.0) % MCV (80.0-100.0) fL MCH (25.0-35.0) pg Plt Count (150-450) k/uL Lymphocytes # (1.0-4.8) k/uL ABG Total CO2 (19-24) mmol/L ABG O2 Saturation (94-97) % Sodium 136 L (137-145) mmol/L Chloride 109 H (98-107) mmol/L Glucose 130 H (74-99) mg/dL POC Glucose (mg/dL) 132 H 138 H (70-110) mg/dL Calcium 7.9 L (8.4-10.2) mg/dL Magnesium (1.6-2.3) mg/dL Total Protein 5.3 L (6.3-8.2) g/dL Albumin 3.1 L (3.5-5.0) g/dL Crossmatch 05/31/22 Range/Units 07:08 WBC (3.8-10.6) k/uL RBC (4.30-5.90) m/uL Hgb (13.0-17.5) gm/dL Hct (39.0-53.0) % MCV (80.0-100.0) fL MCH (25.0-35.0) pg Plt Count (150-450) k/uL Lymphocytes # (1.0-4.8) k/uL ABG Total CO2 (19-24) mmol/L ABG O2 Saturation (94-97) % Sodium (137-145) mmol/L Chloride (98-107) mmol/L Glucose (74-99) mg/dL POC Glucose (mg/dL) 143 H (70-110) mg/dL Calcium (8.4-10.2) mg/dL Magnesium (1.6-2.3) mg/dL Total Protein (6.3-8.2) g/dL Albumin (3.5-5.0) g/dL Crossmatch
[2022-05-31 11:26] LABS: Glucose,Whole Blood 140 mg/dL (70-110)
[2022-05-31] MEDS ORDERED: DEXTROSE 50% SYRINGE 50 ML IVP PRN ×2 (11:27)
[2022-05-31] MEDS ORDERED: amLODIPine 5 MG TAB PO SCH (12:00)
[2022-05-31] MEDS: INSULIN ASPART (NovoLOG) 100 UNIT/ML VIAL SQ SCH ×3 (12:27→20:16)
[2022-05-31] MEDS: DILTIAZEM 125 MG in SODIUM CHLORIDE 0.9% 100 ML IV SCH (12:27)
--- NOTE | 2022-05-31 12:32 | P.PN ---
Subjective Progress Note Date: 05/31/22 Principal diagnosis: POD #1 off-pump coronary artery bypass graft 2 with left internal mammary artery to the left anterior descending artery and left radial artery graft to the second obtuse marginal, endovascular radial artery harvest, ligation of left atrial appendage with a 35 mm AtriCure clip reevaluated today on 05/31/22, patient is postoperative day #1, off pump cor onary artery bypass graft 2. FRASER to LAD, and left radial artery to second obtuse marginal branch. Patient was extubated last night a few hours after he arrived to the ICU, and he tolerated the extubation well. Presently patient is sitting in a bedside chair, asymptomatic, he is 5 L nasal cannula with O2 sats of 93% up to 97%. Chest x-ray showed mostly typical postoperative changes, mediastinal drains and tubes/chest tubes are in proper position. No evidence of pneumothoraces. And no evidence of CHF. Patient does have minimal bibasilar atelectasis patient is doing great with incentive spirometry, almost achieving 2000 ml/effort. Labs today are unremarkable WBC is 4.1 hemoglobin is 11.1. electrolytes are Normal renal profile is normal. Overall the patient is doing great, he is not in any distress. Patient is on Cardizem drip at 5 mg per hour, IV fluids at KVO, and his hemodynamic parameters this morning showed a cardiac output of 5.6 cardiac index of 2.9. Pulmonary artery pressure is 32/11 Objective - Vital Signs Vital signs: Vital Signs Temp 99.1 F 05/31/22 08:00 Pulse 76 05/31/22 11:00 Resp 23 05/31/22 11:00 BP 156/76 05/30/22 06:15 Pulse Ox 93 L 05/31/22 11:00 FiO2 45 05/30/22 17:19 Intake & Output 05/30/22 05/31/22 05/31/22 18:59 06:59 18:59 Intake Total 2439.121 5871.035 858.557 Output Total 2205 1090 245 Balance -888.541 148.035 613.557 Weight 79.8 kg Intake: IV 187 1178 237 ACETAMINOPHEN IV (For NPO 100 ) 1,000 mg In Empty Bag 1 bag @ 400 mls/hr IVPB Q6HR [facility] Rx#:[id number] Albumin Human 5% 250 ml 250 In Empty Bag 1 bag @ 250 mls/hr IVPB Q1HR [facility] Rx#: [id number] CO/CI 80 120 Lactated Ringers 1,000 ml 550 160 @ 20 mls/hr IV .Q24H [facility] Rx#:[id number] ceFAZolin 2 gm In Sodium 50 50 Chloride 0.9% 50 ml @ 100 mls/hr IVPB Q8HR [facility] Rx# :[id number] ns pressure bags 54 108 27 Intake, IV Titration 1069.459 60.035 621.557 Amount ACETAMINOPHEN IV (For NPO 100 ) 1,000 mg In Empty Bag 1 bag @ 400 mls/hr IVPB Q6HR [facility] Rx#:[id number] Albumin Human 5% 250 ml 250 In Empty Bag 1 bag @ 250 mls/hr IVPB Q1HR [facility] Rx#: [id number] Albumin Human 5% 500 ml 500 In Empty Bag 1 bag @ 250 mls/hr IVPB ONCE ONE Rx#: [id number] Dexmedetomidine/0.9% NaCl 26.667 (Pmx) 400 mcg In Empty Bag 1 bag @ Titrate IV . Q0M [facility] Rx#:[id number] Diltiazem 125 mg In 30 5 20 Sodium Chloride 0.9% 100 ml @ 5 MG/HR 5 mls/hr IV .Q24H [facility] Rx#:[id number] Insulin Regular 100 unit 2.112 3.535 1.557 In Sodium Chloride 0.9% 100 ml @ Per Protocol IV .Q0M [facility] Rx#:[id number] Lactated Ringers 1,000 ml 300 50 @ 20 mls/hr IV .Q24H [facility] Rx#:[id number] Magnesium Sulfate-D5w Pmx 200 1 gm In Dextrose/Water 1 100ml.bag @ 100 mls/hr IVPB Q1H [facility] Rx#: [id number] Magnesium Sulfate-D5w Pmx 100 1 gm In Dextrose/Water 1 100ml.bag @ 100 mls/hr IVPB Q1H [facility] Rx#: [id number] Nitroglycerin-D5w Pmx 50 9.0 1.5 mg In Dextrose/Water 1 250ml.bag @ 5 MCG/MIN 1.5 mls/hr IV .Q24H [facility] Rx#: [id number] ceFAZolin 2 gm In Sodium 50 Chloride 0.9% 50 ml @ 100 mls/hr IVPB Q8HR [facility] Rx# :[id number] propofoL 1,000 mg In 101.68 Empty Bag 1 bag @ Titrate IV .Q0M [facility] Rx#: [id number] Lipid 20 CO/CI 20 Other 40 Output: Chest Tube Drainage 350 400 100 Left Pleural 110 230 50 Mediastinal 240 170 50 Drainage 20 Left Arm 20 Urine 1255 670 145 Estimated Blood Loss 600 Other: Voiding Method Indwelling Catheter Indwelling Catheter Indwelling Catheter ABP, PAP, CO, CI - Last Documented Arterial Blood Pressure 124/57 Pulmonary Artery Pressure 32/14 Cardiac Output 5.6 Cardiac Index 2.9 - Exam Physical Exam: Revealed a 82-year-old white male in no distress. On 5 L nasal cannula. Right internal jugular [place] remains in place. Head: Atraumatic, normocephalic. HEENT:[Neck is supple.] [No neck masses.] [No thyromegaly.] [No JVD.] Chest: [ Diminished breath sounds at the bases no crackles or rhonchi or wheezes. Mediastinal/left pleural chest tubes are intact. No air leak noted. Cardiac Exam: [Normal S1 and S2, no S3 gallop, no murmur.] Abdomen: [Soft, nontender, no megaly, no rebound, no guarding, normal bowel sounds.] Extremities: [No clubbing, no edema, no cyanosis.] Neurological Exam: [No focal neurologic deficit.] Alert and oriented 3. Extremities: No clubbing edema or cyanosis. Psychiatric: Normal mood affect and normal mental status examination. - Labs CBC & Chem 7: 05/31/22 05:00 05/31/22 05:00 Labs: Abnormal Lab Results - Last 24 Hours (Table) 05/29/22 05/30/22 05/30/22 Range/Units 05:25 12:40 12:40 WBC 3.3 L (3.8-10.6) k/uL RBC 3.14 L (4.30-5.90) m/uL Hgb 10.6 L (13.0-17.5) gm/dL Hct 31.9 L (39.0-53.0) % MCV 101.7 H (80.0-100.0) fL MCH (25.0-35.0) pg Plt Count 95 L (150-450) k/uL Lymphocytes # 0.7 L (1.0-4.8) k/uL ABG Total CO2 (19-24) mmol/L ABG O2 Saturation (94-97) % Sodium (137-145) mmol/L Chloride 113 H (98-107) mmol/L Glucose 103 H (74-99) mg/dL POC Glucose (mg/dL) (70-110) mg/dL Calcium 7.6 L (8.4-10.2) mg/dL Magnesium 1.5 L (1.6-2.3) mg/dL Total Protein 5.3 L (6.3-8.2) g/dL Albumin 3.0 L (3.5-5.0) g/dL Crossmatch See Detail 05/30/22 05/30/22 05/30/22 Range/Units 13:05 15:03 15:05 WBC 2.6 L (3.8-10.6) k/uL RBC 3.12 L (4.30-5.90) m/uL Hgb 10.3 L (13.0-17.5) gm/dL Hct 31.5 L (39.0-53.0) % MCV 101.1 H (80.0-100.0) fL MCH (25.0-35.0) pg Plt Count 106 L (150-450) k/uL Lymphocytes # 0.6 L (1.0-4.8) k/uL ABG Total CO2 25 H (19-24) mmol/L ABG O2 Saturation 98.0 H (94-97) % Sodium (137-145) mmol/L Chloride (98-107) mmol/L Glucose (74-99) mg/dL POC Glucose (mg/dL) 114 H (70-110) mg/dL Calcium (8.4-10.2) mg/dL Magnesium (1.6-2.3) mg/dL Total Protein (6.3-8.2) g/dL Albumin (3.5-5.0) g/dL Crossmatch 05/30/22 05/30/22 05/30/22 Range/Units 16:00 17:01 18:00 WBC (3.8-10.6) k/uL RBC (4.30-5.90) m/uL Hgb (13.0-17.5) gm/dL Hct (39.0-53.0) % MCV (80.0-100.0) fL MCH (25.0-35.0) pg Plt Count (150-450) k/uL Lymphocytes # (1.0-4.8) k/uL ABG Total CO2 (19-24) mmol/L ABG O2 Saturation (94-97) % Sodium (137-145) mmol/L Chloride (98-107) mmol/L Glucose (74-99) mg/dL POC Glucose (mg/dL) 144 H 127 H 121 H (70-110) mg/dL Calcium (8.4-10.2) mg/dL Magnesium (1.6-2.3) mg/dL Total Protein (6.3-8.2) g/dL Albumin (3.5-5.0) g/dL Crossmatch 05/30/22 05/30/22 05/30/22 Range/Units 18:00 18:58 19:58 WBC 3.2 L (3.8-10.6) k/uL RBC 3.19 L (4.30-5.90) m/uL Hgb 11.2 L (13.0-17.5) gm/dL Hct 32.1 L (39.0-53.0) % MCV 100.5 H (80.0-100.0) fL MCH 35.2 H (25.0-35.0) pg Plt Count 105 L (150-450) k/uL Lymphocytes # 0.4 L (1.0-4.8) k/uL ABG Total CO2 (19-24) mmol/L ABG O2 Saturation (94-97) % Sodium (137-145) mmol/L Chloride (98-107) mmol/L Glucose (74-99) mg/dL POC Glucose (mg/dL) 115 H 114 H (70-110) mg/dL Calcium (8.4-10.2) mg/dL Magnesium (1.6-2.3) mg/dL Total Protein (6.3-8.2) g/dL Albumin (3.5-5.0) g/dL Crossmatch 05/30/22 05/30/22 05/30/22 Range/Units 20:55 21:58 22:58 WBC (3.8-10.6) k/uL RBC (4.30-5.90) m/uL Hgb (13.0-17.5) gm/dL Hct (39.0-53.0) % MCV (80.0-100.0) fL MCH (25.0-35.0) pg Plt Count (150-450) k/uL Lymphocytes # (1.0-4.8) k/uL ABG Total CO2 (19-24) mmol/L ABG O2 Saturation (94-97) % Sodium (137-145) mmol/L Chloride (98-107) mmol/L Glucose (74-99) mg/dL POC Glucose (mg/dL) 128 H 120 H 131 H (70-110) mg/dL Calcium (8.4-10.2) mg/dL Magnesium (1.6-2.3) mg/dL Total Protein (6.3-8.2) g/dL Albumin (3.5-5.0) g/dL Crossmatch 05/30/22 05/31/22 05/31/22 Range/Units 23:58 01:03 02:06 WBC (3.8-10.6) k/uL RBC (4.30-5.90) m/uL Hgb (13.0-17.5) gm/dL Hct (39.0-53.0) % MCV (80.0-100.0) fL MCH (25.0-35.0) pg Plt Count (150-450) k/uL Lymphocytes # (1.0-4.8) k/uL ABG Total CO2 (19-24) mmol/L ABG O2 Saturation (94-97) % Sodium (137-145) mmol/L Chloride (98-107) mmol/L Glucose (74-99) mg/dL POC Glucose (mg/dL) 128 H 139 H 126 H (70-110) mg/dL Calcium (8.4-10.2) mg/dL Magnesium (1.6-2.3) mg/dL Total Protein (6.3-8.2) g/dL Albumin (3.5-5.0) g/dL Crossmatch 05/31/22 05/31/22 05/31/22 Range/Units 02:56 04:02 05:00 WBC (3.8-10.6) k/uL RBC 3.21 L (4.30-5.90) m/uL Hgb 11.1 L (13.0-17.5) gm/dL Hct 32.4 L (39.0-53.0) % MCV 100.8 H (80.0-100.0) fL MCH (25.0-35.0) pg Plt Count 104 L (150-450) k/uL Lymphocytes # 0.6 L (1.0-4.8) k/uL ABG Total CO2 (19-24) mmol/L ABG O2 Saturation (94-97) % Sodium (137-145) mmol/L Chloride (98-107) mmol/L Glucose (74-99) mg/dL POC Glucose (mg/dL) 124 H 133 H (70-110) mg/dL Calcium (8.4-10.2) mg/dL Magnesium (1.6-2.3) mg/dL Total Protein (6.3-8.2) g/dL Albumin (3.5-5.0) g/dL Crossmatch 05/31/22 05/31/22 05/31/22 Range/Units 05:00 05:03 06:17 WBC (3.8-10.6) k/uL RBC (4.30-5.90) m/uL Hgb (13.0-17.5) gm/dL Hct (39.0-53.0) % MCV (80.0-100.0) fL MCH (25.0-35.0) pg Plt Count (150-450) k/uL Lymphocytes # (1.0-4.8) k/uL ABG Total CO2 (19-24) mmol/L ABG O2 Saturation (94-97) % Sodium 136 L (137-145) mmol/L Chloride 109 H (98-107) mmol/L Glucose 130 H (74-99) mg/dL POC Glucose (mg/dL) 132 H 138 H (70-110) mg/dL Calcium 7.9 L (8.4-10.2) mg/dL Magnesium (1.6-2.3) mg/dL Total Protein 5.3 L (6.3-8.2) g/dL Albumin 3.1 L (3.5-5.0) g/dL Crossmatch 05/31/22 05/31/22 Range/Units 07:08 11:24 WBC (3.8-10.6) k/uL RBC (4.30-5.90) m/uL Hgb (13.0-17.5) gm/dL Hct (39.0-53.0) % MCV (80.0-100.0) fL MCH (25.0-35.0) pg Plt Count (150-450) k/uL Lymphocytes # (1.0-4.8) k/uL ABG Total CO2 (19-24) mmol/L ABG O2 Saturation (94-97) % Sodium (137-145) mmol/L Chloride (98-107) mmol/L Glucose (74-99) mg/dL POC Glucose (mg/dL) 143 H 140 H (70-110) mg/dL Calcium (8.4-10.2) mg/dL Magnesium (1.6-2.3) mg/dL Total Protein (6.3-8.2) g/dL Albumin (3.5-5.0) g/dL Crossmatch Assessment and Plan Assessment: Impression: Status post CABG,, postoperative day #1. History of previous PCI in 2014 and 2021, with restenosis of stent to LAD. 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 Benign essential hypertension obstructive sleep apnea syndrome, on CPAP. 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 GERD without esophagitis. Degenerative joint disease. History of peripheral neuropathy. Recommendation: Continue postoperative incentive spirometry continue aspirin statins and beta blockers and Plavix. Continue to wean oxygen accordingly. Early ambulation. Discontinue unnecessary lines and catheters if possible. Continue mediastinal and pleural chest tubes for now. Continue to monitor daily x-rays of the chest. Continue pain control. Continue bronchodilators. We will continue to follow Time with Patient: Less than 30
[2022-05-31 13:42] VITALS: BMI 26.7
[2022-05-31] MEDS: GABAPENTIN 300 MG CAP PO SCH (16:05)
[2022-05-31] MEDS: LACTATED RINGERS 1,000 ML IV SCH (16:05)
[2022-05-31 16:41] LABS: Glucose,Whole Blood 131 mg/dL (70-110)
[2022-05-31 20:16] LABS: Glucose,Whole Blood 129 mg/dL (70-110)
[2022-05-31] MEDS: SENNOSIDES-DOCUSATE SODIUM 1 EACH TAB PO SCH (20:22)
[2022-06-01] MEDS: KETOROLAC 15 MG/ML 1 ML VIAL IVP SCH (05:42)
[2022-06-01 05:47] LABS: Ionized Calcium 5.1 mg/dL (4.5-5.3)
[2022-06-01 05:52] LABS: Albumin 3.3 g/dL (3.5-5.0); Calcium 8.5 mg/dL (8.4-10.2); Magnesium 2.5 mg/dL (1.6-2.3); Potassium 3.8 mmol/L (3.5-5.1); Total Protein 5.7 g/dL (6.3-8.2)
[2022-06-01] MEDS ORDERED: POTASSIUM CHLORIDE ER 20 MEQ TAB.ER PO SCH (06:00)
[2022-06-01 06:29] LABS: HCT 30.9 % (39.0-53.0); HGB 10.2 gm/dL (13.0-17.5); Hypochromasia Slight; MCH 34.2 pg (25.0-35.0); MCHC 32.9 g/dL (31.0-37.0); MCV 103.8 fL (80.0-100.0); Macrocytosis Slight; Mean Platelet Volume 9.8; RBC 2.98 m/uL (4.30-5.90); RDW 15.2 % (11.5-15.5); WBC 4.6 k/uL (3.8-10.6)
[2022-06-01 06:53] LABS: Glucose,Whole Blood 126 mg/dL (70-110)
[2022-06-01 07:11] LABS: Band Neutrophils % 6 %; Eosinophils # (M) 0.05 k/uL (0-0.7); Lymphocytes # (M) 1.06 k/uL (1.0-4.8); Monocytes # (M) 0.41 k/uL (0-1.0); Neutrophils % (M) 61 %; Nucleated Red Blood Cells 0 /100 WBC (0-0); Total Cells Counted 100
[2022-06-01 07:13] LABS: Anisocytosis (M) Present
[2022-06-01 07:14] LABS: Platelet Count 92 k/uL (150-450); Poikilocytosis (M) Present
--- NOTE | 2022-06-01 07:35 | P.PN ---
Subjective Progress Note Date: 06/01/22 Principal diagnosis: Multi vessel coronary artery disease with in-stent restenosis, accelerating unstable angina. 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 Right ICA stenosis 50-69% by doppler POD #2 off-pump coronary artery bypass graft 2 with left internal mammary artery to the left anterior descending artery and left radial artery graft to the second obtuse marginal, endovascular radial artery harvest, ligation of left atrial appendage with a 35 mm AtriCure clip Postoperative acute blood loss anemia and thrombocytopenia, expected given hemodilution and preoperative anemia and thrombocytopenia The patient was seen and examined this morning sitting up in a recliner in the intensive care unit in no acute distress eating breakfast. Does state pain is mostly controlled with current medication regimen, does complain of some left lateral pain from chest tube. Denies shortness of breath. States he feels pretty good, ambulated in hallway with nursing without difficulty. Remains in sinus rhythm, hemodynamically stable although blood pressures soft. Currently on 5 L nasal cannula with oxygen saturation in the mid 90s. Right internal jugular Cordis, mediastinal/left pleural chest tubes all remain. Chest x-ray and labs reviewed. No other new concerns. Objective - Vital Signs Vital signs: Vital Signs Temp 97.9 F 06/01/22 04:00 Pulse 73 06/01/22 06:00 Resp 14 06/01/22 06:00 BP 94/55 06/01/22 06:00 Pulse Ox 95 06/01/22 06:00 FiO2 45 05/30/22 17:19 Intake & Output 05/31/22 06/01/22 06/01/22 18:59 06:59 18:59 Intake Total 1479.557 276 Output Total 580 395 Balance 899.557 -119 Weight 79.8 kg 83.6 kg Intake: IV 398 276 Lactated Ringers 1,000 ml 300 240 @ 20 mls/hr IV .Q24H [facility] Rx#:[id number] ceFAZolin 2 gm In Sodium 50 Chloride 0.9% 50 ml @ 100 mls/hr IVPB Q8HR [facility] Rx# :[id number] ns pressure bags 48 36 Intake, IV Titration 621.557 Amount Albumin Human 5% 500 ml 500 In Empty Bag 1 bag @ 250 mls/hr IVPB ONCE ONE Rx#: [id number] Diltiazem 125 mg In 20 Sodium Chloride 0.9% 100 ml @ 5 MG/HR 5 mls/hr IV .Q24H [facility] Rx#:[id number] Insulin Regular 100 unit 1.557 In Sodium Chloride 0.9% 100 ml @ Per Protocol IV .Q0M [facility] Rx#:[id number] Magnesium Sulfate-D5w Pmx 100 1 gm In Dextrose/Water 1 100ml.bag @ 100 mls/hr IVPB Q1H [facility] Rx#: [id number] Oral 460 Output: Chest Tube Drainage 220 80 Left Pleural 130 40 Mediastinal 90 40 Urine 360 315 Other: Voiding Method Indwelling Catheter Indwelling Catheter ABP, PAP, CO, CI - Last Documented Arterial Blood Pressure 101/47 Pulmonary Artery Pressure 32/14 Cardiac Output 5.6 Cardiac Index 2.9 - Exam CONSTITUTIONAL: Appears comfortable, cooperative, no acute distress RESPIRATORY: Lungs sounds diminished bilaterally. Respirations even, nonlabored. Currently on 5 L nasal cannula with oxygen saturation 95%. Able to achieve 1250 mL on incentive spirometry. Strong nonproductive cough. CARDIOVASCULAR: S1, S2 present. Regular rate and rhythm, sinus rhythm on telemetry. Sternum stable. Palpable peripheral pulses bilaterally. No edema present. No calf pain or tenderness noted. Heart hugger in place with patient demonstrating appropriate use. Antiembolism stockings, SCDs present. GASTROINTESTINAL: Abdomen soft, nontender, nondistended. Active bowel sounds present 4 quadrants. Tolerating diet. Positive belching, negative flatus GENITOURINARY: Soriano present draining clear, yellow urine. Output overnight 20-40 mL per hour, 675 mL in the last 24 hours INTEGUMENTARY: Skin is warm and dry with evidence of good perfusion. Anterior chest incision well approximated and covered with dry intact dressing. Left radial artery harvest site without redness or drainage NEUROLOGIC: Cranial nerves II through XII intact MUSKULOSKELETAL: Able to move all extremities, strength equal bilaterally, gait normal PSYCHIATRIC: Alert and oriented to person place and time, appropriate affect, intact judgment and insight INVASIVE LINES AND TUBES: Mediastinal/left pleural chest tubes present and connected to wall suction, no air leaks present. Mediastinal tube with 40 mL se rosanguineous drainage overnight, 100 mL in the last 24 hours. Left pleural chest tube with 40 mL serosanguineous drainage overnight, 150 mL in the last 24 hours. Right internal Cordis present. Last CVP 13. - Allied health notes Allied health notes reviewed: nursing - Labs CBC & Chem 7: 06/01/22 05:16 06/01/22 05:16 Labs: Abnormal Lab Results - Last 24 Hours (Table) 05/31/22 05/31/22 05/31/22 Range/Units 11:24 16:40 20:14 RBC (4.30-5.90) m/uL Hgb (13.0-17.5) gm/dL Hct (39.0-53.0) % MCV (80.0-100.0) fL Plt Count (150-450) k/uL Sodium (137-145) mmol/L BUN (9-20) mg/dL Glucose (74-99) mg/dL POC Glucose (mg/dL) 140 H 131 H 129 H (70-110) mg/dL Magnesium (1.6-2.3) mg/dL Total Protein (6.3-8.2) g/dL Albumin (3.5-5.0) g/dL 06/01/22 06/01/22 06/01/22 Range/Units 05:16 05:16 06:52 RBC 2.98 L (4.30-5.90) m/uL Hgb 10.2 L (13.0-17.5) gm/dL Hct 30.9 L (39.0-53.0) % MCV 103.8 H (80.0-100.0) fL Plt Count 92 L (150-450) k/uL Sodium 135 L (137-145) mmol/L BUN 21 H (9-20) mg/dL Glucose 116 H (74-99) mg/dL POC Glucose (mg/dL) 126 H (70-110) mg/dL Magnesium 2.5 H (1.6-2.3) mg/dL Total Protein 5.7 L (6.3-8.2) g/dL Albumin 3.3 L (3.5-5.0) g/dL - Imaging and Cardiology Chest x-ray: image reviewed Assessment and Plan Assessment: 1. Multi vessel coronary artery disease with in-stent restenosis, accelerating unstable angina, status post two-vessel off-pump CABG 2. History of coronary artery disease with previous PCI in 05/2015 and 08/2021 with restenosis of stent to LAD 3. Hypertension 4. Hyperlipidemia, treated, cholesterol 119, LDL 45 5. Multiple myeloma with history of stem cell transplant in October 2020 status post chemotherapy and radiation treatments currently on Revlimid (stopped 05/26/22) 6. Anemia, thrombocytopenia 7. Peripheral neuropathy 8. 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 Obstructive sleep apnea with home CPAP use 10. Previous tobacco dependence 11. 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 GERD 13. Osteoarthritis with history of left hip replacement 14. Recent basal cell skin cancer with removal 15. Hard of hearing 16. Vaccinated but not boosted against Covid 17. Right internal carotid artery stenosis 50-69% 18. Acute blood loss anemia and thrombocytopenia, expected Plan: 1. Continue aspirin, statin, Plavix beta tone therapy. Will increase beta tone therapy as tolerated. 2. Continue calcium channel tone for radial artery spasm prophylaxis with blood pressure parameters 3. Wean O2 as tolerated. Encourage incentive spirometry use 10 times every hour while awake. Bronchodilators, cpap per pulmonology 4. Increase activity, ambulate as tolerated. PT/OT/cardiac rehab following 5. Will monitor daily labs and x-rays. Electrolyte replacement per protocol 6. Insulin management per internal medicine. Patient is not diabetic, preoperative hemoglobin A1c 5.7%. Patient does need tight blood sugar control to promote healing and prevent infection 7. Pain control per current medication regimen 8. Continue to hold Revlimid 9. Discontinue Cordis 10. Will discontinue mediastinal/left pleural chest tubes 11. Discontinue Soriano catheter, may bladder scan and straight cath for >300 mL residual 12. Strict accurate intake and output. Daily weights 13. Will place transfer orders for 3S cardiac stepdown, may transfer when bed available 14. Discharge planning in progress, anticipate discharge to home with home care Monday or Monday 15. More recommendations to follow
[2022-06-01] MEDS: IPRATROPIUM-ALBUTEROL 3 ML NEB INHALATION SCH ×4 (08:11→20:45)
[2022-06-01] MEDS: MULTIVITAMINS, THERA 1 EACH TAB PO SCH (08:28)
[2022-06-01] MEDS: ASPIRIN 81 MG PO SCH (08:28)
[2022-06-01] MEDS: HEPARIN SODIUM,PORCINE/PF 5,000 UNIT/0.5 ML SYRINGE SQ SCH ×2 (08:28→15:49)
[2022-06-01] MEDS: MONTELUKAST 10 MG TAB PO SCH (08:28)
[2022-06-01] MEDS: METOPROLOL TARTRATE 12.5 MG TAB PO SCH (08:28)
[2022-06-01] MEDS: CLOPIDOGREL 75 MG TAB PO SCH (08:28)
[2022-06-01] MEDS: ATORVASTATIN 40 MG TAB PO SCH (08:28)
[2022-06-01] MEDS: PANTOPRAZOLE 40 MG TABLET PO SCH (08:29)
--- NOTE | 2022-06-01 08:46 | P.PN ---
Subjective PROGRESS NOTE The patient is an 82-year-old male with a history of CAD, hypertension who has been followed by Dr. Smyth and presented with symptoms of chest discomfort, underwent cardiac catheterization and was found to have severe in-stent resteno sis at the ostium of the LAD. He is scheduled to undergo CABG on Monday. He had mild chest discomfort this morning but is feeling better now. He continues to be on IV heparin. May 28: The patient is doing well this morning, he had mild discomfort earlier but pain- free now. He continues to be on IV heparin. His scheduled to undergo surgery on Monday. He is ambulating in his room. He continues to be on IV heparin. His breathing is stable. He denies any nausea or vomiting. May 29: He had mild discomfort in the morning with minimal activity, he is pain-free at this time. He continues to be on IV heparin, nitrate and beta tone. His breathing is stable. He denies any dizziness or palpitations. No nausea. He is scheduled to undergo CABG tomorrow. 05/31 Patient underwent off pump CABG with FRASER to LAD and left radial to OM 2 with ligation of the left atrial appendage 05/30. He has been doing well. He denies any chest pain or pressure. His [place] catheter was pulled this morning. Blood pressures somewhat borderline 90s over 50s however off of any pressors. He remains on Cardizem drip at 5. 06/01 Patient seen and examined. Patient's blood pressure is borderline 90s to 100s over 50s however no lightheadedness or dizziness. Denies any chest pain. Den ies any shortness of breath. Remains in sinus rhythm on telemetry. PHYSICAL EXAMINATION: Vitals reviewed LUNGS: Clear to auscultation HEART: Regular rate and rhythm, S1, S2. No S3. systolic ejection murmur ABDOMEN: Soft, nontender, no organomegaly EXTREMETIES: No edema, IMPRESSION: 1. Unstable angina with severe in-stent restenosis of the ostium of the LAD, s/p CABG FRASER to LAD and left radial to OM2 05/30 2. Hyperlipidemia 3. Prior history of smoking 4. History of multiple myeloma status post cell transplant PLAN: Patient appears to be progressing well after CABG. Denies any further angina-type symptoms. Continue with current supportive care. Continue aspirin, Plavix Metoprolol. Objective - Vital Signs Vital signs: Vital Signs Temp 97.9 F 06/01/22 04:00 Pulse 84 06/01/22 08:25 Resp 14 06/01/22 06:00 BP 94/55 06/01/22 06:00 Pulse Ox 95 06/01/22 06:00 FiO2 45 05/30/22 17:19 Intake & Output 05/31/22 06/01/22 06/01/22 18:59 06:59 18:59 Intake Total 1479.557 276 Output Total 580 395 Balance 899.557 -119 Weight 79.8 kg 83.6 kg Intake: IV 398 276 Lactated Ringers 1,000 ml 300 240 @ 20 mls/hr IV .Q24H [facility] Rx#:[id number] ceFAZolin 2 gm In Sodium 50 Chloride 0.9% 50 ml @ 100 mls/hr IVPB Q8HR [facility] Rx# :[id number] ns pressure bags 48 36 Intake, IV Titration 621.557 Amount Albumin Human 5% 500 ml 500 In Empty Bag 1 bag @ 250 mls/hr IVPB ONCE ONE Rx#: [id number] Diltiazem 125 mg In 20 Sodium Chloride 0.9% 100 ml @ 5 MG/HR 5 mls/hr IV .Q24H [facility] Rx#:[id number] Insulin Regular 100 unit 1.557 In Sodium Chloride 0.9% 100 ml @ Per Protocol IV .Q0M [facility] Rx#:[id number] Magnesium Sulfate-D5w Pmx 100 1 gm In Dextrose/Water 1 100ml.bag @ 100 mls/hr IVPB Q1H [facility] Rx#: [id number] Oral 460 Output: Chest Tube Drainage 220 80 Left Pleural 130 40 Mediastinal 90 40 Urine 360 315 Other: Voiding Method Indwelling Catheter Indwelling Catheter ABP, PAP, CO, CI - Last Documented Arterial Blood Pressure 101/47 Pulmonary Artery Pressure 32/14 Cardiac Output 5.6 Cardiac Index 2.9 - Labs CBC & Chem 7: 06/01/22 05:16 06/01/22 05:16 Labs: Abnormal Lab Results - Last 24 Hours (Table) 05/31/22 05/31/22 05/31/22 Range/Units 11:24 16:40 20:14 RBC (4.30-5.90) m/uL Hgb (13.0-17.5) gm/dL Hct (39.0-53.0) % MCV (80.0-100.0) fL Plt Count (150-450) k/uL Sodium (137-145) mmol/L BUN (9-20) mg/dL Glucose (74-99) mg/dL POC Glucose (mg/dL) 140 H 131 H 129 H (70-110) mg/dL Magnesium (1.6-2.3) mg/dL Total Protein (6.3-8.2) g/dL Albumin (3.5-5.0) g/dL 06/01/22 06/01/22 06/01/22 Range/Units 05:16 05:16 06:52 RBC 2.98 L (4.30-5.90) m/uL Hgb 10.2 L (13.0-17.5) gm/dL Hct 30.9 L (39.0-53.0) % MCV 103.8 H (80.0-100.0) fL Plt Count 92 L (150-450) k/uL Sodium 135 L (137-145) mmol/L BUN 21 H (9-20) mg/dL Glucose 116 H (74-99) mg/dL POC Glucose (mg/dL) 126 H (70-110) mg/dL Magnesium 2.5 H (1.6-2.3) mg/dL Total Protein 5.7 L (6.3-8.2) g/dL Albumin 3.3 L (3.5-5.0) g/dL
[2022-06-01] MEDS: INSULIN ASPART (NovoLOG) 100 UNIT/ML VIAL SQ SCH ×4 (09:01→21:08)
--- NOTE | 2022-06-01 09:09 | XR ---
EXAMINATION TYPE: XR chest 1V portable DATE OF EXAM: 06/01/2022 COMPARISON: 05/31/2022 HISTORY: Postop TECHNIQUE: Single frontal view of the chest is obtained. FINDINGS: [place]-Tete catheter has been removed. Persistent reduced inspiration is seen. Chest tube an d mediastinal drain noted. Postsurgical changes are seen and there is atherosclerotic change of the a johanna. Bilateral consolidation and tiny effusion. No sizable pneumothorax. IMPRESSION: 1. Postoperative changes with bilateral infiltrate or atelectasis and tiny effusions.
[2022-06-01] MEDS: ACETAMINOPHEN TAB 325 MG TAB PO PRN ×2 (09:23→15:50)
--- NOTE | 2022-06-01 10:31 | P.PN ---
Subjective Progress Note Date: 06/01/22 No new complaints. Recovering well. Plan to step down from the ICU to the floor today. Gen: awake, alert HEENT: normocephalic, atraumatic, good hearing acuity, moist mucous membranes Resp: good air exchange, breathing comfortably with no accessory muscle use CVS: good distal perfusion x 4, GI: soft, NTTP, ND : no SPT, no CVAT, dinero catheter not present MSK: no pitting edema, no clubbing Neuro: non-focal, moving all extremities Psych: cooperative, euthymic mood Assessment/plan: Symptomatic multivessel coronary artery disease s/p CABG X 2 FRASER to LAD and left radial to obtuse marginal 05/30/22 Hypertension Dyslipidemia - management per cardiothorasic surgery. - ASA, Statin, Plavix, metoprolol Borderline anemia, iron deficiency, stable at 11.1 - TIBC 481 and T sat 16% (had to call main lab for numbers, did not cross over into system) - IV iron X 1 given on 05/29/22, start oral iron - follow CBC Multiple myeloma -Status post STEM cell transplant. Has been on maintenance Revlimid. Oncology has commented that this may be held until patient is healed from cardiac procedures Peripheral neuropathy - gabapentin COPD, mild FEV1 69% - pulmonary recs - Montelukast Obstructive sleep apnea with CPAP use GERD - PPI Osteoarthritis Heart of hearing Thank you for allowing us to participate in the care of this pleasant patient. Do not hesitate to contact us with questions. Someone can be reached from the [facility] hospitalist group all hours of the day at [phone] or via perfect serve. Objective - Vital Signs Vital signs: Vital Signs Temp 98.7 F 06/01/22 08:00 Pulse 84 06/01/22 09:00 Resp 18 06/01/22 09:00 BP 100/69 06/01/22 09:00 Pulse Ox 95 06/01/22 09:00 FiO2 45 05/30/22 17:19 Intake & Output 05/31/22 06/01/22 06/01/22 18:59 06:59 18:59 Intake Total 1479.557 276 263 Output Total 580 395 60 Balance 899.557 -119 203 Weight 79.8 kg 83.6 kg Intake: IV 398 276 23 Lactated Ringers 1,000 ml 300 240 20 @ 20 mls/hr IV .Q24H [facility] Rx#:[id number] ceFAZolin 2 gm In Sodium 50 Chloride 0.9% 50 ml @ 100 mls/hr IVPB Q8HR [facility] Rx# :[id number] ns pressure bags 48 36 3 Intake, IV Titration 621.557 Amount Albumin Human 5% 500 ml 500 In Empty Bag 1 bag @ 250 mls/hr IVPB ONCE ONE Rx#: [id number] Diltiazem 125 mg In 20 Sodium Chloride 0.9% 100 ml @ 5 MG/HR 5 mls/hr IV .Q24H [facility] Rx#:[id number] Insulin Regular 100 unit 1.557 In Sodium Chloride 0.9% 100 ml @ Per Protocol IV .Q0M [facility] Rx#:[id number] Magnesium Sulfate-D5w Pmx 100 1 gm In Dextrose/Water 1 100ml.bag @ 100 mls/hr IVPB Q1H [facility] Rx#: [id number] Oral 460 240 Output: Chest Tube Drainage 220 80 Left Pleural 130 40 Mediastinal 90 40 Urine 360 315 60 Other: Voiding Method Indwelling Catheter Indwelling Catheter Indwelling Catheter ABP, PAP, CO, CI - Last Documented Arterial Blood Pressure 101/47 Pulmonary Artery Pressure 32/14 Cardiac Output 5.6 Cardiac Index 2.9 - Labs CBC & Chem 7: 06/01/22 05:16 06/01/22 05:16 Labs: Abnormal Lab Results - Last 24 Hours (Table) 05/31/22 05/31/22 05/31/22 Range/Units 11:24 16:40 20:14 RBC (4.30-5.90) m/uL Hgb (13.0-17.5) gm/dL Hct (39.0-53.0) % MCV (80.0-100.0) fL Plt Count (150-450) k/uL Sodium (137-145) mmol/L BUN (9-20) mg/dL Glucose (74-99) mg/dL POC Glucose (mg/dL) 140 H 131 H 129 H (70-110) mg/dL Magnesium (1.6-2.3) mg/dL Total Protein (6.3-8.2) g/dL Albumin (3.5-5.0) g/dL 12/21/22 12/21/22 12/21/22 Range/Units 05:16 05:16 06:52 RBC 2.98 L (4.30-5.90) m/uL Hgb 10.2 L (13.0-17.5) gm/dL Hct 30.9 L (39.0-53.0) % MCV 103.8 H (80.0-100.0) fL Plt Count 92 L (150-450) k/uL Sodium 135 L (137-145) mmol/L BUN 21 H (9-20) mg/dL Glucose 116 H (74-99) mg/dL POC Glucose (mg/dL) 126 H (70-110) mg/dL Magnesium 2.5 H (1.6-2.3) mg/dL Total Protein 5.7 L (6.3-8.2) g/dL Albumin 3.3 L (3.5-5.0) g/dL
[2022-06-01 11:20] LABS: Glucose,Whole Blood 128 mg/dL (70-110)
[2022-06-01] MEDS: FERROUS SULFATE 325 MG TAB PO SCH (12:43)
[2022-06-01] MEDS: amLODIPine 2.5 MG TAB PO SCH (12:43)
--- NOTE | 2022-06-01 14:00 | P.PN ---
Subjective Progress Note Date: 06/01/22 Principal diagnosis: POD #2 off-pump coronary artery bypass graft 2 with left internal mammary artery to the left anterior descending artery and left radial artery graft to the second obtuse marginal, endovascular radial artery harvest, ligation of left atrial appendage with a 35 mm AtriCure clip reevaluated today on 05/31/22, patient is postoperative day #1, off pump cor onary artery bypass graft 2. FRASER to LAD, and left radial artery to second obtuse marginal branch. Patient was extubated last night a few hours after he arrived to the ICU, and he tolerated the extubation well. Presently patient is sitting in a bedside chair, asymptomatic, he is 5 L nasal cannula with O2 sats of 93% up to 97%. Chest x-ray showed mostly typical postoperative changes, mediastinal drains and tubes/chest tubes are in proper position. No evidence of pneumothoraces. And no evidence of CHF. Patient does have minimal bibasilar atelectasis patient is doing great with incentive spirometry, almost achieving 2000 ml/effort. Labs today are unremarkable WBC is 4.1 hemoglobin is 11.1. electrolytes are Normal renal profile is normal. Overall the patient is doing great, he is not in any distress. Patient is on Cardizem drip at 5 mg per hour, IV fluids at KVO, and his hemodynamic parameters this morning showed a cardiac output of 5.6 cardiac index of 2.9. Pulmonary artery pressure is 32/11 Reevaluated today on 06/01/22, patient remains in the ICU, he is on 4 L nasal cannula, his chest tubes and mediastinal tube has been removed. Patient is doing great, asymptomatic, he is already ambulating with some assistance down the hallway. His chest x-ray is reassuring, minimal left basilar atelectasis is noted. Patient is doing excellent with his incentive spirometer. His CBC is normal hemoglobin is 10.2 units with are normal renal profile is normal with BUN of 21 creatinine 1.21 Objective - Vital Signs Vital signs: Vital Signs Temp 98.2 F 06/01/22 12:00 Pulse 82 06/01/22 12:00 Resp 24 06/01/22 12:00 BP 110/65 06/01/22 12:00 Pulse Ox 95 06/01/22 12:00 FiO2 45 05/30/22 17:19 Intake & Output 1206/01/22 06/01/22 18:59 06:59 18:59 Intake Total 1479.557 276 503 Output Total 580 395 60 Balance 899.557 -119 443 Weight 79.8 kg 83.6 kg Intake: IV 398 276 23 Lactated Ringers 1,000 ml 300 240 20 @ 20 mls/hr IV .Q24H [facility] Rx#:[id number] ceFAZolin 2 gm In Sodium 50 Chloride 0.9% 50 ml @ 100 mls/hr IVPB Q8HR [facility] Rx# :[id number] ns pressure bags 48 36 3 Intake, IV Titration 621.557 Amount Albumin Human 5% 500 ml 500 In Empty Bag 1 bag @ 250 mls/hr IVPB ONCE ONE Rx#: [id number] Diltiazem 125 mg In 20 Sodium Chloride 0.9% 100 ml @ 5 MG/HR 5 mls/hr IV .Q24H [facility] Rx#:[id number] Insulin Regular 100 unit 1.557 In Sodium Chloride 0.9% 100 ml @ Per Protocol IV .Q0M [facility] Rx#:[id number] Magnesium Sulfate-D5w Pmx 100 1 gm In Dextrose/Water 1 100ml.bag @ 100 mls/hr IVPB Q1H [facility] Rx#: [id number] Oral 460 480 Output: Chest Tube Drainage 220 80 Left Pleural 130 40 Mediastinal 90 40 Urine 360 315 60 Other: Voiding Method Indwelling Catheter Indwelling Catheter Indwelling Catheter ABP, PAP, CO, CI - Last Documented Arterial Blood Pressure 101/47 Pulmonary Artery Pressure 32/14 Cardiac Output 5.6 Cardiac Index 2.9 - Exam Physical Exam: Revealed a 82-year-old white male in no distress. On 4 L nasal cannula Head: Atraumatic, normocephalic. HEENT:[Neck is supple.] [No neck masses.] [No thyromegaly.] [No JVD.] Chest: [ Diminished breath sounds at the bases no crackles or rhonchi or wheezes, chest tubes have been removed. Cardiac Exam: [Normal S1 and S2, no S3 gallop, no murmur.] Abdomen: [Soft, nontender, no megaly, no rebound, no guarding, normal bowel sounds.] Extremities: [No clubbing, no edema, no cyanosis.] Neurological Exam: [No focal neurologic deficit.] Alert and oriented 3. Extremities: No clubbing edema or cyanosis. Psychiatric: Normal mood affect and normal mental status examination. - Labs CBC & Chem 7: 06/01/22 05:16 06/01/22 05:16 Labs: Abnormal Lab Results - Last 24 Hours (Table) 05/31/22 05/31/22 06/01/22 Range/Units 16:40 20:14 05:16 RBC 2.98 L (4.30-5.90) m/uL Hgb 10.2 L (13.0-17.5) gm/dL Hct 30.9 L (39.0-53.0) % MCV 103.8 H (80.0-100.0) fL Plt Count 92 L (150-450) k/uL Sodium (137-145) mmol/L BUN (9-20) mg/dL Glucose (74-99) mg/dL POC Glucose (mg/dL) 131 H 129 H (70-110) mg/dL Magnesium (1.6-2.3) mg/dL Total Protein (6.3-8.2) g/dL Albumin (3.5-5.0) g/dL 06/01/22 06/01/22 06/01/22 Range/Units 05:16 06:52 11:19 RBC (4.30-5.90) m/uL Hgb (13.0-17.5) gm/dL Hct (39.0-53.0) % MCV (80.0-100.0) fL Plt Count (150-450) k/uL Sodium 135 L (137-145) mmol/L BUN 21 H (9-20) mg/dL Glucose 116 H (74-99) mg/dL POC Glucose (mg/dL) 126 H 128 H (70-110) mg/dL Magnesium 2.5 H (1.6-2.3) mg/dL Total Protein 5.7 L (6.3-8.2) g/dL Albumin 3.3 L (3.5-5.0) g/dL Assessment and Plan Assessment: Impression: Status post CABG,, postoperative day number History of previous PCI in 2014 and 2021, with restenosis of stent to LAD. 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 Benign essential hypertension obstructive sleep apnea syndrome, on CPAP. 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 GERD without esophagitis. Degenerative joint disease. History of peripheral neuropathy. Recommendation: aspirin statins and beta blockers and Plavix. Continue to wean oxygen accordingly. Ambulate Discontinue unnecessary lines and catheters if possible. Continue to monitor daily x-rays of the chest. Continue pain control. Continue bronchodilators. We will continue to follow Time with Patient: Less than 30
[2022-06-01 16:29] LABS: Glucose,Whole Blood 136 mg/dL (70-110)
[2022-06-01] MEDS: GABAPENTIN 300 MG CAP PO SCH (16:54)
[2022-06-01] MEDS: HYDROcodone/APAP 5-325MG 1 EACH TAB PO PRN (16:54)
[2022-06-01 21:02] LABS: Glucose,Whole Blood 132 mg/dL (70-110)
[2022-06-01] MEDS: METOPROLOL TARTRATE 25 MG TAB PO SCH (21:07)
[2022-06-01] MEDS: SENNOSIDES-DOCUSATE SODIUM 1 EACH TAB PO SCH (21:07)
[2022-06-02] MEDS: HEPARIN SODIUM,PORCINE/PF 5,000 UNIT/0.5 ML SYRINGE SQ SCH ×3 (01:39→16:12)
[2022-06-02] MEDS: HYDROcodone/APAP 5-325MG 1 EACH TAB PO PRN ×2 (01:39→10:06)
[2022-06-02] MEDS: AMIODARONE 450 MG in DEXTROSE 5% IN WATER 250 ML IV PRN ×4 (03:31→03:36)
[2022-06-02 06:57] LABS: Glucose,Whole Blood 126 mg/dL (70-110)
[2022-06-02 07:10] LABS: HCT 31.8 % (39.0-53.0); HGB 10.3 gm/dL (13.0-17.5); Hypochromasia Slight; MCH 33.9 pg (25.0-35.0); MCHC 32.3 g/dL (31.0-37.0); MCV 104.8 fL (80.0-100.0); Macrocytosis Moderate; Mean Platelet Volume 9.9; Platelet Count 119 k/uL (150-450); RBC 3.03 m/uL (4.30-5.90); RDW 14.6 % (11.5-15.5); WBC 4.6 k/uL (3.8-10.6)
[2022-06-02] MEDS: IPRATROPIUM-ALBUTEROL 3 ML NEB INHALATION SCH ×4 (07:36→21:14)
--- NOTE | 2022-06-02 07:41 | P.PN ---
Subjective PROGRESS NOTE The patient is an 82-year-old male with a history of CAD, hypertension who has been followed by Dr. Smyth and presented with symptoms of chest discomfort, underwent cardiac catheterization and was found to have severe in-stent resteno sis at the ostium of the LAD. He is scheduled to undergo CABG on Monday. He had mild chest discomfort this morning but is feeling better now. He continues to be on IV heparin. May 28: The patient is doing well this morning, he had mild discomfort earlier but pain- free now. He continues to be on IV heparin. His scheduled to undergo surgery on Monday. He is ambulating in his room. He continues to be on IV heparin. His breathing is stable. He denies any nausea or vomiting. May 29: He had mild discomfort in the morning with minimal activity, he is pain-free at this time. He continues to be on IV heparin, nitrate and beta tone. His breathing is stable. He denies any dizziness or palpitations. No nausea. He is scheduled to undergo CABG tomorrow. 05/31 Patient underwent off pump CABG with FRASER to LAD and left radial to OM 2 with ligation of the left atrial appendage 05/30. He has been doing well. He denies any chest pain or pressure. His [place]-Tete catheter was pulled this morning. Blood pressures somewhat borderline 90s over 50s however off of any pressors. He remains on Cardizem drip at 5. 06/01 Patient seen and examined. Patient's blood pressure is borderline 90s to 100s over 50s however no lightheadedness or dizziness. Denies any chest pain. Den ies any shortness of breath. Remains in sinus rhythm on telemetry. 06/02 Patient seen and examined. Patient states his breathing is stable. He admits to reproducible chest pain however no other discomfort. He went into atrial flutter with relatively controlled heart rates in the 90s overnight. He was placed on amiodarone drip. No prior history of atrial flutter atrial fibrillation. PHYSICAL EXAMINATION: Vitals reviewed LUNGS: Clear to auscultation HEART: Regular rate and rhythm, S1, S2. No S3. systolic ejection murmur ABDOMEN: Soft, nontender, no organomegaly EXTREMETIES: No edema, IMPRESSION: 1. Unstable angina with severe in-stent restenosis of the ostium of the LAD, s/p CABG FRASER to LAD and left radial to OM2 05/30 2. Hyperlipidemia 3. Prior history of smoking 4. History of multiple myeloma status post cell transplant 5. New onset Atrial flutter PLAN: Patient appears to be progressing well after CABG. Denies any further angina-type symptoms. Continue with current supportive care. Continue aspirin, Plavix Metoprolol. If patient maintains an atrial flutter he will likely need anticoagulation however monitor at this time. Discussed with surgery. Objective - Vital Signs Vital signs: Vital Signs Temp 97.8 F 06/02/22 00:00 Pulse 90 06/02/22 06:00 Resp 22 06/02/22 06:00 BP 98/63 06/02/22 06:00 Pulse Ox 96 06/02/22 06:00 FiO2 45 05/30/22 17:19 Intake & Output 06/01/22 06/02/22 06/02/22 18:59 06:59 18:59 Intake Total 503 321.389 Output Total 310 390 Balance 193 -68.611 Weight 84 kg Intake: IV 23 Lactated Ringers 1,000 ml 20 @ 20 mls/hr IV .Q24H [facility] Rx#:[id number] ns pressure bags 3 Intake, IV Titration 1.389 Amount Amiodarone 450 mg In 1.389 Dextrose 5% in Water 250 ml @ 0.5 MG/MIN 16.667 mls/hr IV .Q15H [facility] Rx#: [id number] Oral 480 320 Output: Urine 310 390 Post Void Residual 0 Other: Voiding Method Indwelling Catheter Urinal ABP, PAP, CO, CI - Last Documented Arterial Blood Pressure 101/47 Pulmonary Artery Pressure 32/14 Cardiac Output 5.6 Cardiac Index 2.9 - Labs CBC & Chem 7: 06/02/22 06:05 06/01/22 05:16 Labs: Abnormal Lab Results - Last 24 Hours (Table) 06/01/22 06/01/22 06/01/22 Range/Units 11:19 16:26 21:01 RBC (4.30-5.90) m/uL Hgb (13.0-17.5) gm/dL Hct (39.0-53.0) % MCV (80.0-100.0) fL Plt Count (150-450) k/uL POC Glucose (mg/dL) 128 H 136 H 132 H (70-110) mg/dL 06/02/22 06/02/22 Range/Units 06:05 06:55 RBC 3.03 L (4.30-5.90) m/uL Hgb 10.3 L (13.0-17.5) gm/dL Hct 31.8 L (39.0-53.0) % MCV 104.8 H (80.0-100.0) fL Plt Count 119 L (150-450) k/uL POC Glucose (mg/dL) 126 H (70-110) mg/dL
[2022-06-02] MEDS: INSULIN ASPART (NovoLOG) 100 UNIT/ML VIAL SQ SCH ×4 (07:52→20:07)
--- NOTE | 2022-06-02 07:52 | P.PN ---
Subjective Progress Note Date: 06/02/22 Principal diagnosis: Multi vessel coronary artery disease with in-stent restenosis, accelerating unstable angina. 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 Right ICA stenosis 50-69% by doppler POD #3 off-pump coronary artery bypass graft 2 with left internal mammary artery to the left anterior descending artery and left radial artery graft to the second obtuse marginal, endovascular radial artery harvest, ligation of left atrial appendage with a 35 mm AtriCure clip Postoperative acute blood loss anemia and thrombocytopenia, expected given hemodilution and preoperative anemia and thrombocytopenia Atrial fibrillation, known common occurrence after open heart surgery, not a complication The patient was seen and examined this morning sitting up in a recliner in the intensive care unit in no acute distress eating breakfast. Does state pain is mostly controlled with current medication regimen, denies shortness of breath. States he feels pretty good, ambulated in hallway with nursing without difficulty. He did go into atrial fibrillation last night when ambulating, remains in controlled atrial fibrillation, hemodynamically stable although blood pressures soft. Currently on 2 L nasal cannula with oxygen saturation in the mid 90s. Chest x-ray and labs reviewed. No other new concerns. Objective - Vital Signs Vital signs: Vital Signs Temp 97.8 F 06/02/22 00:00 Pulse 90 06/02/22 06:00 Resp 22 06/02/22 06:00 BP 98/63 06/02/22 06:00 Pulse Ox 96 06/02/22 06:00 FiO2 45 05/30/22 17:19 Intake & Output 06/01/22 06/02/22 06/02/22 18:59 06:59 18:59 Intake Total 503 321.389 Output Total 310 390 Balance 193 -68.611 Weight 84 kg Intake: IV 23 Lactated Ringers 1,000 ml 20 @ 20 mls/hr IV .Q24H [facility] Rx#:[id number] ns pressure bags 3 Intake, IV Titration 1.389 Amount Amiodarone 450 mg In 1.389 Dextrose 5% in Water 250 ml @ 0.5 MG/MIN 16.667 mls/hr IV .Q15H [facility] Rx#: [id number] Oral 480 320 Output: Urine 310 390 Post Void Residual 0 Other: Voiding Method Indwelling Catheter Urinal ABP, PAP, CO, CI - Last Documented Arterial Blood Pressure 101/47 Pulmonary Artery Pressure 32/14 Cardiac Output 5.6 Cardiac Index 2.9 - Exam CONSTITUTIONAL: Appears comfortable, cooperative, no acute distress RESPIRATORY: Lungs sounds diminished bilaterally. Respirations even, nonlabored. Currently on 2 L nasal cannula with oxygen saturation 96%. Able to achieve 1500 mL on incentive spirometry. Strong nonproductive cough. CARDIOVASCULAR: S1, S2 present. Irregular rate and rhythm, controlled atrial fibrillation on telemetry. Sternum stable. Palpable peripheral pulses bilater ally. No edema present. No calf pain or tenderness noted. Heart hugger in place with patient demonstrating appropriate use. Antiembolism stockings, SCDs present. GASTROINTESTINAL: Abdomen soft, nontender, nondistended. Active bowel sounds present 4 quadrants. Tolerating diet. Positive flatus GENITOURINARY: Soriano discontinued yesterday, continues to void clear, yellow urine INTEGUMENTARY: Skin is warm and dry with evidence of good perfusion. Anterior chest incision well approximated and covered with dry intact dressing. Left radial artery harvest site without redness or drainage NEUROLOGIC: Cranial nerves II through XII intact MUSKULOSKELETAL: Able to move all extremities, strength equal bilaterally, gait normal PSYCHIATRIC: Alert and oriented to person place and time, appropriate affect, intact judgment and insight - Allied health notes Allied health notes reviewed: nursing - Labs CBC & Chem 7: 06/02/22 06:05 06/02/22 06:05 Labs: Abnormal Lab Results - Last 24 Hours (Table) 06/01/22 06/01/22 06/01/22 Range/Units 11:19 16:26 21:01 RBC (4.30-5.90) m/uL Hgb (13.0-17.5) gm/dL Hct (39.0-53.0) % MCV (80.0-100.0) fL Plt Count (150-450) k/uL POC Glucose (mg/dL) 128 H 136 H 132 H (70-110) mg/dL 06/02/22 06/02/22 Range/Units 06:05 06:55 RBC 3.03 L (4.30-5.90) m/uL Hgb 10.3 L (13.0-17.5) gm/dL Hct 31.8 L (39.0-53.0) % MCV 104.8 H (80.0-100.0) fL Plt Count 119 L (150-450) k/uL POC Glucose (mg/dL) 126 H (70-110) mg/dL - Imaging and Cardiology Chest x-ray: image reviewed Assessment and Plan Assessment: 1. Multi vessel coronary artery disease with in-stent restenosis, accelerating unstable angina, status post two-vessel off-pump CABG 2. History of coronary artery disease with previous PCI in 05/2015 and 08/2021 with restenosis of stent to LAD 3. Hypertension 4. Hyperlipidemia, treated, cholesterol 119, LDL 45 5. Multiple myeloma with history of stem cell transplant in October 2020 status post chemotherapy and radiation treatments currently on Revlimid (stopped 1 07/27/21) 6. Anemia, thrombocytopenia 7. Peripheral neuropathy 8. 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 Obstructive sleep apnea with home CPAP use 10. Previous tobacco dependence 11. 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 GERD 13. Osteoarthritis with history of left hip replacement 14. Recent basal cell skin cancer with removal 15. Hard of hearing 16. Vaccinated but not boosted against Covid 17. Right internal carotid artery stenosis 50-69% 18. Acute blood loss anemia and thrombocytopenia, expected 19. Atrial fibrillation, status post left atrial appendage ligation Plan: 1. Continue aspirin, statin, Plavix beta tone therapy. Will increase beta tone therapy as tolerated. 2. Continue calcium channel tone for radial artery spasm prophylaxis with blood pressure parameters 3. Continue amiodarone for afib, will transition to oral. No anticoagulation unless in atrial fibrillation for greater than 24 hours 4. Wean O2 as tolerated. Encourage incentive spirometry use 10 times every hour while awake. Bronchodilators, cpap per pulmonology 5. Increase activity, ambulate as tolerated. PT/OT/cardiac rehab following. Fi rst post op shower today 6. Will monitor daily labs and x-rays. Electrolyte replacement per protocol. Will give IV Lasix today 7. Insulin management per internal medicine. Patient is not diabetic, preoperative hemoglobin A1c 5.7%. Patient does need tight blood sugar control to promote healing and prevent infection 8. Pain control per current medication regimen 9. Continue to hold Revlimid 10. Strict accurate intake and output. Daily weights 11. Transfer orders placed yesterday for 3S cardiac stepdown, may transfer when bed available 12. Discharge planning in progress, anticipate discharge to home with home care Monday or Monday 13. More recommendations to follow
[2022-06-02 08:03] LABS: Basophils # (M) 0.05 k/uL (0-0.2); Eosinophils # (M) 0.05 k/uL (0-0.7); Lymphocytes # (M) 0.83 k/uL (1.0-4.8); Monocytes # (M) 0.78 k/uL (0-1.0); Neutrophils % (M) 63 %; Nucleated Red Blood Cells 0 /100 WBC (0-0); Total Cells Counted 100
[2022-06-02 08:21] LABS: Albumin 3.4 g/dL (3.5-5.0); Calcium 8.4 mg/dL (8.4-10.2); Potassium 4.2 mmol/L (3.5-5.1); Total Bilirubin 0.9 mg/dL (0.2-1.3); Total Protein 6.1 g/dL (6.3-8.2)
[2022-06-02] MEDS ORDERED: FUROSEMIDE 10 MG/ML 2 ML VIAL IV ONE (08:26)
--- NOTE | 2022-06-02 08:29 | XR ---
EXAMINATION TYPE: XR chest 2V DATE OF EXAM: 06/02/2022 COMPARISON: 06/01/2022 HISTORY: Shortness of breath TECHNIQUE: Frontal and lateral views of the chest are obtained. FINDINGS: Scattered senescent parenchymal changes noted. Basilar atelectasis and/or infiltrates persist essentially unchanged. Median sternotomy changes. Left atrial clip is in place. Heart size is stable. Mediastinal structures are stable and grossly unremarkable. No evidence for hilar prominence. Degenerative changes dorsal spine. IMPRESSION: 1. Basilar atelectasis and/or infiltrates persist essentially unchanged.
[2022-06-02] MEDS: ASPIRIN 81 MG PO SCH (09:15)
[2022-06-02] MEDS: AMIODARONE 200 MG TAB PO SCH ×2 (09:16→20:06)
[2022-06-02] MEDS: PANTOPRAZOLE 40 MG TABLET PO SCH (09:16)
[2022-06-02] MEDS: METOPROLOL TARTRATE 25 MG TAB PO SCH ×2 (09:16→20:06)
[2022-06-02] MEDS: MULTIVITAMINS, THERA 1 EACH TAB PO SCH (09:16)
[2022-06-02] MEDS: ATORVASTATIN 40 MG TAB PO SCH (09:16)
[2022-06-02] MEDS: CLOPIDOGREL 75 MG TAB PO SCH (09:16)
[2022-06-02] MEDS: MONTELUKAST 10 MG TAB PO SCH (09:17)
--- NOTE | 2022-06-02 11:37 | P.PN ---
Subjective Progress Note Date: 06/02/22 Principal diagnosis: POD #3 off-pump coronary artery bypass graft 2 with left internal mammary artery to the left anterior descending artery and left radial artery graft to the second obtuse marginal, endovascular radial artery harvest, ligation of left atrial appendage with a 35 mm AtriCure clip reevaluated today on 05/31/22, patient is postoperative day #1, off pump cor onary artery bypass graft 2. FRASER to LAD, and left radial artery to second obtuse marginal branch. Patient was extubated last night a few hours after he arrived to the ICU, and he tolerated the extubation well. Presently patient is sitting in a bedside chair, asymptomatic, he is 5 L nasal cannula with O2 sats of 93% up to 97%. Chest x-ray showed mostly typical postoperative changes, mediastinal drains and tubes/chest tubes are in proper position. No evidence of pneumothoraces. And no evidence of CHF. Patient does have minimal bibasilar atelectasis patient is doing great with incentive spirometry, almost achieving 2000 ml/effort. Labs today are unremarkable WBC is 4.1 hemoglobin is 11.1. electrolytes are Normal renal profile is normal. Overall the patient is doing great, he is not in any distress. Patient is on Cardizem drip at 5 mg per hour, IV fluids at KVO, and his hemodynamic parameters this morning showed a cardiac output of 5.6 cardiac index of 2.9. Pulmonary artery pressure is 32/11 Reevaluated today on 06/01/22, patient remains in the ICU, he is on 4 L nasal cannula, his chest tubes and mediastinal tube has been removed. Patient is doing great, asymptomatic, he is already ambulating with some assistance down the hallway. His chest x-ray is reassuring, minimal left basilar atelectasis is noted. Patient is doing excellent with his incentive spirometer. His CBC is normal hemoglobin is 10.2 units with are normal renal profile is normal with BUN of 21 creatinine 1.21 reevaluated today on 06/02/22, patient is sitting in a bedside chair, doing well, however last night patient had atrial fibrillation with RVR, required placement on amiodarone, and he remains on amiodarone drip at 0.5 mg/m at this point.patient is on room air, O2 saturation is 91%, he is relatively asymptomatic, no cough no wheezing no shortness of breath, chest x-ray showed mostly by basilar atelectasis left more so than right.WBC count is 4.6 hemoglobin is 10 electrolytes are normal renal profile is normal Objective - Vital Signs Vital signs: Vital Signs Temp 98.9 F 06/02/22 08:00 Pulse 100 06/02/22 11:06 Resp 23 06/02/22 10:00 BP 112/77 06/02/22 10:00 Pulse Ox 91 L 06/02/22 10:00 FiO2 45 05/30/22 17:19 Intake & Output 06/01/22 06/02/22 06/02/22 18:59 06:59 18:59 Intake Total 503 321.389 Output Total 310 390 750 Balance 193 -68.611 -750 Weight 84 kg Intake: IV 23 Lactated Ringers 1,000 ml 20 @ 20 mls/hr IV .Q24H [facility] Rx#:[id number] ns pressure bags 3 Intake, IV Titration 1.389 Amount Amiodarone 450 mg In 1.389 Dextrose 5% in Water 250 ml @ 0.5 MG/MIN 16.667 mls/hr IV .Q15H PRN Rx#: [id number] Oral 480 320 Output: Urine 310 390 750 Post Void Residual 0 Other: Voiding Method Indwelling Catheter Urinal Urinal # Voids 2 ABP, PAP, CO, CI - Last Documented Arterial Blood Pressure 101/47 Pulmonary Artery Pressure 32/14 Cardiac Output 5.6 Cardiac Index 2.9 - Exam Physical Exam: Revealed a 82-year-old white male in no distress. presently on room air, in no distress Head: Atraumatic, normocephalic. HEENT:[Neck is supple.] [No neck masses.] [No thyromegaly.] [No JVD.] Chest: [ Diminished breath sounds at the bases no crackles or rhonchi or wheezes Cardiac Exam: [Normal S1 and S2, no S3 gallop, no murmur.] Abdomen: [Soft, nontender, no megaly, no rebound, no guarding, normal bowel sounds.] Extremities: [No clubbing, no edema, no cyanosis.] Neurological Exam: [No focal neurologic deficit.] Alert and oriented 3. Extremities: No clubbing edema or cyanosis. Psychiatric: Normal mood affect and normal mental status examination. - Labs CBC & Chem 7: 06/02/22 06:05 06/02/22 06:05 Labs: Abnormal Lab Results - Last 24 Hours (Table) 06/01/22 06/01/22 06/02/22 Range/Units 16:26 21:01 06:05 RBC 3.03 L (4.30-5.90) m/uL Hgb 10.3 L (13.0-17.5) gm/dL Hct 31.8 L (39.0-53.0) % MCV 104.8 H (80.0-100.0) fL Plt Count 119 L (150-450) k/uL Lymphocytes # (Manual) 0.83 L (1.0-4.8) k/uL Sodium (137-145) mmol/L BUN (9-20) mg/dL Glucose (74-99) mg/dL POC Glucose (mg/dL) 136 H 132 H (70-110) mg/dL Total Protein (6.3-8.2) g/dL Albumin (3.5-5.0) g/dL 06/02/22 06/02/22 Range/Units 06:05 06:55 RBC (4.30-5.90) m/uL Hgb (13.0-17.5) gm/dL Hct (39.0-53.0) % MCV (80.0-100.0) fL Plt Count (150-450) k/uL Lymphocytes # (Manual) (1.0-4.8) k/uL Sodium 135 L (137-145) mmol/L BUN 21 H (9-20) mg/dL Glucose 149 H (74-99) mg/dL POC Glucose (mg/dL) 126 H (70-110) mg/dL Total Protein 6.1 L (6.3-8.2) g/dL Albumin 3.4 L (3.5-5.0) g/dL Assessment and Plan Assessment: Impression: Status post CABG,,postoperative day #3.off-pump coronary artery bypass graft 2 with left internal mammary artery to the left anterior descending artery and left radial artery graft to the second obtuse marginal, endovascular radial artery harvest, ligation of left atrial appendage with a 35 mm AtriCure clip History of multiple myeloma and 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 Benign essential hypertension obstructive sleep apnea syndrome, on CPAP. 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 GERD without esophagitis. Degenerative joint disease. History of peripheral neuropathy. Recommendation: continue amiodarone as per cardiology, patient is presently on 0.5 mg/m, we will likely transition to oral amiodarone later today. aspirin statins and beta blockers and Plavix. continue ambulation. Continue to monitor daily x-rays of the chest. Continue bronchodilators. We will continue to follow Time with Patient: Less than 30
--- NOTE | 2022-06-02 11:38 | P.PN ---
Subjective Progress Note Date: 06/02/22 No new complaints. Had a fib overnight and still in a fib. Now on amio gtt. Gen: awake, alert HEENT: normocephalic, atraumatic, good hearing acuity, moist mucous membranes Resp: good air exchange, breathing comfortably with no accessory muscle use CVS: good distal perfusion x 4, GI: soft, NTTP, ND : no SPT, no CVAT, dinero catheter not present MSK: no pitting edema, no clubbing Neuro: non-focal, moving all extremities Psych: cooperative, euthymic mood Assessment/plan: Symptomatic multivessel coronary artery disease s/p CABG X 2 FRASER to LAD and left radial to obtuse marginal 05/30/22 Hypertension Dyslipidemia Paroxysmal A Fib - management per cardiothorasic surgery. - ASA, Statin, Plavix, metoprolol - amiodarone gtt per surgery Borderline anemia, iron deficiency, stable at 11.1 - TIBC 481 and T sat 16% (had to call main lab for numbers, did not cross over into system) - IV iron X 1 given on 05/29/22, start oral iron - follow CBC Multiple myeloma -Status post STEM cell transplant. Has been on maintenance Revlimid. Oncology has commented that this may be held until patient is healed from cardiac procedures Peripheral neuropathy - gabapentin COPD, mild FEV1 69% - pulmonary recs - Montelukast Obstructive sleep apnea with CPAP use GERD - PPI Osteoarthritis Heart of hearing Thank you for allowing us to participate in the care of this pleasant patient. Do not hesitate to contact us with questions. Someone can be reached from the [facility] hospitalist group all hours of the day at [phone] or via perfect serve. Objective - Vital Signs Vital signs: Vital Signs Temp 98.9 F 06/02/22 08:00 Pulse 100 06/02/22 11:06 Resp 23 06/02/22 10:00 BP 112/77 06/02/22 10:00 Pulse Ox 91 L 06/02/22 10:00 FiO2 45 05/30/22 17:19 Intake & Output 06/01/22 06/02/22 06/02/22 18:59 06:59 18:59 Intake Total 503 321.389 Output Total 310 390 750 Balance 193 -68.611 -750 Weight 84 kg Intake: IV 23 Lactated Ringers 1,000 ml 20 @ 20 mls/hr IV .Q24H [facility] Rx#:[id number] ns pressure bags 3 Intake, IV Titration 1.389 Amount Amiodarone 450 mg In 1.389 Dextrose 5% in Water 250 ml @ 0.5 MG/MIN 16.667 mls/hr IV .Q15H PRN Rx#: [id number] Oral 480 320 Output: Urine 310 390 750 Post Void Residual 0 Other: Voiding Method Indwelling Catheter Urinal Urinal # Voids 2 ABP, PAP, CO, CI - Last Documented Arterial Blood Pressure 101/47 Pulmonary Artery Pressure 32/14 Cardiac Output 5.6 Cardiac Index 2.9 - Labs CBC & Chem 7: 06/02/22 06:05 06/02/22 06:05 Labs: Abnormal Lab Results - Last 24 Hours (Table) 06/01/22 06/01/22 06/02/22 Range/Units 16:26 21:01 06:05 RBC 3.03 L (4.30-5.90) m/uL Hgb 10.3 L (13.0-17.5) gm/dL Hct 31.8 L (39.0-53.0) % MCV 104.8 H (80.0-100.0) fL Plt Count 119 L (150-450) k/uL Lymphocytes # (Manual) 0.83 L (1.0-4.8) k/uL Sodium (137-145) mmol/L BUN (9-20) mg/dL Glucose (74-99) mg/dL POC Glucose (mg/dL) 136 H 132 H (70-110) mg/dL Total Protein (6.3-8.2) g/dL Albumin (3.5-5.0) g/dL 06/02/22 06/02/22 Range/Units 06:05 06:55 RBC (4.30-5.90) m/uL Hgb (13.0-17.5) gm/dL Hct (39.0-53.0) % MCV (80.0-100.0) fL Plt Count (150-450) k/uL Lymphocytes # (Manual) (1.0-4.8) k/uL Sodium 135 L (137-145) mmol/L BUN 21 H (9-20) mg/dL Glucose 149 H (74-99) mg/dL POC Glucose (mg/dL) 126 H (70-110) mg/dL Total Protein 6.1 L (6.3-8.2) g/dL Albumin 3.4 L (3.5-5.0) g/dL
[2022-06-02 11:41] LABS: Glucose,Whole Blood 152 mg/dL (70-110)
[2022-06-02] MEDS: FERROUS SULFATE 325 MG TAB PO SCH (12:23)
[2022-06-02] MEDS: amLODIPine 2.5 MG TAB PO SCH (12:24)
[2022-06-02] MEDS: GABAPENTIN 300 MG CAP PO SCH (16:12)
[2022-06-02 16:19] LABS: Glucose,Whole Blood 111 mg/dL (70-110)
[2022-06-02 19:59] LABS: Glucose,Whole Blood 123 mg/dL (70-110)
[2022-06-02] MEDS: SENNOSIDES-DOCUSATE SODIUM 1 EACH TAB PO SCH (20:06)
[2022-06-03] MEDS: HEPARIN SODIUM,PORCINE/PF 5,000 UNIT/0.5 ML SYRINGE SQ SCH ×2 (00:29→07:58)
[2022-06-03] MEDS: ACETAMINOPHEN TAB 325 MG TAB PO PRN (02:32)
[2022-06-03 06:09] VITALS: TEMP 97.8
[2022-06-03 06:44] LABS: HCT 30.8 % (39.0-53.0); HGB 9.9 gm/dL (13.0-17.5); Hypochromasia Moderate; MCH 34.3 pg (25.0-35.0); Macrocytosis Moderate; Mean Platelet Volume 9.5; Platelet Count 128 k/uL (150-450); RBC 2.88 m/uL (4.30-5.90); RDW 14.7 % (11.5-15.5); WBC 5.2 k/uL (3.8-10.6)
[2022-06-03 06:51] LABS: Glucose,Whole Blood 114 mg/dL (70-110)
[2022-06-03 06:58] LABS: Calcium 8.5 mg/dL (8.4-10.2); Magnesium 2.1 mg/dL (1.6-2.3); Potassium 3.9 mmol/L (3.5-5.1)
[2022-06-03] MEDS ORDERED: POTASSIUM CHLORIDE ER 20 MEQ TAB.ER PO STA (07:38)
[2022-06-03] MEDS: ATORVASTATIN 40 MG TAB PO SCH (07:57)
[2022-06-03] MEDS: CLOPIDOGREL 75 MG TAB PO SCH (07:58)
[2022-06-03] MEDS: MONTELUKAST 10 MG TAB PO SCH (07:58)
[2022-06-03] MEDS: INSULIN ASPART (NovoLOG) 100 UNIT/ML VIAL SQ SCH ×2 (07:58→12:30)
[2022-06-03] MEDS: METOPROLOL TARTRATE 25 MG TAB PO SCH (07:58)
[2022-06-03] MEDS: MULTIVITAMINS, THERA 1 EACH TAB PO SCH (07:58)
[2022-06-03] MEDS: AMIODARONE 200 MG TAB PO SCH (07:58)
[2022-06-03] MEDS: ASPIRIN 81 MG PO SCH (07:58)
[2022-06-03] MEDS: PANTOPRAZOLE 40 MG TABLET PO SCH (07:58)
[2022-06-03 08:03] VITALS: BP 128/63; RESP 20
--- NOTE | 2022-06-03 08:17 | XR ---
EXAMINATION TYPE: XR chest 2V DATE OF EXAM: 06/03/2022 COMPARISON: 06/02/2022 TECHNIQUE: PA and lateral views submitted. HISTORY: Post cardiac surgery FINDINGS: Postoperative changes with heart size stable. There is patchy bilateral areas of infiltrate and small effusion stable. No pneumothorax. Osseous structures are stable. IMPRESSION: 1. Patchy bilateral infiltrate stable.
--- NOTE | 2022-06-03 08:59 | P.PN ---
Subjective Progress Note Date: 06/03/22 Principal diagnosis: Multi vessel coronary artery disease with in-stent restenosis, accelerating unstable angina. 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 Right ICA stenosis 50-69% by doppler. POD #4 off-pump coronary artery bypass graft 2 with left internal mammary artery to the left anterior descending artery and left radial artery graft to the second obtuse marginal, endovascular radial artery harvest, ligation of left atrial appendage with a 35 mm AtriCure clip Postoperative acute blood loss anemia and thrombocytopenia, expected given hemodilution and preoperative anemia and thrombocytopenia. Atrial fibrillation, a known common occurrence after open heart surgery, not a complication. The patient was seen and examined today 06/03/2022 at his bedside in the intensive care unit. Currently sitting up to the bedside chair, is awake, alert, oriented 3 and is in no acute distress. Denies any complaints of pain or shortness of breath at this time. He remains hemodynamically stable. Bedside telemetry showing normal sinus rhythm heart rate 74 BPM. No further reports of atrial fibrillation. Oxygen saturations are 97% on room air and he is achieving 1250 mL on his incentive spirometry with encouragement. He had been up ambulating in the intensive care unit hallway with standby assistance from nursing and therapy staff. Laboratory results this morning show a WBC co unt of 5.2, hemoglobin 9.9, hematocrit 30.8, platelets 128, sodium 137, potassium 3.9, BUN 22, creatinine 0.95, glucose 113, calcium 8.5 and magnesium 2.1. Chest x-ray was reviewed. He has been afebrile the last 24 hours. He remains on amiodarone 400 mg by mouth twice a day and metoprolol 25 mg by mouth twice a day. Objective - Vital Signs Vital signs: Vital Signs Temp 97.8 F 06/03/22 08:00 Pulse 71 06/03/22 08:00 Resp 20 06/03/22 08:00 BP 128/63 06/03/22 08:00 Pulse Ox 94 L 06/03/22 08:03 FiO2 21 06/03/22 08:03 Intake & Output 06/02/22 06/03/22 06/03/22 18:59 06:59 18:59 Intake Total 730 Output Total 850 650 400 Balance -850 80 -400 Weight 83.2 kg Intake: Intake, IV Titration 250 Amount Amiodarone 450 mg In 250 Dextrose 5% in Water 250 ml @ 0.5 MG/MIN 16.667 mls/hr IV .Q15H PRN Rx#: [id number] Oral 480 Output: Urine 850 650 400 Other: Voiding Method Urinal Urinal Urinal # Voids 2 ABP, PAP, CO, CI - Last Documented Arterial Blood Pressure 101/47 Pulmonary Artery Pressure 32/14 Cardiac Output 5.6 Cardiac Index 2.9 - Exam CONSTITUTIONAL: Appears comfortable, cooperative, no acute distress RESPIRATORY: Lungs sounds essentially clear throughout, diminished to his bilateral bases. Respirations are symmetrical, nonlabored. Currently on room air with oxygen saturation 97%. Able to achieve 1500 mL on incentive spirometry. Strong nonproductive cough. CARDIOVASCULAR: S1, S2 present, negative for S3, gallop or murmur. Regular rate and rhythm. Sternum stable. Palpable peripheral pulses bilaterally. No edema present. No calf pain or tenderness noted. Heart hugger in place with patient demonstrating appropriate use. Antiembolism stockings, SCDs present. GASTROINTESTINAL: Abdomen soft, nontender, nondistended. Active bowel sounds present 4 quadrants. Tolerating diet. Positive flatus. GENITOURINARY: Continues to void, 650 mL of urine output the last 8 hours. INTEGUMENTARY: Skin is warm and dry with no clubbing or cyanosis. Midline sternal chest incision well approximated and covered with dry intact dressing. Left radial artery harvest sites without redness or drainage. Right forearm phlebitis, decreased redness today. NEUROLOGIC: Cranial nerves II through XII intact. No focal deficits. MUSKULOSKELETAL: Able to move all extremities, strength equal bilaterally, gait normal. PSYCHIATRIC: Alert and oriented to person place and time, appropriate affect, intact judgment and insight. - Allied health notes Allied health notes reviewed: nursing - Labs CBC & Chem 7: 06/03/22 06:19 06/03/22 06:19 Labs: Abnormal Lab Results - Last 24 Hours (Table) 06/02/22 06/02/22 06/02/22 Range/Units 06:05 11:39 16:18 RBC (4.30-5.90) m/uL Hgb (13.0-17.5) gm/dL Hct (39.0-53.0) % MCV (80.0-100.0) fL Plt Count (150-450) k/uL Sodium 135 L (137-145) mmol/L BUN 21 H (9-20) mg/dL Glucose 149 H (74-99) mg/dL POC Glucose (mg/dL) 152 H 111 H (70-110) mg/dL Total Protein 6.1 L (6.3-8.2) g/dL Albumin 3.4 L (3.5-5.0) g/dL 06/02/22 06/03/22 06/03/22 Range/Units 19:58 06:19 06:19 RBC 2.88 L (4.30-5.90) m/uL Hgb 9.9 L (13.0-17.5) gm/dL Hct 30.8 L (39.0-53.0) % MCV 107.0 H (80.0-100.0) fL Plt Count 128 L (150-450) k/uL Sodium (137-145) mmol/L BUN 22 H (9-20) mg/dL Glucose 113 H (74-99) mg/dL POC Glucose (mg/dL) 123 H (70-110) mg/dL Total Protein (6.3-8.2) g/dL Albumin (3.5-5.0) g/dL 06/03/22 Range/Units 06:49 RBC (4.30-5.90) m/uL Hgb (13.0-17.5) gm/dL Hct (39.0-53.0) % MCV (80.0-100.0) fL Plt Count (150-450) k/uL Sodium (137-145) mmol/L BUN (9-20) mg/dL Glucose (74-99) mg/dL POC Glucose (mg/dL) 114 H (70-110) mg/dL Total Protein (6.3-8.2) g/dL Albumin (3.5-5.0) g/dL - Imaging and Cardiology Chest x-ray: report reviewed, image reviewed Assessment and Plan Assessment: 1. Multi vessel coronary artery disease with in-stent restenosis, accelerating unstable angina, status post two-vessel off-pump CABG 2. History of coronary artery disease with previous PCI in 05/2015 and 08/2021 with restenosis of stent to LAD 3. Hypertension 4. Hyperlipidemia, treated, cholesterol 119, LDL 45 5. Multiple myeloma with history of stem cell transplant in October 2020 status post chemotherapy and radiation treatments currently on Revlimid (stopped 05/26/22) 6. Anemia, thrombocytopenia 7. Peripheral neuropathy 8. 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 Obstructive sleep apnea with home CPAP use 10. Previous tobacco dependence 11. 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 GERD 13. Osteoarthritis with history of left hip replacement 14. Recent basal cell skin cancer with removal 15. Hard of hearing 16. Vaccinated but not boosted against Covid-19 17. Right internal carotid artery stenosis 50-69% 18. Acute blood loss anemia and thrombocytopenia, expected 19. Atrial fibrillation, status post left atrial appendage ligation Plan: 1. Continue aspirin, statin, Plavix and beta tone. Will increase beta tone therapy as tolerated. 2. Continue amlodipine 2.5 mg by mouth daily at noon for radial artery spasm prophylaxis with blood pressure parameters. 3. Continue amiodarone 400 mg by mouth twice a day for atrial fibrillation prophylaxis. No anticoagulation unless in atrial fibrillation for greater than 24 hours. 4. Encourage incentive spirometry use 10 times every hour while awake. Bronchodilators, cpap per pulmonology 5. Increase activity, ambulate as tolerated. PT/OT/cardiac rehab following. Shower daily. 6. Will monitor daily labs and chest x-rays. Electrolyte replacement per protocol. 7. Insulin management per internal medicine. Patient is not diabetic, preoperative hemoglobin A1c 5.7%. Patient does need tight blood sugar control to promote healing and prevent infection 8. Pain control per current medication regimen 9. Continue to hold Revlimid, will hold Revlimid for 2 months postoperatively. 10. Strict accurate intake and output. Daily weights. 11. Anticipate discharge to home today with [facility] home [facility] care. 12. More recommendations to follow based on patient's clinical course. Time with Patient: Greater than 30
[2022-06-03] MEDS: IPRATROPIUM-ALBUTEROL 3 ML NEB INHALATION SCH ×2 (09:20→12:12)
[2022-06-03 09:53] VITALS: PULSE 89
--- NOTE | 2022-06-03 10:12 | P.PN ---
Subjective PROGRESS NOTE The patient is an 82-year-old male with a history of CAD, hypertension who has been followed by Dr. Smyth and presented with symptoms of chest discomfort, underwent cardiac catheterization and was found to have severe in-stent resteno sis at the ostium of the LAD. He is scheduled to undergo CABG on Monday. He had mild chest discomfort this morning but is feeling better now. He continues to be on IV heparin. May 28: The patient is doing well this morning, he had mild discomfort earlier but pain- free now. He continues to be on IV heparin. His scheduled to undergo surgery on Monday. He is ambulating in his room. He continues to be on IV heparin. His breathing is stable. He denies any nausea or vomiting. May 29: He had mild discomfort in the morning with minimal activity, he is pain-free at this time. He continues to be on IV heparin, nitrate and beta tone. His breathing is stable. He denies any dizziness or palpitations. No nausea. He is scheduled to undergo CABG tomorrow. 05/31 Patient underwent off pump CABG with FRASER to LAD and left radial to OM 2 with ligation of the left atrial appendage 05/30. He has been doing well. He denies any chest pain or pressure. His [place] catheter was pulled this morning. Blood pressures somewhat borderline 90s over 50s however off of any pressors. He remains on Cardizem drip at 5. 06/01 Patient seen and examined. Patient's blood pressure is borderline 90s to 100s over 50s however no lightheadedness or dizziness. Denies any chest pain. Den ies any shortness of breath. Remains in sinus rhythm on telemetry. 06/02 Patient seen and examined. Patient states his breathing is stable. He admits to reproducible chest pain however no other discomfort. He went into atrial flutter with relatively controlled heart rates in the 90s overnight. He was placed on amiodarone drip. No prior history of atrial flutter atrial fibrillation. 06/03 Patient seen and examined. Patient denies any chest pain or pressure. He converted back to sinus rhythm. Denies any shortness of breath. Anxious to go home. PHYSICAL EXAMINATION: Vitals reviewed LUNGS: Clear to auscultation HEART: Regular rate and rhythm, S1, S2. No S3. systolic ejection murmur ABDOMEN: Soft, nontender, no organomegaly EXTREMETIES: No edema, IMPRESSION: 1. Unstable angina with severe in-stent restenosis of the ostium of the LAD, s/p CABG FRASER to LAD and left radial to OM2 05/30 2. Hyperlipidemia 3. Prior history of smoking 4. History of multiple myeloma status post cell transplant 5. New onset Atrial flutter PLAN: Patient appears to be progressing well after CABG. Appears stable for discharge home today with outpatient follow-up. No anticoagulation at this time however if has recurrent atrial flutter would likely consider anticoagulation. Objective - Vital Signs Vital signs: Vital Signs Temp 97.8 F 06/03/22 08:00 Pulse 89 06/03/22 09:40 Resp 20 06/03/22 08:00 BP 128/63 06/03/22 08:00 Pulse Ox 96 06/03/22 09:20 FiO2 21 06/03/22 08:03 Intake & Output 06/02/22 06/03/22 06/03/22 18:59 06:59 18:59 Intake Total 730 Output Total 850 650 400 Balance -850 80 -400 Weight 83.2 kg Intake: Intake, IV Titration 250 Amount Amiodarone 450 mg In 250 Dextrose 5% in Water 250 ml @ 0.5 MG/MIN 16.667 mls/hr IV .Q15H PRN Rx#: [id number] Oral 480 Output: Urine 850 650 400 Other: Voiding Method Urinal Urinal Urinal # Voids 2 ABP, PAP, CO, CI - Last Documented Arterial Blood Pressure 101/47 Pulmonary Artery Pressure 32/14 Cardiac Output 5.6 Cardiac Index 2.9 - Labs CBC & Chem 7: 06/03/22 06:19 06/03/22 06:19 Labs: Abnormal Lab Results - Last 24 Hours (Table) 06/02/22 06/02/22 06/02/22 Range/Units 11:39 16:18 19:58 RBC (4.30-5.90) m/uL Hgb (13.0-17.5) gm/dL Hct (39.0-53.0) % MCV (80.0-100.0) fL Plt Count (150-450) k/uL BUN (9-20) mg/dL Glucose (74-99) mg/dL POC Glucose (mg/dL) 152 H 111 H 123 H (70-110) mg/dL 12/23/22 12/23/22 12/23/22 Range/Units 06:19 06:19 06:49 RBC 2.88 L (4.30-5.90) m/uL Hgb 9.9 L (13.0-17.5) gm/dL Hct 30.8 L (39.0-53.0) % MCV 107.0 H (80.0-100.0) fL Plt Count 128 L (150-450) k/uL BUN 22 H (9-20) mg/dL Glucose 113 H (74-99) mg/dL POC Glucose (mg/dL) 114 H (70-110) mg/dL
[2022-06-03] MEDS ORDERED: HYDROcodone/APAP 5-325MG 1 EACH TAB PO STA (10:23)
--- NOTE | 2022-06-03 11:24 | P.PN ---
Subjective Progress Note Date: 06/03/22 No new complaints. Back in sinus rhythm. Medically cleared for discharge. Gen: awake, alert HEENT: normocephalic, atraumatic, good hearing acuity, moist mucous membranes Resp: good air exchange, breathing comfortably with no accessory muscle use CVS: good distal perfusion x 4, GI: soft, NTTP, ND : no SPT, no CVAT, dinero catheter not present MSK: no pitting edema, no clubbing Neuro: non-focal, moving all extremities Psych: cooperative, euthymic mood Assessment/plan: Symptomatic multivessel coronary artery disease s/p CABG X 2 FRASER to LAD and left radial to obtuse marginal 05/30/22 Hypertension Dyslipidemia Paroxysmal A Fib - management per cardiothorasic surgery. - ASA, Statin, Plavix, metoprolol - amiodarone gtt per surgery Borderline anemia, iron deficiency, stable at 11.1 - TIBC 481 and T sat 16% (had to call main lab for numbers, did not cross over into system) - IV iron X 1 given on 05/29/22, start oral iron - follow CBC Multiple myeloma -Status post STEM cell transplant. Has been on maintenance Revlimid. Oncology has commented that this may be held until patient is healed from cardiac procedures Peripheral neuropathy - gabapentin COPD, mild FEV1 69% - pulmonary recs - Montelukast Obstructive sleep apnea with CPAP use GERD - PPI Osteoarthritis Heart of hearing Thank you for allowing us to participate in the care of this pleasant patient. Do not hesitate to contact us with questions. Someone can be reached from the [facility] hospitalist group all hours of the day at [phone] or via perfect serve. Objective - Vital Signs Vital signs: Vital Signs Temp 97.8 F 06/03/22 08:00 Pulse 89 06/03/22 09:40 Resp 20 06/03/22 08:00 BP 128/63 06/03/22 08:00 Pulse Ox 96 06/03/22 09:20 FiO2 21 06/03/22 08:03 Intake & Output 06/02/22 06/03/22 06/03/22 18:59 06:59 18:59 Intake Total 730 Output Total 850 650 400 Balance -850 80 -400 Weight 83.2 kg Intake: Intake, IV Titration 250 Amount Amiodarone 450 mg In 250 Dextrose 5% in Water 250 ml @ 0.5 MG/MIN 16.667 mls/hr IV .Q15H PRN Rx#: [id number] Oral 480 Output: Urine 850 650 400 Other: Voiding Method Urinal Urinal Urinal # Voids 2 ABP, PAP, CO, CI - Last Documented Arterial Blood Pressure 101/47 Pulmonary Artery Pressure 32/14 Cardiac Output 5.6 Cardiac Index 2.9 - Labs CBC & Chem 7: 06/03/22 06:19 06/03/22 06:19 Labs: Abnormal Lab Results - Last 24 Hours (Table) 06/02/22 06/02/22 06/02/22 Range/Units 11:39 16:18 19:58 RBC (4.30-5.90) m/uL Hgb (13.0-17.5) gm/dL Hct (39.0-53.0) % MCV (80.0-100.0) fL Plt Count (150-450) k/uL BUN (9-20) mg/dL Glucose (74-99) mg/dL POC Glucose (mg/dL) 152 H 111 H 123 H (70-110) mg/dL 06/03/22 06/03/22 06/03/22 Range/Units 06:19 06:19 06:49 RBC 2.88 L (4.30-5.90) m/uL Hgb 9.9 L (13.0-17.5) gm/dL Hct 30.8 L (39.0-53.0) % MCV 107.0 H (80.0-100.0) fL Plt Count 128 L (150-450) k/uL BUN 22 H (9-20) mg/dL Glucose 113 H (74-99) mg/dL POC Glucose (mg/dL) 114 H (70-110) mg/dL
--- NOTE | 2022-06-03 11:36 | P.DS ---
Providers Date of admission: 05/30/22 06:55 Expected date of discharge: 06/03/22 Attending physician: Conor Wells Consults: 05/26/22 11:50 Consult Physician Urgent Consulting Provider: Conor Wells Consult Reason/Comments: OPEN HEART CONSULT Do you want consulting provider notified?: Yes 05/26/22 11:52 Consult Physician Urgent Consulting Provider: Willy Bush Consult Reason/Comments: OPEN HEART CONSULT WITH STEM CALL TRANSPLANT HISTORY Do you want consulting provider notified?: Yes 05/27/22 10:36 Consult Physician Routine Consulting Provider: Marina Smith Consult Reason/Comments: medical management Do you want consulting provider notified?: Already Contacted 05/27/22 11:38 Consult Physician Routine Consulting Provider: Aide Bates Consult Reason/Comments: pulm clearance for CABG Do you want consulting provider notified?: Already Contacted 05/29/22 07:19 Consult to Anesthesia Routine Consulting Provider: Anesthesia,Services Consult Reason/Comments: Cardiac Surgery Pre-Op 05/30/22 12:16 Consult Physician Routine Consulting Provider: Lucian Forbes 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 Course: FINAL DIAGNOSIS: 1. Multi vessel coronary artery disease with in-stent restenosis, accelerating unstable angina, status post two-vessel off-pump CABG 2. History of coronary artery disease with previous PCI in 05/2015 and 08/2021 with restenosis of stent to LAD 3. Hypertension 4. Hyperlipidemia, treated, cholesterol 119, LDL 45 5. Multiple myeloma with history of stem cell transplant in October 2020 status post chemotherapy and radiation treatments currently on Revlimid (stopped 05/26/22) 6. Anemia, thrombocytopenia 7. Peripheral neuropathy 8. 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 Obstructive sleep apnea with home CPAP use 10. Remote history of tobacco dependence 11. Mild lung disease, preoperative FEV1 69% of predicted value 12. GERD 13. Osteoarthritis with history of left hip replacement 14. Recent basal cell skin cancer with removal 15. Hard of hearing 16. Vaccinated but not boosted against Covid-19 17. Right internal carotid artery stenosis 50-69% 18. Acute blood loss anemia and thrombocytopenia, expected 19. Atrial fibrillation, status post left atrial appendage ligation PRINCIPAL PROCEDURE: 1. Left heart catheterization, coronary angiography performed by Dr. MARISOL Smyth 2. Off-pump coronary artery bypass graft 2 with left internal mammary artery to left anterior descending coronary artery and a left radial artery graft to the second obtuse marginal coronary artery 3. Endovascular radial artery harvest 4. Ligation of the left atrial appendage with a 35 mm Atricure clip 5. Intraoperative transesophageal echocardiogram performed by anesthesia HISTORY OF PRESENT ILLNESS: This is an 82-year-old gentleman who follows on an outpatient basis first primary care service with Dr. Burak Raman, he also follows with Dr. MARISOL Smyth for his cardiology care and Dr. Bates for his pulmonary care. Recently, the patient reports he has been having episodes of chest pain with associated shortness of breath with activity. Subsequently, he underwent a dobutamine stress echocardiography on 05/17/[address] segment depression and subjective symptoms of angina and abnormal dobutamine stress echo was absence of increased contractility and wall motion and wall thickening with dobutamine administration suggestive of ischemia. Due to his recent symptoms and results of his dobutamine stress test it was recommended he undergo a cardiac catheterization for further evaluation. On 05/26/2022 a cardiac catheterization was completed which demonstrated an 85% stenosis to a circumflex coronary artery and a 99% stenosis to his proximal left anterior descending coronary artery with restenosis of his stent to his left anterior descending coronary artery. A transthoracic 2-D echocardiogram was also completed on 05/27/2022 which demonstrated a left ventricular ejection fraction to be estimated at 55%, and abnormal left ventricular diastolic filling pattern, mild mitral valve regurgitation, moderate mitral annular calcification, minimal mitral valve stenosis, mild aortic valve regurgitation, mild aortic valve stenosis with a peak gradient of 19 mmHg, a mean gradient of 11 mmHg, moderately calcified aortic valve, mild tricuspid valve regurgitation, trace pulmonic regurgitation, no pericardial effusion and a normal size aortic root and proximal ascending aorta. The findings on the above-mentioned studies were reviewed with the patient and his family present at his bedside by Dr. MARISOL Smyth and a consult was placed to Dr. Conor Wells from cardiothoracic surgery for further evaluation and treatment recommendations including myocardial revascularization surgery. Treatment options were discussed with the patient including myocardial revascularization surgery, risks and benefits of surgery including the STS risk score were discussed with the patient. Knowing and understanding the risks the patient wished to proceed with the surgical option. HOSPITAL COURSE: The patient was admitted to the hospital, and after obtaining consent was taken to the operating room on 05/30/2022, prepared in the usual fashion and subsequently taken to the operating room were Dr. Conor Wells performed a two-vessel off-pump CABG. Upon completion of the surgery the patient was transferred to the cardiovascular intensive care unit where he was recovered and monitored hemodynamically. He was extubated, all lines, tubes and supportive drips were discontinued when appropriate. Transfer orders were placed to the third floor cardiac stepdown unit, however there was no bed availability and the patient remained in the intensive care unit as a stepdown patient until discharge. Postoperatively the patient had some paroxysmal atrial fibrillation which is a known common occurrence after cardiac surgery which was controlled with amiodarone. His oxygen was titrated down, he continued to work with physical, occupational therapy, cardiac rehabilitation, he was tolerating an oral diet, his pain was well-controlled and he is ready to be discharged home on postoperative day #4 with home health care. He has received written and verbal instructions regarding his medications, activity restrictions, signs and symptoms requiring physician notification and his follow-up appointments. Plan - Discharge Summary Discharge Rx Participant: Yes New Discharge Prescriptions: New amLODIPine [Norvasc] 2.5 mg PO DAILY@1200 #30 tab Clopidogrel [Plavix] 75 mg PO DAILY #30 tab Sennosides-Docusate Sodium [Senokot-S] 2 each PO HS #14 tab Acetaminophen Tab [Tylenol] 650 mg PO Q4HR PRN tab PRN Reason: Fever And/ Or Pain Amiodarone [Cordarone] 400 mg PO BID #47 tab Ferrous Sulfate [Iron (65 MG Elemental)] 325 mg PO W/LUNCH #14 tab Metoprolol Tartrate [Lopressor] 25 mg PO BID #60 tab Continue Multivitamin [Men's Multi-Vitamin] 1 tab PO DAILY Aspirin 81 mg PO DAILY Omeprazole [PriLOSEC] 20 mg PO AC-BRKFST Atorvastatin [Lipitor] 80 mg PO HS #0 Gabapentin 300 mg PO 1700 Montelukast [Singulair] 10 mg PO DAILY Calcium Carbonate/Vitamin D3 [Calcium 600 mg-D3 10 Mcg (400 Iu)] 1 each PO DAILY Discontinued Ticagrelor [Brilinta] 90 mg PO BID #180 tab Famotidine [Pepcid] 20 mg PO BID Metoprolol Succinate (ER) [Toprol Xl] 12.5 mg PO DAILY Lenalidomide [Revlimid] 10 mg PO DAILY Isosorbide Mononitrate [Isosorbide Mononitrate ER] 15 mg PO 1200 Acyclovir [Zovirax] 800 mg PO BID Discharge Medication List Aspirin 81 mg PO DAILY 05/12/15 [History] Multivitamin [Men's Multi-Vitamin] 1 tab PO DAILY 05/12/15 [History] Montelukast [Singulair] 10 mg PO DAILY 09/03/21 [History] Omeprazole [PriLOSEC] 20 mg PO AC-BRKFST 09/03/21 [History] Atorvastatin [Lipitor] 80 mg PO HS #0 09/09/21 [Rx] Gabapentin 300 mg PO 1700 02/10/22 [History] Calcium Carbonate/Vitamin D3 [Calcium 600 mg-D3 10 Mcg (400 Iu)] 1 each PO DAILY 05/24/22 [History] Acetaminophen Tab [Tylenol] 650 mg PO Q4HR PRN tab 06/03/22 [Rx] Amiodarone [Cordarone] 400 mg PO BID #47 tab 06/03/22 [Rx] Clopidogrel [Plavix] 75 mg PO DAILY #30 tab 06/03/22 [Rx] Ferrous Sulfate [Iron (65 MG Elemental)] 325 mg PO W/LUNCH #14 tab 06/03/22 [Rx] Metoprolol Tartrate [Lopressor] 25 mg PO BID #60 tab 06/03/22 [Rx] Sennosides-Docusate Sodium [Senokot-S] 2 each PO HS #14 tab 06/03/22 [Rx] amLODIPine [Norvasc] 2.5 mg PO DAILY@1200 #30 tab 06/03/22 [Rx] Follow up Appointment(s)/Referral(s): Willy Bush MD [STAFF PHYSICIAN] - 08/03/22 1:15 pm (Appointment is at [facility] [place] office.) Alina Newsome NPC [Nurse Practitioner] - 06/10/22 10:30 am (You will be seen in the surgeon's office behind the hospital in [facility], [place], [address] Office phone number is ) Richardson Smyth MD [STAFF PHYSICIAN] - (Office will call with appointment) Rehab Joann OVALLE,Cardiac [NON-STAFF] - 4 Weeks (You will receive a phone call in approximately 4-6 weeks for evaluation for cardiac rehab) Conor Wells MD [STAFF PHYSICIAN] - 06/30/22 12:00 pm Aide Bates MD [STAFF PHYSICIAN] - 07/01/22 1:00 pm [facility], [NON-STAFF] - ([facility] will contact you to arrange a visit) [facility]Clinic [Primary Care Provider] - 06/22/22 9:00 am (Appointment is with Juanis) Ambulatory/Diagnostic Orders: Complete Blood Count w/diff [LAB.AMB] Time Frame: 06/06/22, Facility: [facility], Location: Laboratory [facility] Comprehensive Metabolic Panel [LAB.AMB] Time Frame: 06/06/22, Facility: [facility], Location: Laboratory [facility] Activity/Diet/Wound Care/Special Instructions: DISCHARGE INSTRUCTIONS: 1. No driving for 4 weeks, or until physician gives their ok. 2. The patient should sleep in their own bed, no medical bed needed. 3. Stairs are not an issue. If the bedroom is upstairs, it is advised that the patient go up at night and down in the morning for the first week. Go slowly, using handrail and take 1 step at a time. 4. AMNA hose are to be worn for 30 days post surgery or until physician discontinues. 5. Heart hugger is to be worn 100% of the time until physician discontinues.(except when showering) 6. No lifting, pushing, or pulling more than 10 pounds for 12 weeks. The physician will advise of any restriction changes. 7. The patient is expected to continue the prescribed walking program. 8. Continue pain control per as needed orders. 9. Continue with incentive spirometry and splinting/heart hugger until otherwise directed by the physician. 10. Must shower daily using liquid antibacterial soap 11. Routine sternal incision care. No powders, lotions, ointments on incisions. No dressings are necessary on incisions unless they are draining. Dermabond tape is to remain on sternal incision until surgeon follow-up. 12. Please call surgeon/BOX PRINTING MACHINE OPERATOR for temp greater than 101 F or purulent drainage from incisions. 13. You should weigh yourself daily, record and bring log with you to follow up appointments. 14. All prescriptions given by surgeon for 30 days. Refills need to be filled through transport conductor/primary care physician. 15. A Red armband has been placed on the patient. It should be worn for 30 days post discharge from surgery and will be removed by the cardiac surgeons. If an ER visit is necessary, please make sure the number on the Red armband is called before going to ER. 16. You have been referred to and are expected to begin Cardiac Rehab in approximately 4-6 weeks. HOME HEALTH SERVICES TO PROVIDE: RN SKILLED HOME CARE SERVICES FOR POST-OP SURGICAL PATIENTS WITH THE FOLLOWING: Coronary Artery Bypass Surgery (CABG), Mitral Valve Replacement/Repair ( MVR), Aortic Valve Replacement/Repair (AVR) RN TO CONTINUE EDUCATION FROM ``ROAD TO A HEALTH HEART PATIENT EDUCATION MANUAL (GIVEN TO PATIENT IN THE HOSPITAL) MEDICATION RECONCILIATION WITH EDUCATION NEEDED ON FIRST HOME VISIT EMPHASIZE IMPORTANCE OF WEARING BREAST SUPPORT/HEART HUGGER ENCOURAGE USE OF INCENTIVE SPIROMETER 10 X EVERY HOUR WHILE AWAKE ENCOURAGE UTILIZATION OF LOWER EXTREMITY COMPRESSION STOCKINGS/AMNA HOSE and ELEVATE LEGS ABOVE LEVEL OF HEART WHILE AT REST. ENCOURAGE AMBULATION 3-5x/day INCREASING TOLERATES, WHILE AVOIDING EXTREMES IN TEMPERATURE FREQUENCY: RN TO OPEN THE PATIENT WITHIN 24 HOURS OF DISCHARGE FROM THE HOSPITAL WITH TELEHEALTH INSTALLED AT [facility] [place], RN TO VISIT 2-3 X A WEEK FOR 4 WEEKS ESTABLISHED BY PATIENT NEEDS. LABORATORY: CBC, CMP TO BE DRAWN ON THE THIRD DAY HOME, (RAN STAT) FAX RESULTS TO [phone]. TELEHEALTH PARAMETERS: WEIGHT: NOTIFY MD OF WEIGHT GAIN OF 2 LBS IN 24 HOURS OR 5 LBS IN ONE WEEK HR: NOTIFY MD OF HR <55 BPM OR HR>100 BPM BP: NOTIFY MD IF BP <90/55 OR BP>140/100 O2 SAT: NOTIFY MD IF PO2<93% ON ROOM AIR SEND TELEHEALTH REPORT TO BEHAVIORAL CONSULTANT AND CARDIOVASCULAR SURGEON THE FIRST WEEK OF CARE AND THEN BI-WEEKLY. PLEASE ADDITIONALLY COMMUNICATE ANY ABNORMALS AND NEW FINDINGS TO THE SURGEONS OFFICE. Hold Revlimid for 2 months from 05/30/2022 until surgical incision healed, then ok to resume per oncology Discharge Disposition: HOME WITH HOME HEALTH SERVICES
[2022-06-03] MEDS: amLODIPine 2.5 MG TAB PO SCH (11:38)
[2022-06-03] MEDS: FERROUS SULFATE 325 MG TAB PO SCH (11:38)
--- NOTE | 2022-06-03 12:24 | P.PN ---
Subjective Progress Note Date: 06/03/22 Principal diagnosis: POD #4 off-pump coronary artery bypass graft 2 with left internal mammary artery to the left anterior descending artery and left radial artery graft to the second obtuse marginal, endovascular radial artery harvest, ligation of left atrial appendage with a 35 mm AtriCure clip reevaluated today on 05/31/22, patient is postoperative day #1, off pump cor onary artery bypass graft 2. FRASER to LAD, and left radial artery to second obtuse marginal branch. Patient was extubated last night a few hours after he arrived to the ICU, and he tolerated the extubation well. Presently patient is sitting in a bedside chair, asymptomatic, he is 5 L nasal cannula with O2 sats of 93% up to 97%. Chest x-ray showed mostly typical postoperative changes, mediastinal drains and tubes/chest tubes are in proper position. No evidence of pneumothoraces. And no evidence of CHF. Patient does have minimal bibasilar atelectasis patient is doing great with incentive spirometry, almost achieving 2000 ml/effort. Labs today are unremarkable WBC is 4.1 hemoglobin is 11.1. electrolytes are Normal renal profile is normal. Overall the patient is doing great, he is not in any distress. Patient is on Cardizem drip at 5 mg per hour, IV fluids at KVO, and his hemodynamic parameters this morning showed a cardiac output of 5.6 cardiac index of 2.9. Pulmonary artery pressure is 32/11 Reevaluated today on 06/01/22, patient remains in the ICU, he is on 4 L nasal cannula, his chest tubes and mediastinal tube has been removed. Patient is doing great, asymptomatic, he is already ambulating with some assistance down the hallway. His chest x-ray is reassuring, minimal left basilar atelectasis is noted. Patient is doing excellent with his incentive spirometer. His CBC is normal hemoglobin is 10.2 units with are normal renal profile is normal with BUN of 21 creatinine 1.21 reevaluated today on 06/02/22, patient is sitting in a bedside chair, doing well, however last night patient had atrial fibrillation with RVR, required placement on amiodarone, and he remains on amiodarone drip at 0.5 mg/m at this point.patient is on room air, O2 saturation is 91%, he is relatively asymptomatic, no cough no wheezing no shortness of breath, chest x-ray showed mostly by basilar atelectasis left more so than right.WBC count is 4.6 hemoglobin is 10 electrolytes are normal renal profile is normal Reevaluated today on 06/03/22, patient is doing great, he is on room air, patient is being considered for discharge home he is in sinus rhythm, no specific complaints. Seen by surgery, and the plan is to discharge the patient home today. Objective - Vital Signs Vital signs: Vital Signs Temp 97.8 F 06/03/22 08:00 Pulse 89 06/03/22 09:40 Resp 20 06/03/22 08:00 BP 128/63 06/03/22 08:00 Pulse Ox 96 06/03/22 09:20 FiO2 21 06/03/22 08:03 Intake & Output 06/02/22 06/03/22 06/03/22 18:59 06:59 18:59 Intake Total 730 Output Total 850 650 500 Balance -850 80 -500 Weight 83.2 kg Intake: Intake, IV Titration 250 Amount Amiodarone 450 mg In 250 Dextrose 5% in Water 250 ml @ 0.5 MG/MIN 16.667 mls/hr IV .Q15H PRN Rx#: [id number] Oral 480 Output: Urine 850 650 500 Other: Voiding Method Urinal Urinal Urinal # Voids 2 # Bowel Movements 1 ABP, PAP, CO, CI - Last Documented Arterial Blood Pressure 101/47 Pulmonary Artery Pressure 32/14 Cardiac Output 5.6 Cardiac Index 2.9 - Exam Physical Exam: Revealed a 82-year-old white male in no distress. presently on room air, in no distress Head: Atraumatic, normocephalic. HEENT:[Neck is supple.] [No neck masses.] [No thyromegaly.] [No JVD.] Chest: [ Diminished breath sounds at the bases no crackles or rhonchi or wheezes Cardiac Exam: Regular rate and rhythm [Normal S1 and S2, no S3 gallop, no murmur.] Abdomen: [Soft, nontender, no megaly, no rebound, no guarding, normal bowel sounds.] Extremities: [No clubbing, no edema, no cyanosis.] Neurological Exam: [No focal neurologic deficit.] Alert and oriented 3. Extremities: No clubbing edema or cyanosis. Psychiatric: Normal mood affect and normal mental status examination. - Labs CBC & Chem 7: 06/03/22 06:19 06/03/22 06:19 Labs: Abnormal Lab Results - Last 24 Hours (Table) 06/02/22 06/02/22 06/03/22 Range/Units 16:18 19:58 06:19 RBC 2.88 L (4.30-5.90) m/uL Hgb 9.9 L (13.0-17.5) gm/dL Hct 30.8 L (39.0-53.0) % MCV 107.0 H (80.0-100.0) fL Plt Count 128 L (150-450) k/uL BUN (9-20) mg/dL Glucose (74-99) mg/dL POC Glucose (mg/dL) 111 H 123 H (70-110) mg/dL 06/03/22 06/03/22 Range/Units 06:19 06:49 RBC (4.30-5.90) m/uL Hgb (13.0-17.5) gm/dL Hct (39.0-53.0) % MCV (80.0-100.0) fL Plt Count (150-450) k/uL BUN 22 H (9-20) mg/dL Glucose 113 H (74-99) mg/dL POC Glucose (mg/dL) 114 H (70-110) mg/dL Assessment and Plan Assessment: Impression: Status post CABG,,postoperative day #4 off-pump coronary artery bypass graft 2 with left internal mammary artery to the left anterior descending artery and left radial artery graft to the second obtuse marginal, endovascular radial artery harvest, ligation of left atrial appendage with a 35 mm AtriCure clip History of multiple myeloma and 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 Benign essential hypertension obstructive sleep apnea syndrome, on CPAP. 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 GERD without esophagitis. Degenerative joint disease. History of peripheral neuropathy. Recommendation: Continue present supportive care measures Agree with discharge planning Follow-up on outpatient basis Time with Patient: Less than 30
== END 2022-06-03 13:07 | disposition home health service (06) | DRG 234 ==
LOC: CATHCVL 08:17 → 3SCARD 11:31 → CATHCVL 05-30 06:55 → 3SCARD 05-30 06:55 → 2SICU 05-30 07:05
PROVIDERS: ADMIT Thoracic Surgery (Cardiothoracic Vascular Surgery); ATTEND Thoracic Surgery (Cardiothoracic Vascular Surgery)
PROC: 4A023N7 Measurement of Cardiac Sampling and Pressure, Left Heart, Percutaneous Approach (ICD-10-PCS; 2022-05-26)
PROC: B2111ZZ Fluoroscopy of Multiple Coronary Arteries using Low Osmolar Contrast (ICD-10-PCS; 2022-05-26)
PROC: 03BB4ZZ Excision of Right Radial Artery, Percutaneous Endoscopic Approach (ICD-10-PCS; 2022-05-30)
PROC: 02L70CK Occlusion of Left Atrial Appendage with Extraluminal Device, Open Approach (ICD-10-PCS; 2022-05-30)
PROC: 02100Z9 Bypass Coronary Artery, One Artery from Left Internal Mammary, Open Approach (ICD-10-PCS; principal; 2022-05-30 07:30)
PROC: 02100A3 Bypass Coronary Artery, One Artery from Coronary Artery with Autologous Arterial Tissue, Open Approach (ICD-10-PCS; 2022-05-30 07:30)
DX: T82.855A Stenosis of coronary artery stent, initial encounter (principal); Z94.84 Stem cells transplant status; I48.92 Unspecified atrial flutter; D62 Acute posthemorrhagic anemia; C90.01 Multiple myeloma in remission; I25.110 Atherosclerotic heart disease of native coronary artery with unstable angina pectoris; G95.29 Other cord compression; J44.9 Chronic obstructive pulmonary disease, unspecified; D69.59 Other secondary thrombocytopenia; I10 Essential (primary) hypertension; I08.0 Rheumatic disorders of both mitral and aortic valves; D50.9 Iron deficiency anemia, unspecified; I65.21 Occlusion and stenosis of right carotid artery; G62.0 Drug-induced polyneuropathy; M48.04 Spinal stenosis, thoracic region; I48.0 Paroxysmal atrial fibrillation; E78.5 Hyperlipidemia, unspecified; H91.93 Unspecified hearing loss, bilateral; K21.9 Gastro-esophageal reflux disease without esophagitis; M19.90 Unspecified osteoarthritis, unspecified site; G47.33 Obstructive sleep apnea (adult) (pediatric); R01.1 Cardiac murmur, unspecified; T45.1X5A Adverse effect of antineoplastic and immunosuppressive drugs, initial encounter; Y71.1 Therapeutic (nonsurgical) and rehabilitative cardiovascular devices associated with adverse incidents; Z96.642 Presence of left artificial hip joint; Z86.19 Personal history of other infectious and parasitic diseases; T45.1X5S Adverse effect of antineoplastic and immunosuppressive drugs, sequela; Z79.02 Long term (current) use of antithrombotics/antiplatelets; Z88.6 Allergy status to analgesic agent; Z92.21 Personal history of antineoplastic chemotherapy; Z92.3 Personal history of irradiation; Z87.891 Personal history of nicotine dependence; Z87.01 Personal history of pneumonia (recurrent); Z85.828 Personal history of other malignant neoplasm of skin; Z82.49 Family history of ischemic heart disease and other diseases of the circulatory system; Z79.899 Other long term (current) drug therapy; Z79.82 Long term (current) use of aspirin; Z97.4 Presence of external hearing-aid
CPT/HCPCS: 71045; 71046; 80048; 80053; 80061; 81003; 82330; 82805; 83036; 83735; 84443; 85025; 85027; 85520; 85610; 85730; 86891; 87070; 93306; 93458; 93880; 93970; 94002; 94150; 94640